=== PATIENT | male | born 1935 | race Caucasian/White ===

== ENCOUNTER → 2018-08-22 16:27 | Outpatient (CLI) | payer MEDICARE, SELFPAY ==
--- NOTE | 2018-08-22 | DI.RAD.S_ITS ---
PROCEDURE: XR KNEE LT 3V INDICATIONS: PAIN IN UNSPECIFIED KNEE TECHNIQUE: 3 views of the knee were acquired. COMPARISON: None. FINDINGS: Bones: No fractures or dislocations. No suspicious bony lesions. Patellofemoral osteophytes. Soft tissues: No joint effusion. No suspicious soft tissue calcifications. Diffuse arterial calcifications. IMPRESSION: No acute bony abnormality of the left knee. Patellofemoral degenerative change. Peripheral vascular disease. Dictated by: Vargas Vernon M.D. on 08/23/2018 at 9:43 Approved by: Vargas Vernon M.D. on 08/23/2018 at 9:44
--- NOTE | 2018-08-22 | DI.RAD.S_ITS ---
PROCEDURE: XR KNEE RT 3V INDICATIONS: PAIN IN UNSPECIFIED KNEE TECHNIQUE: 3 views of the knee were acquired. COMPARISON: None. FINDINGS: Bones: No fractures or dislocations. No suspicious bony lesions. Tricompartment osteophytes. Soft tissues: No joint effusion. Advanced peripheral vascular calcifications. 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 No acute bony abnormality. Peripheral vascular disease. Dictated by: Vargas Vernon M.D. on 08/23/2018 at 9:42 Approved by: Vargas Vernon M.D. on 08/23/2018 at 9:43
== END ==
PROVIDERS: Family Provider Internal Medicine; PCP Internal Medicine; Visit Provider Internal Medicine
DX: M25.561 Pain in right knee (principal); M25.562 Pain in left knee; M17.0 Bilateral primary osteoarthritis of knee; I73.9 Peripheral vascular disease, unspecified
CPT/HCPCS: 73562

== ENCOUNTER → 2018-12-19 10:01 | Outpatient (CLI) | payer MEDICARE, SELFPAY ==
--- NOTE | 2018-12-19 | DI.MRI.S_ITS ---
PROCEDURE: MR HEAD/BRAIN WO/W CON INDICATIONS: Unspecified dementia without behavioral disturbanc TECHNIQUE: Noncontrast axial T1 spin echo, axial T2 fast spin echo, sagittal and axial FLAIR, coronal T2 fast spin echo, axial gradient echo, axial diffusion and ADC through the brain. After the administration of contrast, axial and coronal T1 spin echo with fat saturation through the brain. COMPARISON: None. FINDINGS: Image quality: Excellent. CSF spaces: Basal cisterns are patent. No extra-axial fluid collections. Ventricles are normal in size and shape. Brain: No midline shift. No intracranial bleeds or masses. No abnormal intracranial enhancement. There is cerebral volume loss for age. There is periventricular white matter chronic small vessel ischemic change. The brainstem appears normal. Diffusion-weighted images demonstrate no acute ischemic insults. No chronic ischemic insults. Normal intravascular flow voids are present. Skull and face: Calvarial marrow is normal in signal. Orbits appear normal. Sinuses: Sinuses and mastoids appear clear. IMPRESSION: 1. No acute intracranial process. 2. Moderate atrophy and chronic microvascular ischemic changes. Dictated by: Destiny Hanson M.D. on 12/19/2018 at 11:59 Approved by: Destiny Hanson M.D. on 12/19/2018 at 12:01
== END ==
PROVIDERS: Family Provider Internal Medicine; PCP Internal Medicine; Visit Provider Internal Medicine
DX: F03.90 Unspecified dementia, unspecified severity, without behavioral disturbance, psychotic disturbance, mood disturbance, and anxiety (principal)
CPT/HCPCS: 70553; A9579

== ENCOUNTER → 2019-06-11 12:43 | Outpatient (CLI) | payer MEDICARE, SELFPAY ==
--- NOTE | 2019-06-11 | DI.RAD.S_ITS ---
PROCEDURE: XR LUMBAR SPINE 2-3V INDICATIONS: Low back pain TECHNIQUE: 3 views of the lumbar spine were acquired. COMPARISON: None. FINDINGS: Bones: No fracture or focal osseous destruction. Multilevel degenerative endplate sclerosis and spurring. Diffuse facet arthropathy. Trace anterolisthesis of L4 and L5. Diffuse mild-moderate lumbar disc space narrowing. Mild dextrocurvature. Sacroiliac joints grossly unremarkable. Soft tissues: Overlying bowel gas pattern is normal. No suspicious soft tissue calcifications. Numerous surgical clips projecting in the left abdomen. Scattered vascular calcifications seen in the aorta. IMPRESSION: Mild dextroscoliosis Diffuse mild-moderate lumbar spondylosis and facet arthropathy Dictated by: Rick Lunsford M.D. on 06/11/2019 at 15:58 Approved by: Rick Lnusford M.D. on 06/11/2019 at 16:01
== END ==
PROVIDERS: Family Provider Internal Medicine; PCP Internal Medicine; Visit Provider Internal Medicine
DX: M54.5 Low back pain (principal); M47.816 Spondylosis without myelopathy or radiculopathy, lumbar region; M41.9 Scoliosis, unspecified
CPT/HCPCS: 72100

== ENCOUNTER → 2019-07-06 19:24 | Outpatient (ROUT) | payer MEDICARE, SELFPAY ==
[2019-07-06 19:43] LABS: BUN Creatinine Ratio 16.4 (6-22); Blood Urea Nitrogen 23 mg/dL (9-20); Calcium 10.4 mg/dL (8.4-10.2); Carbon Dioxide 29 mmol/L (22-32); Chloride 103 mmol/L (98-107); Estimated Glomerular Filt Rate 48.5 mL/min (>60); Glucose 107 mg/dL (80-110); HEMOLYSIS < 15 (0-50); Potassium 4.6 mmol/L (3.4-5.1); Sodium 143 mmol/L (137-145)
== END ==
PROVIDERS: Family Provider Internal Medicine; PCP Internal Medicine; Visit Provider Internal Medicine
DX: E83.52 Hypercalcemia (principal)
CPT/HCPCS: 80048

== ENCOUNTER 2019-07-30 13:35 | Emergency (ER) | payer MEDICARE, SELFPAY ==
[2019-07-30 14:15] VITALS: BP 173/73; PULSE 52; RESP 15; O2SAT 96; BMI 26.4
[2019-07-30 14:57] LABS: INR 1.6 (0.9-1.3); Prothrombin Time 18.7 SECONDS (10.1-12.7)
[2019-07-30 15:00] LABS: PTT Partial Thromboplastin Tim 35 SECONDS (26.4-36.2)
[2019-07-30 15:04] LABS: Alanine Aminotransferase 27 IU/L (<50); Albumin 4.3 g/dL (3.5-5.0); Albumin Globulin Ratio 1.5 (1.0-2.8); Alkaline Phosphatase 79 U/L (38-126); Aspartate Aminotransferase 26 IU/L (17-59); Bilirubin Total 0.6 mg/dL (0.2-1.3); Blood Urea Nitrogen 33 mg/dL (9-20); Calcium 9.9 mg/dL (8.4-10.2); Carbon Dioxide 29 mmol/L (22-32); Chloride 105 mmol/L (98-107); Estimated Glomerular Filt Rate 44.7 mL/min (>60); Globulin 2.9 g/dL (1.7-4.1); Glucose 79 mg/dL (80-110); HEMOLYSIS < 15 (0-50); Potassium 5.2 mmol/L (3.4-5.1); Sodium 142 mmol/L (137-145); Total Protein 7.2 g/dL (6.3-8.2)
[2019-07-30 15:09] LABS: Add Manual Diff / Slide Review NO; Basophils Absolute Auto 0 /uL (0-100); Basophils Percent Auto 0.5 % (0-2); Eosinophils Absolute Auto 100 /uL (0-450); Eosinophils Percent Auto 1.7 % (2-4); Hematocrit 37.4 % (41-53); Hemoglobin 12.5 g/dL (13.5-17.5); Lymphocytes Absolute Auto 1200 /uL (1100-4500); Lymphocytes Percent Auto 17.7 % (25-40); Mean Corpuscular HGB Conc 33.6 % (30-36); Mean Corpuscular Hemoglobin 32.3 PG (26-34); Mean Corpuscular Volume 96.1 fL (80-100); Monocytes Absolute Auto 600 /uL (0-900); Monocytes Percent Auto 9.4 % (3-14); Neutrophils Absolute Auto 4700 /uL (1500-7000); Neutrophils Percent Auto 70.7 % (50-75); Platelet Count 142 X10^3/uL (150-400); Red Blood Cell Count 3.89 X10^6/uL (4.5-5.9); Red Cell Distribution Width 16.7 % (11.6-14.8); White Blood Cell Count 6.7 X10^3/uL (4.5-11.0)
--- NOTE | 2019-07-30 15:17 | DI.US.S_ITS ---
PROCEDURE: US PERIPH VENOUS UP EXTREM RT INDICATIONS: ON XERALTO, LARGE AMOUNT OF ECHYMOSIS TECHNIQUE: Real-time imaging, as well as color and pulse Doppler interrogation, was performed of the right upper extremity deep veins from the inferior neck to the antecubital fossa. COMPARISON: None. FINDINGS: The internal jugular vein, visualized portions of the subclavian vein, axillary, and brachial veins are free of intraluminal thrombus. Where physically possible, the veins are normally compressible. Color and pulse Doppler demonstrate normal intraluminal flow, with expected phasicity and pulsatility. Additional scanning of the cephalic and basilic veins of the superficial system demonstrate normal compressibility, without thrombus. IMPRESSION: No evidence of deep venous thrombosis. Dictated by: Rick Lunsford M.D. on 07/30/2019 at 16:08 Approved by: Rick Lunsford M.D. on 07/30/2019 at 16:08
--- NOTE | 2019-07-30 16:52 | DI.RAD.S_ITS ---
PROCEDURE: XR ELBOW RT MIN 3V INDICATIONS: pain and bruising no trauma TECHNIQUE: 3 views of the elbow were acquired. COMPARISON: None. FINDINGS: Bones: No fractures or dislocations. No suspicious bony lesions. Soft tissues: No elbow joint effusion. No suspicious soft tissue calcifications. Curvilinear soft tissue thickening seen dorsal to the distal humerus, but no visible joint effusion seen. IMPRESSION: Soft tissue thickening dorsal to the distal humerus may be a soft tissue hematoma. No evidence of underlying fracture. Dictated by: Kacie Pratt M.D. on 07/30/2019 at 17:59 Approved by: Kacie Pratt M.D. on 07/30/2019 at 18:01
[2019-07-30 18:25] VITALS: BP 167/71; PULSE 59; RESP 16; O2SAT 97
--- NOTE | 2019-07-30 21:09 | ED.UPPEXIN ---
HPI - Extremity Injury (Upper) <Tabby Melgar, MEN'S SWIM COACH-BC - Last Filed: 07/30/19 21:28> General Chief Complaint: Extremity Injury, Upper Stated Complaint: Possible Right Arm Sprain Time Seen by Provider: 07/30/19 16:03 Source: patient Mode of arrival: Ambulatory Limitations: no limitations History of Present Illness HPI narrative: The patient is an 84-year-old male nonsmoker with history of atrial fibrillation on blood thinners who presents with a chief complaint of right arm pain for the past 2 weeks. He states that after rubbing lidocaine and Aspercreme cream on it he developed discoloration of his arm. He denies any falls or trauma, states that he might have been scratching his back at night. He states he has had pain for 2 weeks. No ice has been applied recently, no elevation has been done recently. is very concerned about an possible elbow fracture, though the patient declined denies any trauma. He is on blood thinners related to atrial fibrillation. Denies any fevers nausea vomiting diarrhea chest pain or shortness of breath. they state that the arm discoloration has been there for approximately 2 weeks. They have not followed up with primary care provider yet. Related Data Home Medications Medication Instructions Recorded Confirmed coenzyme Q10 [Co Q-10] 300 mg PO DAILY #0 08/14/17 05/03/18 hydrocodone-acetaminophen [[place]] 1 tab PO Q6H PRN #0 08/14/17 05/08/18 metronidazole [MetroCream] 1 bassam TOPICAL BID #0 08/14/17 05/03/18 triamcinolone acetonide [Triderm] 1 bassam TOPICAL BID #0 08/14/17 05/03/18 aspirin 81 mg tablet,delayed 81 mg PO DAILY 03/30/18 05/03/18 release aspirin 325 mg PO DAILY 05/03/18 05/03/18 atorvastatin [Lipitor] 20 mg PO DAILY 05/03/18 05/03/18 cholecalciferol (vitamin D3) 1,000 unit PO DAILY 05/03/18 05/03/18 [Vitamin D3] furosemide [Lasix] 20 mg PO BID 05/03/18 07/30/19 lisinopril 5 mg PO DAILY 05/03/18 07/30/19 sulfamethoxazole-trimethoprim 1 tab PO BID 05/03/18 05/03/18 [Bactrim DS] acetaminophen-codeine 2 tab PO BID PRN 07/30/19 07/30/19 amiodarone 200 mg PO BID 07/30/19 07/30/19 levothyroxine 50 mcg PO QAM 07/30/19 07/30/19 rivaroxaban [Xarelto] 15 mg PO QPM 07/30/19 07/30/19 Previous Rx's Medication Instructions Recorded carvedilol [Coreg] 6.25 mg PO BID #60 tab 08/14/17 Allergies Allergy/AdvReac Type Severity Reaction Status Date / Time clindamycin AdvReac Unknown Diarrhea Verified 07/30/19 14:23 duloxetine [From Cymbalta] AdvReac Unknown Spasms/Head Verified 07/30/19 14:23 aches gabapentin AdvReac Unknown Insomnia Verified 07/30/19 14:23 gemfibrozil AdvReac Unknown Elevated Verified 07/30/19 14:23 LFTs omeprazole AdvReac Unknown Diarrhea, Verified 07/30/19 14:23 myalgia tizanidine AdvReac Unknown Gastrointestinal Verified 07/30/19 14:23 Upset No Known Allergies Allergy Uncoded 07/30/19 14:23 Review of Systems <JESUSITA Milner - Last Filed: 07/30/19 21:28> Review of Systems Narrative: GENERAL: Denies chills, fatigue, malaise, fever, sweats. HEENT: Denies sinus pain, ear pain, sore throat, difficulty swallowing, dizziness. RESPIRATORY: Denies dyspnea, cough, wheezing, hemoptysis, sputum. CARDIOVASCULAR: Denies chest pain, palpitations, orthopnea, edema, GASTROINTESTINAL: Denies nausea, vomiting, abdominal pain, diarrhea, constipation, melena. : Denies dysuria, frequency, incontinence, hematuria, urinary retention. MUSCULOSKELETAL: see HPI SKIN: see HPI NEUROLOGIC: Denies weakness, headache, numbness, change in speech, confusion, seizures, incoordination. PSYCHIATRIC: No concerning psychosocial issues. 12 point review of systems is negative except for those stated above Patient History <JESUSITA Milner - Last Filed: 07/30/19 21:28> Medical History (Updated 08/14/19 @ 00:00 by ) Adrenal nodule (Acute) Benign schwannoma (Acute) Carpal tunnel syndrome on right (Acute) Chronic pain disorder (Acute) Colon polyp (Acute) Degenerative disc disease (Acute) Depression (Acute) Dysphagia (Acute) Elevated cholesterol with elevated triglycerides (Chronic) Esophageal reflux (Acute) Essential hypertension (Chronic) Fatty liver (Acute) Hyperlipidemia (Acute) Hypertension (Acute) Infected sebaceous cyst (Acute) Kidney stone (Acute ~2000) Liver hemangioma (Acute) Osteoarthritis (Acute) RBBB (Acute) Rotator cuff syndrome (Acute) Severe aortic stenosis (Acute) Sleep apnea (Acute) Sliding hiatal hernia (Acute) Spinal stenosis (Acute) Zenkers diverticulum (Acute) Surgical History (Updated 05/03/18 @ 10:15 by Carolina Alanis RN) H/O aortic valve replacement (Acute) H/O hemorrhoidectomy (Acute ~1984) H/O left inguinal hernia repair (Acute ~1995) H/O partial nephrectomy (Acute ~2009) H/O right inguinal hernia repair (Acute ~2010) History of colonoscopy (Acute) History of thoracotomy (Acute) History of tonsillectomy (Acute ~1945) S/P TAVR (transcatheter aortic valve replacement) (Acute ~10/2017) Social History marital status: household members: spouse occupational status: employed Smoking Status: Never smoker alcohol intake: never substance use type: marijuana Smoking Status: Never smoker alcohol intake frequency: 0-2 drinks per day Substance Use Type: marijuana Exam <Tabby Melgar [employer]S SWIM COACH-BC - Last Filed: 07/30/19 21:28> Narrative Exam Narrative: GENERAL: This is a well-nourished, well-developed patient, in No acute distress HEAD: Atraumatic. Normocephalic. No temporal or scalp tenderness. EYES: Pupils equal round and reactive. Extraocular motions intact. No scleral icterus. No injection or drainage. ENT: Nose without bleeding, purulent drainage or septal hematoma. Throat without erythema, tonsillar hypertrophy or exudate. Uvula midline. Airway patent. NECK: Trachea midline. No JVD or lymphadenopathy. Supple, nontender, no meningeal signs. CARDIOVASCULAR: Regular rate and irregular rhythm RESPIRATORY: Clear to auscultation. Breath sounds equal bilaterally. No wheezes, rales, or rhonchi. No cough. No increased respiratory effort. No accessory muscle use. GASTROINTESTINAL: Abdomen soft, non-tender, nondistended. No hepato-splenomegaly, or palpable masses. No guarding. EXTREMITIES: see skin exam. Full range of motion noted bilateral elbows and shoulders. Positive radial pulses bilaterally. Good maternal child nurse strength equal bilaterally. Able to pronate supinate bilateral forearms. BACK: Nontender without deformity or crepitance. No flank tenderness. NEURO: AOx3. SKIN: Extensive ecchymosis noted over right arm, ranging from mid humerus area down to wrist. Appears very dark purple, yellow. No lacerations abrasions noted. Initial Vital Signs Initial Vital Signs: Vital Signs Pulse Rate 52 L 07/30/19 14:15 Respiratory Rate 15 07/30/19 14:15 Blood Pressure 173/73 H 07/30/19 14:15 Pulse Oximetry 96 07/30/19 14:15 <Kevin Storey MD - Last Filed: 08/23/19 07:53> Initial Vital Signs Initial Vital Signs: Vital Signs Pulse Rate 52 L 07/30/19 14:15 Respiratory Rate 15 07/30/19 14:15 Blood Pressure 173/73 H 07/30/19 14:15 Pulse Oximetry 96 07/30/19 14:15 Course <JESUSITA Milner - Last Filed: 07/30/19 21:28> Orders Ordered: ED Orders 07/30/19 14:42 CMP [Comprehensive Metabolic Panel] Stat Complete Blood Count AUTO DIFF Stat Partial Thromboplastin Time Stat Prothrombin Time INR Stat 07/30/19 15:17 US periph venous up extrem rt Stat 07/30/19 16:52 XR elbow RT min 3V Stat Vital Signs Vital signs: Vital Signs - 8 hr 07/30/19 14:15 07/30/19 18:25 Pulse Rate 52 L 59 L Respiratory Rate 15 16 Blood Pressure 173/73 H 167/71 H Pulse Oximetry 96 97 <Kevin Storey MD - Last Filed: 08/23/19 07:53> Orders Ordered: ED Orders 07/30/19 14:42 CMP [Comprehensive Metabolic Panel] Stat Complete Blood Count AUTO DIFF Stat Partial Thromboplastin Time Stat Prothrombin Time INR Stat 07/30/19 15:17 US periph venous up extrem rt Stat 07/30/19 16:52 XR elbow RT min 3V Stat Vital Signs Vital signs: Vital Signs - 8 hr 07/30/19 14:15 07/30/19 18:25 Pulse Rate 52 L 59 L Respiratory Rate 15 16 Blood Pressure 173/73 H 167/71 H Pulse Oximetry 96 97 MDM - Extremity Injury (Upper) <Tabby Melgar, M[employer]'S SWIM COACH-BC - Last Filed: 07/30/19 21:28> Lab Data Result diagrams: 07/30/19 14:42 07/30/19 14:42 Labs: Lab Results 07/30/19 07/30/19 07/30/19 Range/Units 14:42 14:42 14:42 WBC 6.7 (4.5-11.0) X10^3/uL RBC 3.89 L (4.5-5.9) X10^6/uL Hgb 12.5 L (13.5-17.5) g/dL Hct 37.4 L (41-53) % MCV 96.1 (80-100) fL MCH 32.3 (26-34) PG MCHC 33.6 (30-36) % RDW 16.7 H (11.6-14.8) % Plt Count 142 L (150-400) X10^3/uL Neut % (Auto) 70.7 (50-75) % Lymph % (Auto) 17.7 L (25-40) % Lamb % (Auto) 9.4 (3-14) % Eos % (Auto) 1.7 L (2-4) % Baso % (Auto) 0.5 (0-2) % Neut # (Auto) 4700 (3108-0211) /uL Lymph # (Auto) 1200 (2437-5326) /uL Lamb # (Auto) 600 (0-900) /uL Eos # (Auto) 100 (0-450) /uL Baso # (Auto) 0 (0-100) /uL PT 18.7 H (10.1-12.7) SECONDS INR 1.6 H (0.9-1.3) APTT 35 (26.4-36.2) SECONDS Sodium 142 (137-145) mmol/L Potassium 5.2 H (3.4-5.1) mmol/L Chloride 105 (98-107) mmol/L Carbon Dioxide 29 (22-32) mmol/L BUN 33 H (9-20) mg/dL Creatinine 1.50 H (0.66-1.25) mg/dL Estimated GFR 44.7 L (>60) mL/min BUN/Creatinine Ratio 22.0 (6-22) Glucose 79 L (80-110) mg/dL Calcium 9.9 (8.4-10.2) mg/dL Total Bilirubin 0.6 (0.2-1.3) mg/dL AST 26 (17-59) IU/L ALT 27 (<50) IU/L Alkaline Phosphatase 79 (38-126) U/L Total Protein 7.2 (6.3-8.2) g/dL Albumin 4.3 (3.5-5.0) g/dL Globulin 2.9 (1.7-4.1) g/dL Albumin/Globulin Ratio 1.5 (1.0-2.8) Imaging Data Extremity x-ray #1: Radiologist's Impression: [address] [place] [id number] XRay Report Signed Patient: Saulo Russ [facility]#: [id number] : 7Acct:[id number] Age/Sex: 84 / MDate of Service: 07/30/19 Loc: ED Accession Number: [id number] Procedure: XR elbow RT min 3V Ordering Provider: Tabby Melgar PROCEDURE: XR ELBOW RT MIN 3V INDICATIONS: pain and bruising no trauma TECHNIQUE: 3 views of the elbow were acquired. COMPARISON: None. FINDINGS: Bones: No fractures or dislocations. No suspicious bony lesions. Soft tissues: No elbow joint effusion. No suspicious soft tissue calcifications. Curvilinear soft tissue thickening seen dorsal to the distal humerus, but no visible joint effusion seen. IMPRESSION: Soft tissue thickening dorsal to the distal humerus may be a soft tissue hematoma. No evidence of underlying fracture. Dictated by: Kacie Pratt M.D. on 07/30/2019 at 17:59 Approved by: Kacie Pratt M.D. on 07/30/2019 at 18:01 US - DVT: Radiologist's Impression: [address] [place] [id number] Ultrasound Report Signed Patient: Saulo Russ [facility]#: [id number] : 7Acct:[id number] Age/Sex: 84 / MDate of Service: 07/30/19 Loc: ED Accession Number: [id number] Procedure: perip venous up extrem rt Ordering Provider: Kevin Storey MD PROCEDURE: [facility] VENOUS UP EXTREM RT INDICATIONS: ON XERALTO, LARGE AMOUNT OF ECHYMOSIS TECHNIQUE: Real-time imaging, as well as color and pulse Doppler interrogation, was performed of the right upper extremity deep veins from the inferior neck to the antecubital fossa. COMPARISON: None. FINDINGS: The internal jugular vein, visualized portions of the subclavian vein, axillary, and brachial veins are free of intraluminal thrombus. Where physically possible, the veins are normally compressible. Color and pulse Doppler demonstrate normal intraluminal flow, with expected phasicity and pulsatility. Additional scanning of the cephalic and basilic veins of the superficial system demonstrate normal compressibility, without thrombus. IMPRESSION: No evidence of deep venous thrombosis. Dictated by: Rick Lunsford M.D. on 07/30/2019 at 16:08 Approved by: Rick Lunsford M.D. on 07/30/2019 at 16:08 [facility] Narrative Medical decision making narrative: The patient is an 84-year-old male who presents with his for chief complaint of continued right arm pain and bruising for the past 2 weeks. ultrasound for DVT came back negative, x-ray had no acute findings. Lab work is grossly within normal limits. Discussed at length continued conservative measures. I wonder if the patient developed bruising and has been draining over the past few weeks. Encourage PCP follow-up in the next few days. Discussed come back to emergency department for any acute concerns. Patient has no questions or concerns upon discharge and states understanding of return precautions of any acute concerns as well as follow-up care. <Kevin Storey MD - Last Filed: 08/23/19 07:53> Lab Data Labs: Lab Results 07/30/19 07/30/19 07/30/19 Range/Units 14:42 14:42 14:42 WBC 6.7 (4.5-11.0) X10^3/uL RBC 3.89 L (4.5-5.9) X10^6/uL Hgb 12.5 L (13.5-17.5) g/dL Hct 37.4 L (41-53) % MCV 96.1 (80-100) fL MCH 32.3 (26-34) PG MCHC 33.6 (30-36) % RDW 16.7 H (11.6-14.8) % Plt Count 142 L (150-400) X10^3/uL Neut % (Auto) 70.7 (50-75) % Lymph % (Auto) 17.7 L (25-40) % Lamb % (Auto) 9.4 (3-14) % Eos % (Auto) 1.7 L (2-4) % Baso % (Auto) 0.5 (0-2) % Neut # (Auto) 4700 (5765-8777) /uL Lymph # (Auto) 1200 (3134-9824) /uL Lamb # (Auto) 600 (0-900) /uL Eos # (Auto) 100 (0-450) /uL Baso # (Auto) 0 (0-100) /uL PT 18.7 H (10.1-12.7) SECONDS INR 1.6 H (0.9-1.3) APTT 35 (26.4-36.2) SECONDS Sodium 142 (137-145) mmol/L Potassium 5.2 H (3.4-5.1) mmol/L Chloride 105 (98-107) mmol/L Carbon Dioxide 29 (22-32) mmol/L BUN 33 H (9-20) mg/dL Creatinine 1.50 H (0.66-1.25) mg/dL Estimated GFR 44.7 L (>60) mL/min BUN/Creatinine Ratio 22.0 (6-22) Glucose 79 L (80-110) mg/dL Calcium 9.9 (8.4-10.2) mg/dL Total Bilirubin 0.6 (0.2-1.3) mg/dL AST 26 (17-59) IU/L ALT 27 (<50) IU/L Alkaline Phosphatase 79 (38-126) U/L Total Protein 7.2 (6.3-8.2) g/dL Albumin 4.3 (3.5-5.0) g/dL Globulin 2.9 (1.7-4.1) g/dL Albumin/Globulin Ratio 1.5 (1.0-2.8) Discharge Plan Departure Patient Disposition: Home Clinical Impression: Elbow pain, Ecchymosis Discharge Date/Time: 02/17/20 18:25 Instructions: Easy Bruising (Alternative Therapy), DI for Hematoma (Bruise), How To Perform RICE (Rest, Ice, Compress, Elevate), DI for Elbow Pain Activity Restrictions/Additional Instructions: Your ultrasound today shows no evidence of blood clots As I discussed, your x-ray shows no acute fracture. This does not rule out a soft tissue injury such as a ligament or tendon injury. It is important that you follow up with primary care provider, especially if worsening or no improvement. There can be fractures that did not show up on initial x-ray. please use rest ice compression elevation as well as [id number] medications as needed and able for pain please follow-up with primary care provider in the next few days. Please come back to the emergency department for any acute concerns Prescriptions: No Action metronidazole [MetroCream] 0.75 % cream 1 bassam Topical BID Qty: 0 RF: 0 coenzyme Q10 [Co Q-10] 100 MG capsule 300 mg PO DAILY Qty: 0 RF: 0 hydrocodone-acetaminophen [[place]] 5 MG/325 MG tablet 1 tab PO Q6H PRN (Reason: Pain) Qty: 0 RF: 0 triamcinolone acetonide [Triderm] 0.1 % cream 1 abssam Topical BID Qty: 0 RF: 0 carvedilol [Coreg] 6.25 MG tablet 6.25 mg PO BID Qty: 60 RF: 0 aspirin [Adult Aspirin Regimen] 81 mg tablet,delayed release (DR/EC) 81 mg PO DAILY RF: 0 sulfamethoxazole-trimethoprim [Bactrim DS] 800-160 mg Tablet 1 tab PO BID RF: 0 lisinopril 5 mg Tablet 5 mg PO DAILY RF: 0 cholecalciferol (vitamin D3) [Vitamin D3] 1,000 unit Capsule 1,000 unit PO DAILY RF: 0 atorvastatin [Lipitor] 20 MG tablet 20 mg PO DAILY RF: 0 aspirin 325 MG tablet,delayed release (DR/EC) 325 mg PO DAILY RF: 0 furosemide [Lasix] 20 MG tablet 20 mg PO BID RF: 0 amiodarone 200 mg tablet 200 mg PO BID RF: 0 acetaminophen-codeine 300-30 mg tablet 2 tab PO BID PRN (Reason: pain) RF: 0 levothyroxine 50 mcg tablet 50 mcg PO QAM RF: 0 Xarelto 15 mg tablet 15 mg PO QPM RF: 0 Referrals: Corrine Ghosh MD [Primary Care Provider] -
== END 2019-07-30 18:25 | disposition home or self-care (01) ==
PROVIDERS: Emergency Medicine; Emergency Provider Nurse Practitioner Family; Family Provider Internal Medicine; PCP Internal Medicine
DX: M25.521 Pain in right elbow (principal); S40.021A Contusion of right upper arm, initial encounter; S50.11XA Contusion of right forearm, initial encounter; Z79.01 Long term (current) use of anticoagulants
CPT/HCPCS: 36415; 73080; 80053; 85025; 85610; 85730; 93971; 99283; 99284

== ENCOUNTER 2019-09-09 17:41 | Inpatient (IN) | payer MEDICARE, SELFPAY ==
[2019-09-09 17:55] VITALS: BP 202/85; PULSE 70; RESP 27; TEMP 37.8; O2SAT 95; BMI 28.0
--- NOTE | 2019-09-09 18:09 | ED_ITS ---
HPI - Extremity Injury (Lower) General Chief Complaint: Extremity Injury, Lower Stated Complaint: Chills/Fever/Fatigue/ Pain in LT ankle Time Seen by Provider: 09/09/19 18:02 Source: patient and family Mode of arrival: Wheelchair Limitations: no limitations History of Present Illness HPI Narrative: 84M non smoker with extensive medical history including TAVR, Afib on xarelto, lung CA, renal cell carcinoma and recent bronchoscopy at presents with his for evaluation of generalized weakness worsening over the past day or 2, so the point that he needs significant assistance getting around, which is abnormal for him. He has been fatigued with some shortness of breath and complains pain, swelling and redness in his left lower extremity. He denies any injury. He has had no fever or chills. He denies nausea, vomiting or diarrhea. MD complaint: other Other symptoms: SOB Related Data Home Medications Medication Instructions Recorded Confirmed coenzyme Q10 [Co Q-10] 300 mg PO DAILY #0 08/14/17 09/09/19 hydrocodone-acetaminophen [Diamond] 1 tab PO Q6H PRN #0 08/14/17 05/08/18 metronidazole [MetroCream] 1 bassam TOPICAL BID PRN #0 08/14/17 09/09/19 triamcinolone acetonide [Triderm] 1 bassam TOPICAL BID #0 08/14/17 05/03/18 aspirin 81 mg tablet,delayed 81 mg PO DAILY 03/30/18 09/09/19 release aspirin 325 mg PO DAILY 05/03/18 05/03/18 atorvastatin [Lipitor] 10 mg PO DAILY 05/03/18 09/09/19 cholecalciferol (vitamin D3) 1,000 unit PO DAILY 05/03/18 05/03/18 [Vitamin D3] furosemide [Lasix] 20 mg PO BID 05/03/18 09/09/19 lisinopril 5 mg PO QPM 05/03/18 09/09/19 sulfamethoxazole-trimethoprim 1 tab PO BID 05/03/18 05/03/18 [Bactrim DS] acetaminophen-codeine 2 tab PO BID PRN 07/30/19 09/09/19 amiodarone 200 mg PO ONCE PM 07/30/19 09/09/19 levothyroxine 50 mcg PO QAM 07/30/19 09/09/19 rivaroxaban [Xarelto] 15 mg PO QPM 07/30/19 09/09/19 B-complex with vitamin C [Super B 1 tab PO DAILY 09/09/19 09/09/19 Complex-Vitamin C] Tumeric 2,000 mg PO QAM 09/09/19 09/09/19 acetaminophen 500 mg PO PRN PRN MDD 4000 09/09/19 09/09/19 doxylamine succinate [Nighttime 25 mg PO BEDTIME PRN 09/09/19 09/09/19 Sleep-Aid (doxylamn)] ketoconazole 1 applic TOPICAL PRN PRN 09/09/19 09/09/19 Previous Rx's Medication Instructions Recorded carvedilol [Coreg] 6.25 mg PO BID #60 tab 08/14/17 Allergies Allergy/AdvReac Type Severity Reaction Status Date / Time clindamycin AdvReac Unknown Diarrhea Verified 07/30/19 14:23 duloxetine [From Cymbalta] AdvReac Unknown Spasms/Head Verified 07/30/19 14:23 aches gabapentin AdvReac Unknown Insomnia Verified 07/30/19 14:23 gemfibrozil AdvReac Unknown Elevated Verified 07/30/19 14:23 LFTs omeprazole AdvReac Unknown Diarrhea, Verified 07/30/19 14:23 myalgia tizanidine AdvReac Unknown Gastrointestinal Verified 07/30/19 14:23 Upset No Known Allergies Allergy Uncoded 07/30/19 14:23 Review of Systems Constitutional Constitutional: Denies chills, Reports fatigue, Denies fever(s), Denies frequent falls, Denies lethargy and Reports weakness Eyes Eyes: Denies change in vision, Denies eye discharge, Denies irritation and Denies loss of vision ENT Ears, Nose, Mouth, and Throat: Denies change in voice, Denies dizziness, Denies neck pain, Denies sore throat and Denies throat swelling Cardiovascular Cardiovascular: Denies chest pain, Denies irregular heart rhythm, Denies lightheadedness, Denies palpitations, Reports dyspnea, Denies dyspnea on exertion and Denies orthopnea Respiratory Respiratory: Denies cough, Reports dyspnea, Denies dyspnea on exertion and Denies wheezing Gastrointestinal Gastrointestinal: Denies abdominal pain, Denies change in bowel habits, Denies diarrhea, Denies nausea and Denies vomiting Genitourinary Genitourinary: Denies hematuria, Denies flank pain, Denies urinary incontinence and Denies urinary urgency Musculoskeletal Musculoskeletal: Denies back pain, Denies muscle weakness, Denies neck pain, Denies numbness and Denies tingling Integumentary/Breasts Skin/Breast: Denies pruritus, Reports erythema, Denies rash, Reports skin pain and Denies wounds Neurologic Neurologic: Denies behavioral changes, Denies confusion, Denies dizziness, Denies frequent falls, Denies loss of vision, Denies numbness, Denies tingling and Reports weakness Psychiatric Psychiatric: Denies anxiety, Denies behavioral changes, Denies confusion, Denies depression, Denies homicidal ideation and Denies suicidal ideation Endocrine Endocrine: Reports fatigue, Denies flushing and Denies palpitations Hematologic/Lymphatic Hematologic/Lymphatic: Denies easy bruising Allergic/Immunologic Allergic/Immunologic: Denies urticaria, Denies throat swelling and Denies wheezing Patient History Medical History Adrenal nodule (Acute) Benign schwannoma (Acute) Carpal tunnel syndrome on right (Acute) Chronic pain disorder (Acute) Colon polyp (Acute) Degenerative disc disease (Acute) Depression (Acute) Dysphagia (Acute) Elevated cholesterol with elevated triglycerides (Chronic) Esophageal reflux (Acute) Essential hypertension (Chronic) Fatty liver (Acute) Hyperlipidemia (Acute) Hypertension (Acute) Infected sebaceous cyst (Acute) Kidney stone (Acute ~2000) Liver hemangioma (Acute) Osteoarthritis (Acute) RBBB (Acute) Rotator cuff syndrome (Acute) Severe aortic stenosis (Acute) Sleep apnea (Acute) Sliding hiatal hernia (Acute) Spinal stenosis (Acute) Zenkers diverticulum (Acute) Surgical History H/O aortic valve replacement (Acute) H/O hemorrhoidectomy (Acute ~1984) H/O left inguinal hernia repair (Acute ~1995) H/O partial nephrectomy (Acute ~2009) H/O right inguinal hernia repair (Acute ~2010) History of colonoscopy (Acute) History of thoracotomy (Acute) History of tonsillectomy (Acute ~194) S/P TAVR (transcatheter aortic valve replacement) (Acute ~10/2017) Family History Mother Heart disease Mother Alcohol abuse Social History marital status: household members: spouse occupational status: employed Smoking Status: Never smoker alcohol intake: never substance use type: marijuana Smoking Status: Never smoker alcohol intake frequency: 0-2 drinks per day Substance Use Type: marijuana Exam Narrative Exam Narrative: GENERAL: [84] year old patient appears stated age. Well- nourished, well-developed patient, in mild distress. Pleasantly confused (GCS 14, slight departure from baseline per ) HEAD: Atraumatic. Normocephalic. EYES: Pupils equal round and reactive. Extraocular motions intact. No scleral icterus. No injection or drainage. ENT: Dry mucous membranes. Nose without bleeding, purulent drainage. Throat without erythema, tonsillar hypertrophy or exudate. Airway patent. NECK: Trachea midline. Non tender CARDIOVASCULAR: Regular rate and rhythm without murmurs, gallops, or rubs. RESPIRATORY: Clear to auscultation. Breath sounds equal bilaterally. No wheezes, rales, or rhonchi. GASTROINTESTINAL: Abdomen soft, non-tender, nondistended. EXTREMITIES: No edema or joint tenderness. BACK: Nontender without deformity or crepitance. No flank tenderness. NEURO: AOx3. SKIN: Left lower leg erythema, swelling, warmth and tenderness. No obvious break in the skin, induration or fluctuation. No rash or erythema of visible areas Initial Vital Signs Initial Vital Signs: Vital Signs Temperature 100.1 F H 09/09/19 17:55 Pulse Rate 70 09/09/19 17:55 Respiratory Rate 27 H 09/09/19 17:55 Blood Pressure 202/85 H 09/09/19 17:55 Pulse Oximetry 95 09/09/19 17:55 Course Orders Ordered: ED Orders 09/09/19 20:23 CT chest wo con Stat Acetaminophen (Tylenol) 650 mg PO Q6HR PRN PRN Reason: Fever Acetaminophen (Tylenol) 975 mg PO Q6HR PRN PRN Reason: Fever/Mild Pain (1-3) Last Admin: 09/10/19 00:45 Dose: 975 mg Documented by: SERGO Amiodarone HCl (Cordarone) 200 mg PO QPM ENDY Aspirin (Aspirin Ec) 81 mg PO DAILY ENDY Atorvastatin Calcium (Lipitor) 10 mg PO BEDTIME [facility] Furosemide (Lasix) 20 mg PO BID [facility] Vancomycin HCl/Dextrose (Vancomycin) 1,500 mg in 300 mls @ 200 mls/hr IV Q12H [facility] Levothyroxine Sodium (Synthroid) 50 mcg PO QACBREAK [facility] Lisinopril (Zestril) 5 mg PO QPM [facility] Naloxone HCl (Narcan) 0.2 mg IV Q2MIN PRN PRN Reason: Opiate Reversal Ondansetron HCl (Zofran) 4 mg IV Q8HR PRN PRN Reason: Nausea And Vomiting Oxycodone HCl (Percolone) 5 mg PO Q4HR PRN PRN Reason: Pain, Moderate (4-6) Last Admin: 09/10/19 04:58 Dose: 5 mg Documented by: SERGO Oxycodone HCl (Percolone) 10 mg PO Q4HR PRN PRN Reason: Pain, Severe (7-10) Rivaroxaban (Xarelto) 15 mg PO QPM [facility] Discontinued Medications Sodium Chloride (Normal Saline 0.9%) 1,000 mls @ 125 mls/hr IV CONT [facility] Stop: 09/09/19 23:58 Last Infusion: 09/10/19 00:00 Dose: 0 mls/hr Documented by: Admin: 09/09/19 18:48 Dose: 125 mls/hr Documented by: DEVENDRA Vancomycin HCl/Dextrose (Vancomycin) 1,500 mg in 300 mls @ 200 mls/hr IV NOW ONE Stop: 09/09/19 20:01 Last Infusion: 09/09/19 23:37 Dose: 0 mls/hr Documented by: Admin: 09/09/19 18:48 Dose: 200 mls/hr Documented by: DEVENDRA Vancomycin HCl (Vancomycin Per Pharmacy) 1 [facility] Stop: 09/10/19 00:08 Vital Signs Vital signs: Vital Signs - 8 hr 09/09/19 21:25 Temperature 99.4 F MDM - Extremity Injury (Lower) Lab Data Result diagrams: 09/09/19 18:15 09/09/19 18:15 Labs: Lab Results 09/09/19 09/09/19 09/09/19 Range/Units 18:15 18:15 18:15 WBC (4.5-11.0) X10^3/uL RBC (4.5-5.9) X10^6/uL Hgb (13.5-17.5) g/dL Hct (41-53) % MCV (80-100) fL MCH (26-34) PG MCHC (30-36) % RDW (11.6-14.8) % Plt Count (150-400) X10^3/uL Neut % (Auto) (50-75) % Lymph % (Auto) (25-40) % [place] % (Auto) (3-14) % Eos % (Auto) (2-4) % Baso % (Auto) (0-2) % Neut # (Auto) (0102-8042) /uL Lymph # (Auto) (3686-9594) /uL [place] # (Auto) (0-900) /uL Eos # (Auto) (0-450) /uL Baso # (Auto) (0-100) /uL PT (10.1-12.7) SECONDS INR (0.9-1.3) APTT (26.4-36.2) SECONDS Sodium 138 (137-145) mmol/L Potassium 4.3 (3.4-5.1) mmol/L Chloride 103 (98-107) mmol/L Carbon Dioxide 27 (22-32) mmol/L BUN 25 H (9-20) mg/dL Creatinine 1.36 H (0.66-1.25) mg/dL Estimated GFR 50.0 L (>60) mL/min BUN/Creatinine Ratio 18.4 (6-22) Glucose 132 H (80-110) mg/dL Lactate 2.1 (0.7-2.1) mmol/L Calcium 10.3 H (8.4-10.2) mg/dL Magnesium 2.2 (1.6-2.3) mg/dL Ferritin (18-464) ng/mL Total Bilirubin 1.3 (0.2-1.3) mg/dL AST 22 (17-59) IU/L ALT 21 (<50) IU/L Alkaline Phosphatase 79 (38-126) U/L Total Creatine Kinase 60 (55-170) U/L CK-MB (CK-2) TNP CK-MB (CK-2) Rel Index TNP Troponin I 0.051 H (0.01-0.034) ng/mL C-Reactive Protein 4.4 H (<1.0) mg/dL NT-Pro-B Natriuret Pep 3830 H (<450) pg/mL Total Protein 7.7 (6.3-8.2) g/dL Albumin 4.5 (3.5-5.0) g/dL Globulin 3.2 (1.7-4.1) g/dL Albumin/Globulin Ratio 1.4 (1.0-2.8) Procalcitonin 0.09 (<0.5) ng/mL Influenza A (RT-PCR) (NEGATIVE) Influenza B (RT-PCR) (NEGATIVE) 09/09/19 09/09/19 09/09/19 Range/Units 18:15 18:15 18:15 WBC 20.6 H (4.5-11.0) X10^3/uL RBC 4.24 L (4.5-5.9) X10^6/uL Hgb 13.1 L (13.5-17.5) g/dL Hct 40.7 L (41-53) % MCV 95.9 (80-100) fL MCH 30.8 (26-34) PG MCHC 32.2 (30-36) % RDW 16.2 H (11.6-14.8) % Plt Count 142 L (150-400) X10^3/uL Neut % (Auto) 88.7 H (50-75) % Lymph % (Auto) 2.4 L (25-40) % [place] % (Auto) 8.8 (3-14) % Eos % (Auto) 0.0 L (2-4) % Baso % (Auto) 0.1 (0-2) % Neut # (Auto) 59049 H (7093-3142) /uL Lymph # (Auto) 500 L (5538-9974) /uL [place] # (Auto) 1800 H (0-900) /uL Eos # (Auto) 0 (0-450) /uL Baso # (Auto) 0 (0-100) /uL PT 22.7 H (10.1-12.7) SECONDS INR 2.0 H (0.9-1.3) APTT 35 (26.4-36.2) SECONDS Sodium (137-145) mmol/L Potassium (3.4-5.1) mmol/L Chloride (98-107) mmol/L Carbon Dioxide (22-32) mmol/L BUN (9-20) mg/dL Creatinine (0.66-1.25) mg/dL Estimated GFR (>60) mL/min BUN/Creatinine Ratio (6-22) Glucose (80-110) mg/dL Lactate (0.7-2.1) mmol/L Calcium (8.4-10.2) mg/dL Magnesium (1.6-2.3) mg/dL Ferritin 40 (18-464) ng/mL Total Bilirubin (0.2-1.3) mg/dL AST (17-59) IU/L ALT (<50) IU/L Alkaline Phosphatase (38-126) U/L Total Creatine Kinase (55-170) U/L CK-MB (CK-2) CK-MB (CK-2) Rel Index Troponin I (0.01-0.034) ng/mL C-Reactive Protein (<1.0) mg/dL NT-Pro-B Natriuret Pep (<450) pg/mL Total Protein (6.3-8.2) g/dL Albumin (3.5-5.0) g/dL Globulin (1.7-4.1) g/dL Albumin/Globulin Ratio (1.0-2.8) Procalcitonin (<0.5) ng/mL Influenza A (RT-PCR) (NEGATIVE) Influenza B (RT-PCR) (NEGATIVE) 09/09/19 Range/Units 18:25 WBC (4.5-11.0) X10^3/uL RBC (4.5-5.9) X10^6/uL Hgb (13.5-17.5) g/dL Hct (41-53) % MCV (80-100) fL MCH (26-34) PG MCHC (30-36) % RDW (11.6-14.8) % Plt Count (150-400) X10^3/uL Neut % (Auto) (50-75) % Lymph % (Auto) (25-40) % [place] % (Auto) (3-14) % Eos % (Auto) (2-4) % Baso % (Auto) (0-2) % Neut # (Auto) (7821-4728) /uL Lymph # (Auto) (7576-1374) /uL [place] # (Auto) (0-900) /uL Eos # (Auto) (0-450) /uL Baso # (Auto) (0-100) /uL PT (10.1-12.7) SECONDS INR (0.9-1.3) APTT (26.4-36.2) SECONDS Sodium (137-145) mmol/L Potassium (3.4-5.1) mmol/L Chloride (98-107) mmol/L Carbon Dioxide (22-32) mmol/L BUN (9-20) mg/dL Creatinine (0.66-1.25) mg/dL Estimated GFR (>60) mL/min BUN/Creatinine Ratio (6-22) Glucose (80-110) mg/dL Lactate (0.7-2.1) mmol/L Calcium (8.4-10.2) mg/dL Magnesium (1.6-2.3) mg/dL Ferritin (18-464) ng/mL Total Bilirubin (0.2-1.3) mg/dL AST (17-59) IU/L ALT (<50) IU/L Alkaline Phosphatase (38-126) U/L Total Creatine Kinase (55-170) U/L CK-MB (CK-2) CK-MB (CK-2) Rel Index Troponin I (0.01-0.034) ng/mL C-Reactive Protein (<1.0) mg/dL NT-Pro-B Natriuret Pep (<450) pg/mL Total Protein (6.3-8.2) g/dL Albumin (3.5-5.0) g/dL Globulin (1.7-4.1) g/dL Albumin/Globulin Ratio (1.0-2.8) Procalcitonin (<0.5) ng/mL Influenza A (RT-PCR) Flu a negative (NEGATIVE) Influenza B (RT-PCR) Flu b negative (NEGATIVE) Discharge Plan Departure Patient Disposition: Admitted As Inpatient Clinical Impression: Acute metabolic encephalopathy, Cellulitis of left leg Discharge Date/Time: 09/10/19 00:00 Admit Date/Time: 09/09/19 21:52 Admit Provider: Dameon Yanes
--- NOTE | 2019-09-09 18:32 | DI.US.S_ITS ---
PROCEDURE: US PERIPH VENOUS LOW EXTREM LT INDICATIONS: PAIN, REDNESS TECHNIQUE: Real-time imaging, as well as color and pulse Doppler interrogation, were performed of the lower extremity deep veins from the inguinal ligament to the popliteal fossa. COMPARISON: None. FINDINGS: The common femoral, femoral and popliteal veins are normally compressible, and free of intraluminal thrombus. Color and pulse Doppler demonstrate normal phasic intraluminal flow. There is normal augmentation response to distal compression maneuver. No sonographic abnormality seen in the area of pain, in the medial lower leg. IMPRESSION: No evidence of deep venous thrombosis. Dictated by: Rick Lunsford M.D. on 09/09/2019 at 19:49 Approved by: Rick Lunsford M.D. on 09/09/2019 at 19:49
[2019-09-09 18:35] LABS: Prothrombin Time 22.7 SECONDS (10.1-12.7)
[2019-09-09 18:37] LABS: Lactate (Lactic Acid) 2.1 mmol/L (0.7-2.1)
[2019-09-09 18:38] LABS: PTT Partial Thromboplastin Tim 35 SECONDS (26.4-36.2)
[2019-09-09 18:39] LABS: Alanine Aminotransferase 21 IU/L (<50); Albumin 4.5 g/dL (3.5-5.0); Albumin Globulin Ratio 1.4 (1.0-2.8); Alkaline Phosphatase 79 U/L (38-126); Aspartate Aminotransferase 22 IU/L (17-59); BUN Creatinine Ratio 18.4 (6-22); Bilirubin Total 1.3 mg/dL (0.2-1.3); Blood Urea Nitrogen 25 mg/dL (9-20); Calcium 10.3 mg/dL (8.4-10.2); Carbon Dioxide 27 mmol/L (22-32); Chloride 103 mmol/L (98-107); Creatine Kinase 60 U/L (55-170); Globulin 3.2 g/dL (1.7-4.1); Glucose 132 mg/dL (80-110); HEMOLYSIS < 15 (0-50); Magnesium 2.2 mg/dL (1.6-2.3); Potassium 4.3 mmol/L (3.4-5.1); Sodium 138 mmol/L (137-145); Total Protein 7.7 g/dL (6.3-8.2)
[2019-09-09] MEDS: VANCOMYCIN 1,500 MG/300 ML FROZ.PIGGY 200 MG IV (18:48)
[2019-09-09] MEDS: SODIUM CHLORIDE 0.9% 1,000 ML 125 ML IV (18:48)
[2019-09-09 18:51] LABS: NT-proBNP (BNP-Adult 18+) 3830 pg/mL (<450); Troponin I 0.051 ng/mL (0.01-0.034)
[2019-09-09 19:00] LABS: Procalcitonin 0.09 ng/mL (<0.5)
[2019-09-09 19:02] LABS: C-Reactive Protein Quant 4.4 mg/dL (<1.0)
[2019-09-09 19:13] LABS: Ferritin 40 ng/mL (18-464)
[2019-09-09 19:33] LABS: Influenza A - CEPHEID Flu A NEGATIVE (NEGATIVE); Influenza B - CEPHEID Flu B NEGATIVE (NEGATIVE)
--- NOTE | 2019-09-09 19:45 | DI.RAD.S_ITS ---
PROCEDURE: XR CHEST 1V INDICATIONS: SOB TECHNIQUE: One view of the chest was acquired. COMPARISON: [facility], , CHEST 2 VIEW, 08/13/2017, 21:47. FINDINGS: Surgical changes and devices: Status post TAVR. Lungs and pleura: Scattered subsegmental atelectasis and/or scarring. No focal consolidation. No pleural effusions or pneumothorax. Mediastinum: Mediastinal contours appear normal. Heart size is normal. Bones and chest wall: No suspicious bony lesions. Overlying soft tissues appear unremarkable. Bilateral shoulder joint degeneration. IMPRESSION: No acute disease or interval change Dictated by: Rick Lunsford M.D. on 09/09/2019 at 20:14 Approved by: Rick Lunsford M.D. on 09/09/2019 at 20:15
--- NOTE | 2019-09-09 20:23 | DI.CT.S_ITS ---
PROCEDURE: CT CHEST WO CON INDICATIONS: SOB, cough, fever TECHNIQUE: Noncontrast 5 mm thick sections acquired from the pulmonary apices to the posterior costophrenic angles. 1 mm lung window, 5 mm thick coronal and sagittal and 7 mm axial MIP reformats were then acquired. For radiation dose reduction, the following was used: automated exposure control, adjustment of mA and/or kV according to patient size. COMPARISON: None. FINDINGS: Image quality: Excellent. Lungs and pleura: No acute consolidation. Small right pleural effusion with adjacent atelectasis. Lingular atelectasis/scarring also noted. Nonspecific 3 mm nodule seen in the anterior right upper lobe image 98/3. No pneumothorax. Mediastinum: Status post TAVR. Heart size is normal. No pericardial effusion. No mediastinal adenopathy by size criteria. Thoracic aorta and central pulmonary arteries are normal in size. Esophagus is normal in caliber. No hiatal hernia. Bones and chest wall: No suspicious bony lesions. No vertebral body compression fractures. No axillary or supraclavicular adenopathy by size criteria. Thyroid gland is enlarged and heterogeneous. Further evaluation with dedicated ultrasound recommended. Low-attenuation presumed right adrenal adenoma Possible left adrenal myelolipoma versus chronic postsurgical or traumatic adrenal calcification image 60/2 technically nonspecific, and the exact origin unclear. IMPRESSION: No focal consolidation Small right pleural effusion. Scattered lingular and bibasilar atelectasis. 3 mm right upper lobe pulmonary nodule which is indeterminate and could be followed up with a repeat noncontrast chest CT in one year. Heterogeneous thyroid, with possible bilateral nodules. Recommend further evaluation with dedicated thyroid ultrasound. Dictated by: Rick Lunsford M.D. on 09/09/2019 at 20:53 Approved by: Rick Lunsford M.D. on 09/09/2019 at 21:01
[2019-09-09 21:01] VITALS: BP 116/72; PULSE 83; RESP 16; O2SAT 93
[2019-09-09 21:25] VITALS: TEMP 37.4
[2019-09-09 22:04] LABS: Add Manual Diff / Slide Review NO; Basophils Absolute Auto 0 /uL (0-100); Basophils Percent Auto 0.1 % (0-2); Eosinophils Absolute Auto 0 /uL (0-450); Hematocrit 40.7 % (41-53); Hemoglobin 13.1 g/dL (13.5-17.5); Lymphocytes Absolute Auto 500 /uL (1100-4500); Lymphocytes Percent Auto 2.4 % (25-40); Mean Corpuscular HGB Conc 32.2 % (30-36); Mean Corpuscular Hemoglobin 30.8 PG (26-34); Mean Corpuscular Volume 95.9 fL (80-100); Monocytes Absolute Auto 1800 /uL (0-900); Monocytes Percent Auto 8.8 % (3-14); Neutrophils Absolute Auto 18300 /uL (1500-7000); Neutrophils Percent Auto 88.7 % (50-75); Platelet Count 142 X10^3/uL (150-400); Red Blood Cell Count 4.24 X10^6/uL (4.5-5.9); Red Cell Distribution Width 16.2 % (11.6-14.8); White Blood Cell Count 20.6 X10^3/uL (4.5-11.0)
[2019-09-09 22:48] VITALS: BMI 28.0
[2019-09-09 23:00] VITALS: TEMP 37.3
[2019-09-09 23:30] VITALS: BP 94/50; PULSE 70; RESP 26; O2SAT 93
[2019-09-09 23:43] VITALS: BP 106/53; PULSE 74; RESP 23; O2SAT 94
[2019-09-10] VITALS: BP 119/55; PULSE 75; RESP 20; TEMP 37.2; O2SAT 92
--- NOTE | 2019-09-10 00:13 | P.HP_ITS ---
History of Present Illness History of Present Illness Date Patient Seen: 09/10/19 Time Patient Seen: 00:20 Chief complaint: Chills/Fever/Fatigue/ Pain in LT ankle Narrative: Mr. 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 The patient describes the pain in his left lower leg as a constant burning stinging pain that is crampy. He denies trauma or injury. He had had a recent decrease in his Lasix dose by Dr. Ghosh which was again increased the patient had a bronchoscopy at [facility] 9 days ago for evaluation of increasing lymphadenopathy status post but resection of an adenocarcinoma. Reports no complaints of fevers or chills but has had increasing fatigue in sense of malaise. He denies complaints of chest pain or palpitations though he has history of atrial fibrillation. The patient states he gets short of breath and is limited in his activity because the pain before which he would work out on machines in the gym 5 days per week. He denies abdominal pain, heartburn, nausea or vomiting. He reports having had constipation and started taking stool softener and no have occasional diarrhea. He complains of swollen scrotum that being makes it difficult for him to urinate. He complains of low back pain with activity and bilateral hip arthritis and ambulates with a cane. Per family report to the emergency room provider the patient has had increasing confusion over the last few days. Upon arrival to the ER the patient's temperature 100.1?, heart rate of 83, blood pressure 116/72, respirations 16 saturating 93% on room air. A chest x-ray obtained which finds no acute disease and CT of the chest finds small right pleural effusion with scattered atelectasis, a 3 mm right upper lobe pulmonary nodule, heterogeneous thyroid with possible bilateral nodules. A vascular ultrasound was obtained of the left lower extremity that was negative for DVT. On patient laboratory studies he has a white count of 20.6, hemoglobin of 13.1, hematocrit of 40.7 and platelets 142 with a left shift. Has a PT of 22.7 and INR of 2.0. His electrolytes are within normal range with a potassium of 4.3 and magnesium 2.2, BUN of 25 and a creatinine of 1.36. His liver function tests are within normal range. Has a procalcitonin 0.09, lactic acid of 2.1, CRP of 4.4. He is found to have an elevated troponin is 0.051 as well as a elevated BNP 3830. His flu screening is negative. The patient is found to have swelling and pain over the left lower extremity with ecchymotic area redness and warmth consistent with cellulitis. The patient is started on vancomycin 1500 mg IV in the emergency department. The patient is admitted for cellulitis and metabolic encephalopathy. Patient History Medical History (Updated 09/09/19 @ 22:20 by Luis Goss DO) Adrenal nodule (Acute) Benign schwannoma (Acute) Carpal tunnel syndrome on right (Acute) Chronic pain disorder (Acute) Colon polyp (Acute) Degenerative disc disease (Acute) Depression (Acute) Dysphagia (Acute) Elevated cholesterol with elevated triglycerides (Chronic) Esophageal reflux (Acute) Essential hypertension (Chronic) Fatty liver (Acute) Hyperlipidemia (Acute) Hypertension (Acute) Infected sebaceous cyst (Acute) Kidney stone (Acute ~2000) Liver hemangioma (Acute) Osteoarthritis (Acute) RBBB (Acute) Rotator cuff syndrome (Acute) Severe aortic stenosis (Acute) Sleep apnea (Acute) Sliding hiatal hernia (Acute) Spinal stenosis (Acute) [place] diverticulum (Acute) Surgical History (Updated 05/03/18 @ 10:15 by Carolina Alanis RN) H/O aortic valve replacement (Acute) H/O hemorrhoidectomy (Acute ~1984) H/O left inguinal hernia repair (Acute ~1995) H/O partial nephrectomy (Acute ~2009) H/O right inguinal hernia repair (Acute ~2010) History of colonoscopy (Acute) History of thoracotomy (Acute) History of tonsillectomy (Acute ~1945) S/P TAVR (transcatheter aortic valve replacement) (Acute ~10/2017) Family & Social History Family History (Updated 09/10/19 @ 01:22 by LEOLA Eden) Mother Heart disease Mother Alcohol abuse Social History: household members spouse Safety & Behavioral: Feels Safe in Current Yes Environment Tobacco & Substance use: Smoking Status Never smoker alcohol intake never alcohol intake frequency 0-2 drinks per day Substance Use Type marijuana Comment: Advanced directives: Direct conversation with the patient he states desire to be FULL CODE. He designates his to be surrogate decision maker. Meds Home Medications and Allergies Home Medications Medication Instructions Recorded Confirmed Type carvedilol [Coreg] 6.25 mg PO BID #60 tab 08/14/17 05/03/18 Rx coenzyme Q10 [Co Q-10] 300 mg PO DAILY #0 08/14/17 09/09/19 History hydrocodone-acetaminophen [[place]] 1 tab PO Q6H PRN #0 08/14/17 05/08/18 History metronidazole [MetroCream] 1 bassam TOPICAL BID PRN #0 08/14/17 09/09/19 History triamcinolone acetonide [Triderm] 1 bassam TOPICAL BID #0 08/14/17 05/03/18 History aspirin 81 mg tablet,delayed 81 mg PO DAILY 03/30/18 09/09/19 History release aspirin 325 mg PO DAILY 05/03/18 05/03/18 History atorvastatin [Lipitor] 10 mg PO DAILY 05/03/18 09/09/19 History cholecalciferol (vitamin D3) 1,000 unit PO DAILY 05/03/18 05/03/18 History [Vitamin D3] furosemide [Lasix] 20 mg PO BID 05/03/18 09/09/19 History lisinopril 5 mg PO QPM 05/03/18 09/09/19 History sulfamethoxazole-trimethoprim 1 tab PO BID 05/03/18 05/03/18 History [Bactrim DS] acetaminophen-codeine 2 tab PO BID PRN 07/30/19 09/09/19 History amiodarone 200 mg PO ONCE PM 07/30/19 09/09/19 History levothyroxine 50 mcg PO QAM 07/30/19 09/09/19 History rivaroxaban [Xarelto] 15 mg PO QPM 07/30/19 09/09/19 History B-complex with vitamin C [Super B 1 tab PO DAILY 09/09/19 09/09/19 History Complex-Vitamin C] Tumeric 2,000 mg PO QAM 09/09/19 09/09/19 History acetaminophen 500 mg PO PRN PRN MDD 4000 09/09/19 09/09/19 History doxylamine succinate [Nighttime 25 mg PO BEDTIME PRN 09/09/19 09/09/19 History Sleep-Aid (doxylamn)] ketoconazole 1 applic TOPICAL PRN PRN 09/09/19 09/09/19 History Allergies Allergy/AdvReac Type Severity Reaction Status Date / Time clindamycin AdvReac Unknown Diarrhea Verified 07/30/19 14:23 duloxetine [From Cymbalta] AdvReac Unknown Spasms/Head Verified 07/30/19 14:23 aches gabapentin AdvReac Unknown Insomnia Verified 07/30/19 14:23 gemfibrozil AdvReac Unknown Elevated Verified 07/30/19 14:23 LFTs omeprazole AdvReac Unknown Diarrhea, Verified 07/30/19 14:23 myalgia tizanidine AdvReac Unknown Gastrointestinal Verified 07/30/19 14:23 Upset No Known Allergies Allergy Uncoded 07/30/19 14:23 Review of Systems Review of Systems ROS: Yes All systems reviewed with the patient and are negative except as otherwise documented Exam Vital Signs (past 8 hours): - 09/09/19 17:55 09/09/19 21:01 09/09/19 21:25 Temperature 100.1 F H 99.4 F Pulse Rate 70 83 Respiratory Rate 27 H 16 Blood Pressure 202/85 H Blood Pressure [Left Arm] 116/72 Pulse Oximetry 95 93 09/09/19 23:00 09/09/19 23:30 09/09/19 23:43 Temperature 99.1 F Pulse Rate 70 74 Respiratory Rate 26 H 23 Blood Pressure Blood Pressure [Left Arm] 94/50 L 106/53 L Pulse Oximetry 93 94 Oxygen Delivery Method Room Air Narrative Exam Narrative: GENERAL APPEARANCE: well developed, well-nourished elderly male who is anxious and uncomfortable appearing. HEENT: Normocephalic, PERRLA, conjunctiva clear, EOMs intact without nystagmus, no sinus tenderness to percussion, no rhinorrhea, mucous membranes are moist and pink without lesions or exudate. NECK/THYROID: neck supple, no JVD, no goiter appreciated trachea midline. LYMPH NODES: no cervical or supraclavicular lymphadenopathy. SKIN: [place], warm and dry, approximately 3-3.5 cm ecchymotic area left anterior tibia with darker ecchymosis and bruising left lateral lower leg. HEART: regular rate and rhythm, S1-S2, 2/6 systolic murmur, no rubs or gallops, brisk capillary refill, 2+ left lower extremity edema, trace right lower extremity edema. LUNGS: Fine crackles bilateral bases, no coarseness or wheezing, no cough present CHEST: Symmetrical movement, no accessory muscle use, good tidal volume. ABDOMEN: Soft, no distention, dull to percussion, no tenderness, no organomegaly, no flank or suprapubic tenderness, active bowel tones. : Markedly swollen scrotum without erythema minimally tender to palpation BACK: nontender to palpation. EXTREMITIES: Pain on palpation left lower leg, distal CMS intact, mild erythema and warmth to the left lower extremity with ecchymosis as noted above NEUROLOGIC: AAO to person and place confused about date and time, has difficulty with recall of information, cranial nerves II-XII grossly intact, hypersensitivity to the left lower extremity, hearing loss. PSYCH: Good eye contact, difficulty responding to questions, stable behavior. Objective Labs Result Diagrams: 09/09/19 18:15 09/09/19 18:15 Labs: Laboratory Results - last 24 hr 09/09/19 09/09/19 09/09/19 18:15 18:15 18:15 WBC RBC Hgb Hct MCV MCH MCHC RDW Plt Count Neut % (Auto) Lymph % (Auto) [place] % (Auto) Eos % (Auto) Baso % (Auto) Neut # (Auto) Lymph # (Auto) [place] # (Auto) Eos # (Auto) Baso # (Auto) PT INR APTT Sodium 138 Potassium 4.3 Chloride 103 Carbon Dioxide 27 BUN 25 H Creatinine 1.36 H Estimated GFR 50.0 L BUN/Creatinine Ratio 18.4 Glucose 132 H Lactate 2.1 Calcium 10.3 H Magnesium 2.2 Ferritin Total Bilirubin 1.3 AST 22 ALT 21 Alkaline Phosphatase 79 Total Creatine Kinase 60 CK-MB (CK-2) TNP CK-MB (CK-2) Rel Index TNP Troponin I 0.051 H C-Reactive Protein 4.4 H NT-Pro-B Natriuret Pep 3830 H Total Protein 7.7 Albumin 4.5 Globulin 3.2 Albumin/Globulin Ratio 1.4 Procalcitonin 0.09 Influenza A (RT-PCR) Influenza B (RT-PCR) 09/09/19 09/09/19 09/09/19 18:15 18:15 18:15 WBC 20.6 H RBC 4.24 L Hgb 13.1 L Hct 40.7 L MCV 95.9 MCH 30.8 MCHC 32.2 RDW 16.2 H Plt Count 142 L Neut % (Auto) 88.7 H Lymph % (Auto) 2.4 L [place] % (Auto) 8.8 Eos % (Auto) 0.0 L Baso % (Auto) 0.1 Neut # (Auto) 13919 H Lymph # (Auto) 500 L [place] # (Auto) 1800 H Eos # (Auto) 0 Baso # (Auto) 0 PT 22.7 H INR 2.0 H APTT 35 Sodium Potassium Chloride Carbon Dioxide BUN Creatinine Estimated GFR BUN/Creatinine Ratio Glucose Lactate Calcium Magnesium Ferritin 40 Total Bilirubin AST ALT Alkaline Phosphatase Total Creatine Kinase CK-MB (CK-2) CK-MB (CK-2) Rel Index Troponin I C-Reactive Protein NT-Pro-B Natriuret Pep Total Protein Albumin Globulin Albumin/Globulin Ratio Procalcitonin Influenza A (RT-PCR) Influenza B (RT-PCR) 09/09/19 18:25 WBC RBC Hgb Hct MCV MCH MCHC RDW Plt Count Neut % (Auto) Lymph % (Auto) [place] % (Auto) Eos % (Auto) Baso % (Auto) Neut # (Auto) Lymph # (Auto) [place] # (Auto) Eos # (Auto) Baso # (Auto) PT INR APTT Sodium Potassium Chloride Carbon Dioxide BUN Creatinine Estimated GFR BUN/Creatinine Ratio Glucose Lactate Calcium Magnesium Ferritin Total Bilirubin AST ALT Alkaline Phosphatase Total Creatine Kinase CK-MB (CK-2) CK-MB (CK-2) Rel Index Troponin I C-Reactive Protein NT-Pro-B Natriuret Pep Total Protein Albumin Globulin Albumin/Globulin Ratio Procalcitonin Influenza A (RT-PCR) Flu a negative Influenza B (RT-PCR) Flu b negative Assessment & Plan Assessment & Plan narrative: This is an 84-year-old male patient who presents to the emergency department for worsening left leg pain over the last several days and unable to ambulate today due to pain. The patient has aged history of atrial fibrillation is anticoagulated on Xarelto and history lung cancer which appears stable at this time 1. Left lower leg cellulitis, acute, present on admission, active -Patient with increasing swelling and pain to the left lower leg over the last several days down becoming acutely tender more so on the lateral aspect with erythema and warmth. No history of trauma or injury per patient however ecchymotic area over the left anterior tibia. -The patient has elevated white count at 20.6 with a left shift, CRP is 4.4, procalcitonin is 0.09. -Patient started on vancomycin 1500 mg IV with 1st dose given in the ER and pharmacy to dose. -Ordered Tylenol 975 mg as needed for mild pain -Ordered oxycodone 5 mg as needed for moderate pain and 10 mg as needed for severe pain. -Will follow infection markers. 2. Toxic metabolic encephalopathy, acute, present on admission, active. The patient has decreased orientation to oriented to person and place only. Family validates patient is not at baseline. Possibly to be related to infectious process L treat underlying cause as above. 3. Chronic kidney disease stage IIIA, present on admission, stable. -BUN and creatinine are 25 and 1.36 on admission labs. History of elevated creatinine at 1.4 on 07/08/2019 up to 1.5 on 07/30/2019. Before that in June 2017 the patient had a creatinine 1.1. -EGFR is 50.0, creatinine clearance is calculated 56.21. -Will avoid renal toxic agents and renal dose medications as indicated. -Will follow renal function. 4. Paroxysmal atrial fibrillation, anticoagulated on Xarelto, in sinus rhythm, stable -Patient denies complaints of chest pain and has questionable exertional dyspnea from and consistent historian. -Patient with unclear regular rhythm on telemetry. PT is 22.7 and INR is 2.0. -Will obtain 12 lead EKG. -continue amiodarone 200 mg daily. -No evidence of abnormal bleeding, hematemesis, hematuria, hematochezia or melena per patient report. -Will continue Xarelto 15 mg each evening. 5. Congestive heart failure with reduced ejection fraction, chronic, present on admission, stable. Patient had a decrease in his Lasix to [address] Ghosh his PCP. This was increased back to 40 mg daily 9 days ago following bronchoscopy at [facility]. Patient with bibasilar crackles in peripheral edema 2+ on the left and trace on the right. CT scan does not identify pulmonary edema but notes scattered atelectasis and chest x-ray finds no acute disease. Patient has an elevated BNP at 3830 and notably an elevated troponin at 0.051. On comparison with previous visits the patient has had consistently elevated troponin believed to be in the setting of congestive failure. Will obtain repeat 12 lead EKG. Continue furosemide 20 mg twice daily. 6. Lung cancer status post resection, present on admission, stable. 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 Unclear treatment post resection. No current cough or chest pain. Patient with increasing lymphadenopathy prompting bronchoscopy at [facility] with no significant secretions or lesions, mild injection of the main bronchi bilaterally. CT scan finds a 3 mm right upper lobe nodule that warrants further evaluation and surveillance. 7. Essential Hypertension present on admission, stable. -Patient's blood pressure is 116/72 upon admission. -continue lisinopril 5 mg daily 8. Hypothyroidism, stable Continue home regimen of levothyroxine 50 mcg daily. 9. Hyperlipidemia, stable Continue home regimen of atorvastatin 10 mg daily. VTE prophylaxis: SCD to right leg, on Xarelto therapy IV fluids: Saline lock Diet: Heart healthy. Code status: FULL CODE. The patient is admitted to the hospital due to the severity of his symptoms with altered mental status and cellulitis requiring IV antibiotics. He is admitted as an inpatient with expected length of stay to be greater than 2 midnights. Scores GCS [place] coma scale eye opening: Spontaneous [place] coma scale verbal response: Confused [place] coma scale motor response: Obey commands [place] coma scale total score: 14
[2019-09-10] MEDS: ACETAMINOPHEN 325 MG TABLET 975 MG PO ×2 (00:45→21:23)
--- NOTE | 2019-09-10 03:24 | DI.ECHO.S_ITS ---
[facility] +---------+ [facility] +---------+ : : [address] : : : : [id number] : : : : Phone: [phone] Echocardiogram Report + + :Name: JUAN LUIS DEMPSEY Study Date: 09/10/2019 Height: 73 in : :[facility] Weight: 212 lb : : Gender: Male BSA: 2.2 m2 : :: 1935 Age: 84 yrs BP: 108/52 mmHg: :Reason For Study: paf, elevated troponin : :Ordering Physician: Alex : :Hospitalist Performed By: Cayla Riley : :Referring: ANDREW ALVARADO : + + Interpretation Summary The right ventricle is moderate to severely dilated. Right ventricular systolic function is at the lower limits of normal. There is severe tricuspid regurgitation. Pulmonary pressure is likely underestimated due to severity of tricuspid regurgitation. There is a bioprosthetic aortic valve. There is mild perivalvular regurgitation around the prosthetic aortic valve. Massive biatrial enlargement. Moderate mitral stenosis with mean gradient of 6 mmHg at HR of 80 bpm. -There are multiple changes compared to the prior echocardiogram. There is now a bioprosthetic aortic valve in place, likely a TAVR valve with mild perivalvular leak. The rhythm is now atrial fibrillation. The tricuspid regurgitation is more significant and now there is severe tricuspid regurgitation. The MR and LV contractility have improved. Procedure: A two-dimensional transthoracic echocardiogram with color flow and Doppler was performed. The study quality was technically adequate. Comparison is made with the echocardiogram of 08/23/2017. The patient was in atrial fibrillation with heart rates between 61-94 bpm during the exam. Left Ventricle: The left ventricle is normal in size and wall thickness. The ejection fraction is estimated to be 60-65%. The left ventricular ejection fraction is normal. There are no focal wall motion abnormalities. Diastolic function could not be accurately assessed due to atrial fibrillation. Right Ventricle: The right ventricle is moderate to severely dilated. Right ventricular systolic function is at the lower limits of normal. Atria: Both atria are severely dilated. There is no Doppler evidence for an interatrial shunt. Mitral Valve: There is moderate mitral annular calcification. The mitral valve leaflets are mildly calcified. There is mild mitral stenosis. There is moderate mitral regurgitation. Aortic Valve: There is a bioprosthetic aortic valve. The prosthetic aortic valve is well-seated. There is mild perivalvular regurgitation around the prosthetic aortic valve. Average peak velocity is 2.2 m/s with mean gradient of 10 mmHg. Tricuspid Valve: Tricuspid leaflets are thickened. There is severe tricuspid regurgitation. Pulmonary pressure is likely underestimated due to severity of tricuspid regurgitation. Pulmonic Valve: The pulmonic valve is normal in structure and function. There is mild pulmonic regurgitation. Great Vessels: The ascending aorta is normal in size. The IVC is dilated (diameter is greater than 2.1 cm) and it collapses less than 50% with a sniff. This suggests a high right atrial pressure of 15 mm Hg. Hepatic vein reversal suggest severe tricuspid regurgitation. Pericardium/ Pleura There is no pericardial effusion. There is no pleural effusion. MMode/2D Measurements & Calculations LVIDd: 4.0 cm LVOT diam: 2.1 cm LVIDs: 2.8 cm asc Aorta Diam: 3.3 cm FS: 31.3 % IVSd: 0.85 cm LVPWd: 1.2 cm LV britt. diameter/BSA (cm/m^2): 1.8 LV sys. diameter/BSA (cm/m^2): 1.3 LA A2 area: 44.3 cm2 RA long axis: 8.0 cm LA A4 area: 36.4 cm2 RA area: 38.0 cm2 LA length (vol): 7.9 cm RA vol: 153.2 ml LA vol: 173.9 ml RA : 69.4 ml/m2 LA vol index: 78.8 ml/m2 IVC diam: 3.0 cm RVD1 (basal): 5.1 cm TAPSE: 1.4 cm Doppler Measurements & Calculations Ao V2 max: 220.8 cm/sec LVOT Max Mark: 107.0 cm/sec Ao V2 mean: 148.7 cm/sec LV V1 max P.6 mmHg Ao max P.6 mmHg LV V1 VTI: 18.4 cm Ao mean P.4 mmHg JUJU(I,D): 1.6 cm2 Ao V2 VTI: 37.4 cm JUJU(V,D): 1.6 cm2 sev ratio: 0.49 JUJU indexed to BSA (cm^2/m^2): 0.75 MV E max mark: 159.0 cm/sec TR max mark: 282.8 cm/sec MV A max mark: 1.5 cm/sec TR max P.3 mmHg MV E/A: 102.7 PA V2 max: 67.8 cm/sec Lat Peak E' Mark: 6.8 cm/sec PA V2 mean: 40.7 cm/sec E/E' lat: 23.2 PA mean P.82 mmHg MV dec time: 0.27 sec PA pr(Accel): 8.4 mmHg MVA(VTI): 1.7 cm2 PA Accel Time: 0.14 sec MV V2 mean: 105.7 cm/sec SV(LVOT): 61.5 ml MV mean P.9 mmHg MV V2 VTI: 35.4 cm Electronically signed by: Yehuda Lopez M.D. on Reading Physician:09/10/2019 06:19 PM
[2019-09-10 04:30] VITALS: BP 112/56; PULSE 54; RESP 17; TEMP 36.8; O2SAT 94
[2019-09-10] MEDS: OXYCODONE IR 5 MG TABLET PO ×2 (04:58→21:26)
[2019-09-10 05:46] LABS: Hematocrit 37.2 % (41-53); Hemoglobin 11.9 g/dL (13.5-17.5); Mean Corpuscular HGB Conc 32.1 % (30-36); Mean Corpuscular Hemoglobin 30.7 PG (26-34); Mean Corpuscular Volume 95.6 fL (80-100); Platelet Count 124 X10^3/uL (150-400); Red Blood Cell Count 3.89 X10^6/uL (4.5-5.9); White Blood Cell Count 26.9 X10^3/uL (4.5-11.0)
[2019-09-10 05:49] LABS: Add Manual Diff / Slide Review YES
[2019-09-10 06:00] LABS: BUN Creatinine Ratio 19.7 (6-22); Blood Urea Nitrogen 34 mg/dL (9-20); Calcium 9.9 mg/dL (8.4-10.2); Carbon Dioxide 23 mmol/L (22-32); Chloride 104 mmol/L (98-107); Estimated Glomerular Filt Rate 37.9 mL/min (>60); Glucose 136 mg/dL (80-110); HEMOLYSIS 24 (0-50); Potassium 4.8 mmol/L (3.4-5.1); Sodium 137 mmol/L (137-145)
[2019-09-10 06:43] LABS: Troponin I 0.164 ng/mL (0.01-0.034)
[2019-09-10 07:34] LABS: Neutrophils Absolute Manual 24479 /uL (3000-5900); Total Cells Counted 100; Toxic Vacuolation Present
[2019-09-10 08:00] VITALS: BP 126/78; PULSE 58; RESP 16; TEMP 37.5; O2SAT 94
[2019-09-10 08:34] LABS: Procalcitonin 19.58 ng/mL (<0.5)
[2019-09-10] MEDS: CEFTRIAXONE 2 GM/50 ML FROZ.PIGGY IV (08:44)
[2019-09-10] MEDS: ASPIRIN EC 81 MG TABLET PO (08:45)
[2019-09-10] MEDS: LEVOTHYROXINE 50 MCG TABLET PO (08:45)
[2019-09-10] MEDS: FUROSEMIDE 20 MG TABLET PO (08:45)
[2019-09-10 11:34] LABS: Creatine Kinase 64 U/L (55-170)
[2019-09-10 12:00] VITALS: BP 124/58; PULSE 53; RESP 20; TEMP 37.5; O2SAT 95
[2019-09-10 12:10] LABS: Troponin I 0.145 ng/mL (0.01-0.034)
--- NOTE | 2019-09-10 12:33 | CM.DANOTE ---
DCP/Assessment: Reviewed chart. Patient is a 84yr old male admitted to [facility] with left lower leg cellulitis. PCP is Dr. Ghosh. Primary payor is 1)Medicare 2)[facility]. Patient currently with active COVID 19 precautions. Test results pending. Therefore, placed call to patient's spouse Fouzia boyd# [phone], left non-urgent vm requesting that she call CM team back. P: At this time d/c needs unknown. Will access with spouse over the phone or when it determined patient does not have COVID 19. SANDY Cyr Discharge Planning/Care Management CM Discharge Assessment Start: 09/10/19 12:07 Freq: Status: Active Protocol: Document 09/10/19 12:07 KJS (Rec: 09/10/19 12:33 KJS [id number]) Discharge Planning Assessment Assigned [employer] SANDY Cyr Contact Information Fouzia Russ (spouse) [phone] Advance Directives? Yes Advance Directives on File No History Provided By Medical Record Prior Living Arrangements Apartment/Condo Household Members spouse Comment Unsure of whether or not drives at this time. Independent with ADL's Unknown Is patient alert and oriented? Unknown Caregiver for Another No Comment COVID 19 testing pending Comment Unclear at this time. Transportation Arrangement Anticipate family will provide tranport home when medically stable. Whiteboard Updated in Patient Room with No name and ext. # of [employer] Comment COVID #19 test pending Review Status In Process Next Review Type Continued Stay Review
[2019-09-10] MEDS: ACETAMINOPHEN 325 MG TABLET 650 MG PO (14:23)
[2019-09-10 15:20] VITALS: BP 108/52; PULSE 61; RESP 17; TEMP 37.4; O2SAT 94
--- NOTE | 2019-09-10 16:07 | DI.RAD.S_ITS ---
PROCEDURE: XR FOOT LT MIN 3V INDICATIONS: Left LE cellulitis TECHNIQUE: 3 views of the foot were acquired. COMPARISON: [facility], CR, XR ANKLE LT 2V, 09/10/2019, 16:34. FINDINGS: Bones: No fractures or dislocations. No suspicious bony lesions. Osteopenia is noted along the metatarsals heads most notable for second through fifth digits as well as proximal phalanx also of the second through fifth digits. No cortical destruction. Soft tissues: No tibiotalar joint effusion. Achilles tendon appears normal. IMPRESSION: Osteopenia as above. Dictated by: Destiny Hanson M.D. on 09/10/2019 at 16:58 Approved by: Destiny Hanson M.D. on 09/10/2019 at 16:59
--- NOTE | 2019-09-10 16:08 | DI.RAD.S_ITS ---
PROCEDURE: XR ANKLE LT 2V INDICATIONS: Left LE cellutitis TECHNIQUE: 2 views of the ankle were acquired. COMPARISON: [facility], CR, XR FOOT LT MIN 3V, 09/10/2019, 16:34. FINDINGS: Bones: Small areas of ossification are noted along the distal aspect of the medial malleolus and distal fibula. Ankle mortise is normally aligned. No suspicious bony lesions. Soft tissues: Bimalleolar joint effusion. Achilles tendon appears normal. IMPRESSION: Bimalleolar fusion. Ossifications noted along the distal medial malleolus and distal fibula. Overall they have a thin appearance of old trauma. However, given edema, recommend correlation of point tenderness as subacute injury cannot be excluded. Dictated by: Destiny Hanson M.D. on 09/10/2019 at 16:54 Approved by: Destiny Hanson M.D. on 09/10/2019 at 16:58
--- NOTE | 2019-09-10 16:25 | P.PN_ITS ---
Subjective Subjective Date Patient Seen: 09/10/19 Interval history: Brief progress note: Patient seen and examined. Patient has pain out of proportion to exam with worsening infectious markers and possible subcutaneous crepitus on exam. Ordered left lower extremity foot and ankle three view x- rays, pending. Consulted with General surgery, Dr. Mazariegos, who plans to evaluate patient shortly. Continue vancomycin with dosing per pharmacist, and added ceftriaxone 2 g IV daily and clindamycin 600 mg IV every 8 hours to help decrease endotoxin release. Acute kidney injury worsening likely due to infection and hypermetabolic state. Plan to start gentle IV fluid hydration with normal saline 84 mL/hr. Discontinued PO furosemide for now. Continue to elevate extremity above level heart frequently. Troponin now downward trending and likely elevated due to demand ischemia. Echocardiogram pending. Exam Vital Signs (past 8 hours): - 09/10/19 12:00 09/10/19 15:20 Temperature 99.5 F 99.4 F Pulse Rate 53 L 61 Respiratory Rate 20 17 Blood Pressure 124/58 L 108/52 L Pulse Oximetry 95 94 Oxygen Delivery Method Room Air Oxygen Flow Rate 0 Objective Labs Result Diagrams: 09/10/19 05:25 09/10/19 05:25 Labs: Laboratory Results - last 24 hr 09/09/19 09/09/19 09/09/19 18:15 18:15 18:15 WBC RBC Hgb Hct MCV MCH MCHC RDW Plt Count Neut % (Auto) Lymph % (Auto) [place] % (Auto) Eos % (Auto) Baso % (Auto) Neut # (Auto) Lymph # (Auto) [place] # (Auto) Eos # (Auto) Baso # (Auto) Total Counted Seg Neutrophils % Band Neutrophils % Lymphocytes % (Manual) Atypical Lymphs % Monocytes % (Manual) Eosinophils % (Manual) Neutrophils # (Manual) Toxic Vacuolation RBC Morphology PT INR APTT Sodium 138 Potassium 4.3 Chloride 103 Carbon Dioxide 27 BUN 25 H Creatinine 1.36 H Estimated GFR 50.0 L BUN/Creatinine Ratio 18.4 Glucose 132 H Lactate 2.1 Calcium 10.3 H Magnesium 2.2 Ferritin Total Bilirubin 1.3 AST 22 ALT 21 Alkaline Phosphatase 79 Total Creatine Kinase 60 CK-MB (CK-2) TNP CK-MB (CK-2) Rel Index TNP Troponin I 0.051 H C-Reactive Protein 4.4 H NT-Pro-B Natriuret Pep 3830 H Total Protein 7.7 Albumin 4.5 Globulin 3.2 Albumin/Globulin Ratio 1.4 Procalcitonin 0.09 Influenza A (RT-PCR) Influenza B (RT-PCR) 09/09/19 09/09/19 09/09/19 18:15 18:15 18:15 WBC 20.6 H RBC 4.24 L Hgb 13.1 L Hct 40.7 L MCV 95.9 MCH 30.8 MCHC 32.2 RDW 16.2 H Plt Count 142 L Neut % (Auto) 88.7 H Lymph % (Auto) 2.4 L [place] % (Auto) 8.8 Eos % (Auto) 0.0 L Baso % (Auto) 0.1 Neut # (Auto) 17525 H Lymph # (Auto) 500 L [place] # (Auto) 1800 H Eos # (Auto) 0 Baso # (Auto) 0 Total Counted Seg Neutrophils % Band Neutrophils % Lymphocytes % (Manual) Atypical Lymphs % Monocytes % (Manual) Eosinophils % (Manual) Neutrophils # (Manual) Toxic Vacuolation RBC Morphology PT 22.7 H INR 2.0 H APTT 35 Sodium Potassium Chloride Carbon Dioxide BUN Creatinine Estimated GFR BUN/Creatinine Ratio Glucose Lactate Calcium Magnesium Ferritin 40 Total Bilirubin AST ALT Alkaline Phosphatase Total Creatine Kinase CK-MB (CK-2) CK-MB (CK-2) Rel Index Troponin I C-Reactive Protein NT-Pro-B Natriuret Pep Total Protein Albumin Globulin Albumin/Globulin Ratio Procalcitonin Influenza A (RT-PCR) Influenza B (RT-PCR) 09/09/19 09/10/19 09/10/19 18:25 05:25 05:25 WBC 26.9 H RBC 3.89 L Hgb 11.9 L Hct 37.2 L MCV 95.6 MCH 30.7 MCHC 32.1 RDW 16.0 H Plt Count 124 L Neut % (Auto) Not Reportable Lymph % (Auto) Not Reportable [place] % (Auto) Not Reportable Eos % (Auto) Not Reportable Baso % (Auto) Not Reportable Neut # (Auto) Lymph # (Auto) Not Reportable [place] # (Auto) Not Reportable Eos # (Auto) Baso # (Auto) Not Reportable Total Counted 100 Seg Neutrophils % 72.0 H Band Neutrophils % 19.0 H Lymphocytes % (Manual) 3.0 L Atypical Lymphs % 1.0 H Monocytes % (Manual) 4.0 Eosinophils % (Manual) 1.0 L Neutrophils # (Manual) 24213 H Toxic Vacuolation Present H RBC Morphology See below PT INR APTT Sodium 137 Potassium 4.8 Chloride 104 Carbon Dioxide 23 BUN 34 H Creatinine 1.73 H Estimated GFR 37.9 L BUN/Creatinine Ratio 19.7 Glucose 136 H Lactate Calcium 9.9 Magnesium Ferritin Total Bilirubin AST ALT Alkaline Phosphatase Total Creatine Kinase CK-MB (CK-2) CK-MB (CK-2) Rel Index Troponin I C-Reactive Protein NT-Pro-B Natriuret Pep Total Protein Albumin Globulin Albumin/Globulin Ratio Procalcitonin Influenza A (RT-PCR) Flu a negative Influenza B (RT-PCR) Flu b negative 09/10/19 09/10/19 09/10/19 05:25 05:25 11:08 WBC RBC Hgb Hct MCV MCH MCHC RDW Plt Count Neut % (Auto) Lymph % (Auto) [place] % (Auto) Eos % (Auto) Baso % (Auto) Neut # (Auto) Lymph # (Auto) [place] # (Auto) Eos # (Auto) Baso # (Auto) Total Counted Seg Neutrophils % Band Neutrophils % Lymphocytes % (Manual) Atypical Lymphs % Monocytes % (Manual) Eosinophils % (Manual) Neutrophils # (Manual) Toxic Vacuolation RBC Morphology PT INR APTT Sodium Potassium Chloride Carbon Dioxide BUN Creatinine Estimated GFR BUN/Creatinine Ratio Glucose Lactate Calcium Magnesium Ferritin Total Bilirubin AST ALT Alkaline Phosphatase Total Creatine Kinase 64 CK-MB (CK-2) TNP CK-MB (CK-2) Rel Index TNP Troponin I 0.164 H* 0.145 H* C-Reactive Protein NT-Pro-B Natriuret Pep Total Protein Albumin Globulin Albumin/Globulin Ratio Procalcitonin 19.58 H Influenza A (RT-PCR) Influenza B (RT-PCR)
[2019-09-10 16:41] LABS: Uric Acid 9.2 mg/dL (3.5-8.5)
[2019-09-10] MEDS: SODIUM CHLORIDE 0.9% 1,000 ML 84 ML IV (17:16)
[2019-09-10] MEDS: AMIODARONE 200 MG TABLET PO (17:17)
[2019-09-10] MEDS: RIVAROXABAN 10 MG TABLET 15 MG PO (17:18)
--- NOTE | 2019-09-10 18:28 | PM.CN ---
History of Present Illness Consult details Date Patient Seen: 09/10/19 Time Patient Seen: 18:39 Chief complaint: Chills/Fever/Fatigue/ Pain in LT ankle Narrative: Saulo is a 84-year-old man who is admitted to the hospital with cellulitis. 48 hours ago he noticed some erythema of his left lower extremity and what he thought was perhaps a spider bite. He then applied topical Icy Hot to the skin which made things worse and then presented to the emergency room 24hrs ago. In the emergency room he was afebrile normal vital signs white blood cell count 21, normal lactate. He was started on vancomycin for his cellulitis and was admitted for treatment of encephalopathy, cellulitis and CHF . Past medical history is significant for aortic valve replacement, CHF, renal cell carcinoma, lung cancer sp partial R lung resection, HTN on anticoagulation. Meds Home Medications and Allergies Home Medications Medication Instructions Recorded Confirmed Type carvedilol [Coreg] 6.25 mg PO BID #60 tab 08/14/17 05/03/18 Rx coenzyme Q10 [Co Q-10] 300 mg PO DAILY #0 08/14/17 09/09/19 History hydrocodone-acetaminophen [Lucan] 1 tab PO Q6H PRN #0 08/14/17 05/08/18 History metronidazole [MetroCream] 1 bassam TOPICAL BID PRN #0 08/14/17 09/09/19 History triamcinolone acetonide [Triderm] 1 bassam TOPICAL BID #0 08/14/17 05/03/18 History aspirin 81 mg tablet,delayed 81 mg PO DAILY 03/30/18 09/09/19 History release aspirin 325 mg PO DAILY 05/03/18 05/03/18 History atorvastatin [Lipitor] 10 mg PO DAILY 05/03/18 09/09/19 History cholecalciferol (vitamin D3) 1,000 unit PO DAILY 05/03/18 05/03/18 History [Vitamin D3] furosemide [Lasix] 20 mg PO BID 05/03/18 09/09/19 History lisinopril 5 mg PO QPM 05/03/18 09/09/19 History sulfamethoxazole-trimethoprim 1 tab PO BID 05/03/18 05/03/18 History [Bactrim DS] acetaminophen-codeine 2 tab PO BID PRN 07/30/19 09/09/19 History amiodarone 200 mg PO ONCE PM 07/30/19 09/09/19 History levothyroxine 50 mcg PO QAM 07/30/19 09/09/19 History rivaroxaban [Xarelto] 15 mg PO QPM 07/30/19 09/09/19 History B-complex with vitamin C [Super B 1 tab PO DAILY 09/09/19 09/09/19 History Complex-Vitamin C] Tumeric 2,000 mg PO QAM 09/09/19 09/09/19 History acetaminophen 500 mg PO PRN PRN MDD 4000 09/09/19 09/09/19 History doxylamine succinate [Nighttime 25 mg PO BEDTIME PRN 09/09/19 09/09/19 History Sleep-Aid (doxylamn)] ketoconazole 1 applic TOPICAL PRN PRN 09/09/19 09/09/19 History Allergies Allergy/AdvReac Type Severity Reaction Status Date / Time clindamycin AdvReac Unknown Diarrhea Verified 07/30/19 14:23 duloxetine [From Cymbalta] AdvReac Unknown Spasms/Head Verified 07/30/19 14:23 aches gabapentin AdvReac Unknown Insomnia Verified 07/30/19 14:23 gemfibrozil AdvReac Unknown Elevated Verified 07/30/19 14:23 LFTs omeprazole AdvReac Unknown Diarrhea, Verified 07/30/19 14:23 myalgia tizanidine AdvReac Unknown Gastrointestinal Verified 07/30/19 14:23 Upset Review of Systems Review of Systems Narrative: A 10 point review of systems is negative except as noted in the HPI Exam Vital Signs (past 8 hours): - 09/10/19 12:00 09/10/19 15:20 Temperature 99.5 F 99.4 F Pulse Rate 53 L 61 Respiratory Rate 20 17 Blood Pressure 124/58 L 108/52 L Pulse Oximetry 95 94 Oxygen Delivery Method Room Air Oxygen Flow Rate 0 Narrative Exam Narrative: General-no acute distress, well nourished HEENT-moist mucous membranes, no scleral icterus Neck-supple, no lymphadenopathy Chest- non labored respirations, clear to auscultation bilaterally Cardiac-regular rate no peripheral edema Abdomen-soft, nontender, non distended Extremities-left lower extremity with area of erythema approximately 10 cm by 10 cm at the lateral aspect left ankle with a small area of echymosis. Tender to touch no crepitus no vascular streaking. I have seen a photo of his leg from 24 hours ago which demonstrated worse erythemea and involving a larger surface area. Neurological-alert and oriented, no focal deficits Objective Labs Result Diagrams: 09/10/19 05:25 09/10/19 05:25 Labs: Laboratory Results - last 24 hr 09/09/19 09/09/19 09/09/19 18:15 18:15 18:15 WBC RBC Hgb Hct MCV MCH MCHC RDW Plt Count Neut % (Auto) Lymph % (Auto) [place] % (Auto) Eos % (Auto) Baso % (Auto) Neut # (Auto) Lymph # (Auto) [place] # (Auto) Eos # (Auto) Baso # (Auto) Total Counted Seg Neutrophils % Band Neutrophils % Lymphocytes % (Manual) Atypical Lymphs % Monocytes % (Manual) Eosinophils % (Manual) Neutrophils # (Manual) Toxic Vacuolation RBC Morphology PT INR APTT Sodium 138 Potassium 4.3 Chloride 103 Carbon Dioxide 27 BUN 25 H Creatinine 1.36 H Estimated GFR 50.0 L BUN/Creatinine Ratio 18.4 Glucose 132 H Lactate 2.1 Uric Acid Calcium 10.3 H Magnesium 2.2 Ferritin Total Bilirubin 1.3 AST 22 ALT 21 Alkaline Phosphatase 79 Total Creatine Kinase 60 CK-MB (CK-2) TNP CK-MB (CK-2) Rel Index TNP Troponin I 0.051 H C-Reactive Protein 4.4 H NT-Pro-B Natriuret Pep 3830 H Total Protein 7.7 Albumin 4.5 Globulin 3.2 Albumin/Globulin Ratio 1.4 Procalcitonin 0.09 Influenza A (RT-PCR) Influenza B (RT-PCR) 09/09/19 09/09/19 09/09/19 18:15 18:15 18:15 WBC 20.6 H RBC 4.24 L Hgb 13.1 L Hct 40.7 L MCV 95.9 MCH 30.8 MCHC 32.2 RDW 16.2 H Plt Count 142 L Neut % (Auto) 88.7 H Lymph % (Auto) 2.4 L [place] % (Auto) 8.8 Eos % (Auto) 0.0 L Baso % (Auto) 0.1 Neut # (Auto) 17499 H Lymph # (Auto) 500 L [place] # (Auto) 1800 H Eos # (Auto) 0 Baso # (Auto) 0 Total Counted Seg Neutrophils % Band Neutrophils % Lymphocytes % (Manual) Atypical Lymphs % Monocytes % (Manual) Eosinophils % (Manual) Neutrophils # (Manual) Toxic Vacuolation RBC Morphology PT 22.7 H INR 2.0 H APTT 35 Sodium Potassium Chloride Carbon Dioxide BUN Creatinine Estimated GFR BUN/Creatinine Ratio Glucose Lactate Uric Acid Calcium Magnesium Ferritin 40 Total Bilirubin AST ALT Alkaline Phosphatase Total Creatine Kinase CK-MB (CK-2) CK-MB (CK-2) Rel Index Troponin I C-Reactive Protein NT-Pro-B Natriuret Pep Total Protein Albumin Globulin Albumin/Globulin Ratio Procalcitonin Influenza A (RT-PCR) Influenza B (RT-PCR) 09/09/19 09/10/19 09/10/19 18:25 05:25 05:25 WBC 26.9 H RBC 3.89 L Hgb 11.9 L Hct 37.2 L MCV 95.6 MCH 30.7 MCHC 32.1 RDW 16.0 H Plt Count 124 L Neut % (Auto) Not Reportable Lymph % (Auto) Not Reportable [place] % (Auto) Not Reportable Eos % (Auto) Not Reportable Baso % (Auto) Not Reportable Neut # (Auto) Lymph # (Auto) Not Reportable [place] # (Auto) Not Reportable Eos # (Auto) Baso # (Auto) Not Reportable Total Counted 100 Seg Neutrophils % 72.0 H Band Neutrophils % 19.0 H Lymphocytes % (Manual) 3.0 L Atypical Lymphs % 1.0 H Monocytes % (Manual) 4.0 Eosinophils % (Manual) 1.0 L Neutrophils # (Manual) 68001 H Toxic Vacuolation Present H RBC Morphology See below PT INR APTT Sodium 137 Potassium 4.8 Chloride 104 Carbon Dioxide 23 BUN 34 H Creatinine 1.73 H Estimated GFR 37.9 L BUN/Creatinine Ratio 19.7 Glucose 136 H Lactate Uric Acid Calcium 9.9 Magnesium Ferritin Total Bilirubin AST ALT Alkaline Phosphatase Total Creatine Kinase CK-MB (CK-2) CK-MB (CK-2) Rel Index Troponin I C-Reactive Protein NT-Pro-B Natriuret Pep Total Protein Albumin Globulin Albumin/Globulin Ratio Procalcitonin Influenza A (RT-PCR) Flu a negative Influenza B (RT-PCR) Flu b negative 09/10/19 09/10/19 09/10/19 05:25 05:25 05:25 WBC RBC Hgb Hct MCV MCH MCHC RDW Plt Count Neut % (Auto) Lymph % (Auto) [place] % (Auto) Eos % (Auto) Baso % (Auto) Neut # (Auto) Lymph # (Auto) [place] # (Auto) Eos # (Auto) Baso # (Auto) Total Counted Seg Neutrophils % Band Neutrophils % Lymphocytes % (Manual) Atypical Lymphs % Monocytes % (Manual) Eosinophils % (Manual) Neutrophils # (Manual) Toxic Vacuolation RBC Morphology PT INR APTT Sodium Potassium Chloride Carbon Dioxide BUN Creatinine Estimated GFR BUN/Creatinine Ratio Glucose Lactate Uric Acid 9.2 H Calcium Magnesium Ferritin Total Bilirubin AST ALT Alkaline Phosphatase Total Creatine Kinase CK-MB (CK-2) CK-MB (CK-2) Rel Index Troponin I 0.164 H* C-Reactive Protein NT-Pro-B Natriuret Pep Total Protein Albumin Globulin Albumin/Globulin Ratio Procalcitonin 19.58 H Influenza A (RT-PCR) Influenza B (RT-PCR) 09/10/19 11:08 WBC RBC Hgb Hct MCV MCH MCHC RDW Plt Count Neut % (Auto) Lymph % (Auto) [place] % (Auto) Eos % (Auto) Baso % (Auto) Neut # (Auto) Lymph # (Auto) [place] # (Auto) Eos # (Auto) Baso # (Auto) Total Counted Seg Neutrophils % Band Neutrophils % Lymphocytes % (Manual) Atypical Lymphs % Monocytes % (Manual) Eosinophils % (Manual) Neutrophils # (Manual) Toxic Vacuolation RBC Morphology PT INR APTT Sodium Potassium Chloride Carbon Dioxide BUN Creatinine Estimated GFR BUN/Creatinine Ratio Glucose Lactate Uric Acid Calcium Magnesium Ferritin Total Bilirubin AST ALT Alkaline Phosphatase Total Creatine Kinase 64 CK-MB (CK-2) TNP CK-MB (CK-2) Rel Index TNP Troponin I 0.145 H* C-Reactive Protein NT-Pro-B Natriuret Pep Total Protein Albumin Globulin Albumin/Globulin Ratio Procalcitonin Influenza A (RT-PCR) Influenza B (RT-PCR) Assessment & Plan Assessment & Plan narrative: Saulo is a 84-year-old man with numerous cardiopulmonary comorbidities who is admitted to the hospital with cellulitis of the left lower extremity. I do not think that he has necrotizing fasciitis at this time as he is afebrile, vital signs are within normal limits and his erythema is less today than it was 24 hours ago not worse. I think he has cellulitis and peripheral edema. I reviewed his laboratory studies which are significant for leukocytosis of 27 today as well as an elevated procalcitonin, his sodium and his bicarbonate are normal. He had a DVT study of the leg which was negative for thrombus. -broad antibiotic coverage as written -leg elevation, elastic compression of the leg as able to tolerate. -ultrasound of the left lower extremity rule out abscess -will follow
--- NOTE | 2019-09-10 18:52 | DI.CT.S_ITS ---
PROCEDURE: CT LE LT W CON INDICATIONS: cellulitis LLE R/o abscess and subcutaneous emphysema TECHNIQUE: After the administration of intravenous contrast, 3 mm axial sections acquired of the left lower extremity from the level of the mid calf to the plantar surface of left foot, with coronal and sagittal reformats. COMPARISON: [facility], CR, XR ANKLE LT 2V, 09/10/2019, 16:34. [facility], CR, XR FOOT LT MIN 3V, 09/10/2019, 16:34. FINDINGS: Image quality: Excellent. Bones: There is no acute fracture or dislocation. 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 Well-defined plantar calcaneal enthesophyte is seen. No suspicious intraosseous lesion is noted. Soft tissues: Extensive soft tissue edema and swelling throughout visualized left lower leg extending to surround the left ankle and foot is seen. No discrete drainable fluid collection is noted. No full-thickness extensor, flexor, peroneus tendon rupture. Achilles tendon is intact. Visualized plantar aponeurosis is grossly intact. Small amount of fluid within tibiotalar joint and subtalar joint is seen with no evidence of intra-articular loose body. IMPRESSION: 1. Extensive soft tissue swelling and edema throughout visualized left lower leg and left foot. No drainable fluid collection. Small joint effusion, no calcified intra-articular loose body. No full-thickness ankle or foot tendon rupture. 2. Osteoarthritic changes throughout ankle, midfoot and hindfoot. No acute fracture or dislocation. No bony erosive changes to suggest osteomyelitis. No suspicious intraosseous lesion. Dictated by: Joshua Philip M.D. on 09/10/2019 at 19:34 Approved by: Joshua Philip M.D. on 09/10/2019 at 19:46
--- NOTE | 2019-09-10 19:36 | PC.NURSE ---
Addendum entered by Rosalina Goncalves R.N. 09/10/19 21:56: Unable to have additional BM. Back to bed. LLE elevated on 4 pillows above level of heart. I observed LLE with moderate intermittent spasms, he reported increased pain & lots of sharp spasms. Requested linens stay off of LLE which patient reports some relief from. Medicated with TYlenol & Oxycodone per his c/o pain 11/20. Pulses present, both legs are warm. I clarified Clindamycin order with Keith BHAGAT & he said to go ahead & give it, IV antibiotic infusing, Vanco to infuse immediately after. Pt denies other needs/concerns tonight, thanking staff for really good care tonight. I thanked him & offered words of comfort & encouragement. Fall precautions in place, pt using call button appropriately, remains Ox3. Original Note: Evening notes: Saulo running low grade temp 99.4, other VS stable. HR irregular with murmur, tele afib. Denies any chest pain, SOB or cough. Nurse has observed intermittent but rare, non-productive cough. IV NS @ 84 ml/hour started per new order, LLE elevated on 4 pillows. Patient adamant about me notifying MD about the pictures my sent me, he said that his thought he had a bug bite & wanted us to know. Dr Mazariegos in room to see patient. I left Dr Loomis/hospitalist note on door to clarify order for clindamycin, as this med is on his allergy list. Patient said he doesn't remember why this med is on his allergy list. Incontinent of soft stool in bed, after returned from CT we transfered him onto commode per his request, feeling like he needs to have a BM. Xrays of LLE done in room. Patient taken down for CT, now back in room. UA sent.
[2019-09-10 19:54] LABS: Appearance Urine UA CLEAR; Bilirubin Urine UA NEGATIVE (NEGATIVE); Color Urine UA YELLOW; Glucose Urine UA NEGATIVE (Negative); Ketones Urine UA NEGATIVE (NEGATIVE); Leukocyte Esterase Urine UA NEGATIVE (NEGATIVE); Nitrite Urine UA NEGATIVE (Negative); Occult Blood Urine UA NEGATIVE (Negative); Protein Urine UA TRACE (Negative); Urobilinogen Urine UA 0.2 E.U./dL (0.2)
[2019-09-10 19:59] LABS: Bacteria Urine Occasional (0-1); Culture Indicated Urine Cult Not Indicated; Hyaline Casts Urine 5-10/LPF; RBC Urine 0-1/HPF (0-5/HPF); Squamous Epithelial Cell Urine 0-1 /HPF (0-5/HPF); WBC Urine 1-5/HPF (0-5/HPF)
[2019-09-10 20:00] VITALS: BP 157/70; PULSE 75; RESP 20; TEMP 37
[2019-09-10] MEDS: CLINDAMYCIN 600 MG/50 ML PIGGYBACK 50 MG IV (21:01)
[2019-09-10] MEDS: ATORVASTATIN 10 MG TABLET PO (21:02)
[2019-09-10] MEDS: VANCOMYCIN 1,500 MG/300 ML FROZ.PIGGY 200 MG IV (22:17)
[2019-09-11 00:10] VITALS: BP 127/57; PULSE 58; RESP 21; TEMP 35.9; O2SAT 96
[2019-09-11] MEDS: CLINDAMYCIN 600 MG/50 ML PIGGYBACK 50 MG IV ×3 (02:38→18:07)
[2019-09-11 06:00] VITALS: BP 129/62; PULSE 65; RESP 27; TEMP 36.9; O2SAT 95
[2019-09-11 06:00] LABS: Add Manual Diff / Slide Review NO; Basophils Absolute Auto 100 /uL (0-100); Basophils Percent Auto 0.3 % (0-2); Eosinophils Absolute Auto 0 /uL (0-450); Hematocrit 36.6 % (41-53); Hemoglobin 11.7 g/dL (13.5-17.5); Lymphocytes Absolute Auto 900 /uL (1100-4500); Lymphocytes Percent Auto 4.1 % (25-40); Mean Corpuscular Hemoglobin 30.5 PG (26-34); Mean Corpuscular Volume 95.1 fL (80-100); Monocytes Absolute Auto 2100 /uL (0-900); Monocytes Percent Auto 9.1 % (3-14); Neutrophils Absolute Auto 19800 /uL (1500-7000); Neutrophils Percent Auto 86.5 % (50-75); Platelet Count 120 X10^3/uL (150-400); Red Blood Cell Count 3.85 X10^6/uL (4.5-5.9); Red Cell Distribution Width 16.1 % (11.6-14.8); White Blood Cell Count 22.9 X10^3/uL (4.5-11.0)
[2019-09-11 06:14] LABS: Alanine Aminotransferase 18 IU/L (<50); Albumin 3.4 g/dL (3.5-5.0); Albumin Globulin Ratio 1.1 (1.0-2.8); Alkaline Phosphatase 59 U/L (38-126); Aspartate Aminotransferase 22 IU/L (17-59); Bilirubin Total 0.9 mg/dL (0.2-1.3); Blood Urea Nitrogen 43 mg/dL (9-20); Calcium 9.5 mg/dL (8.4-10.2); Carbon Dioxide 25 mmol/L (22-32); Chloride 101 mmol/L (98-107); Estimated Glomerular Filt Rate 38.2 mL/min (>60); Globulin 3.1 g/dL (1.7-4.1); Glucose 101 mg/dL (80-110); HEMOLYSIS < 15 (0-50); Magnesium 2.4 mg/dL (1.6-2.3); Potassium 4.6 mmol/L (3.4-5.1); Sodium 133 mmol/L (137-145); Total Protein 6.5 g/dL (6.3-8.2)
[2019-09-11 06:29] LABS: Procalcitonin 19.67 ng/mL (<0.5)
[2019-09-11] MEDS: LEVOTHYROXINE 50 MCG TABLET PO (06:31)
[2019-09-11] MEDS: CEFTRIAXONE 2 GM/50 ML FROZ.PIGGY IV (06:31)
[2019-09-11 08:10] VITALS: BP 136/58; PULSE 67; RESP 18; TEMP 36.9; O2SAT 95
[2019-09-11] MEDS: ASCORBIC ACID 500 MG TABLET PO (08:30)
[2019-09-11] MEDS: ASPIRIN EC 81 MG TABLET PO (08:30)
--- NOTE | 2019-09-11 08:38 | PM.PN.1 ---
Subjective Subjective Date Patient Seen: 09/11/19 Time Patient Seen: 08:39 Interval history: No acute overnight events. LLE pain has improved significantly over the past 12 hrs. Exam Vital Signs (past 8 hours): - 09/11/19 06:00 Temperature 98.4 F Pulse Rate 65 Respiratory Rate 27 H Blood Pressure 129/62 Pulse Oximetry 95 Oxygen Delivery Method Room Air Oxygen Flow Rate 0 Narrative Exam Narrative: Gen adult male AO NAD LLE-Erythema of LLE ankle slighlty decreased in size over past 12 hrs, significantly less tender to palpation over 12 hrs. No Streaking or crepitus Objective Labs Result Diagrams: 09/11/19 05:40 09/11/19 05:40 Labs: Laboratory Results - last 24 hr 09/10/19 09/10/19 09/10/19 05:25 05:25 11:08 WBC RBC Hgb Hct MCV MCH MCHC RDW Plt Count Neut % (Auto) Lymph % (Auto) [place] % (Auto) Eos % (Auto) Baso % (Auto) Neut # (Auto) Lymph # (Auto) [place] # (Auto) Eos # (Auto) Baso # (Auto) Sodium 137 Potassium 4.8 Chloride 104 Carbon Dioxide 23 BUN 34 H Creatinine 1.73 H Estimated GFR 37.9 L BUN/Creatinine Ratio 19.7 Glucose 136 H Uric Acid 9.2 H Calcium 9.9 Magnesium Total Bilirubin AST ALT Alkaline Phosphatase Total Creatine Kinase 64 CK-MB (CK-2) TNP CK-MB (CK-2) Rel Index TNP Troponin I 0.145 H* Total Protein Albumin Globulin Albumin/Globulin Ratio Procalcitonin Urine Color Urine Appearance Urine pH Ur Specific [place] Urine Protein Urine Glucose (UA) Urine Ketones Urine Occult Blood Urine Nitrate Urine Bilirubin Urine Urobilinogen Ur Leukocyte Esterase Urine RBC Urine WBC Ur Squamous Epith Cells Urine Bacteria Hyaline Casts Ur Culture Indicated? 09/10/19 09/11/19 09/11/19 19:30 05:40 05:40 WBC 22.9 H RBC 3.85 L Hgb 11.7 L Hct 36.6 L MCV 95.1 MCH 30.5 MCHC 32.0 RDW 16.1 H Plt Count 120 L Neut % (Auto) 86.5 H Lymph % (Auto) 4.1 L [place] % (Auto) 9.1 Eos % (Auto) 0.0 L Baso % (Auto) 0.3 Neut # (Auto) 33314 H Lymph # (Auto) 900 L [place] # (Auto) 2100 H Eos # (Auto) 0 Baso # (Auto) 100 Sodium Potassium Chloride Carbon Dioxide BUN Creatinine Estimated GFR BUN/Creatinine Ratio Glucose Uric Acid Calcium Magnesium Total Bilirubin AST ALT Alkaline Phosphatase Total Creatine Kinase CK-MB (CK-2) CK-MB (CK-2) Rel Index Troponin I Total Protein Albumin Globulin Albumin/Globulin Ratio Procalcitonin 19.67 H Urine Color Yellow Urine Appearance Clear Urine pH 5.0 Ur Specific [place] 1.020 Urine Protein Trace H Urine Glucose (UA) Negative Urine Ketones Negative Urine Occult Blood Negative Urine Nitrate Negative Urine Bilirubin Negative Urine Urobilinogen 0.2 Ur Leukocyte Esterase Negative Urine RBC 0-1/hpf Urine WBC 1-5/hpf Ur Squamous Epith Cells 0-1 /hpf Urine Bacteria Occasional (0-1) Hyaline Casts 5-10/lpf Ur Culture Indicated? Cult not indicated 09/11/19 05:40 WBC RBC Hgb Hct MCV MCH MCHC RDW Plt Count Neut % (Auto) Lymph % (Auto) [place] % (Auto) Eos % (Auto) Baso % (Auto) Neut # (Auto) Lymph # (Auto) [place] # (Auto) Eos # (Auto) Baso # (Auto) Sodium 133 L Potassium 4.6 Chloride 101 Carbon Dioxide 25 BUN 43 H Creatinine 1.72 H Estimated GFR 38.2 L BUN/Creatinine Ratio 25.0 H Glucose 101 Uric Acid Calcium 9.5 Magnesium 2.4 H Total Bilirubin 0.9 AST 22 ALT 18 Alkaline Phosphatase 59 Total Creatine Kinase CK-MB (CK-2) CK-MB (CK-2) Rel Index Troponin I Total Protein 6.5 Albumin 3.4 L Globulin 3.1 Albumin/Globulin Ratio 1.1 Procalcitonin Urine Color Urine Appearance Urine pH Ur Specific [place] Urine Protein Urine Glucose (UA) Urine Ketones Urine Occult Blood Urine Nitrate Urine Bilirubin Urine Urobilinogen Ur Leukocyte Esterase Urine RBC Urine WBC Ur Squamous Epith Cells Urine Bacteria Hyaline Casts Ur Culture Indicated? Assessment & Plan Assessment & Plan narrative: Saulo is a 84 M with cellulitis of the LLE. He is clinically improving. The erythema has decreased in size over the past 12 hrs on antibiotics in addition to the fact that his tenderness is nearly resolved. He remains hemodynamically normal and without fever. I reviewed his CT LLE there is edema within the subcutaneous tissues there is no abscess or subcutaneous emphysema. I do not think he has necrotizing fascitiis as he is improving and without systemic toxicitiy. I'm uncertain as to why he continues to have elevated WBC and procalcitonin. -Continue antibiotic therapy for cellulitis -Elevation of leg and compression -No acute surgical intervention
--- NOTE | 2019-09-11 11:22 | CM.DPC ---
DCP/continued: Received call from patient's spouse/Fouzia today, she is requesting to take patient home today. Spouse concerned that patient is getting weaker during hospitalization. [employer] explained to spouse that patient currently with COVID 19 test pending and patient currently undergoing treatment for his leg. Spoke with provider and PT evaluation ordered. Spouse reports that patient uses crutches at home. In addition, left name/number of spouse for provider if time allows. Spouse concerns about patient staying in hospital and reports that she does have assistance from friend in the home. P: Pending. Per Dr. Loomis patient is not medically stable for discharge today. Spouse notified but unclear on why? Again, reiterated work up and treatment in progress. SANDY Cyr
[2019-09-11 12:53] VITALS: BP 164/67; PULSE 68; RESP 18; TEMP 36.9; O2SAT 96
--- NOTE | 2019-09-11 14:00 | PM.PN.1 ---
Subjective Subjective Date Patient Seen: 09/11/19 Interval history: Patient is a 84-year-old male with history of TAVR, persistent AFib in sinus on amiodarone, on Xarelto, who presented with left ankle pain, redness and swelling. He is on triple antibiotic with vancomycin, Rocephin and clindamycin to treat for presumed soft tissue cellulitis. Patient states his pain is really about the same. His WBC remains quite elevated and procalcitonin has not improved on antibiotic management. He has also noticed swelling of his scrotum but no pain. He has also developed acute renal injury. Exam Vital Signs (past 8 hours): - 09/11/19 08:10 09/11/19 12:53 Temperature 98.4 F 98.4 F Pulse Rate 67 68 Respiratory Rate 18 18 Blood Pressure 136/58 L 164/67 H Pulse Oximetry 95 96 Oxygen Delivery Method Room Air Oxygen Flow Rate 0 Narrative Exam Narrative: General: Alert, pleasant and cooperative Lungs: Clear to auscultation Heart: Regular rhythm Abdomen: Nondistended, soft and nontender Genitourinary: There is moderate to severe left scrotal swelling with mild inflammatory change but no tenderness of the scrotum. Extremities: Left ankle: There is at least moderate diffuse edema of the left ankle with macular erythema all around the ankle extending to the posterior, exquisite tenderness of medial and lateral ankle joint, pain with passive dorsiflexion of the ankle, also there is 2 superficial hemorrhagic blisters on the anterior pate a few inches above the ankle Neurological: Alert, appropriate and responsive Objective Labs Result Diagrams: 09/11/19 05:40 09/11/19 05:40 Labs: Laboratory Results - last 24 hr 09/10/19 09/10/19 09/10/19 05:25 05:25 19:30 WBC RBC Hgb Hct MCV MCH MCHC RDW Plt Count Neut % (Auto) Lymph % (Auto) [place] % (Auto) Eos % (Auto) Baso % (Auto) Neut # (Auto) Lymph # (Auto) [place] # (Auto) Eos # (Auto) Baso # (Auto) Sodium 137 Potassium 4.8 Chloride 104 Carbon Dioxide 23 BUN 34 H Creatinine 1.73 H Estimated GFR 37.9 L BUN/Creatinine Ratio 19.7 Glucose 136 H Uric Acid 9.2 H Calcium 9.9 Magnesium Total Bilirubin AST ALT Alkaline Phosphatase Total Protein Albumin Globulin Albumin/Globulin Ratio Procalcitonin Urine Color Yellow Urine Appearance Clear Urine pH 5.0 Ur Specific [place]da 1.020 Urine Protein Trace H Urine Glucose (UA) Negative Urine Ketones Negative Urine Occult Blood Negative Urine Nitrate Negative Urine Bilirubin Negative Urine Urobilinogen 0.2 Ur Leukocyte Esterase Negative Urine RBC 0-1/hpf Urine WBC 1-5/hpf Ur Squamous Epith Cells 0-1 /hpf Urine Bacteria Occasional (0-1) Hyaline Casts 5-10/lpf Ur Culture Indicated? Cult not indicated 09/11/19 09/11/19 09/11/19 05:40 05:40 05:40 WBC 22.9 H RBC 3.85 L Hgb 11.7 L Hct 36.6 L MCV 95.1 MCH 30.5 MCHC 32.0 RDW 16.1 H Plt Count 120 L Neut % (Auto) 86.5 H Lymph % (Auto) 4.1 L [place] % (Auto) 9.1 Eos % (Auto) 0.0 L Baso % (Auto) 0.3 Neut # (Auto) 40401 H Lymph # (Auto) 900 L [place] # (Auto) 2100 H Eos # (Auto) 0 Baso # (Auto) 100 Sodium 133 L Potassium 4.6 Chloride 101 Carbon Dioxide 25 BUN 43 H Creatinine 1.72 H Estimated GFR 38.2 L BUN/Creatinine Ratio 25.0 H Glucose 101 Uric Acid Calcium 9.5 Magnesium 2.4 H Total Bilirubin 0.9 AST 22 ALT 18 Alkaline Phosphatase 59 Total Protein 6.5 Albumin 3.4 L Globulin 3.1 Albumin/Globulin Ratio 1.1 Procalcitonin 19.67 H Urine Color Urine Appearance Urine pH Ur Specific [place]da Urine Protein Urine Glucose (UA) Urine Ketones Urine Occult Blood Urine Nitrate Urine Bilirubin Urine Urobilinogen Ur Leukocyte Esterase Urine RBC Urine WBC Ur Squamous Epith Cells Urine Bacteria Hyaline Casts Ur Culture Indicated? Assessment & Plan Assessment & Plan narrative: Patient is a 84-year-old male with history of TAVR, persistent AFib in sinus on amiodarone, on Xarelto, who presented with left ankle pain, redness and swelling 1. Left ankle cellulitis, acute, present on admission, active -Patient without clinical improvement on day 3 of IV antibiotics, persistent elevated WBC unchanged from admission, procalcitonin around 20 unchanged from prior day, no significant improvement in exam or pain -CT showed extensive soft tissue edema, mild effusion, no discrete drainable fluid collection -lack of clinical improvement on aggressive IV antibiotic management is concerning in regards to possible intra-articular infection; elevated WBC and procalcitonin more consistent with infection than crystal arthropathy -moderate to severe left-sided scrotal nonpainful swelling is presumably from lymphedema -plan to discuss patient with Dr. Miranda to see if it is possible to try to obtain intra-articular fluid for gram stain and culture -also appreciate general surgery consult by Dr. Mazariegos -continue IV vancomycin, Rocephin and clindamycin for antibiotic management -continue Tylenol and oxycodone as needed for pain management -Will follow infection markers. 2. Toxic metabolic encephalopathy, acute, present on admission, resolved. -The patient had decreased orientation to oriented to person and place only different from baseline. Mental status has cleared up. 3. Acute kidney injury on chronic kidney disease stage IIIA, present on admission, stable. -BUN and creatinine are 25 and 1.36 on admission labs. History of elevated creatinine at 1.4 on 07/08/2019 up to 1.5 on 07/30/2019. Before that in June 2017 the patient had a creatinine 1.1. -rising creatinine values 1.72-1.73 on 09/10 and 09/09 respectively, patient received contrast CT on 09/09 which was after his creatinine had started to go up slightly from admission -continue hydration with NS 84 cc/hours to treat pre renal source and reduce risk of contrast nephropathy -discontinued oral furosemide and lisinopril on temporary basis until renal function improves 4. Persistent atrial fibrillation, on amiodarone, anticoagulated on Xarelto, in sinus rhythm, stable -continue amiodarone 200 mg daily and Xarelto 15 mg HS. 5. Congestive heart failure with reduced ejection fraction, chronic, present on admission, stable. Patient had a decrease in his Lasix to [address] Ghosh his PCP. This was increased back to 20 mg b.i.d. 9 days ago following bronchoscopy at [facility]. Patient with bibasilar crackles in peripheral edema 2+ on the left and trace on the right. CT scan does not identify pulmonary edema but notes scattered atelectasis and chest x-ray finds no acute disease. -holding furosemide and lisinopril due to CORET[place] -continue aspirin and atorvastatin per home routine 6. Lung cancer status post resection, present on admission, stable. 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 Unclear treatment post resection. No current cough or chest pain. Patient with increasing lymphadenopathy prompting bronchoscopy at [facility] with no significant secretions or lesions, mild injection of the main bronchi bilaterally. CT scan finds a 3 mm right upper lobe nodule that warrants further evaluation and surveillance. 7. Hypothyroidism, stable Continue home regimen of levothyroxine 50 mcg daily. Code status: FULL CODE.
--- NOTE | 2019-09-11 14:42 | DI.MRI.S_ITS ---
PROCEDURE: MR ANKLE LT WO/W CON INDICATIONS: r/o left ankle abscess or septic athropathy TECHNIQUE: Noncontrast sagittal T1 spin echo and T2 fast spin echo with fat saturation, axial proton density fast spin echo and T2 fast spin echo with fat saturation, axial T1 spin echo with fat saturation, coronal T1 spin echo and T2 fast spin echo with fat saturation through the ankle/hindfoot. Post-contrast axial, coronal, and sagittal T1 spin echo with fat saturation through the ankle/hindfoot. COMPARISON: None. FINDINGS: Image quality: Excellent. Bones and joints: There is no abnormal intraosseous enhancement. No marrow edema. No fracture or dislocation. Osteoarthritic changes throughout ankle, hindfoot and midfoot joints are seen. No gross bony erosive changes. Marked soft tissue edema and swelling surrounding ankle and foot is seen suggestive of extensive cellulitis. No discrete drainable fluid collection is identified. Small amount of fluid within tibiotalar joint and subtalar joint is noted with no gross intra-articular loose body. Medial structures: The posterior tibialis, flexor digitorum longus, and flexor hallucis longus tendons are intact. The posterior tibial neurovascular bundle appears normal within the tarsal tunnel, without extrinsic mass effect. The deep layer (anterior and posterior tibiotalar ligaments) and superficial layer (tibionavicular, tibiospring, and tibiocalcaneal ligaments) of the deltoid ligament appear normal. The spring ligament components (superomedial calcaneonavicular, medioplantar oblique calcaneonavicular, and inferoplantar longitudinal ligaments) are intact. Lateral structures: The anterior talofibular, calcaneofibular, and posterior talofibular ligaments appear intact. More superiorly, the anterior and posterior tibiofibular ligaments appear intact, as is the intermalleolar ligament. The tibiofibular syndesmosis is normal in width at 2 mm or less. The peroneus longus and brevis tendons demonstrate normal location and morphology. Adjacent bony peroneal tubercle and retrotrochlear prominence are normal in size. The sinus tarsi demonstrates normal fatty signal, without edema, fibrosis, or cyst formation. Visualized sinus tarsi components (cervical ligament, interosseous talocalcaneal ligament, roots of the inferior extensor retinaculum) appear normal. The calcaneonavicular and calcaneocuboid components of the bifurcate ligament appear intact. The dorsal calcaneocuboid ligament appears intact. Anterior structures: The tibialis anterior, extensor hallucis longus, and extensor digitorum longus tendons appear intact. The dorsal talonavicular ligament appears intact. Posterior and plantar structures: Achilles tendon is intact. Mildly thickened plantar aponeurosis is seen at their insertion on plantar calcaneus, suspicious for low-grade plantar fasciitis.. No abductor digiti quinti muscle atrophy to suggest Andujar neuropathy. IMPRESSION: 1. Extensive cellulitis around ankle, hindfoot and midfoot with marked soft tissue swelling and edema. No discrete abscess collection is seen. 2. Osteoarthritic changes throughout ankle, hindfoot and midfoot joints. No evidence of osteomyelitis. Small amount of fluid within tibiotalar joint and subtalar joint with no MR evidence of septic joint. No gross intra-articular loose body. 3. Mildly thickened plantar aponeurosis at its plantar calcaneal insertion, low-grade plantar fasciitis cannot be excluded. 4. Ankle tendons and ligaments are grossly intact. Dictated by: Joshua Philip M.D. on 09/12/2019 at 16:13 Approved by: Joshua Philip M.D. on 09/12/2019 at 16:18
--- NOTE | 2019-09-11 14:53 | PC.NURSE ---
Patients l.lower leg red with open area, he is ambulating with the walker and doing well. Scrotum also swollen, patient is able to void in the urinal. He has also had a bowel movement and seems to be feeling better.
--- NOTE | 2019-09-11 15:57 | PT.IIE ---
Current Diagnoses Cellulitis of left lower limb (09/09/19) Surgical History (Last Reviewed 09/10/19 @ 18:28 by Abhishek Mazariegos MD) H/O aortic valve replacement (Acute) H/O hemorrhoidectomy (Acute ~1984) H/O left inguinal hernia repair (Acute ~1995) H/O partial nephrectomy (Acute ~2009) H/O right inguinal hernia repair (Acute ~2010) History of colonoscopy (Acute) History of thoracotomy (Acute) History of tonsillectomy (Acute ~1945) S/P TAVR (transcatheter aortic valve replacement) (Acute ~10/2017) Medical History (Last Reviewed 09/10/19 @ 18:28 by Abhishek Mazariegos MD) Adrenal nodule (Acute) Benign schwannoma (Acute) Carpal tunnel syndrome on right (Acute) Chronic pain disorder (Acute) Colon polyp (Acute) Degenerative disc disease (Acute) Depression (Acute) Dysphagia (Acute) Elevated cholesterol with elevated triglycerides (Chronic) Esophageal reflux (Acute) Essential hypertension (Chronic) Fatty liver (Acute) Hyperlipidemia (Acute) Hypertension (Acute) Infected sebaceous cyst (Acute) Kidney stone (Acute ~2000) Liver hemangioma (Acute) Osteoarthritis (Acute) RBBB (Acute) Rotator cuff syndrome (Acute) Severe aortic stenosis (Acute) Sleep apnea (Acute) Sliding hiatal hernia (Acute) Spinal stenosis (Acute) [place] diverticulum (Acute) Physical Therapy Inpatient Evaluation/Re-Eval M1 PT/OT-IP Prior Functional Status Start: 09/11/19 13:06 Freq: NEEDED Status: Active Protocol: Document 09/11/19 15:57 LRN (Rec: 09/11/19 17:13 LRN [id number]) Medical Review Prior Functional Status Medical History Reviewed Yes Communication Normal Mobility and Gait Independent ambulator with a cane. Activities of Daily Living and IADL's Independent Prior Functional Level (Other details) Exercised daily. 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 Social History Household Members spouse Living Arrangements Apartment/Condo Number of Floors (Floors) One Floor Number of Stairs To Enter/Railing? 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 Weight Bearing Status Weight Bearing Status Full Weight Bearing M3 PT-IP Subjective Start: 09/11/19 13:06 Freq: NEEDED Status: Active Protocol: Document 09/11/19 15:57 LRN (Rec: 09/11/19 17:13 LRN [email or web address]) Subjective Physical Therapy Visit Type Type Initial Evaluation Visit Start Time 15:57 Visit Stop Time 16:43 Total Visit Minutes 46 Physical Therapy Visit Comments Patient Comments Had just recently gotten into bed after using a bedside commode. Tired Patient Goals Pt goal is to be able to walk like normal. Without an assistive device. Therapy Pain Assessment Pain When Pain Assessed During Mobility Pain Present Pain Present Pain Reported Location Left Leg Intensity 8 Scale Used Numeric (1 - 10) Description Cramping,Sharp,Tingling,With Movement Pain Management Techniques Elevation M4 PT-IP Mobility and Gait Start: 09/11/19 13:06 Freq: NEEDED Status: Active Protocol: Document 09/11/19 15:57 LRN (Rec: 09/11/19 17:13 LRN [email or web address]) PT-Bed Mobility Assessment Supine to Sit Supine to Sit Standby Assistance Sit to Supine Sit to Supine Minimal Assistance PT-Transfer Assessment Sit to and From Stand Sit to and from Stand Minimal Assistance Equipment Transfer Assistive Device Gait Belt,Front Wheeled Walker Orthotic/Prosthetic Devices or Brace: No Transfers Transfer Destination Bed Transfer Ability Level of Assist Contact Guard Assistance, Minimal Assistance Comments Mobility Comments Pt transfer: Stood, side stepped L & R and forward/ backward, 3 steps each. Gait Assessment Gait Gait Assistance Required: Contact Guard Assist Able to Maintain Weight Bearing Status No During Gait Assistive Devices Assistive Device Gait Belt,Front Wheeled Walker Gait Deviations General Gait Pattern Antalgic,Decreased Stride Length Factors Limiting Gait Function Factors Limiting Gait Function Decreased Sensation,Pain Comments Gait Comments Pt has decreased sensation in the plantar aspect of the L foot. PT-Balance Assessment Sitting Balance and Reactions Static Sitting Balance Ability Good Dynamic Sitting Balance Ability Good Standing Balance and Reactions Static Standing Balance Ability Fair Dynamic Standing Balance Ability Fair Device Used FWW Functional Assessments Other Functional Tests Performed Egress Test for safety with ambulation. Pt passed. M5 PT-IP Objective Assessments Start: 09/11/19 13:06 Freq: NEEDED Status: Active Protocol: Document 09/11/19 15:57 LRN (Rec: 09/11/19 17:13 LRN [email or web address]) Orientation Orientation/Cognition Level of Alertness Alert Orientation Name,Age,Place,Situation Language Function Ability No Deficits Noted Memory Description No Deficits Noted Gross Range of Motion Upper Extremity ROM Assessment Within Functional Limits Lower Extremity ROM Assessment Left Impaired Strength Upper Extremity Strength Assessment Within Functional Limits Lower Extremity Strength Assessment Left Impaired Sensation Assessment Sensation Gross Sensation Left LE Impaired Light Touch Impaired Proprioception (Position) Intact Sensation Description [place],Pain Comments Sensation Comments Pt reported mild lessening of pain with continued exercise. M6 PT-IP Treatment Start: 09/11/19 13:06 Freq: NEEDED Status: Active Protocol: Document 09/11/19 15:57 LRN (Rec: 09/11/19 17:13 LRN [email or web address]) Physical Therapy Treatment Exercises Exercises Ankle Pumps,Heel Slides, Straight Leg Raises Other Treatments Other Treatment Performed I/S and exercised pt with: Ankle circles, I/S in pt to do ABCs with foot, Assist given for SLR. I/S pt in UE ex's of reverse butterfly, chest press, and alternate arm lifts . SpO2: At rest is 95%, after activity is 95%. HR: At rest is 77 bpm, after activity 77-78% BP at rest was 147/77. M7 PT-IP Assessment and Plan Start: 09/11/19 13:06 Freq: NEEDED Status: Active Protocol: Document 09/11/19 15:57 LRN (Rec: 09/11/19 17:13 LRN [email or web address]) PT Summary Assessment and Plan Potential Rehabilitation Potential Good Status of Condition at Evaluation Evolving Summary Impairments Pain,ROM,Strength,Balance,Bed Mobility,Transfers,Gait, Activity Tolerance Assessment Summary Pt presents with limited function due to pain in L lower leg. He has good strength in the LE but showed poor endurance with exercise. He only tolerated 5 SLR lifts but was able to perform 10 heels slide and ankle exercises. The pt became SOB with transfer out of bed and with gait, but SpO2 remained at 95% and HR remained 77 bpm. Pt did not present as 8/10 pain and was able to take small steps near bedside and as time passed seemed to have a little less pain (as noted by pt). The pt is limited in L ankle mobility & strength due to the pain; therefore his functional ability is also limited. The pt will benefit from skilled physical therapy for LE strengthening, therapeutic activity training and gait training for return to baseline as pain in the L LE decreases. Goals Bed Mobility Goal Independent Transfer Goal Independent Gait Goal Standby Assistance,Front Wheel Walker Gait Distance 75' Other Goals Pt will be independent with a home program of LE & UE strengthening ex's. Days to Meet Goals 3 Frequency of Treatment Frequency Of Treatment Once a Day Treatment Plan Physical Therapy Treatment Plan Bed Mobility Training,Transfer Training,Gait Training, Therapeutic Exercise Recommendations To Nursing Amount of Assist Needed 1 Person Assist Discharge Recommendations PT Discharge Recommendations Home with Assistance Other Discharge Recommendations Pt to ambulate with cane or FWW. Equipment Needed for Home Before Possible need of FWW. Discharge Transportation Needs at Discharge Private Vehicle
[2019-09-11 17:00] VITALS: BP 139/70; PULSE 73; RESP 18; TEMP 37.2; O2SAT 97
[2019-09-11] MEDS: RIVAROXABAN 10 MG TABLET 15 MG PO (17:47)
[2019-09-11] MEDS: AMIODARONE 200 MG TABLET PO (17:48)
[2019-09-11] MEDS: VANCOMYCIN 1,500 MG/300 ML FROZ.PIGGY 200 MG IV (19:54)
[2019-09-11 19:57] VITALS: BP 142/70; PULSE 69; RESP 20; TEMP 36.4; O2SAT 98
[2019-09-11] MEDS: ATORVASTATIN 10 MG TABLET PO (21:40)
--- NOTE | 2019-09-11 22:27 | PC.NURSE ---
Eli shift note: Patient awake, alert, and pleasant. VSS and afebrile this shift, continue with sustained Afib on Tele as per baseline with rate controlled, normotensive. LLE elevated, SCD to RLE. IVF infusing. Up OOB to BSC to void, 1PA FWW. LLE 3-4+. Calls appropriately for staff assistance.
[2019-09-12] MEDS: CLINDAMYCIN 600 MG/50 ML PIGGYBACK 50 MG IV ×3 (03:13→19:05)
[2019-09-12] MEDS: SODIUM CHLORIDE 0.9% 1,000 ML 84 ML IV (03:13)
[2019-09-12 03:24] VITALS: BP 136/80; PULSE 68; RESP 20; TEMP 37.1; O2SAT 94
[2019-09-12 03:54] LABS: COVID19 Sendout Not Detected (Not Detected)
[2019-09-12 05:34] LABS: Add Manual Diff / Slide Review NO; Basophils Absolute Auto 0 /uL (0-100); Basophils Percent Auto 0.1 % (0-2); Eosinophils Absolute Auto 0 /uL (0-450); Hematocrit 36.4 % (41-53); Lymphocytes Absolute Auto 700 /uL (1100-4500); Lymphocytes Percent Auto 3.3 % (25-40); Mean Corpuscular HGB Conc 32.9 % (30-36); Mean Corpuscular Hemoglobin 31.2 PG (26-34); Mean Corpuscular Volume 94.9 fL (80-100); Monocytes Absolute Auto 1900 /uL (0-900); Monocytes Percent Auto 8.7 % (3-14); Neutrophils Absolute Auto 18900 /uL (1500-7000); Neutrophils Percent Auto 87.9 % (50-75); Platelet Count 134 X10^3/uL (150-400); Red Blood Cell Count 3.84 X10^6/uL (4.5-5.9); Red Cell Distribution Width 15.8 % (11.6-14.8); White Blood Cell Count 21.5 X10^3/uL (4.5-11.0)
[2019-09-12 05:44] LABS: BUN Creatinine Ratio 29.3 (6-22); Blood Urea Nitrogen 43 mg/dL (9-20); Calcium 9.4 mg/dL (8.4-10.2); Carbon Dioxide 23 mmol/L (22-32); Chloride 101 mmol/L (98-107); Estimated Glomerular Filt Rate 45.7 mL/min (>60); Glucose 98 mg/dL (80-110); HEMOLYSIS < 15 (0-50); Potassium 4.1 mmol/L (3.4-5.1); Sodium 133 mmol/L (137-145)
[2019-09-12 06:02] LABS: Procalcitonin 9.09 ng/mL (<0.5)
[2019-09-12] MEDS: LEVOTHYROXINE 50 MCG TABLET PO (06:57)
[2019-09-12 08:00] VITALS: BP 142/77; PULSE 87; RESP 19; TEMP 37.2; O2SAT 93
[2019-09-12] MEDS: ASPIRIN EC 81 MG TABLET PO (08:30)
[2019-09-12] MEDS: ASCORBIC ACID 500 MG TABLET PO (08:30)
[2019-09-12] MEDS: CEFTRIAXONE 2 GM/50 ML FROZ.PIGGY IV (08:30)
--- NOTE | 2019-09-12 09:09 | CM.DPC ---
Addendum entered by SANDY Diaz 09/12/19 15:24: ADD: Per PT this afternoon, concerns with pt's ability to bare weight and ambulate and recommending possible SNF now before safe return home with spouse. AKBAR Boyer attempted to meet bedside with pt to discuss SNF at d/c but pt off floor for MRI. SW made SNF referral to [facility] and [facility] as they are the only local facilities closest to pt accepting new referrals at this time and called admissions to request review as back up plan if pt does not progress with therapy. Plan: SW to follow in the morning with pt to discuss SNF vs HH pending his progress and IV-Abx needs and to follow with [facility] and [facility] to determine if either can accept. SANDY Diaz Original Note: DCP Cont: Per MD, pt with ankle cellulitis and on broad spectrum IV-Abx and per Surgeon Consult no sign of necrotizing fasciitis and no surgical intervention required at this time. Per PT initial eval, pt ambulated well and seems at his baseline where he ambulates at home with a cane at time and recommending safe d/c home with spouse and possible FWW. COVID 19 test results returned negative. 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 SANDY Diaz
--- NOTE | 2019-09-12 09:37 | PM.PN.1 ---
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 The patient is resting in bed comfortably. He continues to have significant pain in his left foot that he reports is only slightly improved. His range of motion is still significantly impaired due to edema and pain but he is now able to lift his foot off the bed. He also complains of scrotal swelling that is also improved. IV fluids have been discontinued and continued conservative management including elevation of both left lower extremity and scrotum. He has no other complaints and denies headache, shortness of breath, chest pain, abdominal pain, nausea, vomiting, fever, chills, dysuria, diarrhea or constipation. He is voiding and eliminating without difficulty. Exam Vital Signs (past 8 hours): - 09/12/19 03:24 09/12/19 08:00 Temperature 98.8 F 98.9 F Pulse Rate 68 87 Respiratory Rate 20 19 Blood Pressure 136/80 142/77 H Pulse Oximetry 94 93 Oxygen Delivery Method Room Air Oxygen Flow Rate 0 Narrative Exam Narrative: General: Elderly gentleman lying in bed and in no acute distress, well-developed, well-nourished, appropriately interactive. HEENT: Normocephalic, atraumatic. External ears without defect. Pupils equal, round, and reactive to light. Anicteric sclerae, moist conjunctivae, and no lid lag. Oropharynx free of erythema and cobble stoning with moist mucosa. Neck: Supple with full range of motion. No jugular venous distension. No bruits. No lymphadenopathy or thyromegaly. Cardiovascular: Regular rate and rhythm without murmurs, rubs, or gallops appreciated. Pulmonary: Clear to auscultation bilaterally without crackles, wheezes, or rhonchi. Normal respiratory effort with no use of accessory muscles. Abdomen: Soft, bowel sounds present, nontender, nondistended. No hepatosplenomegaly or masses appreciated. Genitourinary: Moderate scrotal edema without erythema and no tenderness. Extremities: No clubbing or cyanosis. Left foot with moderate edema from ankle distally that is improving. Mild erythema on posterior aspect of left ankle and purple discoloration that possibly represents a bullae versus insect bite on anterior portion of left ankle. Small crack in skin on left plantar aspect of heel. Skin: Normal temperature, turgor, and texture; no rash, ulcers, or subcutaneous nodules appreciated. Neurological: Cranial nerves grossly intact. Normal muscle strength, tone, and bulk. Reflexes, coordination, and sensory function within normal limits. No known gait impairment. Psychiatric: Normal mood and affect. Alert and oriented to person, place, and time. Objective Labs Result Diagrams: 09/13/19 04:50 09/13/19 04:50 Labs: Laboratory Results - last 24 hr 09/09/19 09/12/19 09/12/19 21:55 04:45 04:45 WBC 21.5 H RBC 3.84 L Hgb 12.0 L Hct 36.4 L MCV 94.9 MCH 31.2 MCHC 32.9 RDW 15.8 H Plt Count 134 L Neut % (Auto) 87.9 H Lymph % (Auto) 3.3 L [place] % (Auto) 8.7 Eos % (Auto) 0.0 L Baso % (Auto) 0.1 Neut # (Auto) 10942 H Lymph # (Auto) 700 L [place] # (Auto) 1900 H Eos # (Auto) 0 Baso # (Auto) 0 Sodium Potassium Chloride Carbon Dioxide BUN Creatinine Estimated GFR BUN/Creatinine Ratio Glucose Calcium Procalcitonin 9.09 H COVID-19 PCR Not detected 09/12/19 04:45 WBC RBC Hgb Hct MCV MCH MCHC RDW Plt Count Neut % (Auto) Lymph % (Auto) [place] % (Auto) Eos % (Auto) Baso % (Auto) Neut # (Auto) Lymph # (Auto) [place] # (Auto) Eos # (Auto) Baso # (Auto) Sodium 133 L Potassium 4.1 Chloride 101 Carbon Dioxide 23 BUN 43 H Creatinine 1.47 H Estimated GFR 45.7 L BUN/Creatinine Ratio 29.3 H Glucose 98 Calcium 9.4 Procalcitonin COVID-19 PCR Assessment & Plan Assessment & Plan narrative: Saulo Russ is an [id number] with past medical history significant for severe aortic stenosis and mitral regurgitation status post TAVR, congestive heart failure with preserved ejection fraction, left renal cell carcinoma status post partial nephrectomy, 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 1. Acute sepsis, present on admission. Resolved. -Patient presented with fever, leukocytosis, end-organ dysfunction of acute kidney injury and metabolic encephalopathy with source left foot cellulitis. -Early goal-directed therapy met including: IV fluid resuscitation and broad-spectrum antibiotics. -Lactic acid normal at 2.1. 2. Acute left foot and ankle cellulitis, present on admission. Active. -Patient presented with significantly edematous and mildly erythematous left ankle and foot with decreased range of motion and pain out of proportion to exam. -Left foot and ankle x-ray demonstrated bimalleolar effusion, ossifications noted along the distal medial malleolus and distal fibula. Overall they have a thin appearance of old trauma. -Left lower extremity CT with contrast demonstrated extensive soft tissue swelling and edema throughout visualized left lower leg and left foot. No drainable fluid collection. Small joint effusion, no calcified intra-articular loose body. No full-thickness ankle or foot tendon rupture. Osteoarthritic changes throughout ankle, midfoot and hindfoot. No acute fracture or dislocation. No bony erosive changes to suggest osteomyelitis. No suspicious intraosseous lesion. -Ordered left lower extremity MRI with contrast, pending. -Patient's WBC was persistently elevated at 27 with high procalcitonin at 20 for several days after admission on broad-spectrum antibiotics. Lack of clinical improvement on aggressive IV antibiotic management is concerning for possible intra-articular infection; elevated WBC and procalcitonin more consistent with bacterial infection than crystal arthropathy although uric acid elevated at 9.2 and possible underlying gout flare with superimposed bacterial infection. Plan to hold off on initiating glucocorticoid therapy until MRI performed and orthopedic surgery evaluates patient. WBC and procalcitonin now trending downward at 21.5 and 9.09 respectively. Continue to monitor WBC and procalcitonin daily. -Moderate left-sided scrotal non-painful swelling secondary to lymphedema from IV fluids. -Continue vancomycin with dosing per pharmacist, ceftriaxone 2 g IV daily, in clindamycin 600 mg IV every 8 hours. -Continue Tylenol and oxycodone as needed for pain management. 3. Probable acute metabolic encephalopathy,, present on admission. Resolved. -Secondary to sepsis and infection and treated underlying cause as above. -The patient was disoriented with GCS 14 on admission. Mental status has cleared up. 4. Acute kidney injury, on chronic kidney disease stage III, present on admission. Acute kidney injury resolved. -Multifactorial and secondary to prerenal azotemia from sepsis/infection and likely contrast nephropathy. -Initial creatinine 1.36. Baseline creatinine prior to 06/2019 was 1.1-1.2. Patient had CT lower extremity with contrast performed on 09/10/2019 and possibility of contrast nephropathy as creatinine elevated to 1.72. -Continued IV fluid hydration to prerenal CORETTA and pre-treat for possible contrast induced nephropathy. IV fluids discontinued. -Initially held furosemide and lisinopril due to CORETTA. Plan to restart lisinopril tomorrow now that CORETTA has resolved. Continue to hold furosemide for now due to possibility of gout. -Continue to avoid nephrotoxic agents. -Continue to monitor renal function daily. 5. Paroxysmal atrial fibrillation on Xarelto, chronic, present on admission. Stable. -Continue amiodarone 200 mg daily and Xarelto 15 mg daily at bedtime. 6. Congestive heart failure with preserved ejection fraction, chronic, present on admission. Stable. -Does not represent CHF exacerbation. -Patient had a decrease in his Lasix to [address] Ghsoh his PCP and this was subsequently increased back to furosemide 20 mg twice daily 9 days ago following bronchoscopy at [facility]. -CT scan does not identify pulmonary edema but notes scattered atelectasis and chest x-ray finds no acute disease. -Initially held furosemide and lisinopril due to CORETTA. Plan to restart lisinopril tomorrow now that CORETTA has resolved. Continue to hold furosemide for now due to possibility of gout. -Continue home aspirin 81 mg daily and atorvastatin 10 mg daily. 7. Lung cancer status post resection, present on admission. Stable. 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 Unclear treatment post resection. No current cough or chest pain. -Patient with increasing lymphadenopathy prompting bronchoscopy at [facility] with no significant secretions or lesions and mild injection of the main bronchi bilaterally. -CT scan finds a 3 mm right upper lobe nodule. 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 -COVID 19 negative. 8. Hypothyroidism, chronic, present on admission. Stable. -Continue home levothyroxine 50 mcg daily. Code status: Full code VTE prophylaxis: Xarelto Disposition: Patient likely to discharge home versus senior living facility for rehabilitation in several days once left foot and ankle cellulitis improved and mobilizing.
--- NOTE | 2019-09-12 11:46 | PM.CN ---
History of Present Illness Consult details Date Patient Seen: 09/12/19 Time Patient Seen: 11:46 Chief complaint: Chills/Fever/Fatigue/ Pain in LT ankle Reason for consult: Left foot and ankle swelling leg , rule out septic arthritis Narrative: 84-year-old male admitted for fatigue, low-grade fever, left foot and ankle swelling and pain. Initially assessed as having cellulitis and started on intravenous antibiotics. White cell count in the low 20s. Patient is now been on IV antibiotics for about 30-36 hours and has improved somewhat. Consultation requested due to concern about possible septic arthritis. Meds Home Medications and Allergies Home Medications Medication Instructions Recorded Confirmed Type carvedilol [Coreg] 6.25 mg PO BID #60 tab 08/14/17 05/03/18 Rx coenzyme Q10 [Co Q-10] 300 mg PO DAILY #0 08/14/17 09/09/19 History hydrocodone-acetaminophen [[place]] 1 tab PO Q6H PRN #0 08/14/17 05/08/18 History metronidazole [MetroCream] 1 bassam TOPICAL BID PRN #0 08/14/17 09/09/19 History triamcinolone acetonide [Triderm] 1 bassam TOPICAL BID #0 08/14/17 05/03/18 History aspirin 81 mg tablet,delayed 81 mg PO DAILY 03/30/18 09/09/19 History release aspirin 325 mg PO DAILY 05/03/18 05/03/18 History atorvastatin [Lipitor] 10 mg PO DAILY 05/03/18 09/09/19 History cholecalciferol (vitamin D3) 1,000 unit PO DAILY 05/03/18 05/03/18 History [Vitamin D3] furosemide [Lasix] 20 mg PO BID 05/03/18 09/09/19 History lisinopril 5 mg PO QPM 05/03/18 09/09/19 History sulfamethoxazole-trimethoprim 1 tab PO BID 05/03/18 05/03/18 History [Bactrim DS] acetaminophen-codeine 2 tab PO BID PRN 07/30/19 09/09/19 History amiodarone 200 mg PO ONCE PM 07/30/19 09/09/19 History levothyroxine 50 mcg PO QAM 07/30/19 09/09/19 History rivaroxaban [Xarelto] 15 mg PO QPM 07/30/19 09/09/19 History B-complex with vitamin C [Super B 1 tab PO DAILY 09/09/19 09/09/19 History Complex-Vitamin C] Tumeric 2,000 mg PO QAM 09/09/19 09/09/19 History acetaminophen 500 mg PO PRN PRN MDD 4000 09/09/19 09/09/19 History doxylamine succinate [Nighttime 25 mg PO BEDTIME PRN 09/09/19 09/09/19 History Sleep-Aid (doxylamn)] ketoconazole 1 applic TOPICAL PRN PRN 09/09/19 09/09/19 History Allergies Allergy/AdvReac Type Severity Reaction Status Date / Time clindamycin AdvReac Unknown Diarrhea Verified 07/30/19 14:23 duloxetine [From Cymbalta] AdvReac Unknown Spasms/Head Verified 07/30/19 14:23 aches gabapentin AdvReac Unknown Insomnia Verified 07/30/19 14:23 gemfibrozil AdvReac Unknown Elevated Verified 07/30/19 14:23 LFTs omeprazole AdvReac Unknown Diarrhea, Verified 07/30/19 14:23 myalgia tizanidine AdvReac Unknown Gastrointestinal Verified 07/30/19 14:23 Upset Exam Vital Signs (past 8 hours): - 09/12/19 08:00 Temperature 98.9 F Pulse Rate 87 Respiratory Rate 19 Blood Pressure 142/77 H Pulse Oximetry 93 Oxygen Delivery Method Room Air Oxygen Flow Rate 0 Narrative Exam Narrative: Patient awake alert oriented conversant and no obvious distress. HEENT normocephalic atraumatic Lungs clear auscultation Heart regular rate and rhythm Abdomen benign, significant scrotal swelling Extremities benign exceptional left lower extremity which demonstrates moderate swelling of the lower leg including the ankle and foot there are wrinkles over the foot signifying decreased swelling. There is no ecchymosis or skin break however there are 2 areas of approximately 2 x 2 cm which appeared to be blistering over the anterior pretibial area about 8-10 cm proximal to the ankle joint no other breaks in the skin only mild erythema. Sensation is intact dorsiflexion of the ankle is 15? plantar flexion is 30? minimal discomfort with resisted plantar and dorsiflexion. There is diffuse tenderness over the toes and midfoot with minimal tenderness around the ankle. Objective Imaging X-ray of the left foot and ankle with mild degenerative changes no other specific bone or soft tissue abnormality: My impression: Normal appearing foot and ankle with mild degenerative changes no other specific bone or soft tissue abnormality. CT scan left foot and ankle: My impression: Diffuse soft tissue swelling no focal fluid collection no ankle joint effusion. Labs Result Diagrams: 09/12/19 04:45 09/12/19 04:45 Labs: Laboratory Results - last 24 hr 09/09/19 09/12/19 09/12/19 21:55 04:45 04:45 WBC 21.5 H RBC 3.84 L Hgb 12.0 L Hct 36.4 L MCV 94.9 MCH 31.2 MCHC 32.9 RDW 15.8 H Plt Count 134 L Neut % (Auto) 87.9 H Lymph % (Auto) 3.3 L [place] % (Auto) 8.7 Eos % (Auto) 0.0 L Baso % (Auto) 0.1 Neut # (Auto) 18863 H Lymph # (Auto) 700 L [place] # (Auto) 1900 H Eos # (Auto) 0 Baso # (Auto) 0 Sodium Potassium Chloride Carbon Dioxide BUN Creatinine Estimated GFR BUN/Creatinine Ratio Glucose Calcium Procalcitonin 9.09 H COVID-19 PCR Not detected 09/12/19 04:45 WBC RBC Hgb Hct MCV MCH MCHC RDW Plt Count Neut % (Auto) Lymph % (Auto) [place] % (Auto) Eos % (Auto) Baso % (Auto) Neut # (Auto) Lymph # (Auto) [place] # (Auto) Eos # (Auto) Baso # (Auto) Sodium 133 L Potassium 4.1 Chloride 101 Carbon Dioxide 23 BUN 43 H Creatinine 1.47 H Estimated GFR 45.7 L BUN/Creatinine Ratio 29.3 H Glucose 98 Calcium 9.4 Procalcitonin COVID-19 PCR Assessment & Plan Assessment & Plan narrative: Probable cellulitis left lower extremity no sign of intra-articular ankle joint infection or septic arthritis. No indication of abscess. Recommend MRI scan to assess for possible focal soft tissue infection. Would recommend continued IV antibiotics as the patient appears to be responding well to that at this time with diminishing symptoms.
[2019-09-12 12:29] VITALS: BP 131/80; PULSE 85; RESP 18; TEMP 36.9; O2SAT 96
--- NOTE | 2019-09-12 14:50 | OT.IP.EVAL ---
Current Diagnoses Cellulitis of left lower limb (09/09/19) Past Medical History (Last Reviewed 09/12/19 @ 11:48 by Leonidas Miranda MD) Adrenal nodule (Acute) Benign schwannoma (Acute) Carpal tunnel syndrome on right (Acute) Chronic pain disorder (Acute) Colon polyp (Acute) Degenerative disc disease (Acute) Depression (Acute) Dysphagia (Acute) Elevated cholesterol with elevated triglycerides (Chronic) Esophageal reflux (Acute) Essential hypertension (Chronic) Fatty liver (Acute) Hyperlipidemia (Acute) Hypertension (Acute) Infected sebaceous cyst (Acute) Kidney stone (Acute ~2000) Liver hemangioma (Acute) Osteoarthritis (Acute) RBBB (Acute) Rotator cuff syndrome (Acute) Severe aortic stenosis (Acute) Sleep apnea (Acute) Sliding hiatal hernia (Acute) Spinal stenosis (Acute) [place] diverticulum (Acute) Surgical History (Last Reviewed 09/12/19 @ 11:48 by Leonidas Miranda MD) H/O aortic valve replacement (Acute) H/O hemorrhoidectomy (Acute ~1984) H/O left inguinal hernia repair (Acute ~1995) H/O partial nephrectomy (Acute ~2009) H/O right inguinal hernia repair (Acute ~2010) History of colonoscopy (Acute) History of thoracotomy (Acute) History of tonsillectomy (Acute ~1945) S/P TAVR (transcatheter aortic valve replacement) (Acute ~10/2017) Occupational Therapy Inpatient Evaluation/Re-Eval M1 PT/OT-IP Prior Functional Status Start: 09/11/19 13:06 Freq: NEEDED Status: Active Protocol: Document 09/12/19 14:50 PJM (Rec: 09/12/19 15:33 PJM [id number]) Medical Review Prior Functional Status Medical History Reviewed Yes Diet/Fluid Consistency Regular Communication WNL Mobility and Gait Pt states he ambulated with a cane. 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 Activities of Daily Living and IADL's Pt was independent with all self care, IADLS, driving. He managed his own medications and he and his manage finances for their motel business. Prior Functional Level (Other details) Pt states he has no local family or employees to assist with motel work. He states his is in very good health and can assist PRN. Social History Household Members spouse Living Arrangements House Number of Floors (Floors) One Floor Number of Stairs To Enter/Railing? None Home Environment High Toilet,Tub/Shower Home Equipment Straight Cane,Shower Seat without Backrest,Grab Bars Near Toilet,Grab Bars In Shower Employment Status Self-Employed M2 OT-IP Current Condition Start: 09/12/19 15:08 Freq: Status: Active Protocol: Document 09/12/19 14:50 PJM (Rec: 09/12/19 15:33 PJM [email or web address]) Occupational Therapy Current Condition Current Condition Evaluation Date 09/12/19 Treatment Diagnosis decreased self care, functional mobility with DX; LLE cellulitis Post Operative Precautions Other Precautions fall risk Weight Bearing Status Weight Bearing Status Weight Bear as Tolerated Allowed Weight Bearing Amount (enter % LLE or #) (%) M3 OT- IP Subjective and Pain Start: 09/12/19 15:08 Freq: Status: Active Protocol: Document 09/12/19 14:50 PJM (Rec: 09/12/19 15:33 PJM [email or web address]) OT- Subjective Occupational Therapy Visit Type Type Initial Evaluation Visit Start Time 14:15 Visit Stop Time 14:50 Total Visit Minutes 35 Notes Transport here at end of session to take pt to MRI. Occupational Therapy Visit Comments Patient Comments I need to be able to walk to help my with the motel work. Patient/Caregiver Goals to go home OT Pain Assessment Pain When Pain Assessed During Mobility Pain Present Pain Present Pain Reported Location Left Leg Intensity 9 Description Acute,Burning,Sharp,With Movement Pain Behaviors Facial Grimacing,Guarding, Wincing Management Techniques Distraction,Elevation,Re- positioning,Timing of Activity with Medications M4 OT- IP ADL's Start: 09/12/19 15:08 Freq: Status: Active Protocol: Document 09/12/19 14:50 PJM (Rec: 09/12/19 15:33 PJM [id number]) OT [id number] General Evaluation Self-Feeding Ability Independent Comments OT Self-Feeding Comments after set up in bed or chair OT ADL-Grooming General Evaluation Grooming Ability Standby Assistance Areas Needing Assistance Retrieving/Set-up of Grooming Items,Combing/Brushing Hair, Face Washing Comments OT Grooming Comments after set up in chair OT ADL-Oral Care General Eval Oral Care Ability Standby Assistance Areas of Assistance Retrieving/Set-Up of Items Devices Oral Care Devices Toothbrush Comments Oral Care Comments after set up in chair OT ADL-Dressing General Eval Upper Body Dressing Ability Standby Assistance Lower Body Dressing Ability Total Assistance Areas Needing Assistance Retrieving/Set-up of Clothing, Socks Comments OT Dressing Comments Pt cannot tolerate sock on L foot. OT ADL-Toileting General Evaluation Toileting Ability Standby Assistance Devices Toileting Assistive Devices Urinal Comments OT Toileting Comments Pt c/o swollen testicles. OT ADL-Bathing Comments OT Bathing Comments to be assessed as mobility improves, pt has small utility bath seat in tub shower combo at home; began education re: sit and swivel transfer technique and transfer tub seat options M5 OT- IP IADL's Start: 09/12/19 15:08 Freq: Status: Active Protocol: Document 09/12/19 14:50 PJM (Rec: 09/12/19 15:33 PJM [email or web address]) OT-Instrumental Activities of Daily Living Deficits IADL Deficits Identified Deficits Home Safety Awareness Awareness of Need for Assistance at Home Good Awareness Ability to Problem Solve Emergency Able to Problem Solve Situations Home Safety Comments Pt states can assist with IADLS PRN at home Medication Management Medication Management No Deficits Identified Money Management Money Management No Deficits Identified Meal Preparation Meal Preparation Caregiver Provides Assist Meal Preparation Comments until pt able Cloud Subject Matter Expert Cloud Subject Matter Expert Caregiver Provides Assist Cloud Subject Matter Expert Comments until pt able Driving Driving Comments until pt able M6 OT- IP Functional Cognition Start: 09/12/19 15:08 Freq: Status: Active Protocol: Document 09/12/19 14:50 PJM (Rec: 09/12/19 15:33 PJM [email or web address]) Cognitive Factors Limiting Selfcare Function Cognitive Ability Level of Alertness Alert Patient Orientation Name Attention Span Ability Capable of Focused Attention, Capable of Sustained Attention Ability to Follow Commands Able to Follow Multi-Step Commands Memory Description No Deficits Noted Safety Awareness Underestimates Need for Assistance Cognitive Comments Cognitive Assessment Comments Pt alert and oriented, good historian. OT- Vision and Hearing OT- Hearing Assessment OT- Hearing Assessment WFL,Use of Hearing Aids OT- Vision Assessment Visual Acuity WFL,Glasses All The Time Vision Assessment Comments pt denies any recent vision changes M7 OT- IP Mobility and Balance Start: 09/12/19 15:08 Freq: Status: Active Protocol: Document 09/12/19 14:50 PJM (Rec: 09/12/19 15:33 PJM [email or web address]) OT- Bed Mobility Assessment Sit to Supine Sit to Supine Assist Minimal Assistance,1 Person Assistance Scooting Scooting to Edge of Bed Standby Assistance OT-Transfer Assessment Sit to and From Stand Sit to and from Stand Moderate Assistance,1 Person Assistance,Use of Upper Extremities Transfers Transfer Ability Minimal Assistance,1 Person Assistance Technique Transfer Destination Bed Transfer Technique Stand Pivot Devices Transfer Assistive Devices Gait Belt,Front Wheeled Walker OT- Gait Assessment Comments Gait Ability Comments see P.T. notes, pt seen for transfer only this session OT- Balance Assessment Sitting Balance and Reactions Static Sitting Balance Ability Good Standing Balance and Reactions Static Standing Balance Ability Good Dynamic Standing Balance Ability Fair Comments Other Balance Tests/Deviations/Treatment during transfer from recliner : to bed M8 OT- IP Objective Assessments Start: 09/12/19 15:08 Freq: Status: Active Protocol: Document 09/12/19 14:50 PJM (Rec: 09/12/19 15:33 PJM [id number]) OT Gross Range of Motion Upper Extremity Range of Motion Assessment Within Functional Limits OT Strength Upper Extremity Strength Assessment Within Functional Limits OT- Coordination Assessment Comments Coordination Comments BUE WFL OT-Muscle Tone Assessment Muscle Tone WNL Yes OT Sensation Assessment Comments Summary Comments pt denies deficits in BUE's Edema Edema Present Edema Comments mod edema L lower leg, ankle, foot M9 OT- IP Assessment and Plan Start: 09/12/19 15:08 Freq: Status: Active Protocol: Document 09/12/19 14:50 PJM (Rec: 09/12/19 15:33 PJM [email or web address]) OT Summary Assessment and Plan Potential Rehabilitation Potential Good Analytic Complexity at Evaluation Low Summary OT Impairments Pain,Strength,Balance, Functional Mobility,Grooming, Dressing,Toileting,Bathing, Toilet Transfers,Shower Transfers,Activity Tolerance Assessment Summary Low complexity OT assessment completed on this 84 yr old man admitted with LLE cellulitis and encephalopathy with CORETTA. PMHX includes TAVR, CHF w/decreased EF, L renal cell CA w/partial nephrectomy, lung CA w/resection and recent bronchoscopy. See H&P for further details. Pt's primary performance deficit is decreased activity tolerance and functional mobility due to severe LLE pain with any movement and difficulty with weight bearing on L foot. As a result, pt has decreased independence in standing grooming, lower body dressing, bathing and toileting. Note pt has only taken 3 steps forward and back with P.T. Pt states he needs to be able to walk about 30 feet to d/c to his small single level home with no stairs to enter. His can provide 24 hr assist at home. Pt will benefit from OT services here to address the goals below. Pt may need SNF at discharge vs home with home health pending progress with ambulation and need for IV antibiotics. Goals Grooming Goal Standby Assistance Dressing Goal Minimal Assistance,It Generalist Toileting Goal Independent Bathing Goal Minimal Assistance,Grab Bars, Hand Held Shower Sprayer,Long Handled Sponge or [place] Toilet Transfer Goal Standby Assistance,ADA High Toilet,Grab Bars Shower Transfer Goal Contact Guard Assistance,Tub Transfer Bench Patient/Caregiver Education Goal Demonstrate Energy Conservation and Pacing, Caregiver Independent Assisting Patient OT-Other Goals Pt to complete grooming seated or standing pending progress with LLE pain. Days to Meet Goals 5 Frequency of Treatment Frequency Of Treatment Once a Day Treatment Plan OT Treatment Plan ADL Training,Functional Mobility,Patient/Family Education,Discharge Planning Discharge Recommendations OT Discharge Recommendations Home with 03/01 Assist Other Discharge Recommendations vs SNF pending progress with mobility and need for IV antiobiotics Home Equipment Needs transfer tub seat, pickler helper Transportation Needs at Discharge Private Vehicle
--- NOTE | 2019-09-12 15:13 | PC.NURSE ---
0930- Patient is A&Ox3, he denies pain. L.pate less swollen today, 3+ edema. Patient has an open skin ulcer to out l. pate that is red/purple in color. A small amount of drainage present. PPX2 to both extremities wnl. Up with 1PA to commode. Patient is slower to move today, used bsc and had a small bowel movement. Down to MRI now.
[2019-09-12 16:00] VITALS: BP 132/98; PULSE 85; RESP 16; TEMP 36.7; O2SAT 96
[2019-09-12] MEDS: AMIODARONE 200 MG TABLET PO (17:56)
[2019-09-12] MEDS: RIVAROXABAN 10 MG TABLET 15 MG PO (17:56)
[2019-09-12 19:16] LABS: Vancomycin Trough 7.9 ug/mL (10-20)
[2019-09-12 20:00] VITALS: BP 158/77; PULSE 88; RESP 18; TEMP 36.8
[2019-09-12] MEDS: VANCOMYCIN 1,000 MG/200 ML PIGGYBACK 200 MG IV (20:54)
[2019-09-12] MEDS: ATORVASTATIN 10 MG TABLET PO (20:54)
[2019-09-12 23:42] VITALS: BP 148/66; PULSE 86; RESP 19; TEMP 36.7; O2SAT 95
[2019-09-13] VITALS (7 sets, daily range): BP systolic 118–158; BP diastolic 57–87; PULSE 55–85; RESP 17–20; TEMP 36.3–37; O2SAT 95–99
[2019-09-13] MEDS: CLINDAMYCIN 600 MG/50 ML PIGGYBACK 50 MG IV ×3 (02:48→19:01)
[2019-09-13 05:26] LABS: Add Manual Diff / Slide Review NO; Basophils Absolute Auto 0 /uL (0-100); Basophils Percent Auto 0.1 % (0-2); Eosinophils Absolute Auto 0 /uL (0-450); Eosinophils Percent Auto 0.3 % (2-4); Hematocrit 33.5 % (41-53); Hemoglobin 11.1 g/dL (13.5-17.5); Lymphocytes Absolute Auto 400 /uL (1100-4500); Lymphocytes Percent Auto 3.1 % (25-40); Mean Corpuscular HGB Conc 33.1 % (30-36); Mean Corpuscular Hemoglobin 31.2 PG (26-34); Mean Corpuscular Volume 94.1 fL (80-100); Monocytes Absolute Auto 1400 /uL (0-900); Monocytes Percent Auto 10.6 % (3-14); Neutrophils Absolute Auto 11700 /uL (1500-7000); Neutrophils Percent Auto 85.9 % (50-75); Platelet Count 127 X10^3/uL (150-400); Red Blood Cell Count 3.56 X10^6/uL (4.5-5.9); Red Cell Distribution Width 15.8 % (11.6-14.8); White Blood Cell Count 13.6 X10^3/uL (4.5-11.0)
[2019-09-13 05:37] LABS: BUN Creatinine Ratio 33.3 (6-22); Blood Urea Nitrogen 34 mg/dL (9-20); Calcium 9.1 mg/dL (8.4-10.2); Carbon Dioxide 21 mmol/L (22-32); Chloride 103 mmol/L (98-107); Estimated Glomerular Filt Rate > 60.0 mL/min (>60); Glucose 90 mg/dL (80-110); HEMOLYSIS < 15 (0-50); Potassium 3.5 mmol/L (3.4-5.1); Sodium 134 mmol/L (137-145)
[2019-09-13] MEDS: CEFTRIAXONE 2 GM/50 ML FROZ.PIGGY IV (06:22)
[2019-09-13] MEDS: LEVOTHYROXINE 50 MCG TABLET PO (06:23)
[2019-09-13] MEDS: VANCOMYCIN 1,000 MG/200 ML PIGGYBACK 200 MG IV ×2 (09:35→20:32)
[2019-09-13] MEDS: ASPIRIN EC 81 MG TABLET PO (09:35)
[2019-09-13] MEDS: ASCORBIC ACID 500 MG TABLET PO (09:35)
--- NOTE | 2019-09-13 09:45 | PM.PN.1 ---
Subjective Subjective Date Patient Seen: 09/13/19 Time Patient Seen: 10:18 Interval history: To the patient by Dr. russo. Dr. Miranda was consult on patient yesterday and recommended MRI. 84-year-old male Left foot and ankle swelling leg , rule out septic arthritis Narrative: 84-year-old male admitted for fatigue, low-grade fever, left foot and ankle swelling and pain. Initially assessed as having cellulitis and started on intravenous antibiotics. White cell count in the low 20s. Patient is now been on IV antibiotics for about roughly 3 days and has improved--actually demonstrate most of his improvement just overnight with a white cell count coming down from 21 to 13. Consultation requested due to concern about possible septic arthritis. He is currently on vancomycin ceftriaxone and clindamycin. Also had a uric acid of 9.2. He did have a more recent change in his Lasix dose. Exam Vital Signs (past 8 hours): - 09/13/19 04:00 09/13/19 08:30 Temperature 97.7 F 98.0 F Pulse Rate 84 82 Respiratory Rate 18 20 Blood Pressure 156/80 H 151/87 H Pulse Oximetry 96 95 Oxygen Delivery Method Room Air Oxygen Flow Rate 0 Narrative Exam Narrative: General exam alert oriented male sitting at bedside chair HEENT exam normocephalic atraumatic Lungs unlabored on room Heart regular rate rhythm Musculoskeletal exam Right lower extremity full range of motion of the ankle no swelling. No edema or erythema. Left lower extremity: Moderate edema from the pretibial area to the toes compared to the contralateral side. Brisk capillary refill. Skin wrinkles are present at the ankle and foot reflective of some decrease in swelling. There is no acute blistering. There are 2 areas of flattened hemorrhagic type blisters in the anterior pretibial area approximately 8 cm proximal to the ankle. Start to tell if these are partial or will eventually be full-thickness there is no oozing no wound no erythema around these areas. Patient demonstrates dorsiflexion plantar flexion proximally to 15? dorsiflexion 30? plantar flexion in a non painful arc. His generalized soft tissue swelling medially and laterally along the ankle and to the mid pretibial area and over the dorsum of the foot and into the toes. Calf is soft full range of motion of the knee. No crepitus Objective Imaging MRI L LE: My impression: Extensive subcutaneous edema around the ankle no bone marrow edema no fractures no MR sign of septic joint Radiologist's impression: Impression 1. Extensive cellulitis around the ankle, hindfoot, midfoot hole with marked soft tissue swelling and edema. No discrete abscess collection is seen. 2. Osteoarthritic changes throughout the ankle hindfoot and midfoot joints. No evidence of osteomyelitis. Small amount of fluid within the tibiotalar joint subtalar joint with no MR evidence of septic joint. No gross intra-articular loose body. Three mildly thickened plantar aponeurosis at its plantar calcaneal insertion, low-grade plantar fasciitis cannot be excluded. 4. Ankle tendons and ligaments are grossly intact. Joshua Philip MD Labs Result Diagrams: 09/13/19 04:50 09/13/19 04:50 Labs: Laboratory Results - last 24 hr 09/12/19 09/13/19 09/13/19 18:37 04:50 04:50 WBC 13.6 H RBC 3.56 L Hgb 11.1 L Hct 33.5 L MCV 94.1 MCH 31.2 MCHC 33.1 RDW 15.8 H Plt Count 127 L Neut % (Auto) 85.9 H Lymph % (Auto) 3.1 L [place] % (Auto) 10.6 Eos % (Auto) 0.3 L Baso % (Auto) 0.1 Neut # (Auto) 57751 H Lymph # (Auto) 400 L [place] # (Auto) 1400 H Eos # (Auto) 0 Baso # (Auto) 0 Sodium Potassium Chloride Carbon Dioxide BUN Creatinine Estimated GFR BUN/Creatinine Ratio Glucose Calcium Procalcitonin 5.10 H Vancomycin Trough 7.9 L 09/13/19 04:50 WBC RBC Hgb Hct MCV MCH MCHC RDW Plt Count Neut % (Auto) Lymph % (Auto) [place] % (Auto) Eos % (Auto) Baso % (Auto) Neut # (Auto) Lymph # (Auto) [place] # (Auto) Eos # (Auto) Baso # (Auto) Sodium 134 L Potassium 3.5 Chloride 103 Carbon Dioxide 21 L BUN 34 H Creatinine 1.02 Estimated GFR > 60.0 BUN/Creatinine Ratio 33.3 H Glucose 90 Calcium 9.1 Procalcitonin Vancomycin Trough Assessment & Plan Assessment & Plan narrative: Lower extremity cellulitis: exam and imaging consistent with cellulitis. There is no focal abscesses on the CT or MRI scan and the swelling is diffuse and subcutaneous. He does not have any MR appearance of septic arthritis nor a clinical appearance. He is able to tolerate and demonstrate good plantar flexion dorsiflexion at least 40-50 degree range of motion easily and without any significant discomfort. He has wrinkles present at the ankle signifying some decrease in his swelling. Faint erythema no swelling past mid pretibial area. Recommend continued cellulitis treatment with IV antibiotics as his labs improved can transition these to oral. Would recommend that he be checked after least about 24 hours on orals before discharge and then discharged on oral antibiotics. Recommend strict elevation protocol try to get the toes up above the heart level may also try a [place] wrap starting at the toes towards the knee. Make sure there is some gauze padding over the area of the pretibial lesions. Regarding the pretibial lesions these may have been from swelling and blisters and may eventually demarcate into full or partial thickness eschar. For may resolve on their own. There are no open wounds right now. If these become full-thickness eschar and are not resolved the patient may need referral to wound care. If debridement is required may need referral to Plastic surgery as this area is generally over the extensor tendons and does not have a lot of subcutaneous tissue and may require coverage beyond a skin graft. But at this point generalized nonsurgical care while the area demarcates is indicated. Time Spent With Patient Time with patient: less than 15 minutes Quality VTE Deep Vein Thrombosis/Pulmonary Embolism Present on Admission: No
[2019-09-13 10:33] LABS: Free T4, Direct Thyroxine 2.78 ng/dL (0.78-2.19)
--- NOTE | 2019-09-13 11:03 | PT.IPTN ---
Current Diagnoses Cellulitis of left lower limb (09/09/19) Physical Therapy Treatment Note M2 PT-IP Current Condition Start: 09/11/19 13:06 Freq: NEEDED Status: Active Protocol: Document 09/11/19 15:57 LRN (Rec: 09/11/19 17:13 LRN [id number]) Physical Therapy Current Condition Current Condition Evaluation Date 09/11/19 Treatment Diagnosis Chills/Fever/Fatigue/ Pain in L ankle Onset Date 09/09/19 Precautions Other Precautions Droplet Precaution Covid Test Pending. 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 Therapy Pain Assessment Pain When Pain Assessed During Mobility Pain Present Pain Present Pain Reported M4 PT-IP Mobility and Gait Start: 09/11/19 13:06 Freq: NEEDED Status: Active Protocol: Document 09/12/19 10:37 LJ (Rec: 09/13/19 11:03 LJ [email or web address]) PT-Transfer Assessment Sit to and From Stand Sit to and from Stand Minimal Assistance,1 Person Assistance,Use of Upper Extremities Equipment Transfer Assistive Device Gait Belt,Front Wheeled Walker Orthotic/Prosthetic Devices or Brace: No Transfers Transfer Destination Chair Transfer Ability Level of Assist Contact Guard Assistance, Minimal Assistance Comments Mobility Comments Pt in chair needing verbal cueing and CGA to transfer sit >stand. Able to lower himself back into chair in controlled manner with heavy use of UEs Gait Assessment Gait Gait Assistance Required: Contact Guard Assist Able to Maintain Weight Bearing Status No During Gait Assistive Devices Assistive Device Gait Belt,Front Wheeled Walker Gait Deviations General Gait Pattern Antalgic,Decreased Stride Length Factors Limiting Gait Function Factors Limiting Gait Function Decreased Sensation,Pain Comments Gait Comments Pt able to take 3 steps forward and backward with minimal weight bearing on LLE. Unable to progress gait any farther due to pain and inablility to weight bear. M5 PT-IP Objective Assessments Start: 09/11/19 13:06 Freq: NEEDED Status: Active Protocol: Document 09/11/19 15:57 LRN (Rec: 09/11/19 17:13 LRN [email or web address]) Orientation Orientation/Cognition Level of Alertness Alert Orientation Name,Age,Place,Situation Language Function Ability No Deficits Noted Memory Description No Deficits Noted Gross Range of Motion Upper Extremity ROM Assessment Within Functional Limits Lower Extremity ROM Assessment Left Impaired Strength Upper Extremity Strength Assessment Within Functional Limits Lower Extremity Strength Assessment Left Impaired Sensation Assessment Sensation Gross Sensation Left LE Impaired Light Touch Impaired Proprioception (Position) Intact Sensation Description [place],Pain Comments Sensation Comments Pt reported mild lessening of pain with continued exercise. M6 PT-IP Treatment Start: 09/11/19 13:06 Freq: NEEDED Status: Active Protocol: Document 09/12/19 10:37 LJ (Rec: 09/13/19 11:03 LJ [email or web address]) Physical Therapy Treatment Exercises Exercises Ankle Pumps,Heel Slides, Straight Leg Raises Education Education Provided Safety M7 PT-IP Assessment and Plan Start: 09/11/19 13:06 Freq: NEEDED Status: Active Protocol: Document 09/12/19 10:37 LJ (Rec: 09/13/19 11:03 LJ [email or web address]) PT Summary Assessment and Plan Potential Rehabilitation Potential Good Status of Condition at Evaluation Evolving Summary Impairments Pain,ROM,Strength,Balance,Bed Mobility,Transfers,Gait, Activity Tolerance Assessment Summary Pt is limited in his ability to ambulate due to pain in LLE and decreased ability to weight bear. Unable to compensate with UEs at this time to further gait distance. He is highly motivated to continue with PT to avoid losing strength in his LEs Goals Bed Mobility Goal Independent Transfer Goal Independent Gait Goal Standby Assistance,Front Wheel Walker Gait Distance 75' Other Goals Pt will be independent with a home program of LE & UE strengthening ex's. Days to Meet Goals 3 Frequency of Treatment Frequency Of Treatment Once a Day Treatment Plan Physical Therapy Treatment Plan Bed Mobility Training,Transfer Training,Gait Training, Therapeutic Exercise Other Recommendations and Next Treatment increase gait distance as Focus tolerated Recommendations To Nursing Amount of Assist Needed 1 Person Assist Discharge Recommendations PT Discharge Recommendations Home with Assistance Other Discharge Recommendations Pt to ambulate with cane or FWW. Transportation Needs at Discharge Private Vehicle
--- NOTE | 2019-09-13 11:19 | PT.IPTN ---
Current Diagnoses Cellulitis of left lower limb (09/09/19) Physical Therapy Treatment Note M2 PT-IP Current Condition Start: 09/11/19 13:06 Freq: NEEDED Status: Active Protocol: Document 09/11/19 15:57 LRN (Rec: 09/11/19 17:13 LRN [email or web address]) Physical Therapy Current Condition Current Condition Evaluation Date 09/11/19 Treatment Diagnosis Chills/Fever/Fatigue/ Pain in L ankle Onset Date 09/09/19 Precautions Other Precautions Droplet Precaution Covid Test Pending. Weight Bearing Status Weight Bearing Status Full Weight Bearing M3 PT-IP Subjective Start: 09/11/19 13:06 Freq: NEEDED Status: Active Protocol: Document 09/13/19 10:37 LJ (Rec: 09/13/19 11:19 LJ [email or web address]) Subjective Physical Therapy Visit Type Type Treatment Note Visit Start Time 10:37 Visit Stop Time 10:56 Total Visit Minutes 19 Notes Pt sitting up in chair upon arrival Physical Therapy Visit Comments Patient Comments Wanting to get up and attempt walking. Therapy Pain Assessment Pain When Pain Assessed During Mobility Pain Present Pain Present Pain Reported M4 PT-IP Mobility and Gait Start: 09/11/19 13:06 Freq: NEEDED Status: Active Protocol: Document 09/13/19 10:37 LJ (Rec: 09/13/19 11:19 LJ [email or web address]) PT-Transfer Assessment Sit to and From Stand Sit to and from Stand Contact Guard Assistance,1 Person Assistance,Use of Upper Extremities Equipment Transfer Assistive Device Gait Belt,Front Wheeled Walker Orthotic/Prosthetic Devices or Brace: No Transfers Transfer Destination Chair,Toilet Transfer Ability Level of Assist Contact Guard Assistance,Use of Upper Extremities Comments Mobility Comments Pt in chair wanting to get up and attempt walking. Sit to stand is CGA and returning to seated position is SBA. Pt takes extra time to come to complete standing and needs cueing for sanding erect. Gait Assessment Gait Gait Assistance Required: Contact Guard Assist Distance (Feet) 50 Able to Maintain Weight Bearing Status Yes During Gait Assistive Devices Assistive Device Gait Belt,Front Wheeled Walker Gait Deviations General Gait Pattern Antalgic,Decreased Stride Length Factors Limiting Gait Function Factors Limiting Gait Function Decreased Sensation,Pain Comments Gait Comments Pt able to ambulate around the room CGA and assist with IV pole. Pt initially ambulated in room around bed then sat into chair. Requested to use the toilet and transfered SBA second time and ambulated SBA with assist with IV into bathroom sitting down using grab bars. Pt stood using bar and FWW which was easier for him than getting up from the chair. Ambulated back to the chair from toilet SBA lowering himself into chair in controlled manner. M5 PT-IP Objective Assessments Start: 09/11/19 13:06 Freq: NEEDED Status: Active Protocol: Document 09/11/19 15:57 LRN (Rec: 09/11/19 17:13 LRN [email or web address]) Orientation Orientation/Cognition Level of Alertness Alert Orientation Name,Age,Place,Situation Language Function Ability No Deficits Noted Memory Description No Deficits Noted Gross Range of Motion Upper Extremity ROM Assessment Within Functional Limits Lower Extremity ROM Assessment Left Impaired Strength Upper Extremity Strength Assessment Within Functional Limits Lower Extremity Strength Assessment Left Impaired Sensation Assessment Sensation Gross Sensation Left LE Impaired Light Touch Impaired Proprioception (Position) Intact Sensation Description Pins & [place],Pain Comments Sensation Comments Pt reported mild lessening of pain with continued exercise. M6 PT-IP Treatment Start: 09/11/19 13:06 Freq: NEEDED Status: Active Protocol: Document 09/13/19 10:37 LJ (Rec: 09/13/19 11:19 LJ [email or web address]) Physical Therapy Treatment Exercises Exercises Ankle Pumps,Heel Slides, Straight Leg Raises Education Education Provided Safety Other Treatments Other Treatment Performed weight shifting and marching prior to ambulation M7 PT-IP Assessment and Plan Start: 09/11/19 13:06 Freq: NEEDED Status: Active Protocol: Document 09/13/19 10:37 LJ (Rec: 09/13/19 11:19 LJ [email or web address]) PT Summary Assessment and Plan Potential Rehabilitation Potential Good Status of Condition at Evaluation Evolving Summary Impairments Pain,ROM,Strength,Balance,Bed Mobility,Transfers,Gait, Activity Tolerance Assessment Summary Pt is improving with gait mechanics and transfers. Able to increase distance and weight bearing this session. Goals Bed Mobility Goal Independent Transfer Goal Independent Gait Goal Standby Assistance,Front Wheel Walker Gait Distance 75' Other Goals Pt will be independent with a home program of LE & UE strengthening ex's. Days to Meet Goals 3 Frequency of Treatment Frequency Of Treatment Once a Day Treatment Plan Physical Therapy Treatment Plan Bed Mobility Training,Transfer Training,Gait Training, Therapeutic Exercise Other Recommendations and Next Treatment increase gait distance as Focus tolerated Recommendations To Nursing Amount of Assist Needed 1 Person Assist Discharge Recommendations PT Discharge Recommendations Home with Assistance Other Discharge Recommendations Pt to ambulate with cane or FWW. Transportation Needs at Discharge Private Vehicle
--- NOTE | 2019-09-13 11:53 | OT.IP.TRT ---
Current Diagnoses Cellulitis of left lower limb (09/09/19) Occupational Therapy Treatment Note M2 OT-IP Current Condition Start: 09/12/19 15:08 Freq: Status: Active Protocol: Document 09/12/19 14:50 PJM (Rec: 09/12/19 15:33 PJM [id number]) Occupational Therapy Current Condition Current Condition Evaluation Date 09/12/19 Treatment Diagnosis decreased self care, functional mobility with DX; LLe cellulitis Post Operative Precautions Other Precautions fall risk Weight Bearing Status Weight Bearing Status Weight Bear as Tolerated Allowed Weight Bearing Amount (enter % LLE or #) (%) M3 OT- IP Subjective and Pain Start: 09/12/19 15:08 Freq: Status: Active Protocol: Document 09/13/19 11:53 PJM (Rec: 09/13/19 12:33 PJM [id number]) OT- Subjective Occupational Therapy Visit Type Type Treatment Note Visit Start Time 11:29 Visit Stop Time 11:53 Total Visit Minutes 24 Notes Pt alert ad sitting up in recliner. Occupational Therapy Visit Comments Patient Comments I was able to walk into bathroom and around the bed today. It's getting better! 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 Pt able to don and doff R sock independently without a device. Unable to to have sock on L foot at present due to edema and L lower pate wounds. Pt declines long shoe horn, but chemical dependency nurse provided. OT ADL-Bathing Bathing Type Bathing Type Shower Devices Bathing Equipment Long Handled Sponge or Prentiss Comments OT Bathing Comments Pt would like to shower tomorrow. Provided further education re: tub seat options and pt states he knows the advertising account manager of the [employer] loan closet and should be able to borrow transfer tub seat. Pt states he has grab bars by his tub and has long bath brush. M7 OT- IP Mobility and Balance Start: 09/12/19 15:08 Freq: Status: Active Protocol: Document 09/13/19 11:53 PJM (Rec: 09/13/19 12:33 PJM [id number]) OT-Transfer Assessment Sit to and From Stand Sit to and from Stand Contact Guard Assistance,1 Person Assistance Devices Transfer Assistive Devices Gait Belt,Front Wheeled Walker OT- Gait Assessment Comments Gait Ability Comments see P.T. notes OT- Balance Assessment Sitting Balance and Reactions Static Sitting Balance Ability Good Dynamic Sitting Balance Ability Good Standing Balance and Reactions Static Standing Balance Ability Good Dynamic Standing Balance Ability Fair Comments Other Balance Tests/Deviations/Treatment during lower body clothing : management M9 OT- IP Assessment and Plan Start: 09/12/19 15:08 Freq: Status: Active Protocol: Document 09/13/19 11:53 PJM (Rec: 09/13/19 12:33 PJM [id number]) OT Summary Assessment and Plan Potential Rehabilitation Potential Excellent Summary OT Impairments Pain,Range of Motion,Balance, Grooming,Dressing,Toileting, Bathing,Toilet Transfers, Shower Transfers,Activity Tolerance Progress Towards Goals Progressing Toward Goals Assessment Summary Pt's functional mobility much improved today and increasing independence in lower body dressing today also as described above. Pt very motivated to improve back to his baseline level of function, but may need IV antibiotics that would require SNF stay. Goals Grooming Goal Standby Assistance Dressing Goal Minimal Assistance,District Traffic Chief Toileting Goal Independent Bathing Goal Minimal Assistance,Grab Bars, Hand Held Shower Sprayer,Long Handled Sponge or Prentiss Toilet Transfer Goal Standby Assistance,ADA High Toilet,Grab Bars Shower Transfer Goal Contact Guard Assistance,Tub Transfer Bench Patient/Caregiver Education Goal Demonstrate Energy Conservation and Pacing, Caregiver Independent Assisting Patient OT-Other Goals Pt to complete grooming seated or standing pending progress with LLE pain. Days to Meet Goals 4 Frequency of Treatment Frequency Of Treatment Once a Day Treatment Plan OT Treatment Plan ADL Training,Functional Mobility,Patient/Family Education,Discharge Planning Discharge Recommendations OT Discharge Recommendations Home with 24/7 Assist Other Discharge Recommendations vs SNF pending progress with mobility and need for IV antiobiotics Home Equipment Needs transfer tub seat, chemical dependency nurse Transportation Needs at Discharge Private Vehicle
--- NOTE | 2019-09-13 12:12 | PT-IP ANOTE ---
Patient would benefit from changing the PT plan of care to 2 times per day as he is now weight bearing and ambulating with decrease in pain.
--- NOTE | 2019-09-13 12:17 | CM.DPNOTE ---
DCP Cont Met w/pt this morning to review DCP; PT recommending SNF yesterday. BRENDA Raymond relays to this HEARING CARE PROFESSIONAL that pt moving much better w/therapy team today and may be functionally able to return home w/HH ? The question will be if pt requires IV abx upon DC Pt requests this HEARING CARE PROFESSIONAL contact his spouse to review DCP; he further explains she is feeling very disconnected right now because she is unable to visit his rm d/t COVID-19 precautions. November at [facility] relayed that pt has been accepted at their facility if he needs SNF stay Attempted call to spouse Fouzia Lockwood# [phone], had to ALBA Gonzales MSW
--- NOTE | 2019-09-13 14:37 | PT.IPTN ---
Current Diagnoses Cellulitis of left lower limb (09/09/19) Physical Therapy Treatment Note M2 PT-IP Current Condition Start: 09/11/19 13:06 Freq: NEEDED Status: Active Protocol: Document 09/11/19 15:57 LRN (Rec: 09/11/19 17:13 LRN [email or web address]) Physical Therapy Current Condition Current Condition Evaluation Date 09/11/19 Treatment Diagnosis Chills/Fever/Fatigue/ Pain in L ankle Onset Date 09/09/19 Precautions Other Precautions Droplet Precaution Covid Test Pending. Weight Bearing Status Weight Bearing Status Full Weight Bearing M3 PT-IP Subjective Start: 09/11/19 13:06 Freq: NEEDED Status: Active Protocol: Document 09/13/19 13:37 LJ (Rec: 09/13/19 14:35 LJ [email or web address]) Subjective Physical Therapy Visit Type Type Treatment Note Visit Start Time 13:37 Visit Stop Time 14:09 Total Visit Minutes 31 Notes Per doctor's plan and assessment, pt would benefit from a figure 8 rosetta wrapping on LLE foot to below knee. Physical Therapy Visit Comments Patient Comments Wanting to get up and attempt walking. Also, needs to use the bathroom. Therapy Pain Assessment Pain When Pain Assessed During Mobility Pain Present Pain Present Pain Reported M4 PT-IP Mobility and Gait Start: 09/11/19 13:06 Freq: NEEDED Status: Active Protocol: Document 09/13/19 13:37 LJ (Rec: 09/13/19 14:35 LJ [email or web address]) PT-Transfer Assessment Sit to and From Stand Sit to and from Stand Contact Guard Assistance,1 Person Assistance,Use of Upper Extremities Equipment Transfer Assistive Device Gait Belt,Front Wheeled Walker Orthotic/Prosthetic Devices or Brace: No Transfers Transfer Destination Chair,Toilet Transfer Ability Level of Assist Contact Guard Assistance,Use of Upper Extremities Comments Mobility Comments Pt requiring cues to scoot forward farther and rock forward to make standing easier. Still leans heavily on FWW in middle of sit to stand motion from both chair and toilet. Gait Assessment Gait Gait Assistance Required: Contact Guard Assist Distance (Feet) 200 Able to Maintain Weight Bearing Status Yes During Gait Assistive Devices Assistive Device Gait Belt,Front Wheeled Walker Gait Deviations General Gait Pattern Antalgic,Decreased Stride Length Factors Limiting Gait Function Factors Limiting Gait Function Decreased Sensation,Pain Comments Gait Comments After wrapping LLE, pt ambulated in hallway ~200 feet with increased foot clearance , increased stride, and increased pace. Pt stated he is putting full weight on his lfet foot and the pain has decreased with the wrapping. Pt walked in hallway and then into bathroom to use toilet. His posture while using FWW is still flexed but will only partially correct when cued. M5 PT-IP Objective Assessments Start: 09/11/19 13:06 Freq: NEEDED Status: Active Protocol: Document 09/11/19 15:57 LRN (Rec: 09/11/19 17:13 LRN [email or web address]) Orientation Orientation/Cognition Level of Alertness Alert Orientation Name,Age,Place,Situation Language Function Ability No Deficits Noted Memory Description No Deficits Noted Gross Range of Motion Upper Extremity ROM Assessment Within Functional Limits Lower Extremity ROM Assessment Left Impaired Strength Upper Extremity Strength Assessment Within Functional Limits Lower Extremity Strength Assessment Left Impaired Sensation Assessment Sensation Gross Sensation Left LE Impaired Light Touch Impaired Proprioception (Position) Intact Sensation Description Pins & [place],Pain Comments Sensation Comments Pt reported mild lessening of pain with continued exercise. M6 PT-IP Treatment Start: 09/11/19 13:06 Freq: NEEDED Status: Active Protocol: Document 09/13/19 13:37 LJ (Rec: 09/13/19 14:35 LJ [email or web address]) Physical Therapy Treatment Other Treatments Other Treatment Performed Figure 8 wrapping of LLE M7 PT-IP Assessment and Plan Start: 09/11/19 13:06 Freq: NEEDED Status: Active Protocol: Document 09/13/19 13:37 LJ (Rec: 09/13/19 14:35 LJ [email or web address]) PT Summary Assessment and Plan Potential Rehabilitation Potential Good Status of Condition at Evaluation Evolving Summary Impairments Pain,ROM,Strength,Balance,Bed Mobility,Transfers,Gait, Activity Tolerance Assessment Summary Pt having less pain with foot elevation, wrapping, and gait progression. He has met most goals PT established for him and is doing well with pain management and gait improvement Goals Bed Mobility Goal Independent Transfer Goal Independent Gait Goal Standby Assistance,Front Wheel Walker Gait Distance 75' Other Goals Pt will be independent with a home program of LE & UE strengthening ex's. Days to Meet Goals 3 Frequency of Treatment Frequency Of Treatment Twice a Day Treatment Plan Physical Therapy Treatment Plan Bed Mobility Training,Transfer Training,Gait Training, Therapeutic Exercise Other Recommendations and Next Treatment establish HEP for time of Focus discharge; perform caregiver training; assess independent bed mobility Recommendations To Nursing Amount of Assist Needed 1 Person Assist Discharge Recommendations PT Discharge Recommendations Home with Assistance Other Discharge Recommendations Pt to ambulate with cane or FWW. Equipment Needed for Home Before Possible need of FWW. Discharge Transportation Needs at Discharge Private Vehicle
--- NOTE | 2019-09-13 15:33 | P.PN_ITS ---
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 The patient is resting in bedside chair comfortably. Patient's left lower extremity cellulitis and pain have improved significantly over the last 24 hours. He was up ambulating in horse shoe with physical therapy. He reports initial mild stiffness in left ankle with ambulation that slowly improved with movement. His scrotal edema continues to improve. Patient has mild shortness of breath with exertion and plan to restart home furosemide. He has no other complaints and denies headache, shortness of breath, chest pain, abdominal pain, nausea, vomiting, fever, chills, dysuria, diarrhea or constipation. He is voiding and eliminating without difficulty. He is up ambulating with assistance. Continue physical and occupational therapy. Exam Vital Signs (past 8 hours): - 09/13/19 08:30 09/13/19 12:00 Temperature 98.0 F 97.4 F L Pulse Rate 82 85 Respiratory Rate 20 20 Blood Pressure 151/87 H 158/82 H Pulse Oximetry 95 97 Oxygen Delivery Method Room Air Oxygen Flow Rate 0 Narrative Exam Narrative: General: Elderly gentleman lying in bed and in no acute distress, well- developed, well-nourished, appropriately interactive. HEENT: Normocephalic, atraumatic. External ears without defect. Pupils equal, round, and reactive to light. Anicteric sclerae, moist conjunctivae, and no lid lag. Oropharynx free of erythema and cobble stoning with moist mucosa. Neck: Supple with full range of motion. No jugular venous distension. No bruits. No lymphadenopathy or thyromegaly. Cardiovascular: Regular rate and rhythm without murmurs, rubs, or gallops appreciated. Pulmonary: Clear to auscultation bilaterally without crackles, wheezes, or rhonchi. Normal respiratory effort with no use of accessory muscles. Abdomen: Soft, bowel sounds present, nontender, nondistended. No hepatosplenomegaly or masses appreciated. Genitourinary: Moderate scrotal edema without erythema and no tenderness. Extremities: No clubbing or cyanosis.Left foot with moderate edema from ankle distally that is improving. Mild erythema on posterior aspect of left ankle and purple discoloration that possibly represents a bullae versus insect bite on anterior portion of left ankle that is improving. Small crack in skin on left plantar aspect of heel. Left foot now wrapped with PARVEEN dressing. Skin: Normal temperature, turgor, and texture; no rash, ulcers, or subcutaneous nodules appreciated. Neurological: Cranial nerves grossly intact. Psychiatric: Normal mood and affect. Alert and oriented to person, place, and time. Mild dementia with short-term memory recall deficit. Objective Labs Result Diagrams: 09/13/19 04:50 09/13/19 04:50 Labs: Laboratory Results - last 24 hr 09/12/19 09/12/19 09/13/19 18:37 18:37 04:50 WBC 13.6 H RBC 3.56 L Hgb 11.1 L Hct 33.5 L MCV 94.1 MCH 31.2 MCHC 33.1 RDW 15.8 H Plt Count 127 L Neut % (Auto) 85.9 H Lymph % (Auto) 3.1 L [place] % (Auto) 10.6 Eos % (Auto) 0.3 L Baso % (Auto) 0.1 Neut # (Auto) 95866 H Lymph # (Auto) 400 L [place] # (Auto) 1400 H Eos # (Auto) 0 Baso # (Auto) 0 Sodium Potassium Chloride Carbon Dioxide BUN Creatinine Estimated GFR BUN/Creatinine Ratio Glucose Calcium Procalcitonin TSH 0.10 L Free T4 2.78 H Vancomycin Trough 7.9 L 09/13/19 09/13/19 04:50 04:50 WBC RBC Hgb Hct MCV MCH MCHC RDW Plt Count Neut % (Auto) Lymph % (Auto) Sau[place] % (Auto) Eos % (Auto) Baso % (Auto) Neut # (Auto) Lymph # (Auto) [place] # (Auto) Eos # (Auto) Baso # (Auto) Sodium 134 L Potassium 3.5 Chloride 103 Carbon Dioxide 21 L BUN 34 H Creatinine 1.02 Estimated GFR > 60.0 BUN/Creatinine Ratio 33.3 H Glucose 90 Calcium 9.1 Procalcitonin 5.10 H TSH Free T4 Vancomycin Trough Assessment & Plan Assessment & Plan narrative: Saulo Russ is an [id number] with past medical history significant for severe aortic stenosis and mitral regurgitation status post TAVR, congestive heart failure with preserved ejection fraction, left renal cell carcinoma status post partial nephrectomy, 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 1. Acute sepsis, present on admission. Resolved. -Patient presented with fever, leukocytosis, end-organ dysfunction of acute kidney injury and metabolic encephalopathy with source left foot cellulitis. -Early goal-directed therapy met including: IV fluid resuscitation and broad- spectrum antibiotics. -Lactic acid normal at 2.1. 2. Acute left foot and ankle cellulitis, present on admission. Active. -Patient presented with significantly edematous and mildly erythematous left ankle and foot with decreased range of motion and pain out of proportion to exam. -Left foot and ankle x-ray demonstrated bimalleolar effusion, ossifications noted along the distal medial malleolus and distal fibula. Overall they have a thin appearance of old trauma. -Left lower extremity CT with contrast demonstrated extensive soft tissue swelling and edema throughout visualized left lower leg and left foot. No drainable fluid collection. Small joint effusion, no calcified intra-articular loose body. No full-thickness ankle or foot tendon rupture. Osteoarthritic changes throughout ankle, midfoot and hindfoot. No acute fracture or dislocation. No bony erosive changes to suggest osteomyelitis. No suspicious intraosseous lesion. -Left lower extremity MRI with contrast demonstrated extensive cellulitis around ankle, hindfoot and midfoot with marked soft tissue swelling and edema. No discrete abscess collection is seen. Osteoarthritic changes throughout ankle, hindfoot and midfoot joints. No evidence of osteomyelitis. Small amount of fluid within tibiotalar joint and subtalar joint with no MR evidence of septic joint. No gross intra-articular loose body. Mildly thickened plantar aponeurosis at its plantar calcaneal insertion, low-grade plantar fasciitis cannot be excluded. -Patient's WBC was persistently elevated at 27 with high procalcitonin at 20 for several days after admission on broad-spectrum antibiotics. Lack of clinical improvement on aggressive IV antibiotic management is concerning for possible intra-articular infection; elevated WBC and procalcitonin more consistent with bacterial infection than crystal arthropathy although uric acid elevated at 9.2 and possible underlying gout flare with superimposed bacterial infection. Plan to hold off on initiating glucocorticoid therapy until MRI performed and orthopedic surgery evaluates patient. WBC and procalcitonin now trending downward at 21.5 and 9.09 respectively. Continue to monitor WBC and procalcitonin daily. -Continue through today 09/13/2019 vancomycin with dosing per pharmacist, ceftriaxone 2 g IV daily, in clindamycin 600 mg IV every 8 hours. Plan to transition to oral antibiotics with doxycycline 100 mg twice daily and cephalexin 500 mg 4 times daily starting tomorrow 09/14/2019 for trial period of 24 hours and if patient's lower extremity and continues to improve and infectious markers do not elevate will discharge on 09/15/2019 to finish oral course of antibiotics. -Continue acetaminophen 650 mg every 6 hours as needed for pain. -Continue conservative measures with elevation of left lower extremity above level of the heart and PARVEEN wrap. 3. Elevated uric acid with possible new gout flare of left ankle, present on admission. Active. -Patient has no history of gout. Patient is on home furosemide which puts him at higher risk of gout flare. -Uric acid level 9.2 with possible underlying gouty flare of left ankle. -Due to elevated infectious markers did not initiate glucocorticoid and patient's pain has improved with treatment of cellulitis alone. -Consider initiation of uric acid lowering medication once cellulitis resolves and will defer to PCP. 4. Probable acute metabolic encephalopathy,, present on admission. Resolved. -Secondary to sepsis and infection and treated underlying cause as above. -The patient was disoriented with GCS 14 on admission. Mental status has cleared up. 5. Acute kidney injury, on chronic kidney disease stage III, present on admission. Acute kidney injury resolved. -Multifactorial and secondary to prerenal azotemia from sepsis/infection and likely contrast nephropathy. -Initial creatinine 1.36. Baseline creatinine prior to 06/2019 was 1.1-1.2. Patient had CT lower extremity with contrast performed on 09/10/2019 and possibility of contrast nephropathy as creatinine elevated to 1.72. -Continued IV fluid hydration to treat prerenal CORETTA and pre-treat for possible contrast induced nephropathy. Discontinued IV fluids. -Initially held furosemide and lisinopril due to CORETTA. Restarted lisinopril 5 mg in the evening and furosemide 20 mg daily now that CORETTA has resolved. -Continue to avoid nephrotoxic agents. -Continue to monitor renal function daily. 6. Paroxysmal atrial fibrillation on Xarelto, chronic, present on admission. Stable. -Continue amiodarone 200 mg daily and Xarelto 15 mg daily at bedtime. 7. Congestive heart failure with preserved ejection fraction, chronic, present on admission. Stable. -Does not represent CHF exacerbation. -Patient had a decrease in his Lasix to [address] Ghosh his PCP and this was subsequently increased back to furosemide 20 mg twice daily 9 days ago following bronchoscopy at [facility]. -CT scan does not identify pulmonary edema but notes scattered atelectasis and chest x-ray finds no acute disease. -Initially held furosemide and lisinopril due to CORETTA. Restarted lisinopril 5 mg in the evening and furosemide 20 mg daily now that CORETTA has resolved. -Continue home aspirin 81 mg daily and atorvastatin 10 mg daily. 8. Lung cancer status post resection, present on admission. Stable. 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 Unclear treatment post resection. No current cough or chest pain. -Patient with increasing lymphadenopathy prompting bronchoscopy at [facility] with no significant secretions or lesions and mild injection of the main bronchi bilaterally. -CT scan finds a 3 mm right upper lobe nodule. Recommend further outpatient evaluation and surveillance per PCP, product operations associate, or oncologist. -COVID 19 negative. 9. Hypothyroidism, chronic, present on admission. Stable. -Continue home levothyroxine 50 mcg daily. Code status: Full code VTE prophylaxis: Xarelto Disposition: Patient likely to discharge home once left foot and ankle cellu litis improved on oral antibiotics likely for 09/15/2019. Quality VTE Deep Vein Thrombosis/Pulmonary Embolism Present on Admission: No
[2019-09-13] MEDS: RIVAROXABAN 10 MG TABLET 15 MG PO (16:30)
[2019-09-13] MEDS: lisinopriL 5 MG TABLET PO (16:33)
[2019-09-13] MEDS: AMIODARONE 200 MG TABLET PO (16:36)
[2019-09-13] MEDS: FUROSEMIDE 20 MG TABLET PO (17:21)
[2019-09-13] MEDS: ATORVASTATIN 10 MG TABLET PO (20:32)
--- NOTE | 2019-09-13 21:30 | PC.NURSE ---
96%RA. pain is tolerable. no pain when laying in bed. LLE elevated above heart. pt ambulated in hallway once. pt able wiggle toes. toes are warm. cms+
[2019-09-13] MEDS: ACETAMINOPHEN 325 MG TABLET 975 MG PO (23:26)
[2019-09-14] VITALS (8 sets, daily range): BP systolic 119–153; BP diastolic 50–81; PULSE 49–81; RESP 16–20; TEMP 35.9–36.7; O2SAT 96–100
--- NOTE | 2019-09-14 00:18 | PC.NURSE ---
Addendum entered by Lisa Gore R.N. 09/14/19 01:24: Complains that left LE pain is now 6/10; discussed with LEOLA Lunsford, as has no other pain meds ordered. New order received for Toradol and medication administered. Addendum entered by Lisa Gore R.N. 09/14/19 00:23: Late entry: patient stated pain was 4/10 with movement at shift change and was medicated with Tylenol Original Note: Patient is alert and oriented except thought month was August. Is [place] and states he left hearing aids at home. Breath sounds with scattered expiratory wheezing; audible wheezes with exertion; RA sat 96%. HR irregular and bradycardic at 56 bpm; telemetry reading was afib SVR w/BBB. Denies nausea. BT present; is passing flatus. States he is sometimes incontinent if not able to get to bathroom quickly enough; denies dysuria. Scrotum is edematous/slightly red. Wearing compression wrap to left LE and is CDI. Numbness present in plantar surface bilateral feet. Left LE is elevated on multiple pillows. Able to move self in bed and has been getting up to bathroom with walker and 1 assist. Fall risk score is high and bed alarm is activated.
[2019-09-14] MEDS: SODIUM CHLORIDE 0.9% FLUSH 10 ML IV ×4 (01:22→20:56)
[2019-09-14] MEDS: KETOROLAC 30 MG/ML VIAL IV (01:22)
[2019-09-14] MEDS: CLINDAMYCIN 600 MG/50 ML PIGGYBACK 50 MG IV (03:00)
[2019-09-14 05:06] LABS: Add Manual Diff / Slide Review NO; Basophils Absolute Auto 0 /uL (0-100); Basophils Percent Auto 0.3 % (0-2); Eosinophils Absolute Auto 100 /uL (0-450); Eosinophils Percent Auto 0.8 % (2-4); Hematocrit 35.7 % (41-53); Hemoglobin 11.4 g/dL (13.5-17.5); Lymphocytes Absolute Auto 800 /uL (1100-4500); Lymphocytes Percent Auto 6.8 % (25-40); Mean Corpuscular HGB Conc 32.1 % (30-36); Mean Corpuscular Hemoglobin 30.4 PG (26-34); Mean Corpuscular Volume 94.7 fL (80-100); Monocytes Absolute Auto 1600 /uL (0-900); Neutrophils Absolute Auto 9200 /uL (1500-7000); Neutrophils Percent Auto 78.1 % (50-75); Platelet Count 154 X10^3/uL (150-400); Red Blood Cell Count 3.76 X10^6/uL (4.5-5.9); Red Cell Distribution Width 15.9 % (11.6-14.8); White Blood Cell Count 11.8 X10^3/uL (4.5-11.0)
[2019-09-14 05:31] LABS: Procalcitonin 3.92 ng/mL (<0.5)
[2019-09-14] MEDS: LEVOTHYROXINE 50 MCG TABLET PO (06:23)
--- NOTE | 2019-09-14 07:51 | PM.PN.1 ---
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 Overnight: The patient went into a junctional rhythm overnight with bradycardia in the 40s to 50s. The patient is on no rate control medications and has history of paroxysmal atrial fibrillation. The patient is resting in bed comfortably. He is dangling his feet off the bed and requested he have his left leg elevated when he is not up ambulating with therapy. He reports his left leg feels better when he has it up. Patient's left lower extremity cellulitis has improved but the anterior pretibial lesions/bullae appears not to have superficial purulence under skin. He continues to have some pain in his left foot and ankle now only with palpation. The patient reports feel hot over night but has not been febrile. He has no other complaints and denies headache, shortness of breath, chest pain, abdominal pain, nausea, vomiting, fever, chills, dysuria, diarrhea or constipation. He is voiding and eliminating without difficulty. He is up ambulating with assistance. Continue physical and occupational therapy. Exam Vital Signs (past 8 hours): - 09/14/19 02:20 09/14/19 05:25 Temperature 97.2 F L Pulse Rate 49 L 50 L Respiratory Rate 18 18 Blood Pressure 128/57 L 135/50 L Pulse Oximetry 97 Oxygen Delivery Method Room Air Oxygen Flow Rate 0 Narrative Exam Narrative: General: Elderly gentleman lying in bed and in no acute distress, well-developed, well-nourished, appropriately interactive. HEENT: Normocephalic, atraumatic. External ears without defect. Pupils equal, round, and reactive to light. Anicteric sclerae, moist conjunctivae, and no lid lag. Neck: Supple with full range of motion. No jugular venous distension. No lymphadenopathy or thyromegaly. Cardiovascular: Regular rate and rhythm without murmurs, rubs, or gallops appreciated. Pulmonary: Clear to auscultation bilaterally without crackles, wheezes, or rhonchi. Normal respiratory effort with no use of accessory muscles. Abdomen: Soft, bowel sounds present, nontender, nondistended. No hepatosplenomegaly or masses appreciated. Genitourinary: Mild scrotal edema without erythema and no tenderness. Extremities: No clubbing or cyanosis. Left foot with moderate edema from ankle distally that has improved slightly. Erythema of left ankle and forefoot. Anterior tibial lesion/bullae now appears to have superficial purulence under skin. Small crack in skin on left plantar aspect of heel. Skin: Normal temperature, turgor, and texture; no rash, ulcers, or subcutaneous nodules appreciated. Neurological: Cranial nerves grossly intact. Psychiatric: Normal mood and affect. Alert and oriented to person, place, and time. Mild dementia with short-term memory recall deficit. Objective Labs Result Diagrams: 09/14/19 04:40 09/14/19 04:40 Labs: Laboratory Results - last 24 hr 09/12/19 09/14/19 09/14/19 18:37 04:40 04:40 WBC 11.8 H RBC 3.76 L Hgb 11.4 L Hct 35.7 L MCV 94.7 MCH 30.4 MCHC 32.1 RDW 15.9 H Plt Count 154 Neut % (Auto) 78.1 H Lymph % (Auto) 6.8 L [place] % (Auto) 14.0 Eos % (Auto) 0.8 L Baso % (Auto) 0.3 Neut # (Auto) 9200 H Lymph # (Auto) 800 L [place] # (Auto) 1600 H Eos # (Auto) 100 Baso # (Auto) 0 Procalcitonin 3.92 H TSH 0.10 L Free T4 2.78 H Assessment & Plan Assessment & Plan narrative: Saulo Russ is an [id number] with past medical history significant for severe aortic stenosis and mitral regurgitation status post TAVR, congestive heart failure with preserved ejection fraction, left renal cell carcinoma status post partial nephrectomy, 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 1. Acute sepsis, present on admission. Resolved. -Patient presented with fever, leukocytosis, end-organ dysfunction of acute kidney injury and metabolic encephalopathy with source left foot cellulitis. -Early goal-directed therapy met including: IV fluid resuscitation and broad-spectrum antibiotics. -Lactic acid normal at 2.1. 2. Acute left foot and ankle cellulitis, present on admission. Active. -Patient presented with significantly edematous and mildly erythematous left ankle and foot with decreased range of motion and pain out of proportion to exam. -Left foot and ankle x-ray demonstrated bimalleolar effusion, ossifications noted along the distal medial malleolus and distal fibula. Overall they have a thin appearance of old trauma. -Left lower extremity CT with contrast demonstrated extensive soft tissue swelling and edema throughout visualized left lower leg and left foot. No drainable fluid collection. Small joint effusion, no calcified intra-articular loose body. No full-thickness ankle or foot tendon rupture. Osteoarthritic changes throughout ankle, midfoot and hindfoot. No acute fracture or dislocation. No bony erosive changes to suggest osteomyelitis. No suspicious intraosseous lesion. -Left lower extremity MRI with contrast demonstrated extensive cellulitis around ankle, hindfoot and midfoot with marked soft tissue swelling and edema. No discrete abscess collection is seen. Osteoarthritic changes throughout ankle, hindfoot and midfoot joints. No evidence of osteomyelitis. Small amount of fluid within tibiotalar joint and subtalar joint with no MR evidence of septic joint. No gross intra-articular loose body. Mildly thickened plantar aponeurosis at its plantar calcaneal insertion, low-grade plantar fasciitis cannot be excluded. -Patient's WBC was persistently elevated at 27 with high procalcitonin at 20 for several days after admission on broad-spectrum antibiotics. The lack of clinical improvement on aggressive IV antibiotic management was concerning for possible intra-articular infection and orthopedic surgery was consulted; elevated WBC and procalcitonin more consistent with bacterial infection than crystal arthropathy although uric acid elevated at 9.2 and possible underlying gout flare with superimposed bacterial infection. WBC and procalcitonin now trending downward at 11.8 and 3.92 respectively. Continue to monitor WBC and procalcitonin daily. -Discontinued vancomycin with dosing per pharmacist, ceftriaxone 2 g IV daily, and clindamycin 600 mg IV every 8 hours. Started doxycycline 100 mg twice daily and cephalexin 500 mg 4 times daily for trial period of 24 hours and if patient's left lower extremity continues to improve and infectious markers do not elevate will likely discharge in the next 1-2 days to finish oral course of antibiotics. -Continue acetaminophen 650 mg every 6 hours as needed for pain. -Continue conservative measures with elevation of left lower extremity above level of the heart and PARVEEN wrap. -Consulted general surgery, Dr. Mazariegos, due to concern for necrotizing fasciitis. The patient did not need surgical intervention. Surgery signed off. -Consulted orthopedic surgery, Dr. Cruz, who recomends trial on oral antibiotics and wound care if pretibial lesion turns into full-thickness eschar. 3. Elevated uric acid with possible new gout flare of left ankle, present on admission. Active. -Patient has no history of gout. Patient is on home furosemide which puts him at higher risk of gout flare. -Uric acid level 9.2 with possible underlying gouty flare of left ankle. -Due to elevated infectious markers did not initiate glucocorticoid and patient's pain has improved with treatment of cellulitis alone. -Consider initiation of uric acid lowering medication once cellulitis resolves and will defer to PCP. 4. Probable acute metabolic encephalopathy,, present on admission. Resolved. -Secondary to sepsis and infection and treated underlying cause as above. -The patient was disoriented with GCS 14 on admission. Mental status has cleared up. 5. Acute kidney injury, on chronic kidney disease stage III, present on admission. Acute kidney injury resolved. -Multifactorial and secondary to prerenal azotemia from sepsis/infection and likely contrast nephropathy. -Initial creatinine 1.36. Baseline creatinine prior to 06/2019 was 1.1-1.2. Patient had CT lower extremity with contrast performed on 09/10/2019 and possibility of contrast nephropathy as creatinine elevated to 1.72. -Continued IV fluid hydration to treat prerenal CORETTA and pre-treat for possible contrast induced nephropathy. Discontinued IV fluids. -Initially held furosemide and lisinopril due to CORETTA. Restarted lisinopril 5 mg in the evening and furosemide 20 mg daily now that CORETTA has resolved. -Continue to avoid nephrotoxic agents. -Continue to monitor renal function daily. 6. Paroxysmal atrial fibrillation on Xarelto, chronic, present on admission. Stable. -Continue amiodarone 200 mg daily and Xarelto 15 mg daily at bedtime. 7. Congestive heart failure with preserved ejection fraction, chronic, present on admission. Stable. -Does not represent CHF exacerbation. -Patient had a decrease in his Lasix to [address] Ghosh his PCP and this was subsequently increased back to furosemide 20 mg twice daily 9 days ago following bronchoscopy at [facility]. -CT scan does not identify pulmonary edema but notes scattered atelectasis and chest x-ray finds no acute disease. -Initially held furosemide and lisinopril due to CORETTA. Restarted lisinopril 5 mg in the evening and furosemide 20 mg daily now that CORETTA has resolved. -Continue home aspirin 81 mg daily and atorvastatin 10 mg daily. 8. Lung cancer status post resection, present on admission. Stable. 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 Unclear treatment post resection. No current cough or chest pain. -Patient with increasing lymphadenopathy prompting bronchoscopy at [facility] with no significant secretions or lesions and mild injection of the main bronchi bilaterally. -CT scan finds a 3 mm right upper lobe nodule. Recommend further outpatient evaluation and surveillance per PCP, seasonal driver, or oncologist. -COVID 19 negative. 9. Hypothyroidism, chronic, present on admission. Stable. -TSH low at 0.10 and free T4 elevated at 2.78 indicative of over replacement. -Lowered levothyroxine from 50 mcg to 37.5 mcg daily. Recommend repeat thyroid function testing in 4-6 weeks per PCP. Code status: Full code VTE prophylaxis: Xarelto Disposition: Patient likely to discharge home with home health in the next 1-2 days, possibly tomorrow, on oral antibiotics. Quality VTE Deep Vein Thrombosis/Pulmonary Embolism Present on Admission: No
--- NOTE | 2019-09-14 09:33 | P.PN_ITS ---
Subjective Subjective Date Patient Seen: 09/14/19 Time Patient Seen: 09:33 Interval history: 84-year-old male Left foot and ankle swelling leg , rule out septic arthritis Narrative: 84-year-old male admitted for fatigue, low-grade fever, left foot and ankle swelling and pain. Initially assessed as having cellulitis and started on intravenous antibiotics. White cell count in the low 20s. Patient is now been on IV antibiotics for about roughly 4 days and has improved--actually demonstrate most of his improvement just overnight with a white cell count coming down from 21-13 to 11 today. He is currently on vancomycin ceftriaxone and clindamycin. Also had a uric acid of 9.2. He did have a more recent change in his Lasix dose. Exam Vital Signs (past 8 hours): - 09/14/19 02:20 09/14/19 05:25 09/14/19 08:00 Temperature 97.2 F L 96.8 F L Pulse Rate 49 L 50 L 77 Respiratory Rate 18 18 18 Blood Pressure 128/57 L 135/50 L 144/81 H Pulse Oximetry 97 98 Oxygen Delivery Method Room Air Oxygen Flow Rate 0 Narrative Exam Narrative: Alert oriented male sitting at bedside. HEENT exam normocephalic atraumatic Vital signs stable afebrile Musculoskeletal exam Leg with Sawyer wrap in place. There is swelling at the exposed part of the forefoot and toes. Wrap is on done today and leg is noted to have markedly the reduced swelling compared to yesterday skin wrinkles are present. Patient demonstrates active dorsiflexion plantar flexion. Tolerates 15? dorsiflexion 30? plantar flexion of the ankle. The 2 pretibial blister area slightly ecchymotic but flattened today. Demonstrating decreased swelling. No skin breaks. Objective Labs Result Diagrams: 09/14/19 04:40 09/13/19 04:50 Labs: Laboratory Results - last 24 hr 09/12/19 09/14/19 09/14/19 18:37 04:40 04:40 WBC 11.8 H RBC 3.76 L Hgb 11.4 L Hct 35.7 L MCV 94.7 MCH 30.4 MCHC 32.1 RDW 15.9 H Plt Count 154 Neut % (Auto) 78.1 H Lymph % (Auto) 6.8 L [place] % (Auto) 14.0 Eos % (Auto) 0.8 L Baso % (Auto) 0.3 Neut # (Auto) 9200 H Lymph # (Auto) 800 L [place] # (Auto) 1600 H Eos # (Auto) 100 Baso # (Auto) 0 Procalcitonin 3.92 H TSH 0.10 L Free T4 2.78 H Assessment & Plan Assessment & Plan narrative: Left leg cellulitis Discussed continued compression wraps can start more distal at the toes and forefoot to avoid the distal swelling and then wrapped up the leg towards the knee. Continue to use ABD pads wrap some protection over the pretibial a blistered areas. There does not appear to be any indication for drainage or unr oofing of this area today and would use as a biologic dressing. However in the future if the skin becomes nonviable or demarcates that way may require wound care. No current surgical indications. Clinical appearance is improving. Time Spent With Patient Time with patient: less than 15 minutes Quality VTE Deep Vein Thrombosis/Pulmonary Embolism Present on Admission: No
[2019-09-14 09:50] LABS: BUN Creatinine Ratio 28.6 (6-22); Blood Urea Nitrogen 38 mg/dL (9-20); Calcium 9.2 mg/dL (8.4-10.2); Carbon Dioxide 23 mmol/L (22-32); Chloride 102 mmol/L (98-107); Estimated Glomerular Filt Rate 51.3 mL/min (>60); Glucose 96 mg/dL (80-110); HEMOLYSIS < 15 (0-50); Magnesium 2.5 mg/dL (1.6-2.3); Potassium 3.8 mmol/L (3.4-5.1); Sodium 135 mmol/L (137-145)
[2019-09-14] MEDS: cephALEXin 250 MG CAPSULE 500 MG PO ×4 (09:59→20:56)
[2019-09-14] MEDS: DOXYCYCLINE HYCLATE 100 MG TABLET PO ×2 (09:59→20:56)
[2019-09-14] MEDS: ASPIRIN EC 81 MG TABLET PO (10:00)
[2019-09-14] MEDS: FUROSEMIDE 20 MG TABLET PO (10:00)
[2019-09-14] MEDS: ASCORBIC ACID 500 MG TABLET PO (10:00)
--- NOTE | 2019-09-14 10:30 | OT.IP.TRT ---
Current Diagnoses Cellulitis of left lower limb (09/09/19) Occupational Therapy Treatment Note M2 OT-IP Current Condition Start: 09/12/19 15:08 Freq: Status: Active Protocol: Document 09/12/19 14:50 PJM (Rec: 09/12/19 15:33 PJM [id number]) Occupational Therapy Current Condition Current Condition Evaluation Date 09/12/19 Treatment Diagnosis decreased self care, functional mobility with DX; LLe cellulitis Post Operative Precautions Other Precautions fall risk Weight Bearing Status Weight Bearing Status Weight Bear as Tolerated Allowed Weight Bearing Amount (enter % LLE or #) (%) M3 OT- IP Subjective and Pain Start: 09/12/19 15:08 Freq: Status: Active Protocol: Document 09/14/19 12:41 CGR (Rec: 09/14/19 12:55 CGR [email or web address]) OT- Subjective Occupational Therapy Visit Type Type Progress Note Visit Start Time 09:50 Visit Stop Time 10:30 Total Visit Minutes 40 Occupational Therapy Visit Comments Patient Comments I would love to take a shower. OT Pain Assessment Pain When Pain Assessed At Rest Pain Present Pain Present Denied Pain M4 OT- IP ADL's Start: 09/12/19 15:08 Freq: Status: Active Protocol: Document 09/14/19 12:41 CGR (Rec: 09/14/19 12:55 CGR [email or web address]) OT [id number] Comments OT Self-Feeding Comments Not meal time OT ADL-Grooming General Evaluation Grooming Ability Independent Areas Needing Assistance Combing/Brushing Hair Comments OT Grooming Comments seated in chair after shower. OT ADL-Oral Care Comments Oral Care Comments Not performed OT ADL-Dressing General Eval Upper Body Dressing Ability Independent Lower Body Dressing Ability Maximum Assistance Areas Needing Assistance Underpants/Brief,Socks Comments OT Dressing Comments Pt donned a clean gown without assist then donned brief with SBA and top inventory control executive. Pt declined use of sock aide for donning socks s/t concern for pain to the LLE. OT donned socks with dep. OT ADL-Toileting Comments OT Toileting Comments Not performed OT ADL-Bathing Bathing Type Bathing Type Shower General Evaluation Bathing Ability Minimal Assistance Areas Needing Assistance Wash/Dry Back,Wash/Dry Perineal Area Devices Bathing Equipment Hand Held Shower Sprayer M5 OT- IP IADL's Start: 09/12/19 15:08 Freq: Status: Active Protocol: Document 09/12/19 14:50 PJM (Rec: 09/12/19 15:33 PJM [id number]) OT-Instrumental Activities of Daily Living Deficits IADL Deficits Identified Deficits Home Safety Awareness Awareness of Need for Assistance at Home Good Awareness Ability to Problem Solve Emergency Able to Problem Solve Situations Home Safety Comments Pt states can assist with IADLS PRN at home Medication Management Medication Management No Deficits Identified Money Management Money Management No Deficits Identified Meal Preparation Meal Preparation Caregiver Provides Assist Meal Preparation Comments until pt able Dance Historian Dance Historian Caregiver Provides Assist Dance Historian Comments until pt able Driving Driving Comments until pt able M6 OT- IP Functional Cognition Start: 09/12/19 15:08 Freq: Status: Active Protocol: Document 09/12/19 14:50 PJM (Rec: 09/12/19 15:33 PJM [id number]) Cognitive Factors Limiting Selfcare Function Cognitive Ability Level of Alertness Alert Patient Orientation Name Attention Span Ability Capable of Focused Attention, Capable of Sustained Attention Ability to Follow Commands Able to Follow Multi-Step Commands Memory Description No Deficits Noted Safety Awareness Underestimates Need for Assistance Cognitive Comments Cognitive Assessment Comments Pt alert and oriented, good historian. OT- Vision and Hearing OT- Hearing Assessment OT- Hearing Assessment WFL,Use of Hearing Aids OT- Vision Assessment Visual Acuity WFL,Glasses All The Time Vision Assessment Comments pt denies any recent vision changes M7 OT- IP Mobility and Balance Start: 09/12/19 15:08 Freq: Status: Active Protocol: Document 09/14/19 12:41 CGR (Rec: 09/14/19 12:55 CGR [email or web address]) OT- Bed Mobility Assessment Rolling Type of Rolling Roll to Right Level of Assistance Minimal Assistance Supine to Sit Supine to Sit Assist Standby Assistance Scooting Scooting to Edge of Bed Standby Assistance OT-Transfer Assessment Sit to and From Stand Sit to and from Stand Contact Guard Assistance Transfers Transfer Ability Contact Guard Assistance Technique Transfer Destination Bed,Chair,Shower Stall Transfer Technique Stand Step Pivot Devices Transfer Assistive Devices Gait Belt,Front Wheeled Walker Comments Mobility Comments Pt able to mobilize with SBA to Min A. OT- Gait Assessment Gait Gait Assistance Required: Contact Guard Assist Assistive Devices Assistive Device Gait Belt,Front Wheeled Walker Comments Gait Ability Comments Mobility around pt's room. OT- Balance Assessment Sitting Balance and Reactions Static Sitting Balance Ability Fair Dynamic Sitting Balance Ability Fair M8 OT- IP Objective Assessments Start: 09/12/19 15:08 Freq: Status: Active Protocol: Document 09/12/19 14:50 PJM (Rec: 09/12/19 15:33 PJM [id number]) OT Gross Range of Motion Upper Extremity Range of Motion Assessment Within Functional Limits OT Strength Upper Extremity Strength Assessment Within Functional Limits OT- Coordination Assessment Comments Coordination Comments BUE WFL OT-Muscle Tone Assessment Muscle Tone WNL Yes OT Sensation Assessment Comments Summary Comments pt denies deficits in BUE's Edema Edema Present Edema Comments mod edema L lower leg, ankle, foot M9 OT- IP Assessment and Plan Start: 09/12/19 15:08 Freq: Status: Active Protocol: Document 09/14/19 12:41 CGR (Rec: 09/14/19 12:55 CGR [email or web address]) OT Summary Assessment and Plan Potential Rehabilitation Potential Good Analytic Complexity at Evaluation Low Summary OT Impairments Pain,Range of Motion,Balance, Grooming,Dressing,Toileting, Bathing,Toilet Transfers, Shower Transfers,Activity Tolerance Progress Towards Goals Progressing Toward Goals Assessment Summary Pt is progressing with therapy and was able to perform a shower today. Of note, pt SOB with movement around the room. Pt will benefit from continued therapy services. Recommend activities to increase his endurance in future sessions. Goals Grooming Goal Standby Assistance Dressing Goal Minimal Assistance,Creative Arts Therapist Toileting Goal Independent Bathing Goal Minimal Assistance,Grab Bars, Hand Held Shower Sprayer,Long Handled Sponge or [place] Toilet Transfer Goal Standby Assistance,ADA High Toilet,Grab Bars Shower Transfer Goal Contact Guard Assistance,Tub Transfer Bench Patient/Caregiver Education Goal Demonstrate Energy Conservation and Pacing, Caregiver Independent Assisting Patient OT-Other Goals Pt to complete grooming seated or standing pending progress with LLE pain. Days to Meet Goals 3 Frequency of Treatment Frequency Of Treatment Once a Day Treatment Plan OT Treatment Plan ADL Training,Functional Mobility,Patient/Family Education,Discharge Planning Other Treatment Recommendations and Next Endurance activities, LB Treatment Focus dressing. Discharge Recommendations OT Discharge Recommendations Home with 03/01 Assist Other Discharge Recommendations vs SNF pending progress with mobility and need for IV antiobiotics Home Equipment Needs transfer tub seat, top inventory control executive Transportation Needs at Discharge Private Vehicle
--- NOTE | 2019-09-14 12:12 | PT.IPTN ---
Current Diagnoses Cellulitis of left lower limb (09/09/19) Physical Therapy Treatment Note M2 PT-IP Current Condition Start: 09/11/19 13:06 Freq: NEEDED Status: Active Protocol: Document 09/11/19 15:57 LRN (Rec: 09/11/19 17:13 LRN [email or web address]) Physical Therapy Current Condition Current Condition Evaluation Date 09/11/19 Treatment Diagnosis Chills/Fever/Fatigue/ Pain in L ankle Onset Date 09/09/19 Precautions Other Precautions Droplet Precaution Covid Test Pending. Weight Bearing Status Weight Bearing Status Full Weight Bearing M3 PT-IP Subjective Start: 09/11/19 13:06 Freq: NEEDED Status: Active Protocol: Document 09/14/19 11:48 KS (Rec: 09/14/19 13:50 KS [id number]) Subjective Physical Therapy Visit Type Type Treatment Note Visit Start Time 11:48 Visit Stop Time 12:12 Total Visit Minutes 24 Physical Therapy Visit Comments Patient Comments Pt agreeable to work w/ therapy. Therapy Pain Assessment Pain When Pain Assessed During Mobility Pain Present Pain Present Denied Pain M4 PT-IP Mobility and Gait Start: 09/11/19 13:06 Freq: NEEDED Status: Active Protocol: Document 09/14/19 11:48 KS (Rec: 09/14/19 13:50 KS [id number]) PT-Bed Mobility Assessment Scooting Scooting to Edge of Bed Standby Assistance PT-Transfer Assessment Sit to and From Stand Sit to and from Stand Minimal Assistance,1 Person Assistance,Use of Upper Extremities Equipment Transfer Assistive Device Gait Belt,Front Wheeled Walker Orthotic/Prosthetic Devices or Brace: No Transfers Transfer Destination Chair Transfer Ability Level of Assist Contact Guard Assistance, Minimal Assistance,1 Person Assistance,Use of Upper Extremities Comments Mobility Comments Pt was asleep in chair upon arrival from therapy. Pt performed 1x10 ankle pumps and quad sets prior to standing, pt then scooted to edge of chair SBA and sit<>stand w/ Min A and FWW. Upon standing, pt had posterior LOB but was able to recover. Pt then stated he still felt a little groggy and sat back down. Performed seated marching x10 and pt then stated he was ready to go for a walk. CGA to Min A for sit<>stand from chair w/ FWW. Pt then marched in place for 1 min prior to ambulation. Pt ambulated ~250 ft w/ FWW and CGA before returning to room. CGA and cues for reaching back for chair for stand<>sit. Pt left in chair w/ LLE elevated 3 pillows and AIRCRAFT ENGINE SPECIALIST in room. Gait Assessment Gait Gait Assistance Required: Contact Guard Assist Distance (Feet) 250 Able to Maintain Weight Bearing Status Yes During Gait Assistive Devices Assistive Device Gait Belt,Front Wheeled Walker Gait Deviations General Gait Pattern Antalgic,Decreased Stride Length,Decreased Feet Clearance,Flexed Trunk Factors Limiting Gait Function Factors Limiting Gait Function Decreased Sensation,Decreased Strength Comments Gait Comments Pt ambulated ~250 ft w/ FWW and CGA from chair around nurses station loop and back to room. Pt ambulated w/ flexed trunk and decreased stride length and foot clearance, but show slight improvement w/ cues. Pt reported fatigue after ambulation, O2 99% upon sitting. PT-Balance Assessment Sitting Balance and Reactions Static Sitting Balance Ability Good Dynamic Sitting Balance Ability Good Standing Balance and Reactions Static Standing Balance Ability Fair Dynamic Standing Balance Ability Fair Device Used FWW M5 PT-IP Objective Assessments Start: 09/11/19 13:06 Freq: NEEDED Status: Active Protocol: Document 09/11/19 15:57 LRN (Rec: 09/11/19 17:13 LRN [id number]) Orientation Orientation/Cognition Level of Alertness Alert Orientation Name,Age,Place,Situation Language Function Ability No Deficits Noted Memory Description No Deficits Noted Gross Range of Motion Upper Extremity ROM Assessment Within Functional Limits Lower Extremity ROM Assessment Left Impaired Strength Upper Extremity Strength Assessment Within Functional Limits Lower Extremity Strength Assessment Left Impaired Sensation Assessment Sensation Gross Sensation Left LE Impaired Light Touch Impaired Proprioception (Position) Intact Sensation Description [place] [employer] [place],Pain Comments Sensation Comments Pt reported mild lessening of pain with continued exercise. M6 PT-IP Treatment Start: 09/11/19 13:06 Freq: NEEDED Status: Active Protocol: Document 09/14/19 11:48 KS (Rec: 09/14/19 13:50 KS [id number]) Physical Therapy Treatment Exercises Exercises Ankle Pumps,Quad Sets Education Education Provided Safety Other Treatments Other Treatment Performed Seated and standing M7 PT-IP Assessment and Plan Start: 09/11/19 13:06 Freq: NEEDED Status: Active Protocol: Document 09/14/19 11:48 KS (Rec: 09/14/19 13:50 KS [id number]) PT Summary Assessment and Plan Potential Rehabilitation Potential Good Status of Condition at Evaluation Evolving Summary Impairments Pain,ROM,Strength,Balance,Bed Mobility,Transfers,Gait, Activity Tolerance Assessment Summary Pt continues to have improved tolerance for ambulation and LE strengthening, but requires Min A for sit<>stand from chair. Pt had slight post LOB after first sit<>stand, but was able to recover.He needed min cues for upright posture and foot clearance during ambulation. Pt will benefit from continued LE elevation, strengthening, and gait training w/ FWW to improve level of function. Goals Bed Mobility Goal Independent Transfer Goal Independent Gait Goal Standby Assistance,Front Wheel Walker Gait Distance 75' Other Goals Pt will be independent with a home program of LE & UE strengthening ex's. Days to Meet Goals 3 Frequency of Treatment Frequency Of Treatment Twice a Day Treatment Plan Physical Therapy Treatment Plan Bed Mobility Training,Transfer Training,Gait Training, Therapeutic Exercise Other Recommendations and Next Treatment establish HEP for time of Focus discharge; perform caregiver training; assess independent bed mobility Recommendations To Nursing Amount of Assist Needed 1 Person Assist Discharge Recommendations PT Discharge Recommendations Home with Assistance Other Discharge Recommendations Pt to ambulate with cane or FWW. Equipment Needed for Home Before Possible need of FWW. Discharge Transportation Needs at Discharge Private Vehicle
--- NOTE | 2019-09-14 12:26 | CM.DPNOTE ---
DCP Cont Therapy team now recommending home w/HH and spouse to assist; pt hopeful to return home when medically cleared. Dr Loomis has transitioned pt to po abx and will be watching today/tomorrow for status change- optimistic that there will be continued improvement Spoke w/spouse Fouzia to review DCP; explained that pt potentially would be medically cleared for DC tomorrow Tuesday 4.4.20 if he continues to improve on po abx. Reviewed therapy notes w/ Fouzia and suggested home w/ home health? Fouzia agreeable to [facility] RN/PT/OT and agreeable to picking pt up Tuesday via pov if he is DC. Fouzia confident about caring for pt once he returns home. Requested that Construction Executive [facility] referral to [facility]; F2F completed and signed by Dr Loomis. Following closely for coordination of safe DCP SANDY Cornell
--- NOTE | 2019-09-14 15:15 | PT.IPTN ---
Current Diagnoses Cellulitis of left lower limb (09/09/19) Physical Therapy Treatment Note M2 PT-IP Current Condition Start: 09/11/19 13:06 Freq: NEEDED Status: Active Protocol: Document 09/11/19 15:57 LRN (Rec: 09/11/19 17:13 LRN [email or web address]) Physical Therapy Current Condition Current Condition Evaluation Date 09/11/19 Treatment Diagnosis Chills/Fever/Fatigue/ Pain in L ankle Onset Date 09/09/19 Precautions Other Precautions Droplet Precaution Covid Test Pending. Weight Bearing Status Weight Bearing Status Full Weight Bearing M3 PT-IP Subjective Start: 09/11/19 13:06 Freq: NEEDED Status: Active Protocol: Document 09/14/19 15:15 AB (Rec: 09/14/19 16:59 AB [id number]) Subjective Physical Therapy Visit Type Type Treatment Note Visit Start Time 15:15 Visit Stop Time 15:51 Total Visit Minutes 36 Number of COIN MACHINE SERVICE REPAIRER Visits 0 Physical Therapy Visit Comments Patient Comments pt agreeable to do PT Therapy Pain Assessment Pain Present Pain Present Denied Pain M4 PT-IP Mobility and Gait Start: 09/11/19 13:06 Freq: NEEDED Status: Active Protocol: Document 09/14/19 15:15 AB (Rec: 09/14/19 16:59 AB [id number]) PT-Bed Mobility Assessment Supine to Sit Supine to Sit Standby Assistance Sit to Supine Sit to Supine Standby Assistance PT-Transfer Assessment Sit to and From Stand Sit to and from Stand Contact Guard Assistance, Moderate Assistance,1 Person Assistance,Use of Upper Extremities Equipment Transfer Assistive Device Gait Belt,Front Wheeled Walker Orthotic/Prosthetic Devices or Brace: No Transfers Transfer Destination Toilet Transfer Technique ambulated using FWW Transfer Ability Level of Assist Contact Guard Assistance,1 Person Assistance,Use of Upper Extremities Comments Mobility Comments pt sitting on chair and agreeable to do PT but requested to use the toilet first. completed sit to stand from the chair and required 2 attempts and needed mod A and cues. pt ambulated using fWW to the toilet. NAC assisted pt with toileting needs. pt ambulated back to chair using FWW CGA. (+) SOB noted with O2 sat at RA: 98% . educated pt on sit<>stand techniques and pt completed sit to stand CGA and cues. complete sit <>stand x 3 reps. pt agreed to do more ambulation . pt ambulated in the hallway using FWW CGA to occasional min A ~ 150 ft. pt with increase forward leaning and L knee increase in flexion during stance phase and cued for quad activation for steadiness. Pt without LOB but with unsteady gait with deviations noted. pt demonstrated supine <>sit SBA. Pt positioned in bed afterwards with LE elevated with bed up and pillows. call light and table placed within reach. Gait Assessment Gait Gait Assistance Required: Contact Guard Assist,Minimum Assistance Distance (Feet) 150 Able to Maintain Weight Bearing Status Yes During Gait Assistive Devices Assistive Device Gait Belt,Front Wheeled Walker Orthotic/Prosthetic Devices or Brace: No Gait Deviations General Gait Pattern Decreased Stride Length, Decreased Feet Clearance, Flexed Trunk Factors Limiting Gait Function Factors Limiting Gait Function Decreased Activity Tolerance, Decreased Strength,Poor Balance,Poor Safety Awareness, Respiratory Distress Comments Gait Comments pt requiring CGA with ambulation with occasional min A and cues and presents with unsteady gait. pt continues to rely heavily on FWW for support. pls refer to mobility section for details. M5 PT-IP Objective Assessments Start: 09/11/19 13:06 Freq: NEEDED Status: Active Protocol: Document 09/11/19 15:57 LRN (Rec: 09/11/19 17:13 LRN [email or web address]) Orientation Orientation/Cognition Level of Alertness Alert Orientation Name,Age,Place,Situation Language Function Ability No Deficits Noted Memory Description No Deficits Noted Gross Range of Motion Upper Extremity ROM Assessment Within Functional Limits Lower Extremity ROM Assessment Left Impaired Strength Upper Extremity Strength Assessment Within Functional Limits Lower Extremity Strength Assessment Left Impaired Sensation Assessment Sensation Gross Sensation Left LE Impaired Light Touch Impaired Proprioception (Position) Intact Sensation Description [employer],Pain Comments Sensation Comments Pt reported mild lessening of pain with continued exercise. M6 PT-IP Treatment Start: 09/11/19 13:06 Freq: NEEDED Status: Active Protocol: Document 09/14/19 15:15 AB (Rec: 09/14/19 16:59 AB [id number]) Physical Therapy Treatment Education Education Provided Safety M7 PT-IP Assessment and Plan Start: 09/11/19 13:06 Freq: NEEDED Status: Active Protocol: Document 09/14/19 15:15 AB (Rec: 09/14/19 16:59 AB [id number]) PT Summary Assessment and Plan Potential Rehabilitation Potential Good Summary Impairments Pain,ROM,Strength,Balance, Coordination,Sensation,Tone, Cognition,Bed Mobility, Transfers,Gait,Activity Tolerance Progress Towards Goals Slow Progress due to Medical Issues,Slow Progress due to Activity Tolerance Assessment Summary pt requiring CGA to occasional min A with ambulation using FWW. pt continues to rely heavily on FWW for support and at this time will need FWW for home use. pt without LOB during ambulation but presents with unsteady gait. pt plans to go home with spouse to assist if needed. pt will benefit from homehealth PT to improve strength, balance and activity tolerance. Goals Bed Mobility Goal Independent Transfer Goal Independent Gait Goal Independent,Front Wheel Walker Gait Distance 200 Days to Meet Goals 5 Frequency of Treatment Frequency Of Treatment Twice a Day Treatment Plan Physical Therapy Treatment Plan Bed Mobility Training,Transfer Training,Gait Training, Therapeutic Exercise,Discharge Planning Recommendations To Nursing Amount of Assist Needed 1 Person Assist Discharge Recommendations PT Discharge Recommendations Home with Assistance,Home Health Equipment Needed for Home Before FWW Discharge Transportation Needs at Discharge Private Vehicle
[2019-09-14] MEDS: RIVAROXABAN 10 MG TABLET 15 MG PO (16:59)
[2019-09-14] MEDS: lisinopriL 5 MG TABLET PO (17:00)
[2019-09-14] MEDS: AMIODARONE 200 MG TABLET PO (17:01)
[2019-09-14] MEDS: ATORVASTATIN 10 MG TABLET PO (20:56)
[2019-09-14] MEDS: ACETAMINOPHEN 325 MG TABLET 975 MG PO (22:57)
--- NOTE | 2019-09-15 00:44 | PC.NURSE ---
Addendum entered by Lisa Gore R.N. 09/15/19 06:10: PUFF IRON OPERATOR reports patient having black/green stools but guiaic not checked as no measuring device in toilet at time. Patient reports 5/10 burning/stinging pain in left foot; medicated with Tylenol. Original Note: Patient is alert and oriented but NOME (hearing aids not here). Breath sounds CTA with RA sat of 97%. HRR; telemetry reading at 0000 was SR. Denies nausea. BT present and abdomen is soft; has had some fecal incontinence. Denies dysuria or frequency but states he has some urgency which results in episodes of incontinence. Able to turn himself in bed. When out of bed uses walker and 1 assist due to weakness in left LE. Sawyer wrap/dressing redone by evening RN and is currently CDI. Non pitting edema in left forefoot. Was medicated with Tylenol at shift change and states pain improved from 8/10 to 5/10 and is now tolerable. Wearing calf SCD on right leg. Left LE is elevated on several pillows. Fall risk score is high and bed alarm is activated.
[2019-09-15 04:00] VITALS: BP 146/69; PULSE 69; RESP 16; TEMP 36.4; O2SAT 98
[2019-09-15 05:28] LABS: Add Manual Diff / Slide Review NO; Basophils Absolute Auto 0 /uL (0-100); Basophils Percent Auto 0.5 % (0-2); Eosinophils Absolute Auto 300 /uL (0-450); Hematocrit 34.4 % (41-53); Hemoglobin 11.3 g/dL (13.5-17.5); Lymphocytes Absolute Auto 600 /uL (1100-4500); Lymphocytes Percent Auto 7.3 % (25-40); Mean Corpuscular HGB Conc 32.9 % (30-36); Mean Corpuscular Hemoglobin 30.9 PG (26-34); Mean Corpuscular Volume 93.9 fL (80-100); Monocytes Absolute Auto 1000 /uL (0-900); Monocytes Percent Auto 11.6 % (3-14); Neutrophils Absolute Auto 6800 /uL (1500-7000); Neutrophils Percent Auto 77.6 % (50-75); Platelet Count 163 X10^3/uL (150-400); Red Blood Cell Count 3.66 X10^6/uL (4.5-5.9); White Blood Cell Count 8.7 X10^3/uL (4.5-11.0)
[2019-09-15 05:50] LABS: Procalcitonin 1.59 ng/mL (<0.5)
[2019-09-15] MEDS: LEVOTHYROXINE 75 MCG TABLET 37.5 MCG PO (06:04)
[2019-09-15] MEDS: ACETAMINOPHEN 325 MG TABLET 975 MG PO (06:06)
[2019-09-15 08:00] VITALS: BP 149/85; PULSE 61; RESP 18; TEMP 36.3; O2SAT 96
--- NOTE | 2019-09-15 08:24 | PM.DS.1 ---
History of Present Illness History of Present Illness Chief complaint: Chills/Fever/Fatigue/ Pain in LT ankle Narrative: Mr. 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 The patient describes the pain in his left lower leg as a constant burning stinging pain that is crampy. He denies trauma or injury. He had had a recent decrease in his Lasix dose by Dr. Ghosh which was again increased the patient had a bronchoscopy at [facility] 9 days ago for evaluation of increasing lymphadenopathy status post but resection of an adenocarcinoma. Reports no complaints of fevers or chills but has had increasing fatigue in sense of malaise. He denies complaints of chest pain or palpitations though he has history of atrial fibrillation. The patient states he gets short of breath and is limited in his activity because the pain before which he would work out on machines in the gym 5 days per week. He denies abdominal pain, heartburn, nausea or vomiting. He reports having had constipation and started taking stool softener and no have occasional diarrhea. He complains of swollen scrotum that being makes it difficult for him to urinate. He complains of low back pain with activity and bilateral hip arthritis and ambulates with a cane. Per family report to the emergency room provider the patient has had increasing confusion over the last few days. Upon arrival to the ER the patient's temperature 100.1?, heart rate of 83, blood pressure 116/72, respirations 16 saturating 93% on room air. A chest x-ray obtained which finds no acute disease and CT of the chest finds small right pleural effusion with scattered atelectasis, a 3 mm right upper lobe pulmonary nodule, heterogeneous thyroid with possible bilateral nodules. A vascular ultrasound was obtained of the left lower extremity that was negative for DVT. On patient laboratory studies he has a white count of 20.6, hemoglobin of 13.1, hematocrit of 40.7 and platelets 142 with a left shift. Has a PT of 22.7 and INR of 2.0. His electrolytes are within normal range with a potassium of 4.3 and magnesium 2.2, BUN of 25 and a creatinine of 1.36. His liver function tests are within normal range. Has a procalcitonin 0.09, lactic acid of 2.1, CRP of 4.4. He is found to have an elevated troponin is 0.051 as well as a elevated BNP 3830. His flu screening is negative. The patient is found to have swelling and pain over the left lower extremity with ecchymotic area redness and warmth consistent with cellulitis. The patient is started on vancomycin 1500 mg IV in the emergency department. The patient is admitted for cellulitis and metabolic encephalopathy. Discharge Providers Provider Date of admission: 09/09/19 21:52 Discharge Date: 09/15/19 Primary care physician: Corrine Ghosh MD Consults: 09/10/19 16:05 Consult to General Surgery Routine Comment: Consulting Provider: Abhishek Mazariegos Reason for consultation: Left LE cellulitis concern for nec fasc with crepitus and pain out of prop Has provider been notified: Yes 09/11/19 11:19 Consult to Physical Therapy Evaluate & Treat Comment: Physician Instructions: Evaluate and Treat 09/12/19 09:53 Consult to Occupational Therapy Evaluate & Treat Comment: Physician Instructions: Evaluate and treat 09/12/19 10:58 Consult to Orthopedic Surgery Routine Comment: Consulting Provider: Leonidas Miranda Reason for consultation: foot and ankle cellulitis, concern for intrarticular infection Has provider been notified: Yes Discharge provider: Grupo Live MD Summary Hospital Course Discharge Diagnosis: 1. Acute left lower extremity cellulitis 2. Sepsis with end-organ dysfunction 3. Acute kidney injury 4. Metabolic encephalopathy 5. Hyperuricemia without determination of gout 6. History of paroxysmal atrial fibrillation 7. History of congestive heart failure with preserved LVEF 8. Hypothyroidism with over replacement of levothyroxine, dose adjusted Hospital Course: Saulo Russ is an [id number] with past medical history significant for severe aortic stenosis and mitral regurgitation status post TAVR, congestive heart failure with preserved ejection fraction, left renal cell carcinoma status post partial nephrectomy, 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 1. Acute sepsis, present on admission. Resolved. -Patient presented with fever, leukocytosis, end-organ dysfunction of acute kidney injury and metabolic encephalopathy with source left foot cellulitis. 2. Acute left foot and ankle cellulitis, present on admission. -patient with marked clinical improvement since admission. There is some residual inflammatory redness on the pate which does not represent cellulitis. There is a non draining large superficial ulceration on the lower pate which can be managed with antibiotic ointment and non adherent dressing. The ankle swelling and redness is much improved and patient has shown stability with 24 hours on oral antibiotic. He will complete another week of antibiotic with cephalexin and doxycycline. There were no positive cultures. -Patient presented with significantly edematous and mildly erythematous left ankle and foot with decreased range of motion and pain out of proportion to exam. -Left foot and ankle x-ray demonstrated bimalleolar effusion, ossifications noted along the distal medial malleolus and distal fibula. Overall they have a thin appearance of old trauma. -Left lower extremity CT with contrast demonstrated extensive soft tissue swelling and edema throughout visualized left lower leg and left foot. No drainable fluid collection. Small joint effusion, no calcified intra-articular loose body. No full-thickness ankle or foot tendon rupture. Osteoarthritic changes throughout ankle, midfoot and hindfoot. No acute fracture or dislocation. No bony erosive changes to suggest osteomyelitis. No suspicious intraosseous lesion. -Left lower extremity MRI with contrast demonstrated extensive cellulitis around ankle, hindfoot and midfoot with marked soft tissue swelling and edema. No discrete abscess collection is seen. Osteoarthritic changes throughout ankle, hindfoot and midfoot joints. No evidence of osteomyelitis. Small amount of fluid within tibiotalar joint and subtalar joint with no MR evidence of septic joint. No gross intra-articular loose body. Mildly thickened plantar aponeurosis at its plantar calcaneal insertion, low-grade plantar fasciitis cannot be excluded. -Patient's WBC was persistently elevated at 27 with high procalcitonin at 20 for several days after admission on broad-spectrum antibiotics. The lack of clinical improvement on aggressive IV antibiotic management was concerning for possible intra-articular infection and orthopedic surgery was consulted; elevated WBC and procalcitonin more consistent with bacterial infection than crystal arthropathy although uric acid elevated at 9.2 and possible underlying gout flare with superimposed bacterial infection. -Discontinued vancomycin with dosing per pharmacist, ceftriaxone 2 g IV daily, and clindamycin 600 mg IV every 8 hours. On 09/13, patient was started doxycycline 100 mg twice daily and cephalexin 500 mg 4 times daily 3. Elevated uric acid with possible new gout flare of left ankle, present on admission. Active. -Patient has no history of gout. Patient is on home furosemide which puts him at higher risk of gout flare. -Uric acid level 9.2 with possible underlying gouty flare of left ankle. -Due to elevated infectious markers did not initiate glucocorticoid and patient's pain has improved with treatment of cellulitis alone. -Consider initiation of uric acid lowering medication once cellulitis resolves and will defer to PCP. 4. Probable acute metabolic encephalopathy,, present on admission. Resolved. -Secondary to sepsis and infection and treated underlying cause as above. -The patient was disoriented with GCS 14 on admission. Mental status has cleared up. 5. Acute kidney injury, on chronic kidney disease stage III, present on admission. Acute kidney injury resolved. -Multifactorial and secondary to prerenal azotemia from sepsis/infection and likely contrast nephropathy. -Initial creatinine 1.36. Last creatinine 1.33. Baseline creatinine prior to 06/2019 was 1.1-1.2. -Patient had CT lower extremity with contrast performed on 09/10/2019 and possibility of contrast nephropathy as creatinine elevated to 1.72. -Initially held furosemide and lisinopril due to CORETTA. Restarted lisinopril 5 mg and furosemide now that CORETTA has resolved. 6. Paroxysmal atrial fibrillation on Xarelto, chronic, present on admission. Stable. -Continue amiodarone 200 mg daily and Xarelto 15 mg daily at bedtime. 7. Congestive heart failure with preserved ejection fraction, chronic, present on admission. Stable. -Does not represent CHF exacerbation. -Patient had a decrease in his Lasix to [address] Ghosh his PCP and this was subsequently increased back to furosemide 20 mg twice daily 9 days ago following bronchoscopy at [facility]. 8. Lung cancer status post resection, present on admission. Stable. 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 Unclear treatment post resection. No current cough or chest pain. -Patient with increasing lymphadenopathy prompting bronchoscopy at [facility] with no significant secretions or lesions and mild injection of the main bronchi bilaterally. -CT scan finds a 3 mm right upper lobe nodule. Recommend further outpatient evaluation and surveillance per PCP, shipper/receiver, or oncologist. -COVID 19 negative. 9. Hypothyroidism, chronic, present on admission. Stable. -TSH low at 0.10 and free T4 elevated at 2.78 indicative of over replacement. -Lowered levothyroxine from 50 mcg to 25 mcg daily. Recommend repeat thyroid function testing in 6 weeks per PCP. Time spent over 35 minutes in discharge management and coordination. Exam Vital Signs (past 8 hours): - 09/15/19 04:00 09/15/19 08:00 Temperature 97.5 F L 97.4 F L Pulse Rate 69 61 Respiratory Rate 16 18 Blood Pressure 146/69 H 149/85 H Pulse Oximetry 98 96 Oxygen Delivery Method Room Air Oxygen Flow Rate 0 Objective Labs Result Diagrams: 09/15/19 05:06 09/14/19 04:40 Labs: Laboratory Results - last 24 hr 09/14/19 09/15/19 09/15/19 04:40 05:06 05:06 WBC 8.7 RBC 3.66 L Hgb 11.3 L Hct 34.4 L MCV 93.9 MCH 30.9 MCHC 32.9 RDW 16.0 H Plt Count 163 Neut % (Auto) 77.6 H Lymph % (Auto) 7.3 L Taylor % (Auto) 11.6 Eos % (Auto) 3.0 Baso % (Auto) 0.5 Neut # (Auto) 6800 Lymph # (Auto) 600 L Taylor # (Auto) 1000 H Eos # (Auto) 300 Baso # (Auto) 0 Sodium 135 L Potassium 3.8 Chloride 102 Carbon Dioxide 23 BUN 38 H Creatinine 1.33 H Estimated GFR 51.3 L BUN/Creatinine Ratio 28.6 H Glucose 96 Calcium 9.2 Magnesium 2.5 H Procalcitonin 1.59 H Discharge Plan Discharge Plan Patient Disposition: Home Discharge comment: You were treated for soft tissue infection (cellulitis) of the left lower extremity. Your uric acid level was elevated but we could not determine if you had a gout attack. Complete course of oral antibiotic for 1 week. Keep a non-stick dressing with vaseline or antibiotic ointment on the open pate area to protect it. See Dr Ghosh for hospital follow up. We also lowered your levothyroxine dosage to 25 mcg daily because blood work indicated you are on too much. Recheck thyroid tests in 6 weeks. Discharge orders & Medications Prescriptions: New cephalexin 250 mg Capsule 500 mg PO QID 7 Days Qty: 28 RF: 0 doxycycline hyclate 100 mg Tablet 100 mg PO BID 7 Days Qty: 14 RF: 0 levothyroxine 25 mcg capsule 25 mcg PO DAILY Qty: 90 RF: 0 Continued metronidazole [MetroCream] 0.75 % cream 1 bassam Topical BID PRN (Reason: Skin Irritation) Qty: 0 RF: 0 coenzyme Q10 [Co Q-10] 100 MG capsule 300 mg PO DAILY Qty: 0 RF: 0 hydrocodone-acetaminophen [[place]] 5 MG/325 MG tablet 1 tab PO Q6H PRN (Reason: Pain) Qty: 0 RF: 0 aspirin [Adult Aspirin Regimen] 81 mg tablet,delayed release (DR/EC) 81 mg PO DAILY RF: 0 lisinopril 5 mg Tablet 5 mg PO QPM RF: 0 cholecalciferol (vitamin D3) [Vitamin D3] 1,000 unit Capsule 1,000 unit PO DAILY RF: 0 atorvastatin [Lipitor] 20 MG tablet 10 mg PO DAILY RF: 0 furosemide [Lasix] 20 MG tablet 20 mg PO BID RF: 0 acetaminophen 500 mg Tablet 500 mg PO PRN MDD 4000 PRN (Reason: Pain (Scale Score 1-3)) RF: 0 Nighttime Sleep-Aid (doxylamn) 25 mg Tablet 25 mg PO BEDTIME PRN (Reason: Sleep) RF: 0 ketoconazole 2 % Cream 1 applic TOPICAL PRN PRN (Reason: Itching) RF: 0 B-complex with vitamin C [Super B Complex-Vitamin C] Tablet 1 tab PO DAILY RF: 0 Tumeric 2,000 mg PO QAM RF: 0 amiodarone 200 mg tablet 200 mg PO ONCE PM RF: 0 acetaminophen-codeine 300-30 mg tablet 2 tab PO BID PRN (Reason: pain) RF: 0 Xarelto 15 mg tablet 15 mg PO QPM RF: 0 Discontinued levothyroxine 50 mcg tablet 50 mcg PO QAM RF: 0 Follow up/Referrals: Corrine Ghosh MD [Primary Care Provider] - Diet/Activity/Treatments Diet: Diet as Tolerated Skin/Wound/Dressing Care Report to your healthcare provider any signs of infection, such as:: chills, fever, increased pain, unusual drainage and unusual redness Discharge Data Primary Care Provider: Corrine Ghosh VTE Deep Vein Thrombosis/Pulmonary Embolism Present on Admission: No
--- NOTE | 2019-09-15 09:07 | PC.NURSE ---
Addendum entered by Jennifer Perez R.N. 09/15/19 14:01: Pt's Fouzia had concerns with how swollen and red pt's LLE appears compared to admit. States she thinks pt had a Brown Recluse spider bite. Addressed concerns with Dr. Live at 1240. No new orders at this time, pt to take antibiotics as prescribed and follow up with PCP and get referral to wound care clinic from PCP. Fouzia aware of this. Discharge summary packet, medication review, and LLE dressing change review done with pt and his Fouzia at bedside from [id number]. Pt has follow up appointment already made for TuesdaySeptember 16. LLE yellow colored wound site, no draining with hardened surrounding skin cleansed with NS, vaseline applied with non adherent dressing and secured with kerlix wrap per Dr's orders with discharge instructions. Pt tolerated well. Encouraged LLE elevation at heart level and above, also encouraged elevation of scrotum to help decrease swelling. Pt left unit with all belongings per pt and his Fouzia at 1400 via wheelchair in no distress. Pt had TRAIL[employer] escort. Original Note: Day Shift- Pt's own meds in 2 weekly pill boxes given back to pt. 2 prescriptions [facility] in [place] per pt request as Dr. Live was not able to send electronically. Pt will also have a prescription for a reduced dose on his Thyroid medication.
[2019-09-15] MEDS: FUROSEMIDE 20 MG TABLET PO (09:43)
[2019-09-15] MEDS: DOXYCYCLINE HYCLATE 100 MG TABLET PO (09:44)
[2019-09-15] MEDS: ASPIRIN EC 81 MG TABLET PO (09:44)
[2019-09-15] MEDS: ASCORBIC ACID 500 MG TABLET PO (09:44)
[2019-09-15] MEDS: cephALEXin 250 MG CAPSULE 500 MG PO ×2 (09:44→13:04)
[2019-09-15] MEDS: SODIUM CHLORIDE 0.9% FLUSH 10 ML IV (09:45)
--- NOTE | 2019-09-15 10:05 | P.PN_ITS ---
Subjective Subjective Date Patient Seen: 09/15/19 Time Patient Seen: 10:05 Interval history: The patient reports he feels well and he is anxious to go home. Exam Vital Signs (past 8 hours): - 09/15/19 04:00 09/15/19 08:00 Temperature 97.5 F L 97.4 F L Pulse Rate 69 61 Respiratory Rate 16 18 Blood Pressure 146/69 H 149/85 H Pulse Oximetry 98 96 Oxygen Delivery Method Room Air Oxygen Flow Rate 0 Narrative Exam Narrative: The left lower extremity shows signs of chronic venous stasis. There is an area over the distal pretibial area with possible impending necrosis. Currently, this area has an intact covering of biological tissue. There does not appear to be active erythema. Objective Labs Result Diagrams: 09/15/19 05:06 09/14/19 04:40 Labs: Laboratory Results - last 24 hr 09/15/19 09/15/19 05:06 05:06 WBC 8.7 RBC 3.66 L Hgb 11.3 L Hct 34.4 L MCV 93.9 MCH 30.9 MCHC 32.9 RDW 16.0 H Plt Count 163 Neut % (Auto) 77.6 H Lymph % (Auto) 7.3 L [place] % (Auto) 11.6 Eos % (Auto) 3.0 Baso % (Auto) 0.5 Neut # (Auto) 6800 Lymph # (Auto) 600 L [place] # (Auto) 1000 H Eos # (Auto) 300 Baso # (Auto) 0 Procalcitonin 1.59 H Assessment & Plan Assessment & Plan narrative: It appears the patient does not currently have active cellulitis. He does have an area of potential impending necrotic tissue which needs to be monitored. I would suggest that the best venue for this would be through the wound care clinic. I have discussed his care with Dr. Yosvany Live MD, and he plans to discharge the patient today. Time Spent With Patient Time with patient: less than 15 minutes Quality VTE Deep Vein Thrombosis/Pulmonary Embolism Present on Admission: No
--- NOTE | 2019-09-15 10:13 | OT.IP.TRT ---
Current Diagnoses Cellulitis of left lower limb (09/09/19) Occupational Therapy Treatment Note M2 OT-IP Current Condition Start: 09/12/19 15:08 Freq: Status: Active Protocol: Document 09/12/19 14:50 PJM (Rec: 09/12/19 15:33 PJM [id number]) Occupational Therapy Current Condition Current Condition Evaluation Date 09/12/19 Treatment Diagnosis decreased self care, functional mobility with DX; LLe cellulitis Post Operative Precautions Other Precautions fall risk Weight Bearing Status Weight Bearing Status Weight Bear as Tolerated Allowed Weight Bearing Amount (enter % LLE or #) (%) M3 OT- IP Subjective and Pain Start: 09/12/19 15:08 Freq: Status: Active Protocol: Document 09/15/19 10:13 PJM (Rec: 09/15/19 12:46 PJM [id number]) OT- Subjective Occupational Therapy Visit Type Type Treatment Note Visit Start Time 09:45 Visit Stop Time 10:13 Total Visit Minutes 28 Notes Pt has discharge orders for today. Occupational Therapy Visit Comments Patient Comments My foot is felling better and the swelling is down. Patient/Caregiver Goals to go home today OT Pain Assessment Pain When Pain Assessed After Treatment Pain Present Pain Present Denied Pain M4 OT- IP ADL's Start: 09/12/19 15:08 Freq: Status: Active Protocol: Document 09/15/19 10:13 PJM (Rec: 09/15/19 12:46 PJM [id number]) OT ADL-Dressing General Eval Upper Body Dressing Ability Independent Areas Needing Assistance Retrieving/Set-up of Clothing, Pull-Over Shirt,Underpants/ Brief,Pants/Shorts,Shoes Comments OT Dressing Comments Pt did not need metal stud framer today to get pants over feet. Pt able to cross foot over opposite knee to get pull on slippers on. OT ADL-Toileting General Evaluation Toileting Ability Independent Areas Needing Assistance Perform Perineal Hygiene OT ADL-Bathing Comments OT Bathing Comments Pt has small utility bath seat. Provided further education re: sit and swivel tub transfer technique for use of transfer tub seat which pt can borrow from [employer]. M5 OT- IP IADL's Start: 09/12/19 15:08 Freq: Status: Active Protocol: Document 09/15/19 10:13 PJM (Rec: 09/15/19 12:46 PJM [id number]) OT-Instrumental Activities of Daily Living Deficits IADL Deficits Identified Deficits Home Safety Awareness Awareness of Need for Assistance at Home Good Awareness Ability to Problem Solve Emergency Able to Problem Solve Situations Home Safety Comments able to assist with all IADLS at home PRN. Medication Management Medication Management No Deficits Identified Money Management Money Management No Deficits Identified Meal Preparation Meal Preparation Caregiver Provides Assist Packaging Operator Packaging Operator Caregiver Provides Assist Driving Driving Caregiver Provides Assist M6 OT- IP Functional Cognition Start: 09/12/19 15:08 Freq: Status: Active Protocol: Document 09/15/19 10:13 PJM (Rec: 09/15/19 12:46 [facility] [id number]) Cognitive Factors Limiting Selfcare Function Cognitive Ability Level of Alertness Alert Patient Orientation Name,Age,Birthday,Month,Date, Year,Day of Week,Place, Situation Attention Span Ability Capable of Focused Attention, Capable of Sustained Attention Ability to Follow Commands Able to Follow Multi-Step Commands Memory Description No Deficits Noted Safety Awareness No Deficits Noted Cognitive Comments Cognitive Assessment Comments Cognition appears WFL. Pt recalls previous training from last several days. M7 OT- IP Mobility and Balance Start: 09/12/19 15:08 Freq: Status: Active Protocol: Document 09/15/19 10:13 PJM (Rec: 09/15/19 12:46 [facility] [id number]) OT-Transfer Assessment Sit to and From Stand Sit to and from Stand Standby Assistance,1 Person Assistance Technique Transfer Destination Car Devices Transfer Assistive Devices Front Wheeled Walker Comments Mobility Comments Provided education re: car transfer techniques OT- Gait Assessment Comments Gait Ability Comments see P.T. notes OT- Balance Assessment Sitting Balance and Reactions Static Sitting Balance Ability Good Dynamic Sitting Balance Ability Good Standing Balance and Reactions Static Standing Balance Ability Good Dynamic Standing Balance Ability Fair Comments Other Balance Tests/Deviations/Treatment during lower body dressing M9 OT- IP Assessment and Plan Start: 09/12/19 15:08 Freq: Status: Active Protocol: Document 09/15/19 10:13 PJM (Rec: 09/15/19 12:46 [facility] [id number]) OT Summary Assessment and Plan Potential Rehabilitation Potential Good Summary Progress Towards Goals Safe For Discharge,Goals Met Assessment Summary Pt making good daily progress and all OT goals achieved for this admission as described above. Pt plans to d/c home today with 24 hr assist from capable . No further OT services needed. Frequency of Treatment Frequency Of Treatment Discharge Discharge Recommendations OT Discharge Recommendations Home with 03/01 Assist Home Equipment Needs transfer tub seat Transportation Needs at Discharge Private Vehicle
[2019-09-15 12:00] VITALS: BP 150/58; PULSE 67; RESP 18; TEMP 36.5; O2SAT 97
--- NOTE | 2019-09-15 12:43 | PT.IPTN ---
Current Diagnoses Cellulitis of left lower limb (09/09/19) Physical Therapy Treatment Note M2 PT-IP Current Condition Start: 09/11/19 13:06 Freq: NEEDED Status: Active Protocol: Document 09/11/19 15:57 LRN (Rec: 09/11/19 17:13 LRN [id number]) Physical Therapy Current Condition Current Condition Evaluation Date 09/11/19 Treatment Diagnosis Chills/Fever/Fatigue/ Pain in L ankle Onset Date 09/09/19 Precautions Other Precautions Droplet Precaution Covid Test Pending. Weight Bearing Status Weight Bearing Status Full Weight Bearing M3 PT-IP Subjective Start: 09/11/19 13:06 Freq: NEEDED Status: Active Protocol: Document 09/15/19 12:08 KS (Rec: 09/15/19 14:34 KS [id number]) Subjective Physical Therapy Visit Type Type Treatment Note Visit Start Time 12:08 Visit Stop Time 12:43 Total Visit Minutes 35 Number of DISBURSING AGENT Visits 1 Physical Therapy Visit Comments Patient Comments pt agreeable to do PT. Pts present for caregiver training. Therapy Pain Assessment Pain When Pain Assessed During Mobility Pain Present Pain Present Denied Pain M4 PT-IP Mobility and Gait Start: 09/11/19 13:06 Freq: NEEDED Status: Active Protocol: Document 09/15/19 12:08 KS (Rec: 09/15/19 14:34 KS [id number]) PT-Transfer Assessment Sit to and From Stand Sit to and from Stand Contact Guard Assistance,1 Person Assistance,Use of Upper Extremities Equipment Transfer Assistive Device Gait Belt,Front Wheeled Walker Orthotic/Prosthetic Devices or Brace: No Transfers Transfer Destination Toilet Transfer Technique pt ambulated using FWW Transfer Ability Level of Assist Contact Guard Assistance,1 Person Assistance,Use of Upper Extremities Comments Mobility Comments Pt was sitting reclined in chair upon arrival from PT w/ present. Instructed pt and how to perform ankle pumps, ankle circles, heel slides, quad sets, and glute sets and wrote instructions for above exercises to be completed at home. Then taught how to apply gait belt, which she repeated successfully. Pt then sit<> stand from chair w/ CGA and FWW and use of UE, instructed pt and to stand for at least a minute prior to walking and take a few steps in place to make sure he is balanced. Pt then ambulated ~ 30 ft w/ FWW and CGA and cues for upright posture and FWW management. Pt returned to chair and showed good control when sitting. Pts then took over and provided correct cues and assist for sit<> stand, standing balance and marching in place, 40 ft ambulation, FWW management, and stand<>sit back in chair. Pts stated she has FWW ready for him at home to use. Pt and both state that they feel safe to return home. Gait Assessment Gait Gait Assistance Required: Contact Guard Assist Distance (Feet) 70 Able to Maintain Weight Bearing Status Yes During Gait Assistive Devices Assistive Device Gait Belt,Front Wheeled Walker Orthotic/Prosthetic Devices or Brace: No Gait Deviations General Gait Pattern Decreased Stride Length, Decreased Feet Clearance, Flexed Trunk Factors Limiting Gait Function Factors Limiting Gait Function Decreased Activity Tolerance, Decreased Strength,Poor Balance Comments Gait Comments Pt required CGA during both bouts of ambulation today. Pt ambulated ~30 ft w/ FWW and CGA provided by DISBURSING AGENT and then /caregiver on second bout of 40ft. Pts provided cues for FWW management and upright posture appropriately. PT-Balance Assessment Sitting Balance and Reactions Static Sitting Balance Ability Good Dynamic Sitting Balance Ability Good Standing Balance and Reactions Static Standing Balance Ability Fair Dynamic Standing Balance Ability Fair Device Used FWW M5 PT-IP Objective Assessments Start: 09/11/19 13:06 Freq: NEEDED Status: Active Protocol: Document 09/11/19 15:57 LRN (Rec: 09/11/19 17:13 LRN [id number]) Orientation Orientation/Cognition Level of Alertness Alert Orientation Name,Age,Place,Situation Language Function Ability No Deficits Noted Memory Description No Deficits Noted Gross Range of Motion Upper Extremity ROM Assessment Within Functional Limits Lower Extremity ROM Assessment Left Impaired Strength Upper Extremity Strength Assessment Within Functional Limits Lower Extremity Strength Assessment Left Impaired Sensation Assessment Sensation Gross Sensation Left LE Impaired Light Touch Impaired Proprioception (Position) Intact Sensation Description Pins & Bowbells,Pain Comments Sensation Comments Pt reported mild lessening of pain with continued exercise. M6 PT-IP Treatment Start: 09/11/19 13:06 Freq: NEEDED Status: Active Protocol: Document 09/15/19 12:08 KS (Rec: 09/15/19 14:34 KS [id number]) Physical Therapy Treatment Exercises Exercises Ankle Pumps,Gluteal Sets,Quad Sets,Heel Slides Education Education Provided Precautions,Safety Other Treatments Other Treatment Performed Caregiver training M7 PT-IP Assessment and Plan Start: 09/11/19 13:06 Freq: NEEDED Status: Active Protocol: Document 09/15/19 12:08 KS (Rec: 09/15/19 14:34 KS [id number]) PT Summary Assessment and Plan Potential Rehabilitation Potential Good Summary Impairments Pain,ROM,Strength,Balance, Coordination,Sensation,Tone, Cognition,Bed Mobility, Transfers,Gait,Activity Tolerance Progress Towards Goals Slow Progress due to Medical Issues,Slow Progress due to Activity Tolerance Assessment Summary Pt showed improvements w/ transfers and ambulation today , requiring only CGA for sit<> stand and ambulation w/ FWW. Conducted caregiver training w / pts and she was able to assist pt safely during transfers and ambulation. Discussed importance of assessing balance when standing prior to walking and LE strengthening exercises. Provided written instructions for at home exercises. Pts has FWW at home for pt to use. Pt and state that they both feel safe to return home. Pt will benefit from HH and outpatient PT to assess LE weakness and balance deficits . Goals Bed Mobility Goal Independent Transfer Goal Independent Gait Goal Independent,Front Wheel Walker Gait Distance 200 Days to Meet Goals 5 Treatment Plan Physical Therapy Treatment Plan Bed Mobility Training,Transfer Training,Gait Training, Therapeutic Exercise,Discharge Planning Recommendations To Nursing Amount of Assist Needed 1 Person Assist Discharge Recommendations PT Discharge Recommendations Home with Assistance,Home Health,Outpatient PT Transportation Needs at Discharge Private Vehicle
--- NOTE | 2019-09-15 13:58 | CM.DPNOTE ---
DC Note: DC order in place, pt aware and agreeable to DCP. P: DC w/spouse to assist via pov, [facility] to provide HH RN/PT/OT f/u Tuesday. Referral to [facility] care [facility] will need to arrange Tuesday AM Faxed DC summary to SANDY Monique
== END 2019-09-15 14:00 | disposition home health service (06) | DRG 871 ==
LOC: ED 18:02 → AC 21:52 → ICU 23:47 → AC 09-13 14:07
PROVIDERS: Internal Medicine; Admitting Provider Nurse Practitioner Adult Health; Emergency Provider Emergency Medicine; Family Provider Internal Medicine; PCP Internal Medicine; Referring Provider Emergency Medicine; Visit Provider Nurse Practitioner Adult Health
DX: A41.9 Sepsis, unspecified organism (principal); G93.41 Metabolic encephalopathy; L03.116 Cellulitis of left lower limb; N17.9 Acute kidney failure, unspecified; I13.0 Hypertensive heart and chronic kidney disease with heart failure and stage 1 through stage 4 chronic kidney disease, or unspecified chronic kidney disease; I50.22 Chronic systolic (congestive) heart failure; R65.20 Severe sepsis without septic shock; N18.3 Chronic kidney disease, stage 3 (moderate); E78.5 Hyperlipidemia, unspecified; G47.33 Obstructive sleep apnea (adult) (pediatric); I48.0 Paroxysmal atrial fibrillation; K21.9 Gastro-esophageal reflux disease without esophagitis; E03.9 Hypothyroidism, unspecified; E79.0 Hyperuricemia without signs of inflammatory arthritis and tophaceous disease; Z03.818 Encounter for observation for suspected exposure to other biological agents ruled out; Z95.2 Presence of prosthetic heart valve; Z85.528 Personal history of other malignant neoplasm of kidney; Z85.118 Personal history of other malignant neoplasm of bronchus and lung; Z79.01 Long term (current) use of anticoagulants
CPT/HCPCS: 29540; 36415; 71045; 71250; 73610; 73630; 73701; 73723; 80048; 80053; 80202; 81001; 82550; 82728; 83605; 83735; 83880; 84145; 84439; 84443; 84484; 84550; 85025; 85610; 85730; 86140; 87040; 87502; 87635; 93005; 93306; 93971; 96365; 96366; 97110; 97116; 97162; 97165; 97530; 97535; 99231; 99232; 99285; J0696; J1885; Q9967

== ENCOUNTER → 2019-09-19 14:12 | Outpatient (CLI) | payer MEDICARE, SELFPAY ==
[2019-09-09 22:48] VITALS: BMI 28.0
== END ==
PROVIDERS: Family Provider Internal Medicine; PCP Internal Medicine; Referring Provider Internal Medicine; Visit Provider Family Medicine
DX: L03.116 Cellulitis of left lower limb (principal); S81.802A Unspecified open wound, left lower leg, initial encounter; R60.0 Localized edema; I36.1 Nonrheumatic tricuspid (valve) insufficiency; F03.90 Unspecified dementia, unspecified severity, without behavioral disturbance, psychotic disturbance, mood disturbance, and anxiety; Z79.01 Long term (current) use of anticoagulants
CPT/HCPCS: 11042; 11045; 87070; 87205; 99203; 99213

== ENCOUNTER → 2019-09-21 11:44 | Outpatient (CLI) | payer MEDICARE, SELFPAY ==
[2019-09-09 22:48] VITALS: BMI 28.0
== END ==
PROVIDERS: Family Provider Internal Medicine; PCP Internal Medicine; Referring Provider Internal Medicine; Visit Provider Family Medicine
DX: S81.802A Unspecified open wound, left lower leg, initial encounter (principal); L03.116 Cellulitis of left lower limb; R60.0 Localized edema; F03.90 Unspecified dementia, unspecified severity, without behavioral disturbance, psychotic disturbance, mood disturbance, and anxiety; Z79.01 Long term (current) use of anticoagulants
CPT/HCPCS: 11042; 11045; 99213

== ENCOUNTER → 2019-09-21 13:28 | Outpatient (CLI) | payer MEDICARE, SELFPAY ==
[2019-09-09 22:48] VITALS: BMI 28.0
[2019-09-21 15:53] LABS: BUN Creatinine Ratio 17.6 (6-22); Blood Urea Nitrogen 19 mg/dL (9-20); Calcium 9.7 mg/dL (8.4-10.2); Carbon Dioxide 30 mmol/L (22-32); Chloride 101 mmol/L (98-107); Estimated Glomerular Filt Rate > 60.0 mL/min (>60); Glucose 116 mg/dL (80-110); HEMOLYSIS < 15 (0-50); Potassium 4.6 mmol/L (3.4-5.1); Sodium 139 mmol/L (137-145); Uric Acid 6.8 mg/dL (3.5-8.5)
== END ==
PROVIDERS: Family Provider Internal Medicine; PCP Internal Medicine; Referring Provider Internal Medicine; Visit Provider Internal Medicine
DX: M1A.40X0 Other secondary chronic gout, unspecified site, without tophus (tophi) (principal)
CPT/HCPCS: 36415; 80048; 84550

== ENCOUNTER → 2019-09-27 10:50 | Outpatient (CLI) | payer MEDICARE, SELFPAY ==
[2019-09-09 22:48] VITALS: BMI 28.0
== END ==
PROVIDERS: Family Provider Internal Medicine; PCP Internal Medicine; Referring Provider Internal Medicine; Visit Provider Family Medicine
DX: L03.116 Cellulitis of left lower limb (principal); S81.802A Unspecified open wound, left lower leg, initial encounter; R60.0 Localized edema
CPT/HCPCS: 11042; 11045; 87070; 87075; 87205

== ENCOUNTER → 2019-10-08 14:14 | Outpatient (CLI) | payer MEDICARE, SELFPAY ==
[2019-09-09 22:48] VITALS: BMI 28.0
== END ==
PROVIDERS: Family Provider Internal Medicine; PCP Internal Medicine; Referring Provider Internal Medicine; Visit Provider Family Medicine
DX: A46 Erysipelas (principal); S81.802A Unspecified open wound, left lower leg, initial encounter; R60.0 Localized edema; I36.1 Nonrheumatic tricuspid (valve) insufficiency; Z79.01 Long term (current) use of anticoagulants
CPT/HCPCS: 11042; 87070; 87075; 87077; 87147; 87186; 87205; 99214

== ENCOUNTER → 2019-10-09 14:09 | Outpatient (CLI) | payer MEDICARE, SELFPAY ==
[2019-09-09 22:48] VITALS: BMI 28.0
== END ==
PROVIDERS: Family Provider Internal Medicine; PCP Internal Medicine; Referring Provider Internal Medicine; Visit Provider Family Medicine
DX: L03.116 Cellulitis of left lower limb (principal)
CPT/HCPCS: 99212

== ENCOUNTER → 2019-10-18 13:21 | Outpatient (CLI) | payer MEDICARE, SELFPAY ==
[2019-10-11 09:05] VITALS: BMI 28.0
[2019-10-19 02:39] LABS: COVID19 Sendout Not Detected (Not Detect)
== END ==
PROVIDERS: Family Provider Internal Medicine; PCP Internal Medicine; Visit Provider Family Medicine
DX: Z01.818 Encounter for other preprocedural examination (principal)
CPT/HCPCS: 87635

== ENCOUNTER 2019-10-23 11:51 | Day surgery (SDC) | payer MEDICARE, SELFPAY ==
[2019-10-11 09:05] VITALS: BMI 28.0
[2019-10-18 08:57] VITALS: BMI 24.3
[2019-10-23] VITALS (7 sets, daily range): BP systolic 119–153; BP diastolic 56–69; PULSE 60–71; RESP 13–20; TEMP 36.6–36.9; O2SAT 100; BMI 24.2
--- NOTE | 2019-10-23 | PATH_ITS ---
[facility] Accession Number: [id number] . 01 Material submitted: . leg - LEFT LOWER LEG WOUND . 01 Diagnosis: Skin and Soft Tissue, Left Lower Leg, Wound, Excision: Portions of skin and soft tissue with suppurative inflammation and granulation tissue formation. [facility] 10/25/2019 1524 Local . 01 Electronically signed: . Debbie Gross MD, Pathologist NPI- [id number] . 01 Gross description: . LEFT LOWER LEG WOUND: Received in formalin are multiple pieces of collier rubbery tissue measuring 3.5 x 2.6 x 0.5 cm in aggregate. Tissue is inked,. Specimen is sectioned and submitted in its entirety in 3 cassettes. /MJA 10/24/2019 1216 Local . 01 Pathologist provided ICD-10: L98.9 . 01 CPT . 585734 Performed at: [address] [facility], [place], [place] [id number] MD Víctor Lynn MD Phone: [phone]
[2019-10-23] MEDS: LACTATED RINGERS 1,000 ML 42 ML IV (12:17)
--- NOTE | 2019-10-23 12:25 | PM.PREOP ---
Pre-operative Note COVID-19 COVID-19 status: Negative Result date/Date tested (Pos, Neg/Pending): 10/18/19 Interval Note History & Physical reviewed/Exam performed by Physician: Yes Changes to H&P: No
[2019-10-23] MEDS: CEFAZOLIN 2 GM/100 ML FROZ.PIGGY IV (13:35)
--- NOTE | 2019-10-23 13:53 | SUR.OPER ---
Supine on padded OR bed, head on pillow, arms secured on padded arm boards at <90 degrees abduction, legs uncrossed, safety belt at hips, tape over blanket over lower legs.
[2019-10-23] MEDS: BUPIVACAINE 0.25% (PF) VIAL 30 ML INJ (14:06)
--- NOTE | 2019-10-23 14:40 | PM.OP.1 ---
Operative Date/Time/Diagnoses Date of procedure: 10/23/19 Time of procedure: 14:40 Pre-op diagnosis: Nonhealing wound left lower extremity Post-op diagnosis: same Procedure & Clinicians Procedure: Sharp excisional debridement of left lower extremity wound Same procedure as scheduled: Yes Indications: 84-year-old male with a nonhealing wound of the left lower extremity presents for debridement Surgeon: Abhishek Mazariegos Operative Notes Findings: 6 x 4 cm wound on the anterior aspect of the distal left lower leg Specimen(s): other (Left lower extremity wound) Estimated Blood Loss (mL): 10 Procedure in detail: Patient was brought to the operating room placed supine on the table. He received Ancef prior to skin incision. Monitored anesthesia care was induced. He was prepped and draped in sterile fashion. Time-out was performed ensure the correct patient procedure necessary equipment within the operating room. The wound was inspected there was necrotic and fibrinous debris in the deeper aspect of the wound. There was some tunneling of the wound which extended beneath the surface of the skin. The wound was then sharply excised down through the level of the subcutaneous tissue to the fascia. Healthy bleeding tissue was encountered at this level. Hemostasis was achieved. The final dimensions of the wound measured 6 x 4 cm. A wound VAC was then fashioned and applied to the wound and set to 125 mm of continuous pressure. Patient emerged from sedation was transferred to recovery room in stable condition. Complications: none Post-operative Condition: stable Disposition: same day surgery
--- NOTE | 2019-10-23 15:23 | SUR.PHASEII ---
discharge instructions frances. also has [employer] wound vac case and paperwork. she is aware of phone number to call with any concerns re equipment . she understands that wound care clinic appointment is to be on Tuesday10/26/19. she will call clinic tomorrow to make sure she has an appointment. dr gandara left a message for the clinic staff to reach out to patient tomorrow
== END 2019-10-23 15:20 | disposition home or self-care (01) ==
PROVIDERS: Family Provider Internal Medicine; PCP Internal Medicine; Referring Provider Surgery; Visit Provider Surgery
PROC: (CPT 11042; principal; 2019-10-23 13:00)
DX: S81.802A Unspecified open wound, left lower leg, initial encounter (principal); I50.9 Heart failure, unspecified; I48.91 Unspecified atrial fibrillation; Z79.01 Long term (current) use of anticoagulants
CPT/HCPCS: 11042; 11045; 87070; 87075; 87077; 87176; 87185; 87186; 87205; J0690; J2704; J3010

== ENCOUNTER → 2019-10-29 11:32 | Outpatient (CLI) | payer MEDICARE, SELFPAY ==
[2019-10-11 09:05] VITALS: BMI 28.0
== END ==
PROVIDERS: Family Provider Internal Medicine; PCP Internal Medicine; Referring Provider Internal Medicine; Visit Provider Family Medicine
DX: S81.802A Unspecified open wound, left lower leg, initial encounter (principal); I36.1 Nonrheumatic tricuspid (valve) insufficiency; B95.2 Enterococcus as the cause of diseases classified elsewhere; R60.0 Localized edema; B95.7 Other staphylococcus as the cause of diseases classified elsewhere
CPT/HCPCS: 11043; 11046; 97605; 99203; 99213

== ENCOUNTER → 2019-11-06 10:57 | Outpatient (CLI) | payer MEDICARE, SELFPAY ==
[2019-10-11 09:05] VITALS: BMI 28.0
== END ==
PROVIDERS: Family Provider Internal Medicine; PCP Internal Medicine; Referring Provider Internal Medicine; Visit Provider Family Medicine
DX: S81.802A Unspecified open wound, left lower leg, initial encounter (principal); R60.0 Localized edema; L08.89 Other specified local infections of the skin and subcutaneous tissue; I36.1 Nonrheumatic tricuspid (valve) insufficiency; Z79.01 Long term (current) use of anticoagulants
CPT/HCPCS: 11043; 11046; 99213

== ENCOUNTER → 2019-11-06 11:51 | Outpatient (CLI) | payer MEDICARE, SELFPAY ==
[2019-10-11 09:05] VITALS: BMI 28.0
[2019-11-06 13:09] LABS: Add Manual Diff / Slide Review NO; Basophils Absolute Auto 100 /uL (0-100); Basophils Percent Auto 0.7 % (0-2); Eosinophils Absolute Auto 100 /uL (0-450); Eosinophils Percent Auto 1.8 % (2-4); Hematocrit 36.1 % (41-53); Hemoglobin 11.9 g/dL (13.5-17.5); Lymphocytes Absolute Auto 2000 /uL (1100-4500); Lymphocytes Percent Auto 25.5 % (25-40); Mean Corpuscular HGB Conc 32.9 % (30-36); Mean Corpuscular Hemoglobin 29.7 PG (26-34); Mean Corpuscular Volume 90.3 fL (80-100); Monocytes Absolute Auto 900 /uL (0-900); Monocytes Percent Auto 12.1 % (3-14); Neutrophils Absolute Auto 4600 /uL (1500-7000); Neutrophils Percent Auto 59.9 % (50-75); Platelet Count 177 X10^3/uL (150-400); Red Blood Cell Count 3.99 X10^6/uL (4.5-5.9); White Blood Cell Count 7.7 X10^3/uL (4.5-11.0)
[2019-11-06 13:36] LABS: BUN Creatinine Ratio 25.2 (6-22); Blood Urea Nitrogen 28 mg/dL (9-20); Carbon Dioxide 29 mmol/L (22-32); Chloride 100 mmol/L (98-107); Estimated Glomerular Filt Rate > 60.0 mL/min (>60); Glucose 106 mg/dL (80-110); HEMOLYSIS < 15 (0-50); Potassium 4.8 mmol/L (3.4-5.1); Sodium 138 mmol/L (137-145)
[2019-11-06 13:38] LABS: Erythrocyte Sedimentation Rate 23 MM/HR (0-15)
[2019-11-06 13:39] LABS: C-Reactive Protein Quant < 0.5 mg/dL (<1.0)
== END ==
PROVIDERS: Family Provider Internal Medicine; PCP Internal Medicine; Referring Provider Family Medicine; Visit Provider Family Medicine
DX: L08.9 Local infection of the skin and subcutaneous tissue, unspecified (principal)
CPT/HCPCS: 36415; 80048; 85025; 85651; 86140

== ENCOUNTER → 2019-11-07 12:09 | Outpatient (CLI) | payer MEDICARE, SELFPAY ==
[2019-10-11 09:05] VITALS: BMI 28.0
== END ==
PROVIDERS: Family Provider Internal Medicine; PCP Internal Medicine; Referring Provider Internal Medicine; Visit Provider Family Medicine
DX: S81.802A Unspecified open wound, left lower leg, initial encounter (principal); L03.116 Cellulitis of left lower limb; R60.0 Localized edema; Z79.01 Long term (current) use of anticoagulants
CPT/HCPCS: 99213; 99214

== ENCOUNTER 2019-11-07 12:41 | Inpatient (IN) | payer MEDICARE, SELFPAY ==
[2019-10-11 09:05] VITALS: BMI 28.0
[2019-11-07] VITALS (8 sets, daily range): BP systolic 101–146; BP diastolic 58–72; PULSE 87–123; RESP 16–23; TEMP 37.1–37.7; O2SAT 94–99; BMI 24.3; BMI 25.2
--- NOTE | 2019-11-07 13:14 | ED.EXTPRO ---
HPI - Extremity Problem General Chief complaint: Extremity Problem,Nontraumatic Stated complaint: Possible infection on left leg. Time Seen by Provider: 11/07/19 13:06 Source: patient Mode of arrival: Ambulatory Limitations: no limitations History of Present Illness HPI Narrative: CC: Possible wound infection/sepsis HPI: The patient is an 84-year-old male who was sent in from the wound clinic by Ryan Katz. The patient was seen earlier in the year with what appeared to be arm septic left leg with the left lower extremity arm ulcer and sore. He had CT scans of the leg to rule out fasciitis. His infection and wound apparently improved. However now the wound has broken down again and the patient has exposed tendon and tendon she has with arm pain fever chills. He was sent in to be evaluated for possible sepsis and pain control. The patient states that the pain is 10/10 in intensity. The pain is sharp and stabbing. He denies ever being told that he had a neuropathy but states that the bottoms of his feet are numb. He states that up until yesterday he was able to walk with his leg. However yesterday his ulcer and wound over the anterior left leg was debrided cut and necrotic tissue removed. The patient states that he has developed chills and being cold since then severe pain and discomfort such that he is unable to get out of a chair off the toilet or walk without severe pain and discomfort. He denies any recent fall or injury. He has never been told that he had peripheral vascular disease or diabetes. He does not smoke cigarettes and never have smoke cigarettes. He does not drink alcohol and does use edible marijuana for pain management. He denies a history of diabetes mellitus. His blood pressure is under control with medications. He has a history of congestive heart failure but denies a history of a stroke COPD or asthma. Related Data Home Medications Medication Instructions Recorded Confirmed coenzyme Q10 [Co Q-10] 300 mg PO DAILY #0 08/14/17 11/07/19 aspirin 81 mg tablet,delayed 81 mg PO DAILY 03/30/18 11/07/19 release atorvastatin [Lipitor] 10 mg PO DAILY 05/03/18 11/07/19 cholecalciferol (vitamin D3) 1,000 unit PO DAILY 05/03/18 11/07/19 [Vitamin D3] furosemide [Lasix] 40 mg PO BID 05/03/18 11/07/19 lisinopril 5 mg PO QPM 05/03/18 11/07/19 Xarelto 15 mg PO QPM 07/30/19 11/07/19 acetaminophen-codeine 2 tab PO BID PRN 07/30/19 11/07/19 amiodarone 200 mg PO ONCE PM 07/30/19 11/07/19 B-complex with vitamin C [Super B 1 tab PO DAILY 09/09/19 11/07/19 Complex-Vitamin C] levothyroxine 50 mcg PO DAILY 10/18/19 11/07/19 Allergies Allergy/AdvReac Type Severity Reaction Status Date / Time clindamycin AdvReac Unknown Diarrhea Verified 10/17/19 09:59 duloxetine [From Cymbalta] AdvReac Unknown Spasms/Head Verified 10/17/19 09:59 aches gabapentin AdvReac Unknown Insomnia Verified 10/17/19 09:59 gemfibrozil AdvReac Unknown Elevated Verified 10/17/19 09:59 LFTs omeprazole AdvReac Unknown Diarrhea, Verified 10/17/19 09:59 myalgia tizanidine AdvReac Unknown Gastrointestinal Verified 10/17/19 09:59 Upset Review of Systems Review of Systems Narrative: REVIEW OF SYSTEMS: CONSTITUTIONAL: The patient denies any fever or sweats but has had chills and weakness complaining of being cold and wants to be covered up. He did not have chills at home but has had chills since he has been in the emergency department with air conditioning. NEUROLOGICAL: He denies any history of neuropathy headache numbness tingling paresthesias anesthesia is or paresis. EENT: He has had no troubles with arm swallowing changes in vision loss of vision sore throat or nasal congestion. CARDIO-PULMONARY: He denies any chest pain cough shortness of breath difficulty in breathing. HEMOTOLOGICAL: He has had no bleeding or bruising abnormalities. GASTROINTESTINAL: He denies any abdominal pain nausea vomiting diarrhea GENITAL URINARY: He denies any urinary symptoms. MUSCULOSKELETAL/ RHEUMATOLOGICAL: He has had no back pain more than usual. His only pain that he complains of at this time is in his left leg. : Patient History Medical History Adrenal nodule (Acute) Afib (Acute) Benign schwannoma (Acute) Carpal tunnel syndrome on right (Acute) Chronic pain disorder (Acute) Colon polyp (Acute) Degenerative disc disease (Acute) Depression (Acute) Dysphagia (Acute) Esophageal reflux (Acute) Essential hypertension (Chronic) Fatty liver (Acute) Hyperlipidemia (Acute) Hypertension (Acute) Infected sebaceous cyst (Acute) Kidney stone (Acute ~2000) Liver hemangioma (Acute) Osteoarthritis (Acute) RBBB (Acute) Renal cell carcinoma (Acute) Right ventricular dilation (Acute) Rotator cuff syndrome (Acute) Severe aortic stenosis (Acute) Sleep apnea (Acute) Sliding hiatal hernia (Acute) Spinal stenosis (Acute) Tricuspid regurgitation (Acute) Zenkers diverticulum (Acute) Surgical History H/O hemorrhoidectomy (Acute ~1984) H/O left inguinal hernia repair (Acute ~1995) H/O partial nephrectomy (Acute ~2009) H/O right inguinal hernia repair (Acute ~2010) History of bronchoscopy (Acute 08/2019) History of colonoscopy (Acute) History of thoracotomy (Acute) History of tonsillectomy (Acute ~1945) S/P TAVR (transcatheter aortic valve replacement) (Acute ~10/2017) Family History Mother Heart disease Mother Alcohol abuse Father Stroke Social History marital status: household members: spouse occupational status: employed Smoking Status: Never smoker alcohol intake: never substance use type: marijuana Smoking Status: Never smoker alcohol intake frequency: 0-2 drinks per day Substance Use Type: marijuana Exam Narrative Exam Narrative: PHYSICAL EXAM: CONSTITUTIONAL: Awake, Alert, Oriented, Coherent, Cooperative in NAD. Does not appear toxic or ill. Complains of being cold and wants to be covered up. HEAD: AT/NC EENT: PERRL, FROM of eyes, no discharge, no nystagmus NOSE:No epistaxis or nasal drainage MOUTH:Oral mucosa is moist and pink, posterior pharynx is without erythema or exudate. NECK: Supple, no obvious JVD, Trachea is midline without stridor, no palpable LN. THORAX: No deformity, retractions, chest wall tenderness. LUNGS: Clear, symmetrical breath sounds without respiratory distress. HEART: Normal heart tones, regular rhythm and rate without murmur. ABDOMEN: Soft, non-tender, normal bowel sounds without guarding, rebound, rigidity or palpable mass. EXTREMITIES: The patient's left leg is more swollen and larger the compared to the right. The patient has a warm swollen left foot that is mildly erythematous. Dorsalis pedis pulse is 1+. Capillary refill intact. The patient's proximal left calf is tender to palpation. The patient's the popliteal pulse is 0 to 1+. The ulcer over the patient's anterior left leg is approximately 2.5-3 cm in diameter deep ulcer. There is no significant purulence noted. However the patient has a dark area in the center of. The patient has diffuse erythema consistent with a cellulitis from the proximal tibia and calf to the mid foot consistent with a cellulitis. The patient has had an extensive infection of the leg. He was sent in by the wound clinic to be further evaluated. SKIN: No rash, bruising, petechiae or purpura. NEURO: Awake, alert, oriented, conversive, cranial nerves II-XII are symmetrical , moves all 4 extremities Initial Vital Signs Initial Vital Signs: Vital Signs Temperature 98.9 F 11/07/19 13:06 Pulse Rate 91 H 11/07/19 13:06 Respiratory Rate 17 11/07/19 13:06 Blood Pressure 134/60 11/07/19 13:06 Pulse Oximetry 98 11/07/19 13:06 Course Course Course Narrative: 1510: An ultrasound has been performed on the patient's left leg which did not reveal any thrombophlebitis. The patient has had a complicated course and treatment for this nonhealing arm ulcer. An MRI has been ordered of the leg. 1614: will call Dr. Live, to admit the patient for cellulitis and severe pain in the left leg ( PMCP: Dr. Ghosh). 1625: Discussed with Dr. Live, will admit. Orders Ordered: Acetaminophen (Tylenol) 650 mg PO Q6HR PRN PRN Reason: Fever/Mild Pain (1-3) Amiodarone HCl (Cordarone) 200 mg PO DAILY [facility] Amitriptyline HCl (Elavil) 50 mg PO BEDTIME [facility] Last Admin: 11/07/19 21:45 Dose: 50 mg Documented by: BRUNA Aspirin (Aspirin Ec) 81 mg PO DAILY [facility] Atorvastatin Calcium (Lipitor) 10 mg PO DAILY [facility] Bisacodyl (Dulcolax) 10 mg ME DAILY PRN PRN Reason: Constipation Docusate Sodium (Colace) 100 mg PO BID [facility] Last Admin: 11/07/19 22:00 Dose: 100 mg Documented by: BRUNA Furosemide (Lasix) 40 mg PO BIDWM [facility] Ampicillin Sodium/Sulbactam (Sodium 3 gm/ Sodium Chloride) 100 mls @ 100 mls/hr IV Q6H [facility] Last Admin: 11/08/19 06:46 Dose: 100 mls/hr Documented by: Infusion: 11/08/19 01:46 Dose: 0 mls/hr Documented by: Admin: 11/08/19 00:46 Dose: 100 mls/hr Documented by: Infusion: 11/07/19 20:34 Dose: 0 mls/hr Documented by: Admin: 11/07/19 19:16 Dose: 100 mls/hr Documented by: SHANNAN Vancomycin HCl (Vancomycin) 1,000 mg in 200 mls @ 200 mls/hr IV Q18H [facility] Levothyroxine Sodium (Synthroid) 50 mcg PO 0600 [facility] Last Admin: 11/08/19 05:59 Dose: 50 mcg Documented by: LISA Lisinopril (Zestril) 5 mg PO QPM [facility] Magnesium Hydroxide (Milk Of Magnesia) 30 ml PO DAILY PRN PRN Reason: Constipation Melatonin (Melatonin) 6 mg PO BEDTIME [facility] Last Admin: 11/07/19 21:15 Dose: 6 mg Documented by: BRUNA Naloxone HCl (Narcan) 0.2 mg IV Q2MIN PRN PRN Reason: Opiate Reversal Ondansetron HCl (Zofran) 4 mg IV Q4HR PRN PRN Reason: Nausea And Vomiting Oxycodone HCl (Percolone) 5 mg PO Q6HR PRN PRN Reason: Pain, Moderate (4-6) Oxycodone HCl (Percolone) 10 mg PO Q4HR PRN PRN Reason: Pain, Severe (7-10) Last Admin: 11/07/19 23:52 Dose: 10 mg Documented by: Admin: 11/07/19 19:23 Dose: 10 mg Documented by: SHANNAN Polyethylene Glycol (Miralax) 17 gm PO DAILY PRN PRN Reason: Constipation Rivaroxaban (Xarelto) 15 mg PO QPM [facility] Sodium Chloride (Normal Saline 0.9% Flush) 10 ml IV PRN PRN PRN Reason: Flush Sodium Chloride (Normal Saline 0.9% Flush) 10 ml IV BID [facility] Vancomycin HCl (Vancomycin Trough) 1 request [facility] [place] [facility] Stop: 11/10/19 19:31 Discontinued Medications Bisacodyl (Dulcolax) 10 mg PO BID PRN PRN Reason: Constipation Enoxaparin Sodium (Lovenox) 40 mg SUBCUT DAILY [facility] Sodium Chloride (Normal Saline 0.9%) 1,000 mls @ 1,000 mls/hr IV BOLUS ONE Stop: 11/07/19 14:06 Last Infusion: 11/07/19 17:11 Dose: 0 mls/hr Documented by: Admin: 11/07/19 13:49 Dose: 1,000 mls/hr Documented by: DELLA Piperacillin/Tazobactam/Dextrose (Zosyn) 4.5 gm in 100 mls @ 200 mls/hr IV NOW ONE Stop: 11/07/19 14:09 Last Infusion: 11/07/19 14:51 Dose: 0 mls/hr Documented by: Admin: 11/07/19 13:50 Dose: 200 mls/hr Documented by: DELLA Vancomycin HCl (Vancomycin) 1,000 mg in 200 mls @ 200 mls/hr IV NOW ONE Stop: 11/07/19 14:39 Last Infusion: 11/07/19 17:51 Dose: 0 mls/hr Documented by: Infusion: 11/07/19 16:15 Dose: 200 mls/hr Documented by: Infusion: 11/07/19 15:05 Dose: 0 mls/hr Documented by: Admin: 11/07/19 14:38 Dose: 200 mls/hr Documented by: YAHIR Morphine Sulfate (Morphine) 4 mg IV NOW ONE Stop: 11/07/19 13:37 Last Admin: 11/07/19 13:49 Dose: 4 mg Documented by: DELLA Ondansetron HCl (Zofran) 4 mg IV NOW ONE Stop: 11/07/19 13:37 Last Admin: 11/07/19 13:49 Dose: 4 mg Documented by: DELLA Vancomycin HCl (Vancomycin Per Pharmacy) 1 request MISC NOW ONE Stop: 11/07/19 18:36 Last Admin: 11/07/19 21:50 Dose: Not Given Documented by: BRUNA Vital Signs Vital signs: Vital Signs - 8 hr 11/07/19 13:06 11/07/19 14:30 Temperature 98.9 F Pulse Rate 91 H 87 Respiratory Rate 17 16 Blood Pressure 134/60 Blood Pressure [Left Arm] 132/60 Pulse Oximetry 98 97 MDM - Extremity (Nontraumatic) Medical Records Attestation: I reviewed the patient's medical records. Lab Data Attestation: I reviewed the patient's lab results. Result diagrams: 11/08/19 04:50 11/08/19 04:50 Labs: Lab Results 11/07/19 11/07/19 11/07/19 Range/Units 13:30 13:30 13:30 WBC 23.2 H D (4.5-11.0) X10^3/uL RBC 4.08 L (4.5-5.9) X10^6/uL Hgb 12.3 L (13.5-17.5) g/dL Hct 36.6 L (41-53) % MCV 89.9 (80-100) fL MCH 30.2 (26-34) PG MCHC 33.5 (30-36) % RDW 17.1 H (11.6-14.8) % Plt Count 167 (150-400) X10^3/uL Neut % (Auto) 85.5 H D (50-75) % Lymph % (Auto) 5.9 L (25-40) % [place] % (Auto) 8.4 (3-14) % Eos % (Auto) 0.0 L (2-4) % Baso % (Auto) 0.2 (0-2) % Neut # (Auto) 89004 H (4896-5441) /uL Lymph # (Auto) 1400 (3480-1904) /uL [place] # (Auto) 2000 H (0-900) /uL Eos # (Auto) 0 (0-450) /uL Baso # (Auto) 100 (0-100) /uL ESR 40 H (0-15) MM/HR Sodium 134 L (137-145) mmol/L Potassium 4.4 (3.4-5.1) mmol/L Chloride 95 L (98-107) mmol/L Carbon Dioxide 27 (22-32) mmol/L BUN 24 H (9-20) mg/dL Creatinine 1.19 (0.66-1.25) mg/dL Estimated GFR 58.4 L (>60) mL/min BUN/Creatinine Ratio 20.2 (6-22) Glucose 107 (80-110) mg/dL Lactate 2.1 (0.7-2.1) mmol/L Calcium 10.2 (8.4-10.2) mg/dL Magnesium (1.6-2.3) mg/dL Total Bilirubin 1.0 (0.2-1.3) mg/dL AST 22 (17-59) IU/L ALT 17 (<50) IU/L Alkaline Phosphatase 100 (38-126) U/L Lactate Dehydrogenase 398 (313-618) U/L Total Creatine Kinase 38 L (55-170) U/L C-Reactive Protein 4.4 H (<1.0) mg/dL Total Protein 7.7 (6.3-8.2) g/dL Albumin 4.4 (3.5-5.0) g/dL Globulin 3.3 (1.7-4.1) g/dL Albumin/Globulin Ratio 1.3 (1.0-2.8) Procalcitonin (<0.5) ng/mL 11/07/19 11/07/19 Range/Units 13:30 13:34 WBC (4.5-11.0) X10^3/uL RBC (4.5-5.9) X10^6/uL Hgb (13.5-17.5) g/dL Hct (41-53) % MCV (80-100) fL MCH (26-34) PG MCHC (30-36) % RDW (11.6-14.8) % Plt Count (150-400) X10^3/uL Neut % (Auto) (50-75) % Lymph % (Auto) (25-40) % [place] % (Auto) (3-14) % Eos % (Auto) (2-4) % Baso % (Auto) (0-2) % Neut # (Auto) (4158-8200) /uL Lymph # (Auto) (3051-4252) /uL [place] # (Auto) (0-900) /uL Eos # (Auto) (0-450) /uL Baso # (Auto) (0-100) /uL ESR (0-15) MM/HR Sodium (137-145) mmol/L Potassium (3.4-5.1) mmol/L Chloride (98-107) mmol/L Carbon Dioxide (22-32) mmol/L BUN (9-20) mg/dL Creatinine (0.66-1.25) mg/dL Estimated GFR (>60) mL/min BUN/Creatinine Ratio (6-22) Glucose (80-110) mg/dL Lactate (0.7-2.1) mmol/L Calcium (8.4-10.2) mg/dL Magnesium 2.1 (1.6-2.3) mg/dL Total Bilirubin (0.2-1.3) mg/dL AST (17-59) IU/L ALT (<50) IU/L Alkaline Phosphatase (38-126) U/L Lactate Dehydrogenase (313-618) U/L Total Creatine Kinase (55-170) U/L C-Reactive Protein (<1.0) mg/dL Total Protein (6.3-8.2) g/dL Albumin (3.5-5.0) g/dL Globulin (1.7-4.1) g/dL Albumin/Globulin Ratio (1.0-2.8) Procalcitonin 0.86 H (<0.5) ng/mL Discharge Plan Departure Patient Disposition: Admitted As Inpatient Clinical Impression: Cellulitis of left leg Discharge Date/Time: 11/07/19 18:33 Referrals: Corrine Ghosh MD [Primary Care Provider] - Admit Date/Time: 11/07/19 18:31 Admit Provider: [employer] [facility]
[2019-11-07 13:38] LABS: Add Manual Diff / Slide Review NO; Basophils Absolute Auto 100 /uL (0-100); Basophils Percent Auto 0.2 % (0-2); Eosinophils Absolute Auto 0 /uL (0-450); Hematocrit 36.6 % (41-53); Hemoglobin 12.3 g/dL (13.5-17.5); Lymphocytes Absolute Auto 1400 /uL (1100-4500); Lymphocytes Percent Auto 5.9 % (25-40); Mean Corpuscular HGB Conc 33.5 % (30-36); Mean Corpuscular Hemoglobin 30.2 PG (26-34); Mean Corpuscular Volume 89.9 fL (80-100); Monocytes Absolute Auto 2000 /uL (0-900); Monocytes Percent Auto 8.4 % (3-14); Neutrophils Absolute Auto 19800 /uL (1500-7000); Neutrophils Percent Auto 85.5 % (50-75); Platelet Count 167 X10^3/uL (150-400); Red Blood Cell Count 4.08 X10^6/uL (4.5-5.9); Red Cell Distribution Width 17.1 % (11.6-14.8); White Blood Cell Count 23.2 X10^3/uL (4.5-11.0)
--- NOTE | 2019-11-07 13:38 | DI.US.S_ITS ---
PROCEDURE: US PERIPH VENOUS LOW EXTREM LT INDICATIONS: LEG ULCER; POSSIBLE DVT TECHNIQUE: Real-time imaging, as well as color and pulse Doppler interrogation, were performed of the lower extremity deep veins from the inguinal ligament to the popliteal fossa. COMPARISON: None. FINDINGS: The common femoral, femoral and popliteal veins are normally compressible, and free of intraluminal thrombus. Color and pulse Doppler demonstrate normal phasic intraluminal flow. There is normal augmentation response to distal compression maneuver. IMPRESSION: No evidence of deep vein thrombosis involving the left lower extremity. Dictated by: Vita Guillen MD, PhD on 11/07/2019 at 14:38 Approved by: Vita Guillen MD, PhD on 11/07/2019 at 14:38
[2019-11-07] MEDS: SODIUM CHLORIDE 0.9% 1,000 ML 1000 ML IV (13:49)
[2019-11-07] MEDS: ONDANSETRON 4 MG/2 ML INJ IV (13:49)
[2019-11-07] MEDS: MORPHINE 4 MG/ML INJ IV (13:49)
[2019-11-07] MEDS: PIPERACILLIN-TAZO 4.5 GM/100 ML FROZ.PIGGY IV (13:50)
[2019-11-07 13:52] LABS: Lactate (Lactic Acid) 2.1 mmol/L (0.7-2.1)
[2019-11-07 13:54] LABS: Alanine Aminotransferase 17 IU/L (<50); Albumin 4.4 g/dL (3.5-5.0); Albumin Globulin Ratio 1.3 (1.0-2.8); Alkaline Phosphatase 100 U/L (38-126); Aspartate Aminotransferase 22 IU/L (17-59); BUN Creatinine Ratio 20.2 (6-22); Blood Urea Nitrogen 24 mg/dL (9-20); C-Reactive Protein Quant 4.4 mg/dL (<1.0); Calcium 10.2 mg/dL (8.4-10.2); Carbon Dioxide 27 mmol/L (22-32); Chloride 95 mmol/L (98-107); Creatine Kinase 38 U/L (55-170); Estimated Glomerular Filt Rate 58.4 mL/min (>60); Globulin 3.3 g/dL (1.7-4.1); Glucose 107 mg/dL (80-110); HEMOLYSIS < 15 (0-50); Lactate Dehydrogenase 398 U/L (313-618); Potassium 4.4 mmol/L (3.4-5.1); Sodium 134 mmol/L (137-145); Total Protein 7.7 g/dL (6.3-8.2)
[2019-11-07 14:02] LABS: Erythrocyte Sedimentation Rate 40 MM/HR (0-15)
[2019-11-07] MEDS: VANCOMYCIN 1,000 MG/200 ML PIGGYBACK 200 MG IV (14:38)
--- NOTE | 2019-11-07 14:58 | PC.NURSE ---
wound is about 2.5 cm in diameter with a dark center. redressed the wound with vaseline gauze and curlex.
--- NOTE | 2019-11-07 15:01 | DI.MRI.S_ITS ---
PROCEDURE: MR LOWER LEG LT W CON INDICATIONS: recurrent ulcer left leg with cellulitis, severe pain TECHNIQUE: Noncontrast coronal T1 spin echo and STIR, sagittal T1 spin echo with fat saturation and STIR, axial T1 spin echo and T2 fast spin echo with fat saturation. After the administration of contrast, axial/sagittal/coronal T1 spin echo with fat saturation through the left lower leg. COMPARISON: [facility], , MR ANKLE LT WO/W CON, 09/12/2019, 14:52. [facility], [place], US PERIPH VENOUS LOW EXTREM LT, 11/07/2019, 13:54. FINDINGS: Image quality: Excellent. Bones: The visualized bone marrow demonstrates normal signal on all sequences. The overlying cortex appears intact. No abnormal intraosseous enhancement. Soft tissues: Diffuse subcutaneous soft tissue swelling. There is increased enhancement in the distal left lower leg and ankle, consistent with cellulitis. No soft tissue masses or fluid collections are visualized. The scanned muscles demonstrate normal overall bulk and internal signal. IMPRESSION: 1. Cellulitis in the distal left lower leg/ankle. No fluid collections to suggest abscess. 2. No osteomyelitis. Dictated by: Nya Loredo M.D. on 11/07/2019 at 16:40 Approved by: Nya Loredo M.D. on 11/07/2019 at 16:50
[2019-11-07 16:03] LABS: Procalcitonin 0.86 ng/mL (<0.5)
[2019-11-07] MEDS: AMPICILLIN/SULBACTAM 3 GM 3 GM in SODIUM CHLORIDE 0.9% 100 ML IV (19:16)
[2019-11-07] MEDS: OXYCODONE IR 10 MG TABLET PO ×2 (19:23→23:52)
--- NOTE | 2019-11-07 20:25 | P.HP_ITS ---
History of Present Illness History of Present Illness Date Patient Seen: 11/07/19 Time Patient Seen: 19:53 Chief complaint: Possible infection on left leg. Narrative: Mr. Saulo Russ is an 84-year-old male with past medical history significant for severe aortic stenosis and mitral regurgitation status post TAVR, congestive heart failure with reduced ejection fraction, left renal cell carcinoma status post partial nephrectomy, status post right upper lobe lung wedge resection for adenocarcinoma, liver hemangioma with fatty liver disease, hypertension, hyperlipidemia, GERD, obstructive sleep apnea and degenerative disc disease with spinal stenosis who presents to the emergency department complaints of severe pain left lower extremity. The patient is followed by the wound care clinic for nonhealing wound of left anterior lower leg. He had been hospitalized from 09/09/2021 09/15/2019 for nonhealing wound and cellulitis. He subsequently underwent a wound debridement by Dr. Mazariegos on 10/23/2019 with a wound measuring 6 cm x 4 cm with a healthy tissue base following procedure. Cultures obtained during the procedure identified Enterobacter fascialis and staff epidermidis. The patient had wound VAC placed that was removed yesterday at the wound clinic by Dr. Banuelos and the patient reports there is additional debridement at that time. Patient additionally reports having redness of the lower extremity present for the last few days. Fo llowing the procedure the patient was home with excruciating pain describes as 10 out of 10 that is sharp and aggravated by dorsiflexion of the foot producing a sharp, stinging intense pain and describes paining running up the anterior medial lower leg. He reports decreased sensation of his foot with no history of diabetes or prior notation of neuropathy. Patient reports developing chills today but denies fevers or nausea. The patient denies headaches or visual changes has a history of impaired hearing using hearing aids not with him, and reports runny nose but denies sore throat. Denies complaints of neck or back pain and has no chest pain and is unaware of atrial fibrillation when it occurs. He denies shortness of breath cough or wheezing and has no abdominal pain, heartburn, nausea or vomiting. He reports he has not had a bowel movement in 2 days and and is passing hard stool described as ?a brick?. The patient is able ambulate as long as he does not dorsiflex the foot albeit with severe pain. Upon arrival to the ER the patient is afebrile with temperature 98.9?, heart ra te of 70, blood pressure 140/60, respirations 16 saturating 100% on room air. The patient's wound assessed and venous Dopplers obtained related to swelling and calf pain identified in the ER. Doppler is negative for DVT. Lower extremity MRI is obtained finding cellulitis the left lower extremity and ankle with no fluid collections and no evidence of osteomyelitis. On laboratory analysis the patient has elevated white count of 23.3, hemoglobin 12.3, hematocrit of 36.6, platelets 167. His electrolytes are within normal limits and has a BUN of 24 and a creatinine of 1.19. His nonfasting glucose is 1 0 was 7. His liver functions are all well within normal range. LDH is checked at 328 and a total CK is 38. His lactic acid is 2.1, procalcitonin 0.86, it sed rate is 40 and CRP is 4.4. In the ER the patient has received normal saline morphine for pain and Zofran and initial dose of Zosyn 3.375 g IV. The patient is admitted to the medicine service for cellulitis and nonhealing wound left lower leg. Patient History Medical History (Updated 11/07/19 @ 20:55 by LEOLA Eden) Adrenal nodule (Acute) Afib (Acute) Benign schwannoma (Acute) Carpal tunnel syndrome on right (Acute) Chronic pain disorder (Acute) Colon polyp (Acute) Degenerative disc disease (Acute) Depression (Acute) Dysphagia (Acute) Esophageal reflux (Acute) Essential hypertension (Chronic) Fatty liver (Acute) Hyperlipidemia (Acute) Hypertension (Acute) Infected sebaceous cyst (Acute) Kidney stone (Acute ~2000) Liver hemangioma (Acute) Osteoarthritis (Acute) RBBB (Acute) Renal cell carcinoma (Acute) Right ventricular dilation (Acute) Rotator cuff syndrome (Acute) Severe aortic stenosis (Acute) Sleep apnea (Acute) Sliding hiatal hernia (Acute) Spinal stenosis (Acute) Tricuspid regurgitation (Acute) [place] diverticulum (Acute) Surgical History H/O hemorrhoidectomy (Acute ~1984) H/O left inguinal hernia repair (Acute ~1995) H/O partial nephrectomy (Acute ~2009) H/O right inguinal hernia repair (Acute ~2010) History of bronchoscopy (Acute 08/2019) History of colonoscopy (Acute) History of thoracotomy (Acute) History of tonsillectomy (Acute ~194) S/P TAVR (transcatheter aortic valve replacement) (Acute ~10/2017) Family & Social History Family History (Updated 11/07/19 @ 20:56 by LEOLA Eden) Mother Heart disease Mother Alcohol abuse Father Stroke Social History: household members spouse Prior Living Arrangements House Safety & Behavioral: Feels Safe in Current Yes Environment Been Physically Hurt or No Threatened By a Person Suicidal Ideation Description None Suicide Plan Description No Plan Tobacco & Substance use: Smoking Status Never smoker alcohol intake never alcohol intake frequency 0-2 drinks per day Substance Use Type marijuana Meds Home Medications and Allergies Home Medications Medication Instructions Recorded Confirmed Type coenzyme Q10 [Co Q-10] 300 mg PO DAILY #0 08/14/17 11/07/19 History aspirin 81 mg tablet,delayed 81 mg PO DAILY 03/30/18 11/07/19 History release atorvastatin [Lipitor] 10 mg PO DAILY 05/03/18 11/07/19 History cholecalciferol (vitamin D3) 1,000 unit PO DAILY 05/03/18 11/07/19 History [Vitamin D3] furosemide [Lasix] 40 mg PO BID 05/03/18 11/07/19 History lisinopril 5 mg PO QPM 05/03/18 11/07/19 History Xarelto 15 mg PO QPM 07/30/19 11/07/19 History acetaminophen-codeine 2 tab PO BID PRN 07/30/19 11/07/19 History amiodarone 200 mg PO ONCE PM 07/30/19 11/07/19 History B-complex with vitamin C [Super B 1 tab PO DAILY 09/09/19 11/07/19 History Complex-Vitamin C] levothyroxine 50 mcg PO DAILY 10/18/19 11/07/19 History Allergies Allergy/AdvReac Type Severity Reaction Status Date / Time clindamycin AdvReac Unknown Diarrhea Verified 10/17/19 09:59 duloxetine [From Cymbalta] AdvReac Unknown Spasms/Head Verified 10/17/19 09:59 aches gabapentin AdvReac Unknown Insomnia Verified 10/17/19 09:59 gemfibrozil AdvReac Unknown Elevated Verified 10/17/19 09:59 LFTs omeprazole AdvReac Unknown Diarrhea, Verified 10/17/19 09:59 myalgia tizanidine AdvReac Unknown Gastrointestinal Verified 10/17/19 09:59 Upset Review of Systems Review of Systems ROS: Yes All systems reviewed with the patient and are negative except as otherwise documented Exam Vital Signs (past 8 hours): - 11/07/19 13:06 11/07/19 14:30 11/07/19 16:20 Temperature 98.9 F Pulse Rate 91 H 87 93 H Respiratory Rate 17 16 17 Blood Pressure 134/60 Blood Pressure [Left Arm] 132/60 101/68 Pulse Oximetry 98 97 99 11/07/19 17:30 11/07/19 18:00 11/07/19 18:40 Temperature 98.7 F Pulse Rate 117 H 111 H 123 H Respiratory Rate 23 22 18 Blood Pressure 146/72 H Blood Pressure [Left Arm] 139/69 127/69 Pulse Oximetry 99 99 97 Oxygen Delivery Method Room Air Oxygen Flow Rate 0 Narrative Exam Narrative: GENERAL APPEARANCE: well developed, well-nourished elderly male who is alert and responsive, anxious and uncomfortable appearing. HEENT: Normocephalic, PERRLA, conjunctiva clear, EOMs intact without nystagmus, no sinus tenderness to percussion, no rhinorrhea, mucous membranes are moist and pink without lesions or exudate, impaired hearing. NECK/THYROID: neck supple, no JVD, no goiter appreciated trachea midline. LYMPH NODES: no cervical or supraclavicular lymphadenopathy. SKIN: [place], warm and dry, approximately 4 cm x 4 cm wound with erythema exten ding from the ankle to the level of the anterior tubercle, wound bed is red with granulation tissue with swelling of the wound margins and rolling of the skin edges, HEART: Irregularly irregular rhythm, S1-S2, 1/6 systolic murmur, no rubs or gallops, brisk capillary refill, 2+ left lower extremity edema, trace right lower extremity edema. LUNGS: Breath sounds are clear on auscultation with no coarseness, crackles or wheezing, no cough present CHEST: Symmetrical movement, no accessory muscle use, good tidal volume. ABDOMEN: Soft, no distention, dull to percussion, no tenderness, no organomeg megan, no flank or suprapubic tenderness, active bowel tones. BACK: nontender to palpation. EXTREMITIES: Pain on palpation left lower leg, severe pain with dorsiflexion of the foot without calf tenderness, NEUROLOGIC: Patient states he is forgetful but is appropriately interactive and oriented x3, cranial nerves II-XII grossly intact, [place] crease sensation dorsal and plantar surfaces, both medial lateral left foot. Patient can wiggle toes with pain. PSYCH: Good eye contact, anxious and appropriate, cooperative, thought is linear without perseveration, stable behavior. Objective Labs Result Diagrams: 11/07/19 13:30 11/07/19 13:30 Labs: Laboratory Results - last 24 hr 11/07/19 11/07/19 11/07/19 13:30 13:30 13:30 WBC 23.2 H D RBC 4.08 L Hgb 12.3 L Hct 36.6 L MCV 89.9 MCH 30.2 MCHC 33.5 RDW 17.1 H Plt Count 167 Neut % (Auto) 85.5 H D Lymph % (Auto) 5.9 L [place] % (Auto) 8.4 Eos % (Auto) 0.0 L Baso % (Auto) 0.2 Neut # (Auto) 09096 H Lymph # (Auto) 1400 [place] # (Auto) 2000 H Eos # (Auto) 0 Baso # (Auto) 100 ESR 40 H Sodium 134 L Potassium 4.4 Chloride 95 L Carbon Dioxide 27 BUN 24 H Creatinine 1.19 Estimated GFR 58.4 L BUN/Creatinine Ratio 20.2 Glucose 107 Lactate 2.1 Calcium 10.2 Total Bilirubin 1.0 AST 22 ALT 17 Alkaline Phosphatase 100 Lactate Dehydrogenase 398 Total Creatine Kinase 38 L C-Reactive Protein 4.4 H Total Protein 7.7 Albumin 4.4 Globulin 3.3 Albumin/Globulin Ratio 1.3 Procalcitonin 11/07/19 13:30 WBC RBC Hgb Hct MCV MCH MCHC RDW Plt Count Neut % (Auto) Lymph % (Auto) [place] % (Auto) Eos % (Auto) Baso % (Auto) Neut # (Auto) Lymph # (Auto) [place] # (Auto) Eos # (Auto) Baso # (Auto) ESR Sodium Potassium Chloride Carbon Dioxide BUN Creatinine Estimated GFR BUN/Creatinine Ratio Glucose Lactate Calcium Total Bilirubin AST ALT Alkaline Phosphatase Lactate Dehydrogenase Total Creatine Kinase C-Reactive Protein Total Protein Albumin Globulin Albumin/Globulin Ratio Procalcitonin 0.86 H Assessment & Plan Assessment & Plan narrative: This is an 84-year-old male patient who presents to the emergency department for worsening left leg pain over the last several days and unable to ambulate today due to pain. The patient has aged history of atrial fibrillation is anticoagulated on Xarelto and history lung cancer which appears stable at this time 1. Left lower leg cellulitis, acute, present on admission, active -Patient with increasing swelling and pain to the left lower leg since removal of wound VAC yesterday by Dr. Banuelos at the wound care clinic. Per patient report, he underwent supplemental debridement at that time and increasing pain swelling and redness developing chills today. -patient with a 4 x 4 cm open wound with red wound base with what appears to be granulation tissue rolled edges with edematous wound margins. Erythema including the ankle up to the level of the tibial tubercle. Imaging identifies cellulitis left lower leg and ankle, no fluid collections, no osteomyelitis. -The patient has elevated white count at 23.36 with a left shift, CRP is 4.4, sed rate is 40, procalcitonin is 0.86. -prior culture from wound debridement on 10/23/2019 revealed Enterobacter fascialis and Staph epididymis. -Patient received Zosyn in the ER which is changed to Unasyn 3 g IV every 6 hours. -ordered vancomycin, pharmacy to dose, patient received initial dose of 1000 mg in the ER. -Dr. Polanco contacted requesting surgical consult for for wound evaluation and possible debridement, appreciate her evaluation recommendations. -Ordered Tylenol 650 mg for mild pain or fever. -Ordered oxycodone 5 mg as needed for moderate pain and 10 mg as needed for severe pain. -added amitriptyline 50 mg at bedtime for neuropathic pain, patient with adverse reaction to gabapentin. -Will follow infection markers. 2. Chronic kidney disease stage IIIA, present on admission, stable. -BUN and creatinine are 24 and 1.19 on admission labs. Baseline creatinine is 1.1. -EGFR is 58.4, creatinine clearance is calculated 57.68. -the patient continues on Lasix therapy 40 mg twice daily. -vancomycin for treatment of cellulitis will be renally dosed and followed by pharmacy. -Will follow renal function. 3. Paroxysmal atrial fibrillation, anticoagulated on Xarelto, in sinus rhythm, stable -Patient denies complaints of chest pain and is unaware of his irregular rhythm. -currently in atrial fibrillation with irregularly irregular rhythm, potassium is 4.4, will check magnesium level. -previous 12 lead demonstrates atrial fibrillation with right bundle branch block and left anterior fascicular block. -continue amiodarone 200 mg daily. -No evidence of abnormal bleeding, hematemesis, hematuria, hematochezia or melena per patient report. -Will continue Xarelto 15 mg each evening -will monitor on telemetry. 4. Congestive heart failure with reduced ejection fraction, chronic, present on admission, stable. -patient is currently taking Lasix 40 mg twice daily. -no complaints of dyspnea, breath sounds are clear and equal bilateral with no basal crackles, patient wears compression hose on the right lower extremity left leg swollen and edematous secondary to cellulitis noted above. -continue furosemide 40 mg twice daily with meals. 5. Lung cancer status post resection, present on admission, stable. 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 -Follow-up bronchoscopy at [facility], patient is followed by oncology and pulmonology for surveillance. -no evidence of recurrence or complication at this time. 6. Essential Hypertension present on admission, stable. -Patient's blood pressure is stable, 140/60 upon admission. -continue lisinopril 5 mg daily 7. Hypothyroidism, stable -Continue home regimen of levothyroxine 25 mcg daily. 8. Hyperlipidemia, stable Continue home regimen of atorvastatin 10 mg daily. Isolation: Droplet, COVID-19 screening pending possible surgery, previously negative 10/18/2019. VTE prophylaxis: Compression hose right leg, on Xarelto therapy IV fluids: Saline lock Diet: Heart healthy. Code status: FULL CODE. Patient's is surrogate decision maker. The patient is admitted to the hospital for cellulitis of the left lower extremity with a nonhealing wound. The patient is admitted as an inpatient with expected length of stay to be greater than 2 midnights. COVID-19 COVID-19 status: Result pending Result date/Date tested (Pos, Neg/Pending): 11/07/19 Scores GCS [place] coma scale eye opening: Spontaneous [place] coma scale verbal response: Orientated [place] coma scale motor response: [place]bey commands [place] coma scale total score: 15 Quality VTE Deep Vein Thrombosis/Pulmonary Embolism Present on Admission: No
[2019-11-07] MEDS: MELATONIN 3 MG TABLET 6 MG PO (21:15)
[2019-11-07] MEDS: AMITRIPTYLINE 25 MG TABLET 50 MG PO (21:45)
[2019-11-07] MEDS: DOCUSATE 100 MG CAPSULE PO (22:00)
[2019-11-07 22:15] LABS: COVID19 -Nasal RAPID Negative (Negative)
[2019-11-07 22:46] LABS: Magnesium 2.1 mg/dL (1.6-2.3)
--- NOTE | 2019-11-07 23:57 | P.CONS_ITS ---
History of Present Illness Consult details Date Patient Seen: 11/07/19 Time Patient Seen: 23:58 Chief complaint: Possible infection on left leg. Reason for consult: Left leg cellulitis Requesting provider: Dameon Yanes Narrative: This is an 84 yo man with PMH of severe aortic stenosis and mitral regurgitation status post TAVR, congestive heart failure with reduced ejection fraction, left renal cell carcinoma status post partial nephrectomy, status post right upper lobe lung wedge resection for adenocarcinoma, liver hemangioma with fatty liver disease, hypertension, hyperlipidemia, GERD, obstructive sleep apnea and degenerative disc disease with spinal stenosis who was admitted to the medicine service today with severe pain left lower extremity. The patient is followed by the wound care clinic for nonhealing wound of left anterior lower leg. He had been hospitalized from 09/09/2021 09/15/2019 for nonhealing wound and cellulitis. He subsequently underwent a wound debridement by Dr. Mazariegos on 10/23/2019 with a wound measuring 6 cm x 4 cm with a healthy tissue base following procedure. Cultures grew Enterobacter fascialis and staff epidermidis. He had a wound vac that was removed yesterday at the wound clinic by Dr. Banuelos and the patient reports there is additional debridement at that time. He reports having redness of the leg below the knee for a few days. After the wound vac removal and debridement he came into the ER with 10/10 pain. He reports decreased sensation of his foot, chills, but no fevers. He denies nausea/vomiting, neck or back pain, or chest pain. He denies shortness of breath cough or wheezing. He is able to ambulate per report; dorsiflexion of the foot causes severe pain per report. WBC is 23, MRI shows no osteomyelitis, and no fluid collections. ROS: Exam Narrative: GENERAL APPEARANCE: well developed, well-nourished elderly male who is alert and responsive, anxious and uncomfortable appearing. HEENT: Normocephalic, PERRLA, conjunctiva clear, EOMs intact without nystagmus NECK/THYROID: neck supple, no JVD, no goiter appreciated trachea midline. LYMPH NODES: no cervical or supraclavicular lymphadenopathy. SKIN: [place], warm and dry, approximately 4 cm x 4 cm open wound on the left anterior pate with surrounding erythema and edema extending from the toes the mid pate, it is marked with a pen cyndie. The wound bed is red with granulation tissue, fibrinous exudate and adherent clot; the leg is exquisitely tender on palpation. No crepitus, no fluid draining, no foul odor. HEART: Irregularly irregular rhythm,brisk capillary refill, 2+ left lower e xtremity edema, trace right lower extremity edema. LUNGS: Breathing comfortably on room air; non tachypneic CHEST: Symmetrical movement, no accessory muscle use, good tidal volume. ABDOMEN: Soft, no distention, dull to percussion, no tenderness, no organomegaly, no flank or suprapubic tenderness, active bowel tones. BACK: nontender to palpation. EXTREMITIES: Pain on palpation left lower leg, severe pain with dorsiflexion of the foot without calf tenderness, NEUROLOGIC: Patient states he is forgetful but is appropriately interactive and oriented x3, cranial nerves II-XII grossly intact, [place] crease sensation dorsal and plantar surfaces, both medial lateral left foot. Patient can wiggle toes with pain. Meds Home Medications and Allergies Home Medications Medication Instructions Recorded Confirmed Type coenzyme Q10 [Co Q-10] 300 mg PO DAILY #0 08/14/17 11/07/19 History aspirin 81 mg tablet,delayed 81 mg PO DAILY 03/30/18 11/07/19 History release atorvastatin [Lipitor] 10 mg PO DAILY 05/03/18 11/07/19 History cholecalciferol (vitamin D3) 1,000 unit PO DAILY 05/03/18 11/07/19 History [Vitamin D3] furosemide [Lasix] 40 mg PO BID 05/03/18 11/07/19 History lisinopril 5 mg PO QPM 05/03/18 11/07/19 History Xarelto 15 mg PO QPM 07/30/19 11/07/19 History acetaminophen-codeine 2 tab PO BID PRN 07/30/19 11/07/19 History amiodarone 200 mg PO ONCE PM 07/30/19 11/07/19 History B-complex with vitamin C [Super B 1 tab PO DAILY 09/09/19 11/07/19 History Complex-Vitamin C] levothyroxine 50 mcg PO DAILY 10/18/19 11/07/19 History Allergies Allergy/AdvReac Type Severity Reaction Status Date / Time clindamycin AdvReac Unknown Diarrhea Verified 05/06/20 09:59 duloxetine [From Cymbalta] AdvReac Unknown Spasms/Head Verified 10/17/19 09:59 aches gabapentin AdvReac Unknown Insomnia Verified 10/17/19 09:59 gemfibrozil AdvReac Unknown Elevated Verified 10/17/19 09:59 LFTs omeprazole AdvReac Unknown Diarrhea, Verified 10/17/19 09:59 myalgia tizanidine AdvReac Unknown Gastrointestinal Verified 10/17/19 09:59 Upset Exam Vital Signs (past 8 hours): - 11/07/19 16:20 11/07/19 17:30 11/07/19 18:00 Temperature Pulse Rate 93 H 117 H 111 H Respiratory Rate 17 23 22 Blood Pressure Blood Pressure [Left Arm] 101/68 139/69 127/69 Pulse Oximetry 99 99 99 11/07/19 18:40 11/07/19 22:29 11/07/19 23:48 Temperature 98.7 F 99.8 F H 98.9 F Pulse Rate 123 H 93 H 94 H Respiratory Rate 18 16 20 Blood Pressure 146/72 H 121/58 L 111/58 L Blood Pressure [Left Arm] Pulse Oximetry 97 94 96 Oxygen Delivery Method Room Air Oxygen Flow Rate 0 Objective Imaging MRI Left leg: Radiologist's impression: [place] [address] Magnetic Resonance Report Signed Patient: Saulo Russ [facility]#: [id number] : 1935cct:[id number] Age/Sex: 84 / MDate of Service: 11/07/19 Loc: ED Accession Number: [id number] Procedure: MR lower leg LT w con Ordering Provider: Kevin Storey MD PROCEDURE: MR LOWER LEG LT W CON INDICATIONS: recurrent ulcer left leg with cellulitis, severe pain TECHNIQUE: Noncontrast coronal T1 spin echo and STIR, sagittal T1 spin echo with fat saturation and STIR, axial T1 spin echo and T2 fast spin echo with fat saturation. After the administration of contrast, axial/sagittal/coronal T1 spin echo with fat saturation through the left lower leg. COMPARISON: [facility], , MR ANKLE LT WO/W CON, 09/12/2019, 14:52. [facility], , US PERIPH VENOUS LOW EXTREM LT, 11/07/2019, 13:54. FINDINGS: Image quality: Excellent. Bones: The visualized bone marrow demonstrates normal signal on all sequences. The overlying cortex appears intact. No abnormal intraosseous enhancement. Soft tissues: Diffuse subcutaneous soft tissue swelling. There is increased enhancement in the distal left lower leg and ankle, consistent with cellulitis. No soft tissue masses or fluid collections are visualized. The scanned muscles demonstrate normal overall bulk and internal signal. IMPRESSION: 1. Cellulitis in the distal left lower leg/ankle. No fluid collections to suggest abscess. 2. No osteomyelitis. Dictated by: Nya Loredo M.D. on 11/07/2019 at 16:40 Approved by: Nya Loredo M.D. on 11/07/2019 at 16:50 Labs Result Diagrams: 11/08/19 04:50 11/08/19 04:50 Labs: Laboratory Results - last 24 hr 11/07/19 11/07/19 11/07/19 13:30 13:30 13:30 WBC 23.2 H D RBC 4.08 L Hgb 12.3 L Hct 36.6 L MCV 89.9 MCH 30.2 MCHC 33.5 RDW 17.1 H Plt Count 167 Neut % (Auto) 85.5 H D Lymph % (Auto) 5.9 L [place] % (Auto) 8.4 Eos % (Auto) 0.0 L Baso % (Auto) 0.2 Neut # (Auto) 75447 H Lymph # (Auto) 1400 [place] # (Auto) 2000 H Eos # (Auto) 0 Baso # (Auto) 100 ESR 40 H Sodium 134 L Potassium 4.4 Chloride 95 L Carbon Dioxide 27 BUN 24 H Creatinine 1.19 Estimated GFR 58.4 L BUN/Creatinine Ratio 20.2 Glucose 107 Lactate 2.1 Calcium 10.2 Magnesium Total Bilirubin 1.0 AST 22 ALT 17 Alkaline Phosphatase 100 Lactate Dehydrogenase 398 Total Creatine Kinase 38 L C-Reactive Protein 4.4 H Total Protein 7.7 Albumin 4.4 Globulin 3.3 Albumin/Globulin Ratio 1.3 Procalcitonin COVID-19 PCR 11/07/19 11/07/19 11/07/19 13:30 13:34 21:22 WBC RBC Hgb Hct MCV MCH MCHC RDW Plt Count Neut % (Auto) Lymph % (Auto) [place] % (Auto) Eos % (Auto) Baso % (Auto) Neut # (Auto) Lymph # (Auto) [place] # (Auto) Eos # (Auto) Baso # (Auto) ESR Sodium Potassium Chloride Carbon Dioxide BUN Creatinine Estimated GFR BUN/Creatinine Ratio Glucose Lactate Calcium Magnesium 2.1 Total Bilirubin AST ALT Alkaline Phosphatase Lactate Dehydrogenase Total Creatine Kinase C-Reactive Protein Total Protein Albumin Globulin Albumin/Globulin Ratio Procalcitonin 0.86 H COVID-19 PCR Negative Assessment & Plan Assessment and plan (1) CHF (congestive heart failure): Current visit: No Status: Acute (2) Cellulitis of left leg: Current visit: Yes Status: Acute (3) Leg wound, left: Current visit: No Status: Acute Assessment & Plan narrative: This is an 84-year-old man with a chronic left lower leg wound, which now presents with worsening pain and cellulitis. Right now the patient is medically stable, mentating well, and showing no signs of systemic illness from this wound. However, it should be watched very closely, and if he starts to show any stool signs of systemic illness we should consider taking him to the operating room for more extensive debridement, on the suspicion of a necrotizing soft tissue infection. For now because he is medically stable and his MRI of the leg is reassuring, we can continue with IV antibiotics. Plan: Broad-spectrum IV antibiotic Follow clinical picture and multi-system status Contact surgeon ruby on rails engineer tonight if worsening vital signs were mental status Recheck labs in the a.m. if nothing worsening overnight Recheck wound in the a.m. if nothing worsening overnight COVID-19 COVID-19 status: Result pending Result date/Date tested (Pos, Neg/Pending): 11/07/19 Time Spent With Patient Time with patient: 25 - 35 minutes
[2019-11-08] VITALS (11 sets, daily range): BP systolic 101–129; BP diastolic 50–71; PULSE 93–96; RESP 17–22; TEMP 36.8–37.2; O2SAT 95–98
[2019-11-08] MEDS: AMPICILLIN/SULBACTAM 3 GM 3 GM in SODIUM CHLORIDE 0.9% 100 ML IV ×4 (00:46→19:09)
[2019-11-08 05:08] LABS: Add Manual Diff / Slide Review NO; Basophils Absolute Auto 100 /uL (0-100); Basophils Percent Auto 0.5 % (0-2); Eosinophils Absolute Auto 0 /uL (0-450); Eosinophils Percent Auto 0.2 % (2-4); Hemoglobin 10.7 g/dL (13.5-17.5); Lymphocytes Absolute Auto 1400 /uL (1100-4500); Lymphocytes Percent Auto 9.3 % (25-40); Mean Corpuscular HGB Conc 34.4 % (30-36); Mean Corpuscular Hemoglobin 31.1 PG (26-34); Mean Corpuscular Volume 90.3 fL (80-100); Monocytes Absolute Auto 1600 /uL (0-900); Monocytes Percent Auto 10.6 % (3-14); Neutrophils Absolute Auto 11900 /uL (1500-7000); Neutrophils Percent Auto 79.4 % (50-75); Platelet Count 139 X10^3/uL (150-400); Red Blood Cell Count 3.43 X10^6/uL (4.5-5.9); Red Cell Distribution Width 16.8 % (11.6-14.8)
[2019-11-08 05:33] LABS: BUN Creatinine Ratio 18.1 (6-22); Blood Urea Nitrogen 23 mg/dL (9-20); Calcium 9.3 mg/dL (8.4-10.2); Carbon Dioxide 29 mmol/L (22-32); Chloride 97 mmol/L (98-107); Estimated Glomerular Filt Rate 54.2 mL/min (>60); Glucose 104 mg/dL (80-110); HEMOLYSIS < 15 (0-50); Potassium 4.6 mmol/L (3.4-5.1); Sodium 132 mmol/L (137-145)
[2019-11-08 05:42] LABS: Procalcitonin 1.41 ng/mL (<0.5)
[2019-11-08] MEDS: LEVOTHYROXINE 50 MCG TABLET PO (05:59)
[2019-11-08] MEDS: OXYCODONE IR 10 MG TABLET PO ×3 (07:51→20:22)
[2019-11-08] MEDS: FUROSEMIDE 40 MG TABLET PO ×2 (07:52→16:11)
[2019-11-08] MEDS: ASPIRIN EC 81 MG TABLET PO (08:02)
[2019-11-08] MEDS: DOCUSATE 100 MG CAPSULE PO ×2 (08:03→21:41)
[2019-11-08] MEDS: ATORVASTATIN 10 MG TABLET PO (08:03)
[2019-11-08] MEDS: SODIUM CHLORIDE 0.9% FLUSH 10 ML IV ×2 (08:04→19:09)
[2019-11-08] MEDS: AMIODARONE 200 MG TABLET PO (08:05)
[2019-11-08] MEDS: VANCOMYCIN 1,000 MG/200 ML PIGGYBACK 200 MG IV (08:05)
--- NOTE | 2019-11-08 10:46 | PM.PN.1 ---
Subjective Subjective Date Patient Seen: 11/08/19 Interval history: This is an 84-year-old male patient history of TAVR, paroxysmal AFib, anticoagulated on Xarelto, systolic heart failure, chronic left lower extremity wound since cellulitis hospitalization in September of this year who is admitted for acute left lower extremity cellulitis. Patient complains of pain in the left leg around the large open wound and radiating to the toes. Exam Vital Signs (past 8 hours): - 11/08/19 04:05 11/08/19 05:00 11/08/19 08:00 Temperature 98.3 F 98.9 F Pulse Rate 93 H 96 H Respiratory Rate 22 18 Blood Pressure 104/50 L 101/50 L Pulse Oximetry 95 95 96 11/08/19 09:00 Temperature Pulse Rate Respiratory Rate Blood Pressure Pulse Oximetry 97 Oxygen Delivery Method Room Air Oxygen Flow Rate 0 Narrative Exam Narrative: General: Alert, conversant male Lungs: Breathing nonlabored Extremities: There is approximately 4 cm x 4 cm open wound on the left anterior pate with surrounding erythema and edema extending from the toes to the mid pate and calf. The wound bed is inflamed, with fibrin is exudate and adherent clot, leg is tender on palpation. No crepitus, no fluid draining or foul odor. Neurological: Sensorium intact Objective Labs Result Diagrams: 11/08/19 04:50 11/08/19 04:50 Labs: Laboratory Results - last 24 hr 11/07/19 11/07/19 11/07/19 13:30 13:30 13:30 WBC 23.2 H D RBC 4.08 L Hgb 12.3 L Hct 36.6 L MCV 89.9 MCH 30.2 MCHC 33.5 RDW 17.1 H Plt Count 167 Neut % (Auto) 85.5 H D Lymph % (Auto) 5.[address] [place] % (Auto) 8.4 Eos % (Auto) 0.0 L Baso % (Auto) 0.2 Neut # (Auto) 92920 H Lymph # (Auto) 1400 [place] # (Auto) 2000 H Eos # (Auto) 0 Baso # (Auto) 100 ESR 40 H Sodium 134 L Potassium 4.4 Chloride 95 L Carbon Dioxide 27 BUN 24 H Creatinine 1.19 Estimated GFR 58.4 L BUN/Creatinine Ratio 20.2 Glucose 107 Lactate 2.1 Calcium 10.2 Magnesium Total Bilirubin 1.0 AST 22 ALT 17 Alkaline Phosphatase 100 Lactate Dehydrogenase 398 Total Creatine Kinase 38 L C-Reactive Protein 4.4 H Total Protein 7.7 Albumin 4.4 Globulin 3.3 Albumin/Globulin Ratio 1.3 Procalcitonin COVID-19 PCR 11/07/19 11/07/19 11/07/19 13:30 13:34 21:22 WBC RBC Hgb Hct MCV MCH MCHC RDW Plt Count Neut % (Auto) Lymph % (Auto) [place] % (Auto) Eos % (Auto) Baso % (Auto) Neut # (Auto) Lymph # (Auto) [place] # (Auto) Eos # (Auto) Baso # (Auto) ESR Sodium Potassium Chloride Carbon Dioxide BUN Creatinine Estimated GFR BUN/Creatinine Ratio Glucose Lactate Calcium Magnesium 2.1 Total Bilirubin AST ALT Alkaline Phosphatase Lactate Dehydrogenase Total Creatine Kinase C-Reactive Protein Total Protein Albumin Globulin Albumin/Globulin Ratio Procalcitonin 0.86 H COVID-19 PCR Negative 11/08/19 11/08/19 11/08/19 04:50 04:50 04:50 WBC 15.0 H RBC 3.43 L Hgb 10.7 L Hct 31.0 L MCV 90.3 MCH 31.1 MCHC 34.4 RDW 16.8 H Plt Count 139 L Neut % (Auto) 79.4 H Lymph % (Auto) 9.[address] [place] % (Auto) 10.6 Eos % (Auto) 0.2 L Baso % (Auto) 0.5 Neut # (Auto) 74099 H Lymph # (Auto) 1400 [place] # (Auto) 1600 H Eos # (Auto) 0 Baso # (Auto) 100 ESR Sodium 132 L Potassium 4.6 Chloride 97 L Carbon Dioxide 29 BUN 23 H Creatinine 1.27 H Estimated GFR 54.2 L BUN/Creatinine Ratio 18.1 Glucose 104 Lactate Calcium 9.3 Magnesium Total Bilirubin AST ALT Alkaline Phosphatase Lactate Dehydrogenase Total Creatine Kinase C-Reactive Protein Total Protein Albumin Globulin Albumin/Globulin Ratio Procalcitonin 1.41 H COVID-19 PCR Assessment & Plan Assessment & Plan narrative: This is an 84-year-old male patient history of TAVR, paroxysmal AFib, anticoagulated on Xarelto, systolic heart failure, chronic left lower extremity wound since cellulitis hospitalization in September of this year who is admitted for acute left lower extremity cellulitis. 1. Left lower leg cellulitis, acute, present on admission, active -WBC decreasing on IV antibiotic -Patient with increasing swelling and pain to the left lower leg since removal of wound VAC yesterday by Dr. Banuelos at the wound care clinic. -patient with a 4 x 4 cm open wound with red wound base with what appears to be granulation tissue rolled edges with edematous wound margins. Erythema including the ankle up to the level of the tibial tubercle. Imaging identifies cellulitis left lower leg and ankle, no fluid collections, no osteomyelitis. -The patient had initial elevated white count at 23.36 with a left shift, CRP is 4.4, sed rate is 40, procalcitonin is 0.86. -prior culture from OR wound debridement on 10/23/2019 revealed Enterobacter fascialis and Staph epididymis. -Dr. Polanco contacted requesting surgical consult for wound evaluation and possible debridement, appreciate her evaluation recommendations. -Ordered Tylenol 650 mg for mild pain or fever. -Ordered oxycodone 5 mg as needed for moderate pain and 10 mg as needed for severe pain. -added amitriptyline 50 mg at bedtime for neuropathic pain, patient with adverse reaction to gabapentin. -continue vancomycin and Zosyn -obtain repeat wound culture 2. Chronic kidney disease stage IIIA, present on admission, stable. -BUN and creatinine are 24 and 1.19 on admission labs. Baseline creatinine fluctuates 1.1 to 1.5 on outpatient labs. -current creatinine 1.27 within his range -the patient continues on Lasix therapy 40 mg twice daily. -vancomycin for treatment of cellulitis will be renally dosed and followed by pharmacy. -Will follow renal function. 3. Paroxysmal atrial fibrillation, anticoagulated on Xarelto, in sinus rhythm, stable -Patient denies complaints of chest pain and is unaware of his irregular rhythm. -currently in atrial fibrillation with irregularly irregular rhythm -continue amiodarone 200 mg daily. -Will continue Xarelto 15 mg each evening -will monitor on telemetry. 4. Congestive heart failure with reduced ejection fraction, chronic, present on admission, stable. -no evidence of CHF exacerbation -continue furosemide 40 mg twice daily with meals. 5. Lung cancer status post resection, present on admission, stable. 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 -Follow-up bronchoscopy at [facility], patient is followed by oncology and pulmonology for surveillance. -no evidence of recurrence or complication at this time. 6. Essential Hypertension present on admission, stable. -Patient's blood pressure is stable -continue lisinopril 5 mg daily 7. Hypothyroidism, stable -Continue home regimen of levothyroxine 25 mcg daily. 8. Hyperlipidemia, stable Continue home regimen of atorvastatin 10 mg daily. Isolation: COVID-19 negative VTE prophylaxis: on Xarelto IV fluids: Saline lock Diet: Heart healthy. Code status: FULL CODE. Patient's is surrogate decision maker. Quality VTE Deep Vein Thrombosis/Pulmonary Embolism Present on Admission: No
--- NOTE | 2019-11-08 11:26 | CM.DPC ---
DCP cont: Received a call from Yusuf at [facility] stating this patient is on their service. She asked that I fax her the H&P to [phone]. Fax sent and confirmation scanned in. Yara Peraza, Care Histology Specialist
--- NOTE | 2019-11-08 12:11 | CM.IDA ---
Initial DCP Assessment Note: Patient is an 84 yo male, resident of [place]. Patient is medically complex, admitted now w/left lower leg cellulitis, requiring IV abx. PCP: Corrine Ghosh Payer: MARINA/GREGP Reviewed chart. Patient familiar to this BOOMSWING OPERATOR from prior hospitalization. Met w/patient briefly to explain role, patient was sleepy and difficult to arouse for conversation, HUMAN RESOURCES DISTRICT MANAGER and RN aware and state patient has been sleeping on/off since arrival, patient requests his be contacted to review DCP. Placed call to spouse Fouzia, explained role. Fouzia explains she has been very concerned about patient and his LLE wound, she hopes he will be seen by Dr Banuelos during this admissions. Fouzia expects to take patient back home, she again explains she is concerned she is not at the hospital to speak for my states patient has some dementia. Fouzia would like [facility] services to be resumed upon patient's DC. Ankur Goldberg has placed call today to request H+P which was faxed by Yara Wheelchair Van Operator First Responder Following closely for coordination of safe DCP SANDY Cornell Discharge Planning/Care Management CM Discharge Assessment Start: 11/08/19 12:04 Freq: Status: Active Protocol: Document 11/08/19 12:04 TUCKER (Rec: 11/08/19 12:11 TUCKER [id number]) Discharge Planning Assessment Assigned Rack Pusher SANDY Mccord DPOA/Assigned Designee Name Fouzia Russ, spouse Contact Information [phone], home [phone], cell Advance Directives? Yes Advance Directives on File No History Provided By Significant Other,Medical Record Prior Living Arrangements House Household Members spouse Independent with ADL's Yes Is patient alert and oriented? Yes Patient/Family Preference Home with Home Health Barriers to Discharge Yes Discharge Plan Home with Home Health Transportation Arrangement Anticipate family will provide tranport home when medically stable. SNF/HH Preference Resumption of HH services through [facility] Has Agency SNF been contacted Yes Review Status In Process
--- NOTE | 2019-11-08 14:57 | PC.NURSE ---
Pt slept most of the shift. Ate his meal during lunch. Last dose of Oxy 10 mg was given at 0800. All due meds were given. Pt has approx 4x4 cm open wound LLE. Dressing change was performed per Dr. Banuelos's order. Pt tolerated the procedure. Pt in room air o2 sats between 97-98%. Right forearm IV CDI.
--- NOTE | 2019-11-08 15:37 | P.PN_ITS ---
Subjective Subjective Date Patient Seen: 11/08/19 Time Patient Seen: 15:38 Interval history: Pt was just seen by Dr. Whitlock and dressing was changed. He says pain has improved. Exam Vital Signs (past 8 hours): - 11/08/19 08:00 11/08/19 09:00 11/08/19 12:00 Temperature 98.9 F 98.5 F Pulse Rate 96 H 96 H Respiratory Rate 18 18 Blood Pressure 101/50 L 102/56 L Pulse Oximetry 96 97 96 11/08/19 13:00 Temperature Pulse Rate Respiratory Rate Blood Pressure Pulse Oximetry 98 Oxygen Delivery Method Room Air Oxygen Flow Rate 0 Narrative Exam Narrative: GENERAL APPEARANCE: alert, comfortable, dozing off HEENT: Normocephalic, PERRLA, conjunctiva clear SKIN: [place], warm and dry, wound dressed with clean kerlix; surrounding erythema and edema extending from the toes the mid pate, it is marked with a pen cyndie; receded slightly from yesterday. The wound bed is red with granulation tissue, fibrinous exudate and adherent clot; the leg is somewhat tender on palpation, but better than yesterday. No crepitus, no fluid draining, no foul odor. HEART: Irregularly irregular rhythm,brisk capillary refill, 2+ left lower extremity edema, trace right lower extremity edema. LUNGS: Breathing comfortably on room air; non tachypneic CHEST: Symmetrical movement, no accessory muscle use, good tidal volume. ABDOMEN: Soft, no distention, dull to percussion, no tenderness, no organomegaly, no flank or suprapubic tenderness, active bowel tones. BACK: nontender to palpation. EXTREMITIES: Pain on palpation left lower leg, moderate pain with dorsiflexion of the foot; no calf tenderness, NEUROLOGIC: Patient states he is forgetful but is appropriately interactive and oriented to self and situation, cranial nerves II-XII grossly intact, decreased sensation dorsal and plantar surfaces, both medial lateral left foot. Objective Labs Result Diagrams: 11/08/19 04:50 11/08/19 04:50 Labs: Laboratory Results - last 24 hr 11/07/19 11/07/19 11/07/19 13:30 13:30 13:34 WBC RBC Hgb Hct MCV MCH MCHC RDW Plt Count Neut % (Auto) Lymph % (Auto) [place] % (Auto) Eos % (Auto) Baso % (Auto) Neut # (Auto) Lymph # (Auto) [place] # (Auto) Eos # (Auto) Baso # (Auto) Sodium 134 L Potassium 4.4 Chloride 95 L Carbon Dioxide 27 BUN 24 H Creatinine 1.19 Estimated GFR 58.4 L BUN/Creatinine Ratio 20.2 Glucose 107 Calcium 10.2 Magnesium 2.1 Total Bilirubin 1.0 AST 22 ALT 17 Alkaline Phosphatase 100 Lactate Dehydrogenase 398 Total Creatine Kinase 38 L C-Reactive Protein 4.4 H Total Protein 7.7 Albumin 4.4 Globulin 3.3 Albumin/Globulin Ratio 1.3 Procalcitonin 0.86 H COVID-19 PCR 11/07/19 11/08/19 11/08/19 21:22 04:50 04:50 WBC 15.0 H RBC 3.43 L Hgb 10.7 L Hct 31.0 L MCV 90.3 MCH 31.1 MCHC 34.4 RDW 16.8 H Plt Count 139 L Neut % (Auto) 79.4 H Lymph % (Auto) 9.3 L [place] % (Auto) 10.6 Eos % (Auto) 0.2 L Baso % (Auto) 0.5 Neut # (Auto) 63721 H Lymph # (Auto) 1400 [place] # (Auto) 1600 H Eos # (Auto) 0 Baso # (Auto) 100 Sodium Potassium Chloride Carbon Dioxide BUN Creatinine Estimated GFR BUN/Creatinine Ratio Glucose Calcium Magnesium Total Bilirubin AST ALT Alkaline Phosphatase Lactate Dehydrogenase Total Creatine Kinase C-Reactive Protein Total Protein Albumin Globulin Albumin/Globulin Ratio Procalcitonin 1.41 H COVID-19 PCR Negative 11/08/19 04:50 WBC RBC Hgb Hct MCV MCH MCHC RDW Plt Count Neut % (Auto) Lymph % (Auto) [place] % (Auto) Eos % (Auto) Baso % (Auto) Neut # (Auto) Lymph # (Auto) [place] # (Auto) Eos # (Auto) Baso # (Auto) Sodium 132 L Potassium 4.6 Chloride 97 L Carbon Dioxide 29 BUN 23 H Creatinine 1.27 H Estimated GFR 54.2 L BUN/Creatinine Ratio 18.1 Glucose 104 Calcium 9.3 Magnesium Total Bilirubin AST ALT Alkaline Phosphatase Lactate Dehydrogenase Total Creatine Kinase C-Reactive Protein Total Protein Albumin Globulin Albumin/Globulin Ratio Procalcitonin COVID-19 PCR Assessment & Plan Assessment and plan (1) CHF (congestive heart failure): Current visit: No Status: Acute (2) Cellulitis of left leg: Current visit: Yes Status: Acute (3) Leg wound, left: Current visit: No Status: Acute Assessment & Plan narrative: 84 yo man with left anterior leg wound and surrounding cellulitis. The WBC is down and the exam is improved in terms of pain, tenderness, receding erythema, and no crepitus. Dr. Whitlock saw the patien today and did wound care. No urgent surgical intervention indicated at this time. Please call if clinical signs of infection or sepsis are increasing. Otherwise, would continue wound care as directed by Dr. Whitlock. COVID-19 COVID-19 status: Negative Time Spent With Patient Time with patient: 25 - 35 minutes Quality VTE Deep Vein Thrombosis/Pulmonary Embolism Present on Admission: No
[2019-11-08] MEDS: RIVAROXABAN 10 MG TABLET 15 MG PO (16:11)
[2019-11-08] MEDS: lisinopriL 5 MG TABLET PO (16:11)
[2019-11-08 20:56] LABS: Vancomycin-rest genes A/B Not Detected (Not Detect)
[2019-11-08 20:57] LABS: Acinetobacter baumannii Not Detected (Not Detect); Candida albicans Not Detected (Not Detect); Candida glabrata Not Detected (Not Detect); Candida krusei Not Detected (Not Detect); Candida parapsilosis Not Detected (Not Detect); Candida tropicalis Not Detected (Not Detect); E. coli Not Detected (Not Detect); Enterobacter cloacae complex Not Detected (Not Detect); Enterobacteriaceae species Not Detected (Not Detect); Enterococcus species Not Detected (Not Detect); Haemophilus influenzae Not Detected (Not Detect); KPC (carbapenem-resist gene) Not Detected (Not Detect); Listeria monocytogenes Not Detected (Not Detect); Methicillin-resistant gene Not Detected (Not Detect); Neisseria meningitidis Not Detected (Not Detect); Proteus species Not Detected (Not Detect); Pseudomonas aeruginosa Not Detected (Not Detect); Serratia marcescens Not Detected (Not Detect); Staphylococcus species Not Detected (Not Detect); Streptococcus agalactiae (Gr B Not Detected (Not Detect); Streptococcus pneumonia Not Detected (Not Detect); Streptococcus pyogenes (Gr A) Not Detected (Not Detect); Streptococcus species Not Detected (Not Detect)
[2019-11-08] MEDS: MELATONIN 3 MG TABLET 6 MG PO (21:41)
[2019-11-08] MEDS: OXYCODONE IR 5 MG TABLET PO (21:41)
[2019-11-08] MEDS: AMITRIPTYLINE 25 MG TABLET 50 MG PO (21:42)
[2019-11-09] VITALS (13 sets, daily range): BP systolic 97–132; BP diastolic 52–69; PULSE 84–112; RESP 16–20; TEMP 36.2–37.2; O2SAT 92–99
[2019-11-09] MEDS: AMPICILLIN/SULBACTAM 3 GM 3 GM in SODIUM CHLORIDE 0.9% 100 ML IV ×4 (00:34→19:07)
[2019-11-09] MEDS: SODIUM CHLORIDE 0.9% FLUSH 10 ML IV ×2 (00:36→21:33)
[2019-11-09] MEDS: OXYCODONE IR 10 MG TABLET PO ×3 (00:41→23:58)
--- NOTE | 2019-11-09 01:14 | PC.NURSE ---
Patient is AxOx3, but forgetful. Knows self, situation, and year. Hx of dementia. Can make needs known. Denies chest pain. Hx of AFIB, was in NSR at time of assessment per tele reading. Denies SOB, lung sounds clear and on RA. Pt reporting 10/10 pain, FLACC 2/10, medicated per AUG and notified PUBLICATIONS PRODUCTION SUPERVISOR of pain level. Continue with current pain management plan. Left leg is elevated, edematous 2+ pitting edema and tender to touch and movement. NWB when OOB. Moderate fall risk d/t leg pain/weakness. Bed alarm on and functioning, call light in reach.
[2019-11-09] MEDS: VANCOMYCIN 1,000 MG/200 ML PIGGYBACK 200 MG IV ×2 (02:04→19:48)
[2019-11-09 05:37] LABS: Add Manual Diff / Slide Review NO; Basophils Absolute Auto 0 /uL (0-100); Basophils Percent Auto 0.3 % (0-2); Eosinophils Absolute Auto 200 /uL (0-450); Eosinophils Percent Auto 1.6 % (2-4); Hematocrit 29.6 % (41-53); Hemoglobin 9.9 g/dL (13.5-17.5); Lymphocytes Absolute Auto 1100 /uL (1100-4500); Lymphocytes Percent Auto 10.1 % (25-40); Mean Corpuscular HGB Conc 33.6 % (30-36); Mean Corpuscular Hemoglobin 30.5 PG (26-34); Mean Corpuscular Volume 90.8 fL (80-100); Monocytes Absolute Auto 1200 /uL (0-900); Monocytes Percent Auto 11.1 % (3-14); Neutrophils Absolute Auto 8000 /uL (1500-7000); Neutrophils Percent Auto 76.9 % (50-75); Platelet Count 131 X10^3/uL (150-400); Red Blood Cell Count 3.26 X10^6/uL (4.5-5.9); Red Cell Distribution Width 16.7 % (11.6-14.8); White Blood Cell Count 10.4 X10^3/uL (4.5-11.0)
[2019-11-09 05:48] LABS: BUN Creatinine Ratio 20.3 (6-22); Blood Urea Nitrogen 24 mg/dL (9-20); Calcium 8.9 mg/dL (8.4-10.2); Carbon Dioxide 29 mmol/L (22-32); Chloride 98 mmol/L (98-107); Glucose 96 mg/dL (80-110); HEMOLYSIS < 15 (0-50); Potassium 3.9 mmol/L (3.4-5.1); Sodium 134 mmol/L (137-145)
[2019-11-09] MEDS: LEVOTHYROXINE 50 MCG TABLET PO (06:11)
[2019-11-09] MEDS: FUROSEMIDE 40 MG TABLET PO ×2 (07:53→17:35)
[2019-11-09] MEDS: OXYCODONE IR 5 MG TABLET PO ×3 (07:55→20:01)
[2019-11-09] MEDS: DOCUSATE 100 MG CAPSULE PO ×2 (08:23→20:01)
[2019-11-09] MEDS: AMIODARONE 200 MG TABLET PO (08:24)
[2019-11-09] MEDS: ATORVASTATIN 10 MG TABLET PO (08:24)
[2019-11-09] MEDS: ASPIRIN EC 81 MG TABLET PO (08:24)
--- NOTE | 2019-11-09 09:28 | PC.NURSE ---
Addendum entered by Alicia Hutson R.N. 11/09/19 15:25: Dr. Live spoke with patient and via phone in room with patient. Addendum entered by Alicia Hutson R.N. 11/09/19 10:04: 1000: Spoke with patients (Fouzia) via phone, states would like patient be transferred to [facility] for further wound specialty. States fears complications due to ongoing infection. Notified Dr. Live and Anjum coordinator regarding patients wifes concerns. Original Note: 0920: Spoke with of patient (Fouzia) via phone. expressed concern regarding patients wound infection. Updated regarding plan of care, wound care, pain control, IV antibiotic therapy including wound and surgical consult. Notified Dr. Live regarding wifes concern and need for update via phone.
--- NOTE | 2019-11-09 11:52 | PC.NURSE ---
Dressing change performed on his LLE after Dr. Rosa did her rounds. Pt tolerated the procedure.
--- NOTE | 2019-11-09 11:56 | P.PN_ITS ---
Subjective Subjective Date Patient Seen: 11/09/19 Time Patient Seen: 10:00 Interval history: No acute events overnight. The patient says he is feeling better overall. His pain has improved. Exam Vital Signs (past 8 hours): - 11/09/19 04:00 11/09/19 04:15 11/09/19 08:00 Temperature 97.5 F L 99.0 F Pulse Rate 98 H 86 Respiratory Rate 16 18 Blood Pressure 132/69 101/55 L Pulse Oximetry 93 93 98 11/09/19 11:49 Temperature Pulse Rate Respiratory Rate Blood Pressure Pulse Oximetry 98 Oxygen Delivery Method Room Air Oxygen Flow Rate 0 Narrative Exam Narrative: GENERAL APPEARANCE: alert, comfortable, dozing off HEENT: Normocephalic, PERRLA, conjunctiva clear SKIN: [place], warm and dry, wound is dressed with Kerlix, which was removed dur ing the exam. The wound bed is red with granulation tissue, fibrinous exudate and adherent clot; the toes and foot are still markedly edematous, but the leg edema has improved and the skin is now covered with small creases consistent with the edema going down. The erythema has improved significantly, and the tenderness has improved. There is no crepitus, no fluid draining, no foul odor. LUNGS: Breathing comfortably on room air; non tachypneic CHEST: Symmetrical movement, no accessory muscle use, good tidal volume. ABDOMEN: Soft, no distention EXTREMITIES: Pain on palpation left lower leg, much improved, and minimal pain with dorsiflexion of the foot; no calf tenderness, NEUROLOGIC: Oriented to self and situation, cranial nerves II-XII grossly intact, decreased sensation dorsal and plantar surfaces, both medial lateral left foot. Objective Labs Result Diagrams: 11/09/19 05:00 11/09/19 05:00 Labs: Laboratory Results - last 24 hr 11/07/19 11/09/19 11/09/19 13:46 05:00 05:00 WBC 10.4 RBC 3.26 L Hgb 9.9 L Hct 29.6 L MCV 90.8 MCH 30.5 MCHC 33.6 RDW 16.7 H Plt Count 131 L Neut % (Auto) 76.9 H Lymph % (Auto) 10.1 L [place] % (Auto) 11.1 Eos % (Auto) 1.6 L Baso % (Auto) 0.3 Neut # (Auto) 8000 H Lymph # (Auto) 1100 [place] # (Auto) 1200 H Eos # (Auto) 200 Baso # (Auto) 0 Sodium 134 L Potassium 3.9 Chloride 98 Carbon Dioxide 29 BUN 24 H Creatinine 1.18 Estimated GFR 59.0 L BUN/Creatinine Ratio 20.3 Glucose 96 Calcium 8.9 A. baumannii (PCR) Not detected Chana albicans (PCR) Not detected C. glabrata (PCR) Not detected C. krusei (PCR) Not detected C. parapsilosis (PCR) Not detected C. tropicalis (PCR) Not detected Enterobacteriac sp PCR Not detected E. cloacae complex PCR Not detected Enterococcus sp PCR Not detected E. coli (PCR) Not detected H. influenzae (PCR) Not detected Klebsiella oxytoca PCR Not detected Klebsiella pneumoniae Not detected List. monocytogenes PCR Not detected N. meningitidis (PCR) Not detected Proteus species (PCR) Not detected Serratia marcescens PCR Not detected Staphylococcus sp PCR Not detected Staph aureus (PCR) Not detected mecA-Methicil Res Gene Not detected Streptococcus sp PCR Not detected Group A Strep (PCR) Not detected Strep agalactiae (PCR) Not detected Strep pneumoniae (PCR) Not detected P. aeruginosa (PCR) Not detected Manjit/B-Vanco Res Genes Not detected KPC-Carbap Res Gene PCR Not detected Assessment & Plan Assessment and plan (1) CHF (congestive heart failure): Current visit: No Status: Acute (2) Cellulitis of left leg: Current visit: Yes Status: Acute (3) Leg wound, left: Current visit: No Status: Acute Assessment & Plan narrative: This patient has improving cellulitis of his left lower extremity, and a stable open wound. It was reported to me last evening by the nurse that doctor Banuelos had been by and had performed some wound care, and had left wound care orders in the chart. On speaking to the nurse this morning, she is unclear whether doctor Banuelos came by, but they are following the wound care instructions that were left by him ordered in Personal Estate Manager yesterday. The wound and leg have markedly improved, and I would not recommend any further surgical debridement at this time. I am concerned that this wound is not likely to heal well given the patient's chronic edema and venous stasis. He may continue to cycle in and out of the hospital every time the open wound becomes infected. Definitive management would likely include some type of amputation. The patient did not like this idea, which I can totally understand. As he is looking better at this point, and the antibiotics are working to resolve the infection in his leg, I would not push for amputation right now. I would recommend continuing wound care as directed following the orders placed by Dr. Banuelos and his associates, and no intervention by General surgery at this time. Please call if any further questions arise. I will not plan on actively following this patient each day, unless some new concern arises requiring surgical opinion or intervention. Thank you for the consult. Please call if anything further is needed. Time Spent With Patient Time with patient: 25 - 35 minutes Quality VTE Deep Vein Thrombosis/Pulmonary Embolism Present on Admission: No
--- NOTE | 2019-11-09 13:38 | CM.DPC ---
Spoke with Ken TREVINO ([phone]) and updated them with care thus far. Uncertain of date of discharge - likely this ? BELINDA said to let them know if something changes but they'll plan to resume care Tuesday. Please let them know if this plan will need to be altered.
--- NOTE | 2019-11-09 15:41 | P.PN_ITS ---
Subjective Subjective Date Patient Seen: 11/09/19 Interval history: This is an 84-year-old male patient history of TAVR, paroxysmal AFib, anticoagulated on Xarelto, systolic heart failure, chronic left lower extremity wound since cellulitis hospitalization in September of this year who is admitted for acute left lower extremity cellulitis associated with chronic nonhealing left pate ulcer. Patient's cellulitis has responded fairly quickly to IV antibiotics with improvement in areas of erythema on the left lower leg. He complains of pain in the lower leg and difficulty with weight-bearing. Exam Vital Signs (past 8 hours): - 11/09/19 08:00 11/09/19 11:49 11/09/19 12:00 Temperature 99.0 F 98.6 F Pulse Rate 86 90 Respiratory Rate 18 18 Blood Pressure 101/55 L 97/53 L Pulse Oximetry 98 98 97 Oxygen Delivery Method Room Air Oxygen Flow Rate 0 Narrative Exam Narrative: General: Alert male who appears comfortable Extremities: Marked improvement in erythematous areas of the left lower leg, left lower pate wound appearance stable, there is mild to moderate pedal edema Objective Labs Result Diagrams: 11/09/19 05:00 11/09/19 05:00 Labs: Laboratory Results - last 24 hr 11/07/19 11/09/19 11/09/19 13:46 05:00 05:00 WBC 10.4 RBC 3.26 L Hgb 9.9 L Hct 29.6 L MCV 90.8 MCH 30.5 MCHC 33.6 RDW 16.7 H Plt Count 131 L Neut % (Auto) 76.9 H Lymph % (Auto) 10.1 L [place] % (Auto) 11.1 Eos % (Auto) 1.6 L Baso % (Auto) 0.3 Neut # (Auto) 8000 H Lymph # (Auto) 1100 [place] # (Auto) 1200 H Eos # (Auto) 200 Baso # (Auto) 0 Sodium 134 L Potassium 3.9 Chloride 98 Carbon Dioxide 29 BUN 24 H Creatinine 1.18 Estimated GFR 59.0 L BUN/Creatinine Ratio 20.3 Glucose 96 Calcium 8.9 A. baumannii (PCR) Not detected Chana albicans (PCR) Not detected C. glabrata (PCR) Not detected C. krusei (PCR) Not detected C. parapsilosis (PCR) Not detected C. tropicalis (PCR) Not detected Enterobacteriac sp PCR Not detected E. cloacae complex PCR Not detected Enterococcus sp PCR Not detected E. coli (PCR) Not detected H. influenzae (PCR) Not detected Klebsiella oxytoca PCR Not detected Klebsiella pneumoniae Not detected List. monocytogenes PCR Not detected N. meningitidis (PCR) Not detected Proteus species (PCR) Not detected Serratia marcescens PCR Not detected Staphylococcus sp PCR Not detected Staph aureus (PCR) Not detected mecA-Methicil Res Gene Not detected Streptococcus sp PCR Not detected Group A Strep (PCR) Not detected Strep agalactiae (PCR) Not detected Strep pneumoniae (PCR) Not detected P. aeruginosa (PCR) Not detected Manjit/B-Vanco Res Genes Not detected KPC-Carbap Res Gene PCR Not detected Assessment & Plan Assessment & Plan narrative: This is an 84-year-old male patient history of TAVR, paroxysmal AFib, anticoagulated on Xarelto, systolic heart failure, chronic left lower extremity wound since cellulitis hospitalization in September of this year who is admitted for acute left lower extremity cellulitis associated with nonhealing left lower pate ulcer. 1. Acute left lower leg cellulitis associated with chronic left pate ulcer, present on admission, active -wound culture positive for Streptococcus -marked improvement in erythema on IV antibiotics -WBC 23.2 on admission and now on 10.4 which is normal -continue vancomycin and Zosyn but can likely transition to Augmentin tomorrow to complete 10-14 day antibiotic treatment course -patient has been going to wound care center at and recently had wound VAC placed -patient with a 4 x 4 cm open wound with red wound base with what appears to be granulation tissue rolled edges with edematous wound margins. -MRI Imaging identifies no fluid collections, no osteomyelitis. -prior culture from OR wound debridement on 10/23/2019 revealed Enterobacter fascialis and Staph epididymis. -Ordered Tylenol 650 mg for mild pain or fever. -Ordered oxycodone 5 mg as needed for moderate pain and 10 mg as needed for severe pain. -discontinued amitriptyline started this admission due to concern of causing confusion and delirium in elderly population -appreciate surgical consult by Dr. Alvarado who does not recommend further surgical intervention at this time though concerned his wound may never heal and patient may ultimately end up with amputation -patient actually has outpatient appointment at [facility] wound care center for 2nd opinion -PT consult for walker 2. Chronic kidney disease stage IIIA, present on admission, stable. -BUN and creatinine are 24 and 1.19 on admission labs. Baseline creatinine fluctuates 1.1 to 1.5 on outpatient labs. -current creatinine 1.18 within his range, earlier creatinine 1.27 -the patient continues on Lasix therapy 40 mg twice daily. -vancomycin for treatment of cellulitis will be renally dosed and followed by pharmacy. -Will follow renal function. 3. Paroxysmal atrial fibrillation, anticoagulated on Xarelto, in sinus rhythm, stable -Patient denies complaints of chest pain and is unaware of his irregular rhythm. -currently in atrial fibrillation with irregularly irregular rhythm -continue amiodarone 200 mg daily. -Will continue Xarelto 15 mg each evening -DC telemetry 4. Congestive heart failure with reduced ejection fraction, chronic, present on admission, stable. -no evidence of CHF exacerbation -continue furosemide 40 mg twice daily with meals. 5. Lung cancer status post resection, present on admission, stable. 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 -Follow-up bronchoscopy at [facility], patient is followed by oncology and pulmonology for surveillance. -no evidence of recurrence or complication at this time. 6. Essential Hypertension present on admission, stable. -Patient's blood pressure is stable -continue lisinopril 5 mg daily 7. Hypothyroidism, stable -Continue home regimen of levothyroxine 25 mcg daily. 8. Hyperlipidemia, stable Continue home regimen of atorvastatin 10 mg daily. Isolation: COVID-19 negative VTE prophylaxis: on Xarelto IV fluids: Saline lock Diet: Heart healthy. Code status: FULL CODE. Patient's is surrogate decision maker. Patient's spouse has been extremely concerned regarding the left lower leg wound not healing over the past several months in spite of regular visits to the Wound Care Center. She had requested he get transferred to [facility]. I did not feel transfer is indicated as patient is acute cellulitis, which is reason for his admission, has responded quickly to IV antibiotics and an urgent transfer is not indicated for management of a chronic wound. Furthermore patient is sufficiently improved that he is getting close to discharge. He already has appointment at [facility] wound care center on TuesdayNovember 11 which I encouraged her to keep. Quality VTE Deep Vein Thrombosis/Pulmonary Embolism Present on Admission: No
--- NOTE | 2019-11-09 15:52 | CM.DPNOTE ---
DCP Cont Received call from spouse Fouzia; she is expecting patient may DC tomorrow and is planning on transporting patient home. Fouzia asks for patient's medical record from this hospitalization so that she can take to patient's appt at [facility] on Tuesday. This UI SOFTWARE ENGINEER referred her to medical records to discuss. Spouse also concerned about having enough supplies for patient's wound care needs. [facility] RN will visit on Tuesday, per spouse, so this UI SOFTWARE ENGINEER confirms that patient can have dressing change before DC, if needed, leaving only Tuesday at home until Tuesday appt at and RN f/u Tuesday. AKBAR Crystal has returned call to RN at [facility] to update that patient will likely be returning home over the w/e, DC Summary will be faxed upon completion. P: DC likely w/in 24-48 hrs, home w/spouse to assist and [facility] to resume RN/OPT/OT Following closely for coordination of DCP SANDY Cornell
[2019-11-09] MEDS: lisinopriL 5 MG TABLET PO (17:35)
[2019-11-09] MEDS: RIVAROXABAN 10 MG TABLET 15 MG PO (17:35)
[2019-11-09] MEDS: polyethylene glycoL 3350 17 GM POWD.PACK PO (19:45)
[2019-11-09] MEDS: MELATONIN 3 MG TABLET 6 MG PO (20:01)
--- NOTE | 2019-11-09 21:43 | PC.NURSE ---
Pt was unable to safely ambulate to BR with FWW, gait belt and SBA x 2. BSC brought in and patient fell backwards into it. No injuries. While using the urinal pt stated that he pinched the tip of his penis on the edge and was bleeding serosanguious fluid, small amount, not abrasion noted. He denies penis pain. Later in shift and MODEL PHOTOGRAPHERS' noted that two small red blood clots came out while urinating. ELECTROMECHANICAL EQUIPMENT TESTER Joaquín aware. Pt rates pain 8-10/10, but behavior is not congruent with that rating. A and O x 4 but forgetful. VSS.
[2019-11-10] VITALS (10 sets, daily range): BP systolic 111–138; BP diastolic 61–73; PULSE 71–100; RESP 16–18; TEMP 36.1–36.6; O2SAT 93–97
[2019-11-10 00:04] LABS: Bacteria Urine None Seen
[2019-11-10 00:08] LABS: Appearance Urine UA CLOUDY; Bilirubin Urine UA NEGATIVE (NEGATIVE); Glucose Urine UA NEGATIVE (Negative); Ketones Urine UA NEGATIVE (NEGATIVE); Leukocyte Esterase Urine UA NEGATIVE (NEGATIVE); Nitrite Urine UA NEGATIVE (Negative); Occult Blood Urine UA 3+ (Negative); Protein Urine UA NEGATIVE (Negative); Urobilinogen Urine UA 0.2 E.U./dL (0.2)
[2019-11-10 00:10] LABS: Color Urine UA Dark Yellow
[2019-11-10 00:18] LABS: Culture Indicated Urine Cult Not Indicated; RBC Urine 30-100/HPF (0-5/HPF); WBC Urine 0-1/HPF (0-5/HPF)
[2019-11-10] MEDS: AMPICILLIN/SULBACTAM 3 GM 3 GM in SODIUM CHLORIDE 0.9% 100 ML IV ×4 (01:14→19:22)
[2019-11-10] MEDS: SODIUM CHLORIDE 0.9% FLUSH 10 ML IV ×4 (01:15→21:19)
[2019-11-10] MEDS: SODIUM CHLORIDE 0.9% 250 ML 21 ML IV (01:18)
--- NOTE | 2019-11-10 03:22 | PC.NURSE ---
Addendum entered by Lisa Gore R.N. 11/10/19 05:32: Urine noted to still be pink tinged this morning. Addendum entered by Lisa Gore R.N. 11/10/19 05:13: Has slept most of night. States pain is 5/10 this morning and describes it as stinging, jamming; medicated with Oxycodone. Has been pleasant and cooperative all shift. No further bleeding from penis noted. Continues to pass flatus but has not yet had a BM Original Note: Patient initially seen and assessed at 2350. Was oriented except to date. Is [place] but stated hearing aids are at home. Breath sounds CTA With RA sat of 93%. HR irregular; has hx of afib. Denies nausea. BT hyperactive and is passing flatus but has not had a BM since 11/04; was given prune juice, Miralax and Colace on previous shift. Able to turn himself in bed. When up to BSC was assisted with 1-2 + using a walker. Is able to use urinal when in bed and reports he got penis caught when using urinal on previous shift and now has been bleeding. Noted blood in BSC after urinating and also noted blood coming from urethra; inspected penis and scrotum and found no open areas. UA obtained and sent to lab. Dressing to left LE is CDI with erythema of surrounding skin which increases with dependence of leg. Also has 3+ edema in left LE which also worsens with leg dependency. Leg elevated on pillows once back to bed. Stated pain was 8/10 so was medicated with Oxycodone and when reassessed was asleep. Was noted to have redness to coccyx/upper buttocks so will provide waffle cushion. States he has numbness/tingling in bilateral feet which was present prior to admission. Fall risk score is high and bed alarm is activated.
[2019-11-10] MEDS: LEVOTHYROXINE 50 MCG TABLET PO (05:08)
[2019-11-10] MEDS: OXYCODONE IR 5 MG TABLET PO ×4 (05:09→21:07)
[2019-11-10 05:15] LABS: Add Manual Diff / Slide Review NO; Basophils Absolute Auto 0 /uL (0-100); Basophils Percent Auto 0.5 % (0-2); Eosinophils Absolute Auto 200 /uL (0-450); Eosinophils Percent Auto 2.9 % (2-4); Hematocrit 27.4 % (41-53); Hemoglobin 9.2 g/dL (13.5-17.5); Lymphocytes Absolute Auto 1200 /uL (1100-4500); Lymphocytes Percent Auto 15.3 % (25-40); Mean Corpuscular HGB Conc 33.8 % (30-36); Mean Corpuscular Hemoglobin 30.3 PG (26-34); Mean Corpuscular Volume 89.7 fL (80-100); Monocytes Absolute Auto 1000 /uL (0-900); Monocytes Percent Auto 12.7 % (3-14); Neutrophils Absolute Auto 5400 /uL (1500-7000); Neutrophils Percent Auto 68.6 % (50-75); Platelet Count 138 X10^3/uL (150-400); Red Blood Cell Count 3.05 X10^6/uL (4.5-5.9); Red Cell Distribution Width 16.6 % (11.6-14.8); White Blood Cell Count 7.9 X10^3/uL (4.5-11.0)
[2019-11-10 05:18] LABS: INR 1.6 (0.9-1.3); Prothrombin Time 17.7 SECONDS (10.1-12.7)
[2019-11-10 05:20] LABS: PTT Partial Thromboplastin Tim 32 SECONDS (26.4-36.2)
[2019-11-10 05:24] LABS: BUN Creatinine Ratio 19.6 (6-22); Blood Urea Nitrogen 22 mg/dL (9-20); Calcium 8.8 mg/dL (8.4-10.2); Carbon Dioxide 27 mmol/L (22-32); Chloride 99 mmol/L (98-107); Estimated Glomerular Filt Rate > 60.0 mL/min (>60); Glucose 94 mg/dL (80-110); HEMOLYSIS < 15 (0-50); Sodium 134 mmol/L (137-145)
[2019-11-10] MEDS: AMIODARONE 200 MG TABLET PO (08:40)
[2019-11-10] MEDS: DOCUSATE 100 MG CAPSULE PO ×2 (08:44→21:08)
[2019-11-10] MEDS: FUROSEMIDE 40 MG TABLET PO ×2 (08:45→17:17)
[2019-11-10] MEDS: ATORVASTATIN 10 MG TABLET PO (08:45)
[2019-11-10] MEDS: ASPIRIN EC 81 MG TABLET PO (08:45)
--- NOTE | 2019-11-10 09:26 | PT.IIE ---
Current Diagnoses Heart failure, unspecified (11/07/19) Cellulitis of left lower limb (11/07/19) Unspecified open wound, left lower leg, initial encounter (11/07/19) Surgical History (Last Reviewed 11/08/19 @ 00:10 by Tami Polanco MD) H/O hemorrhoidectomy (Acute ~1984) H/O left inguinal hernia repair (Acute ~1995) H/O partial nephrectomy (Acute ~2009) H/O right inguinal hernia repair (Acute ~2010) History of bronchoscopy (Acute 08/2019) History of colonoscopy (Acute) History of thoracotomy (Acute) History of tonsillectomy (Acute ~1945) S/P TAVR (transcatheter aortic valve replacement) (Acute ~10/2017) Medical History (Last Reviewed 11/08/19 @ 00:10 by Tami Polanco MD) Adrenal nodule (Acute) Afib (Acute) Benign schwannoma (Acute) Carpal tunnel syndrome on right (Acute) Chronic pain disorder (Acute) Colon polyp (Acute) Degenerative disc disease (Acute) Depression (Acute) Dysphagia (Acute) Esophageal reflux (Acute) Essential hypertension (Chronic) Fatty liver (Acute) Hyperlipidemia (Acute) Hypertension (Acute) Infected sebaceous cyst (Acute) Kidney stone (Acute ~2000) Liver hemangioma (Acute) Osteoarthritis (Acute) RBBB (Acute) Renal cell carcinoma (Acute) Right ventricular dilation (Acute) Rotator cuff syndrome (Acute) Severe aortic stenosis (Acute) Sleep apnea (Acute) Sliding hiatal hernia (Acute) Spinal stenosis (Acute) Tricuspid regurgitation (Acute) Zenkers diverticulum (Acute) Physical Therapy Inpatient Evaluation/Re-Eval M1 PT/OT-IP Prior Functional Status Start: 11/10/19 14:02 Freq: NEEDED Status: Active Protocol: Document 11/10/19 09:26 AB (Rec: 11/10/19 14:18 AB [id number]) Medical Review Prior Functional Status Medical History Reviewed Yes Communication able to make needs known Mobility and Gait pt stated that he is modified independent with all mobilities and ambulation without AD but indoors but occasionally uses his SPC ; uses SPC for outdoor mobility Social History Household Members spouse Living Arrangements House Number of Floors (Floors) One Floor Number of Stairs To Enter/Railing? ramp to enter Home Environment High Toilet,Tub/Shower Home Equipment Front Wheel Walker,Straight Cane,Shower Seat without Backrest,Grab Bars Near Toilet ,Grab Bars In Shower Additional Social History Comment pt stated that his spouse was able to get a fWW for him M2 PT-IP Current Condition Start: 11/10/19 14:02 Freq: NEEDED Status: Active Protocol: Document 11/10/19 09:26 AB (Rec: 11/10/19 14:18 AB [id number]) Physical Therapy Current Condition Current Condition Evaluation Date 11/10/19 Treatment Diagnosis LLE cellulitis; difficulty in walking Onset Date 11/07/19 M3 PT-IP Subjective Start: 11/10/19 14:02 Freq: NEEDED Status: Active Protocol: Document 11/10/19 09:26 AB (Rec: 11/10/19 14:18 AB [id number]) Subjective Physical Therapy Visit Type Type Initial Evaluation Visit Start Time 09:26 Visit Stop Time 11:13 Total Visit Minutes 36 Notes pt seen for split visits: 926 to 949 and 1100 to 1113. pt assisted to the toilet and has to sit on the toilet for a while. checked back on pt after toileting. Physical Therapy Visit Comments Patient Comments agreeable to do PT Therapy Pain Assessment Pain When Pain Assessed At Rest Pain Present Pain Present Pain Reported Location Left Leg Intensity 5 Scale Used increases to 12 with movement Pain Management Techniques Re-positioning,Timing of Activity with Medications M4 PT-IP Mobility and Gait Start: 11/10/19 14:02 Freq: NEEDED Status: Active Protocol: Document 11/10/19 09:26 AB (Rec: 11/10/19 14:18 AB [id number]) PT-Bed Mobility Assessment Supine to Sit Supine to Sit Standby Assistance PT-Transfer Assessment Sit to and From Stand Sit to and from Stand Moderate Assistance,Maximum Assistance,1 Person Assistance ,Use of Upper Extremities Equipment Transfer Assistive Device Gait Belt,Front Wheeled Walker Orthotic/Prosthetic Devices or Brace: No Transfers Transfer Destination Toilet Transfer Technique ambulated using FWW Transfer Ability Level of Assist Contact Guard Assistance, Minimal Assistance,1 Person Assistance Comments Mobility Comments pt completed sit to supine SBA but required increase time to complete and pt presented with difficulty completing task. pt was able to sit on EOB SBA. pt requested to use the toilet. completed sit to stand mod A to min A from EOB and max cues. pt ambulated using fWW to the toilet CGA to min A. pt was able to maintain standing CGA while assisted with brief managment. pt requested to sit and use the toilet for a few minutes. call light placed next to pt. informed NAC. checked on pt again and pt sitting on chair. agreeable to do further PT. PT demonstrated and educated pt for sit <>stand technique. Pt completed sit <>stand x 6 reps and completed with CGA to occasional min A and cues given. pt completed ambulation in room ~ 25 ft using FWW and stated that he has to sit down and c/o being tired. positioned on chair. call light and table placed within reach. informed gearcase assembler regarding d/c plan and pt's mobility. Gait Assessment Gait Gait Assistance Required: Contact Guard Assist,Minimum Assistance Distance (Feet) 25 Able to Maintain Weight Bearing Status Yes During Gait Assistive Devices Assistive Device Gait Belt,Front Wheeled Walker Orthotic/Prosthetic Devices or Brace: No Gait Deviations General Gait Pattern Antalgic,Decreased Stride Length,Decreased Feet Clearance Factors Limiting Gait Function Factors Limiting Gait Function Decreased Activity Tolerance, Decreased Strength,Limited Range of Motion,Pain,Poor Balance,Poor Safety Awareness PT-Balance Assessment Sitting Balance and Reactions Static Sitting Balance Ability Good Dynamic Sitting Balance Ability Good Standing Balance and Reactions Static Standing Balance Ability Fair Dynamic Standing Balance Ability Fair Device Used FWW M5 PT-IP Objective Assessments Start: 11/10/19 14:02 Freq: NEEDED Status: Active Protocol: Document 11/10/19 09:26 (Rec: 11/10/19 14:18 [id number]) Orientation Orientation/Cognition Level of Alertness Alert Orientation Name,Place,Situation Language Function Ability Hard of Hearing Gross Range of Motion Lower Extremity ROM Assessment Within Functional Limits Strength Lower Extremity Strength Assessment Left Impaired Hip 3+/5 Knee 3+/5 Coordination Assessment Gross Coordination Gross Coordination WNL Muscle Tone Muscle Tone WNL Yes M6 PT-IP Treatment Start: 11/10/19 14:02 Freq: NEEDED Status: Active Protocol: Document 11/10/19 09:26 AB (Rec: 11/10/19 14:18 [id number]) Physical Therapy Treatment Education Education Provided Safety M7 PT-IP Assessment and Plan Start: 11/10/19 14:02 Freq: NEEDED Status: Active Protocol: Document 11/10/19 09:26 AB (Rec: 11/10/19 14:18 AB [id number]) PT Summary Assessment and Plan Potential Rehabilitation Potential Good Status of Condition at Evaluation Evolving Summary Impairments Pain,ROM,Strength,Balance, Coordination,Sensation,Tone, Cognition,Bed Mobility, Transfers,Gait,Activity Tolerance Assessment Summary pt requires CGA to min A with mobility and presents with decrease activity tolerance affecting mobility independence. pt wants to go home and stated that spouse can help some but not a whole lot. d/c plan depending on progress and if spouse will be able to assist pt safely. caregiver training will be conducted if needed but at this time, pt may require to go to SNF. will continue to assess progress. Goals Bed Mobility Goal Independent Transfer Goal Independent,Front Wheeled Walker Gait Goal Independent,Front Wheel Walker Gait Distance 15 Days to Meet Goals 5 Frequency of Treatment Frequency Of Treatment Once a Day Treatment Plan Physical Therapy Treatment Plan Bed Mobility Training,Transfer Training,Gait Training, Therapeutic Exercise,Balance Retraining,Discharge Planning, Neuromuscular Re-ed, Coordination Retraining Other Recommendations and Next Treatment ambulation, caregiver training Focus if needed, sit <>stand Recommendations To Nursing Amount of Assist Needed 1 Person Assist Discharge Recommendations PT Discharge Recommendations Home with Assistance,Home Health,SNF Rehab Other Discharge Recommendations SNF vs home with assistance and homehealth PT Transportation Needs at Discharge Private Vehicle,Wheelchair/ Cabulance
[2019-11-10] MEDS: MAGNESIUM HYDROXIDE 30 ML UDC PO (12:26)
[2019-11-10] MEDS: SENNOSIDES 8.6 MG TABLET 17.2 MG PO ×2 (12:26→21:08)
[2019-11-10] MEDS: VANCOMYCIN 1,000 MG/200 ML PIGGYBACK 200 MG IV ×2 (13:33→21:05)
[2019-11-10] MEDS: BISACODYL 10 MG SUPP PR (13:33)
--- NOTE | 2019-11-10 15:05 | P.PN_ITS ---
Subjective Subjective Date Patient Seen: 11/10/19 Interval history: The patient is an 84-year-old male who was admitted to the hospital for chronic left lower extremity ulcer that is nonhealing. In addition he had surrounding cellulitis. The patient reports that he has had significant pain when ambulating. He is unable to ambulate due to the pain. Patient has an appointment at [facility] wound clinic on Tuesday. Ideally like to be discharged in time to follow-up with his wound care appointment. I have discussed the case with Dr. Haider. He will obtain a biopsy of the lesion this afternoon for pathological evaluation. Exam Vital Signs (past 8 hours): - 11/10/19 07:54 11/10/19 08:44 11/10/19 11:19 Temperature 96.9 F L Pulse Rate 97 H Respiratory Rate 18 Blood Pressure 128/66 Pulse Oximetry 96 93 96 11/10/19 12:40 Temperature 97.3 F L Pulse Rate 95 H Respiratory Rate 16 Blood Pressure 133/73 Pulse Oximetry 96 Oxygen Delivery Method Room Air Oxygen Flow Rate 0 Narrative Exam Narrative: Pleasant gentleman somewhat hard hearing but in no obvious distress Lungs: Clear to auscultation Cardiac exam irregularly irregular normal S1-S2 Abdomen: Soft nontender nondistended Extremities: Left lower extremity with a 4 x 4 cm open ulcer, there is exudate, irregular borders. His foot has 2+ edema, there is erythema along the anterior pate down to the level of the foot. Objective Labs Result Diagrams: 11/10/19 05:00 11/10/19 05:00 Labs: Laboratory Results - last 24 hr 11/09/19 11/10/19 11/10/19 23:50 05:00 05:00 WBC 7.9 RBC 3.05 L Hgb 9.2 L Hct 27.4 L MCV 89.7 MCH 30.3 MCHC 33.8 RDW 16.6 H Plt Count 138 L Neut % (Auto) 68.6 Lymph % (Auto) 15.3 L [place] % (Auto) 12.7 Eos % (Auto) 2.9 Baso % (Auto) 0.5 Neut # (Auto) 5400 Lymph # (Auto) 1200 [place] # (Auto) 1000 H Eos # (Auto) 200 Baso # (Auto) 0 PT 17.7 H INR 1.6 H APTT 32 D Sodium Potassium Chloride Carbon Dioxide BUN Creatinine Estimated GFR BUN/Creatinine Ratio Glucose Calcium Urine Color Dark yellow Urine Appearance Cloudy Urine pH 5.0 Ur Specific [place] 1.020 Urine Protein Negative Urine Glucose (UA) Negative Urine Ketones Negative Urine Occult Blood 3+ H Urine Nitrate Negative Urine Bilirubin Negative Urine Urobilinogen 0.2 Ur Leukocyte Esterase Negative Urine RBC 30-100/hpf H Urine WBC 0-1/hpf Urine Bacteria None seen Ur Culture Indicated? Cult not indicated 11/10/19 05:00 WBC RBC Hgb Hct MCV MCH MCHC RDW Plt Count Neut % (Auto) Lymph % (Auto) [place] % (Auto) Eos % (Auto) Baso % (Auto) Neut # (Auto) Lymph # (Auto) [place] # (Auto) Eos # (Auto) Baso # (Auto) PT INR APTT Sodium 134 L Potassium 4.0 Chloride 99 Carbon Dioxide 27 BUN 22 H Creatinine 1.12 Estimated GFR > 60.0 BUN/Creatinine Ratio 19.6 Glucose 94 Calcium 8.8 Urine Color Urine Appearance Urine pH Ur Specific [place] Urine Protein Urine Glucose (UA) Urine Ketones Urine Occult Blood Urine Nitrate Urine Bilirubin Urine Urobilinogen Ur Leukocyte Esterase Urine RBC Urine WBC Urine Bacteria Ur Culture Indicated? Assessment & Plan Assessment & Plan narrative: Assessment & Plan narrative: This is an 84-year-old male patient history of TAVR, paroxysmal AFib, anticoagulated on Xarelto, systolic heart failure, chronic left lower extremity wound since cellulitis hospitalization in September of this year who is admitted for acute left lower e xtremity cellulitis associated with nonhealing left lower pate ulcer. 1. Acute left lower leg cellulitis associated with chronic left pate ulcer, present on admission, active -wound culture positive for Streptococcus -given chronic nonhealing ulcer, concern is raised for other possible diagnoses. -consider the possibility of pyoderma gangrenosum -patient will have biopsy of the ulcer today -patient will be initiated on systemic steroids following the biopsy -patient to continue local wound care as recommended by Dr. Schafer 2. Chronic kidney disease stage IIIA, present on admission, stable. -BUN and creatinine are 24 and 1.19 on admission labs. Baseline creatinine fluctuates 1.1 to 1.5 on outpatient labs. -current creatinine 1.18 within his range, earlier creatinine 1.27 -the patient continues on Lasix therapy 40 mg twice daily. -will discontinue vancomycin 3. Paroxysmal atrial fibrillation, anticoagulated on Xarelto, in sinus rhythm, stable -Patient denies complaints of chest pain and is unaware of his irregular rhythm. -currently in atrial fibrillation with irregularly irregular rhythm -continue amiodarone 200 mg daily. -Will continue Xarelto 15 mg each evening -DC telemetry 4. Congestive heart failure with reduced ejection fraction, chronic, present on admission, stable. -no evidence of CHF exacerbation -continue furosemide 40 mg twice daily with meals. 5. Lung cancer status post resection, present on admission, stable. 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 -Follow-up bronchoscopy at [facility], patient is followed by oncology and pulmonology for surveillance. -no evidence of recurrence or complication at this time. 6. Essential Hypertension present on admission, stable. -Patient's blood pressure is stable -continue lisinopril 5 mg daily 7. Hypothyroidism, stable -Continue home regimen of levothyroxine 25 mcg daily. 8. Hyperlipidemia, stable Continue home regimen of atorvastatin 10 mg daily. 9. Anemia -no evidence of blood loss -suspect anemia of chronic disease - will check iron studies and follow Isolation: COVID-19 negative VTE prophylaxis: on Xarelto IV fluids: Saline lock Diet: Heart healthy. Code status: FULL CODE. Patient's is surrogate decision maker. Quality VTE Deep Vein Thrombosis/Pulmonary Embolism Present on Admission: No
--- NOTE | 2019-11-10 16:00 | CM.DPNOTE ---
DCP Cont Brief conversation w/spouse Fouzia today, she remains hopeful to take patient home but explains she will not be able to care for him if he is unable to ambulate. Fouzia covarrubias w/ SNF referral to [facility] for b/u plan. Fouzia reiterates she hopes to take patient home Tuesday or early Tuesday morning to make it to his wound care appt at [facility]. Ankur CHANCE RN scheduled for Tuesday. Spoke w/ PT Toña who suggested patient might be strong enough to return home w/min assist but his activity tolerance is very low. Next 24 hrs might assist in dispo planning. TUCKER
[2019-11-10] MEDS: RIVAROXABAN 10 MG TABLET 15 MG PO (17:17)
[2019-11-10] MEDS: lisinopriL 5 MG TABLET PO (17:17)
[2019-11-10 20:37] LABS: Vancomycin Trough 14.8 ug/mL (10-20)
[2019-11-10] MEDS: MELATONIN 3 MG TABLET 6 MG PO (21:08)
[2019-11-10] MEDS: SODIUM CHLORIDE 0.9% 100 ML 41 ML (21:12)
[2019-11-10] MEDS: VANCOMYCIN TROUGH 1 REQUEST MISC (21:14)
--- NOTE | 2019-11-10 21:57 | PC.NURSE ---
Pt has had multiple BMs, able to ambulate well with SBA x 1 and FWW. Edema on LLE appears to be improving. Pt is keeping LLE elevated. Pt rates pain 8/ but bx does not match that rating. Pt is eating and drinking voiding clear yellow qs. LS clear, VSS. A and O x 4 but forgetful at times. Pt states he is going to [facility] on Tuesday.
[2019-11-11] MEDS: AMPICILLIN/SULBACTAM 3 GM 3 GM in SODIUM CHLORIDE 0.9% 100 ML IV ×2 (00:45→06:21)
[2019-11-11] MEDS: SODIUM CHLORIDE 0.9% FLUSH 10 ML IV ×3 (00:45→08:09)
[2019-11-11] MEDS: OXYCODONE IR 10 MG TABLET PO (00:52)
--- NOTE | 2019-11-11 00:55 | PC.NURSE ---
Addendum entered by Lisa Gore R.N. 11/11/19 06:57: Noted weight to be down 4.3 kg this morning but bed was not rezeroed and then patient reweighed so will have day shift recheck. Joaquín BHAGAT, informed. Addendum entered by Lisa Gore R.N. 11/11/19 02:02: Patient states pain is still 8/10; describes as intermittent and grabbing. Medicated with IV Dilaudid, care plan updated and Joaquín BHAGAT, notified. Original Note: Patient initially seen and assessed at 2345. Is alert and oriented except to day of month. Is [place] and does not have hearing aids here. Breath sounds CTA with RA sat of 96%. HR irregular; has hx of afib and is rate controlled. Denies nausea. BT present and abdomen is soft; passing flatus and had BM yesterday. Voiding per urinal; denies dysuria, frequency or urgency and has had no more penile bleeding. Able to move self in bed but tends to stay supine due to keeping left LE elevated. Coccyx/buttocks remain red but more dull color than last night and skin still intact; has waffle cushion beneath buttocks in bed and using barrier cream prn. 2+ edema in left LE tonight. Dressing to left leg is intact with slight erythema noted around dressing. Gets up with 1-2 assist + walker and is now able to bear more weight on left foot than pre hospital. Complains of 8/10 spasm like pain in left LE so medicated with Oxycodone. Continued bilateral foot numbness/tingling. Fall risk score is high and bed alarm is activated.
[2019-11-11] MEDS: HYDROMORPHONE 0.5 MG INJ IV (01:58)
[2019-11-11 03:34] VITALS: BP 129/59; PULSE 80; RESP 16; TEMP 36.4; O2SAT 97
[2019-11-11] MEDS: LEVOTHYROXINE 50 MCG TABLET PO (06:22)
[2019-11-11] MEDS: SODIUM CHLORIDE 0.9% 250 ML 21 ML IV (06:23)
[2019-11-11 07:25] VITALS: O2SAT 96
--- NOTE | 2019-11-11 07:55 | PM.DS.1 ---
History of Present Illness History of Present Illness Date Patient Seen: 11/11/19 Chief complaint: Possible infection on left leg. Narrative: Mr. Saulo Russ is an 84-year-old male with past medical history significant for severe aortic stenosis and mitral regurgitation status post TAVR, congestive heart failure with reduced ejection fraction, left renal cell carcinoma status post partial nephrectomy, status post right upper lobe lung wedge resection for adenocarcinoma, liver hemangioma with fatty liver disease, hypertension, hyperlipidemia, GERD, obstructive sleep apnea and degenerative disc disease with spinal stenosis who presents to the emergency department complaints of severe pain left lower extremity. The patient is followed by the wound care clinic for nonhealing wound of left anterior lower leg. He had been hospitalized from 09/09/2021 09/15/2019 for nonhealing wound and cellulitis. He subsequently underwent a wound debridement by Dr. Mazariegos on 10/23/2019 with a wound measuring 6 cm x 4 cm with a healthy tissue base following procedure. Cultures obtained during the procedure identified Enterobacter fascialis and staff epidermidis. The patient had wound VAC placed that was removed yesterday at the wound clinic by Dr. Banuelos and the patient reports there is additional debridement at that time. Patient additionally reports having redness of the lower extremity present for the last few days. Following the procedure the patient was home with excruciating pain describes as 10 out of 10 that is sharp and aggravated by dorsiflexion of the foot producing a sharp, stinging intense pain and describes paining running up the anterior medial lower leg. He reports decreased sensation of his foot with no history of diabetes or prior notation of neuropathy. Patient reports developing chills today but denies fevers or nausea. The patient denies headaches or visual changes has a history of impaired hearing using hearing aids not with him, and reports runny nose but denies sore throat. Denies complaints of neck or back pain and has no chest pain and is unaware of atrial fibrillation when it occurs. He denies shortness of breath cough or wheezing and has no abdominal pain, heartburn, nausea or vomiting. He reports he has not had a bowel movement in 2 days and and is passing hard stool described as ?a brick?. The patient is able ambulate as long as he does not dorsiflex the foot albeit with severe pain. Upon arrival to the ER the patient is afebrile with temperature 98.9?, heart rate of 70, blood pressure 140/60, respirations 16 saturating 100% on room air. The patient's wound assessed and venous Dopplers obtained related to swelling and calf pain identified in the ER. Doppler is negative for DVT. Lower extremity MRI is obtained finding cellulitis the left lower extremity and ankle with no fluid collections and no evidence of osteomyelitis. On laboratory analysis the patient has elevated white count of 23.3, hemoglobin 12.3, hematocrit of 36.6, platelets 167. His electrolytes are within normal limits and has a BUN of 24 and a creatinine of 1.19. His nonfasting glucose is 1 0 was 7. His liver functions are all well within normal range. LDH is checked at 328 and a total CK is 38. His lactic acid is 2.1, procalcitonin 0.86, it sed rate is 40 and CRP is 4.4. In the ER the patient has received normal saline morphine for pain and Zofran and initial dose of Zosyn 3.375 g IV. The patient is admitted to the medicine service for cellulitis and nonhealing wound left lower leg. Discharge Providers Provider Date of admission: 11/07/19 18:31 Discharge Date: 11/11/19 Primary care physician: Corrine Ghosh MD Consults: 11/07/19 20:59 Consult to General Surgery Routine Comment: Consulting Provider: Tami Polanco Reason for consultation: Wound evaluation and debridement Has provider been notified: Yes 11/09/19 14:20 Consult to Physical Therapy Evaluate & Treat Comment: likely d/c home tomorrow, needs walker Physician Instructions: Evaluate and Treat Discharge provider: Elizabeth Hernández MD Summary Hospital Course Discharge Diagnosis: 1. Left lower extremity cellulitis 2. Nonhealing ulcer of the left lower extremity, rule out pyoderma gangrenosum 3. Paroxysmal atrial fibrillation 4. Status post TAVR, aortic valve replaced 5. Hyperlipidemia 6. Congestive heart failure, with reduced ejection fraction 7.Chronic lower extremity edema 8. History of renal cell carcinoma 9. History of adenocarcinoma of the lung 10. Hypertension 11. GERD 12. Obstructive sleep apnea 13. Anemia, suspect anemia of chronic disease Hospital Course: Patient was admitted to the hospital for treatment of left lower extremity cellulitis and a nonhealing ulcer of the left anterior pate. Patient was seen in the hospital by Dr. Hester who performed dressing changes on him. He previously had debridement on October [address] Mazariegos. This was followed by placement of wound VAC. The wound VAC was removed and bedside debridement was done. Patient developed swelling pain and redness of the left leg. He had an elevated white count. He was admitted to the hospital for treatment of cellulitis. His cellulitis of the left lower extremity improved. However the patient continued to have significant pain in the left lower extremity. The ulcer never really healed. As the patient continued to have difficulty with weight-bearing arrangements were made for him by his to have an outpatient wound care evaluation at [facility]. As the patient has an extensive past medical history and no obvious cause for the nonhealing ulcer the diagnosis of pyoderma gangrenosum was entertained. Arrangements were made for general surgery, Dr. Haider, to perform a biopsy of the lesion. After discussing with the they elected that this would be done at [facility]. The patient was empirically started on prednisone at 60 mg per day. Will continue on the prednisone in addition to oral antibiotics for cellulitis. The patient has no shortness of breath abdominal pain diarrhea or shortness of breath today. He reports his pain is better when he ambulates somewhat and has been in bed this morning. He is a has been deemed appropriate for discharge with plans to follow-up with [facility] for an outpatient wound care clinic tomorrow at noon. Exam Vital Signs (past 8 hours): - 11/11/19 03:34 11/11/19 07:25 Temperature 97.5 F L Pulse Rate 80 Respiratory Rate 16 Blood Pressure 129/59 L Pulse Oximetry 97 96 Oxygen Delivery Method Room Air Oxygen Flow Rate 0 Narrative Exam Narrative: Pleasant elderly gentleman in no obvious distress Lungs: Decreased breath sounds but clear to auscultation Cardiac exam: Irregularly irregular normal S1-S2 with a 3/6 systolic ejection murmur Abdomen: Soft nontender nondistended Extremities: Left lower extremity with 2+ edema, decreased erythema. 4 x 4 cm violaceous ulcer with some irregular borders and weeping is noted. This is unchanged Objective Labs Result Diagrams: 11/10/19 05:00 11/10/19 05:00 Labs: Laboratory Results - last 24 hr 11/10/19 19:35 Vancomycin Trough 14.8 Discharge Plan Discharge Plan Patient Disposition: Home Discharge comment: Will follow up at [facility] as scheduled tomorrow Discharge orders & Medications Prescriptions: New prednisone 20 mg Tablet 60 mg PO DAILY 7 Days RF: 0 amoxicillin-pot clavulanate [Augmentin] 875-125 mg tablet 1 tab PO BID Qty: 10 RF: 0 Continued coenzyme Q10 [Co Q-10] 100 MG capsule 300 mg PO DAILY Qty: 0 RF: 0 aspirin [Adult Aspirin Regimen] 81 mg tablet,delayed release (DR/EC) 81 mg PO DAILY RF: 0 lisinopril 5 mg Tablet 5 mg PO QPM RF: 0 cholecalciferol (vitamin D3) [Vitamin D3] 1,000 unit Capsule 1,000 unit PO DAILY RF: 0 atorvastatin [Lipitor] 20 MG tablet 10 mg PO DAILY RF: 0 furosemide [Lasix] 20 MG tablet 40 mg PO BID RF: 0 levothyroxine 25 mcg capsule 50 mcg PO DAILY RF: 0 B-complex with vitamin C [Super B Complex-Vitamin C] Tablet 1 tab PO DAILY RF: 0 turmeric 1,000 mg capsule 2,000 mg PO DAILY RF: 0 Tylenol Extra Strength 500 mg tablet 500 mg PO PRN MDD 4000 mg PRN (Reason: Fever Or Pain) RF: 0 ketoconazole 2 % cream 1 applic transdermal PRN PRN (Reason: fungal infections, yeast) RF: 0 metronidazole cream 1 applic transdermal PRN PRN (Reason: Nose Rosacea) RF: 0 amiodarone 200 mg tablet 200 mg PO ONCE PM RF: 0 acetaminophen-codeine 300-30 mg tablet 2 tab PO BID PRN (Reason: pain) RF: 0 Xarelto 15 mg tablet 15 mg PO QPM RF: 0 Follow up/Referrals: Corrine Ghosh MD [Primary Care Provider] - Diet/Activity/Treatments Diet: Low-sodium and Low-cholesterol Activity: as tolerated Skin/Wound/Dressing Care Skin care: wound care per [facility] Visit Report/Discharge Packet Instructions: DI for Cellulitis -- Adult Discharge Data Primary Care Provider: Corrine Ghosh VTE Deep Vein Thrombosis/Pulmonary Embolism Present on Admission: No
[2019-11-11] MEDS: FUROSEMIDE 40 MG TABLET PO (08:06)
[2019-11-11] MEDS: ATORVASTATIN 10 MG TABLET PO (08:06)
[2019-11-11] MEDS: ASPIRIN EC 81 MG TABLET PO (08:06)
[2019-11-11] MEDS: AMIODARONE 200 MG TABLET PO (08:06)
[2019-11-11] MEDS: SENNOSIDES 8.6 MG TABLET 17.2 MG PO (08:07)
[2019-11-11] MEDS: DOCUSATE 100 MG CAPSULE PO (08:07)
[2019-11-11] MEDS: OXYCODONE IR 5 MG TABLET PO (08:07)
[2019-11-11] MEDS: predniSONE 20 MG TABLET 60 MG PO (08:08)
[2019-11-11 08:50] VITALS: BP 112/59; PULSE 76; RESP 18; TEMP 36.2; O2SAT 97
--- NOTE | 2019-11-11 10:01 | CM.DPNOTE ---
DCP/continued: Received notification from provider that patient medically stable for discharge today. DAIRY CATTLE FARM MANAGER met with patient to confirm plan. Patient confirms that his spouse/Kerry will be here today to pick him up. Patient requests that spouse be with patient during the time discharge instructions are given. Patient reports to having poor memory. RN/Jennifer notified and will call spouse. Patient does have cane, walker, and w/c at home to use as needed. Patient in agreement to d/c today and important message from medicare signed on patient's behalf by DAIRY CATTLE FARM MANAGER. P: Home today. SANDY Cyr
--- NOTE | 2019-11-11 10:16 | PC.NURSE ---
Addendum entered by Jennifer Perez R.N. 11/11/19 12:16: Pt's Fouzia in pt's room for discharge instructions. Pt ambulated in halls with PT and his Fouzia. Discharge summary packet review at [phone]. Prescription for Prednisone faxed to [facility] in [place]. Augmentin was already electronically sent. Plan for pt to still go to Wound Clinic tomorrow, Tuesday. No further voiced concerns, all questions answered. Pt states has all belongings. Pt left unit via wheelchair with BUILD ENGINEER escort at 1145 in no distress with Fouzia at his side. Original Note: Day Shift- Called pt's Fouzia at 0915, and made aware that pt is being discharged and to follow up and wound clinic tomorrow Tuesday. Pt thinks his appointment is at noon. Fouzia plans to be here around 1030. LLE dressing removed for moderate amount of drainage. Small amount of drainage onto Mextra Superabsorbent dressing.. Cleansed with NS, pat dry. Skin prep placed to wound edges. Aquacel AG not available, therefore Algisite M applied to wound bed, covered with Mextra superabsorbent dressing and secured with kerlix wrap. Pt tolerated well.
--- NOTE | 2019-11-11 11:00 | PT.IPTN ---
Current Diagnoses Heart failure, unspecified (11/07/19) Cellulitis of left lower limb (11/07/19) Unspecified open wound, left lower leg, initial encounter (11/07/19) Physical Therapy Treatment Note M2 PT-IP Current Condition Start: 11/10/19 14:02 Freq: NEEDED Status: Discharge Protocol: Document 11/10/19 09:26 AB (Rec: 11/10/19 14:18 AB [id number]) Physical Therapy Current Condition Current Condition Evaluation Date 11/10/19 Treatment Diagnosis LLE cellulitis; difficulty in walking Onset Date 11/07/19 M3 PT-IP Subjective Start: 11/10/19 14:02 Freq: NEEDED Status: Discharge Protocol: Document 11/11/19 11:00 AW (Rec: 11/11/19 12:37 AW [id number]) Subjective Physical Therapy Visit Type Type Treatment Note Visit Start Time 10:48 Visit Stop Time 10:58 Total Visit Minutes 10 Notes Pt seen with spouse, Cora, participating in caregiver training. Physical Therapy Visit Comments Patient Comments agreeable to do PT, ready to discharge Therapy Pain Assessment Pain When Pain Assessed During Mobility Pain Present Pain Present Pain Reported Location Left Leg Intensity 6 Scale Used Numeric (1 - 10) Pain Management Techniques Re-positioning,Timing of Activity with Medications M4 PT-IP Mobility and Gait Start: 11/10/19 14:02 Freq: NEEDED Status: Discharge Protocol: Document 11/11/19 11:00 AW (Rec: 11/11/19 12:37 AW [id number]) PT-Transfer Assessment Sit to and From Stand Sit to and from Stand Standby Assistance,1 Person Assistance,Use of Upper Extremities Equipment Transfer Assistive Device Gait Belt,Front Wheeled Walker Orthotic/Prosthetic Devices or Brace: No Transfers Transfer Destination Chair Transfer Technique ambulated using FWW Transfer Ability Level of Assist Standby Assistance Comments Mobility Comments Pt sitting up in chair upon PT arrival with report from RN that pt had been ambulating this morning with FWW SBA. Pt' s was instructed in donning gait belt before pt stood from chair SBA. He then ambulated in the halls using FWW SBA before returning to the room and transferring to the chair SBA. He was left with RN for discharge instructions. Gait Assessment Gait Gait Assistance Required: Standby Assistance Distance (Feet) 220 Able to Maintain Weight Bearing Status Yes During Gait Assistive Devices Assistive Device Gait Belt,Front Wheeled Walker Orthotic/Prosthetic Devices or Brace: No Gait Deviations General Gait Pattern Antalgic,Decreased Stride Length,Decreased Feet Clearance,Flexed Trunk,Step-to Gait Factors Limiting Gait Function Factors Limiting Gait Function Decreased Activity Tolerance, Decreased Strength,Limited Range of Motion,Pain,Poor Balance,Poor Safety Awareness Comments Gait Comments Pt ambulated around the nurse station with FWW SBA. He and his were instructed in sizing his FWW at home. Pt ambulated with step-to pattern and flexed posture but was able to correct somewhat in response to verbal cues. Pt and his were both comfortable with cues for safe FWW usage and agreed that pt was safest with FWW at this time. M5 PT-IP Objective Assessments Start: 11/10/19 14:02 Freq: NEEDED Status: Discharge Protocol: Document 11/10/19 09:26 AB (Rec: 11/10/19 14:18 AB [id number]) Orientation Orientation/Cognition Level of Alertness Alert Orientation Name,Place,Situation Language Function Ability Hard of Hearing Gross Range of Motion Lower Extremity ROM Assessment Within Functional Limits Strength Lower Extremity Strength Assessment Left Impaired Hip 3+/5 Knee 3+/5 Coordination Assessment Gross Coordination Gross Coordination WNL Muscle Tone Muscle Tone WNL Yes M6 PT-IP Treatment Start: 11/10/19 14:02 Freq: NEEDED Status: Discharge Protocol: Document 11/11/19 11:00 AW (Rec: 11/11/19 12:37 AW [id number]) Physical Therapy Treatment Education Education Provided Safety M7 PT-IP Assessment and Plan Start: 11/10/19 14:02 Freq: NEEDED Status: Discharge Protocol: Document 11/11/19 11:00 AW (Rec: 11/11/19 12:37 AW [id number]) PT Summary Assessment and Plan Potential Rehabilitation Potential Good Summary Impairments Pain,ROM,Strength,Balance, Coordination,Sensation,Tone, Cognition,Bed Mobility, Transfers,Gait,Activity Tolerance Progress Towards Goals Progressing Toward Goals Assessment Summary Pt required SBA with all mobility today in spite of increased swelling LLE. Pain was better managed today. Pt's participated in caregiver training and was able to provide appropriate level of assist and cues for safe mobility with FWW. Pt is safe to discharge to home with spouse assist. Goals Bed Mobility Goal Independent Transfer Goal Independent,Front Wheeled Walker Gait Goal Independent,Front Wheel Walker Gait Distance 15 Days to Meet Goals 2 Frequency of Treatment Frequency Of Treatment Once a Day Treatment Plan Physical Therapy Treatment Plan Bed Mobility Training,Transfer Training,Gait Training, Therapeutic Exercise,Balance Retraining,Discharge Planning, Neuromuscular Re-ed, Coordination Retraining Recommendations To Nursing Amount of Assist Needed Standby Assistance Discharge Recommendations PT Discharge Recommendations Home with Assistance,Home Health Other Discharge Recommendations Home with PT Transportation Needs at Discharge Private Vehicle
--- NOTE | 2019-11-12 10:49 | CM.DPC ---
DCP/Late Entry: Received call from [facility]. They report that patient was on service prior to admit and they would like order to resume those services. Order obtained and PRINTMAKER requested [employer] TURNER fax with d/c summary. BERTHA
== END 2019-11-11 11:45 | disposition home or self-care (01) | DRG 603 ==
LOC: ED 17:50 → AC 18:32
PROVIDERS: Nurse Practitioner Adult Health; Admitting Provider Internal Medicine; Emergency Provider Emergency Medicine; Family Provider Internal Medicine; PCP Internal Medicine; Referring Provider Emergency Medicine; Visit Provider Internal Medicine
DX: L03.116 Cellulitis of left lower limb (principal); I13.0 Hypertensive heart and chronic kidney disease with heart failure and stage 1 through stage 4 chronic kidney disease, or unspecified chronic kidney disease; I50.22 Chronic systolic (congestive) heart failure; I45.2 Bifascicular block; L97.821 Non-pressure chronic ulcer of other part of left lower leg limited to breakdown of skin; L88 Pyoderma gangrenosum; N18.3 Chronic kidney disease, stage 3 (moderate); I48.0 Paroxysmal atrial fibrillation; E78.5 Hyperlipidemia, unspecified; G47.33 Obstructive sleep apnea (adult) (pediatric); E03.9 Hypothyroidism, unspecified; R60.0 Localized edema; D63.8 Anemia in other chronic diseases classified elsewhere; I36.1 Nonrheumatic tricuspid (valve) insufficiency; K21.9 Gastro-esophageal reflux disease without esophagitis; Z79.01 Long term (current) use of anticoagulants; Z95.2 Presence of prosthetic heart valve; Z85.528 Personal history of other malignant neoplasm of kidney; Z85.118 Personal history of other malignant neoplasm of bronchus and lung; Z11.59 Encounter for screening for other viral diseases
CPT/HCPCS: 11043; 11046; 36415; 73719; 80048; 80053; 80202; 81001; 82550; 83605; 83615; 83735; 84145; 85025; 85610; 85651; 85730; 86140; 87040; 87070; 87077; 87147; 87150; 87205; 87635; 93971; 96365; 96367; 96375; 97116; 97162; 99213; 99284; 99285; 99406; A9579; J0295; J1170; J2270; J2405; J2543